=== PATIENT | male | born 1975 | race Caucasian/White ===

== ENCOUNTER 2017-05-05 10:24 | Emergency (ER) | payer SELFPAY ==
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
[2017-05-05 11:13] LABS: ALT (SGPT) 39 U/L (8-55); AST (SGOT) 45 U/L (5-34); Albumin 4.2 g/dL (3.5-5.0); Alkaline Phosphatase 86 U/L (40-150); Anion Gap 19 mmol/L (10-20); BUN (Urea Nitrogen) 9 mg/dL (8.9-20.6); Bilirubin, Total 1.5 mg/dL (0.2-1.2); Calc. Creatinine Clearance 0 mL/min (70-130); Calcium 9.7 mg/dL (7.8-10.44); Carbon Dioxide 25 mmol/L (22-29); Chloride 102 mmol/L (98-107); Estimated GFR-MDRD Greater than 90; Globulin 2.5 g/dL (2.4-3.5); Glucose 119 mg/dL (70-105); Potassium 3.8 mmol/L (3.5-5.1); Protein, Total 6.7 g/dL (6.0-8.3); Sodium 142 mmol/L (136-145)
[2017-05-05 11:20] LABS: #Lymphocytes 0.8 thou/uL (1.20-3.40); #Monocytes 0.6 thou/uL (0.11-0.59); #Neutrophils 3.9 thou/uL (1.40-6.50); %Basophils 0.3 % (0.0-1.0); %Eosinophils 0.3 % (0.0-10.0); %Lymphocytes 14.8 % (21.0-51.0); %Monocytes 10.7 % (0.0-10.0); %Neutrophils 73.9 % (42.0-75.0); Hemoglobin 14.2 g/dL (14.0-18.0); Mean Corpuscular HGB CONC 33.7 g/dL (32.0-36.0); Mean Corpuscular Hemoglobin 40.6 pg (27.0-31.0); Mean Platelet Volume 7.5 fL (7.4-10.4); Platelet Count 282 thou/uL (130-400); RBC Distribution Width 14.4 % (11.5-14.5); Red Blood Cell (RBC) Count 3.51 mill/uL (4.70-6.10); White Blood Cell (WBC) Count 5.2 thou/uL (4.8-10.8)
[2017-05-05 11:37] LABS: MDiff Complete? YES; Macrocytosis SLIGHT = 6-15 cells (100X) (0-5/hpf)
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
[2017-05-05] MEDS ORDERED: Ketorolac Tromethamine 30 MG/ML VIAL ONE (13:25)
== END 2017-05-05 13:35 | disposition home or self-care (01) ==
LOC: ERS 10:24
DX: S06.0X0A Concussion without loss of consciousness, initial encounter (principal); S16.1XXA Strain of muscle, fascia and tendon at neck level, initial encounter; E03.9 Hypothyroidism, unspecified; F41.9 Anxiety disorder, unspecified; Z79.899 Other long term (current) drug therapy; Z79.01 Long term (current) use of anticoagulants; V49.9XXA Car occupant (driver) (passenger) injured in unspecified traffic accident, initial encounter
CPT/HCPCS: 70450; 72125; 80053; 85025; 96374; J1885

== ENCOUNTER 2017-09-10 15:43 | Emergency (ER) | payer SELFPAY ==
[2017-09-10 16:28] LABS: #Eosinphils 0.1 thou/uL (0.0-0.7); #Lymphocytes 1.6 thou/uL (1.20-3.40); #Monocytes 0.5 thou/uL (0.11-0.59); #Neutrophils 3.6 thou/uL (1.40-6.50); %Basophils 0.8 % (0.0-1.0); %Eosinophils 1.5 % (0.0-10.0); %Monocytes 9.1 % (0.0-10.0); %Neutrophils 61.6 % (42.0-75.0); Hemoglobin 12.8 g/dL (14.0-18.0); Mean Corpuscular HGB CONC 33.5 g/dL (32.0-36.0); Mean Corpuscular Hemoglobin 39.6 pg (27.0-31.0); Mean Platelet Volume 7.3 fL (7.4-10.4); Platelet Count 194 thou/uL (130-400); RBC Distribution Width 14.7 % (11.5-14.5); Red Blood Cell (RBC) Count 3.22 mill/uL (4.70-6.10); White Blood Cell (WBC) Count 5.9 thou/uL (4.8-10.8)
[2017-09-10 16:32] LABS: INR-International Normal Ratio 1.3
[2017-09-10 16:33] LABS: PTT 32.4 SEC (22.9-36.1)
--- NOTE | 2017-09-10 16:43 | RAD ---
PORTABLE CHEST ONE VIEW: 09/10/17 at 3:51 p.m. HISTORY: Leg swelling. Mild left pain. DVT. FINDINGS: The heart size is borderline. The lungs are well expanded without focal areas of consolidation, pneum othorax, titus pulmonary edema or pleural effusions. IMPRESSION: No acute process. POS: YUDITHH
[2017-09-10 16:44] LABS: MDiff Complete? YES; Macrocytosis SLIGHT = 6-15 cells (100X) (0-5/hpf); PLT Morphology Comment Appears Adequate
[2017-09-10 16:50] LABS: ALT (SGPT) 58 U/L (8-55); AST (SGOT) 43 U/L (5-34); Albumin 3.4 g/dL (3.5-5.0); Alkaline Phosphatase 75 U/L (40-150); Anion Gap 14 mmol/L (10-20); BUN (Urea Nitrogen) 9 mg/dL (8.9-20.6); Bilirubin, Total 1.3 mg/dL (0.2-1.2); Calc. Creatinine Clearance 0 mL/min (70-130); Calcium 8.3 mg/dL (7.8-10.44); Carbon Dioxide 26 mmol/L (22-29); Chloride 108 mmol/L (98-107); Estimated GFR-MDRD Greater than 90; Globulin 2.3 g/dL (2.4-3.5); Glucose 102 mg/dL (70-105); Potassium 3.7 mmol/L (3.5-5.1); Protein, Total 5.7 g/dL (6.0-8.3); Sodium 144 mmol/L (136-145)
--- NOTE | 2017-09-10 17:45 | ULT ---
BILATERAL LOWER EXTREMITY VENOUS DUPLEX EXAM: 09/10/17 Deep veins of both lower extremities evaluated with color doppler and spectral analysis and compressi on. INDICATIONS: Bilateral leg edema and pain. FINDINGS: Right lower extremity shows nonocclusive DVT extending from the proximal femoral vein throughout the thigh and extending into the popliteal vein. There is no compression. There is some blood flow seen with doppler with echogenic thrombus present. Findings of the left lower extremity show normal compression and blood flow. IMPRESSION: Positive study for DVT in the right lower extremity. Dr. Dubois was notified at time of dictation. Code CR POS: YUDITH
[2017-09-10] MEDS ORDERED: Ketorolac Tromethamine 30 MG/ML VIAL ONE (17:46)
--- NOTE | 2017-09-10 17:54 | CT ---
CT ANGIO CHEST WITH CONTRAST: 09/10/17 Multiple axial tomograms obtained through the chest with pulmonary angio protocol. Multiplanar recons truction and 3D postprocessing performed. INDICATION: DVT, hypotension. FINDINGS: Pulmonary arteries show adequate opacification. No evidence of pulmonary embolus identified. The lung longoria show patchy infiltrate in the left lower lobe which could represent early pneumonia. There appears to be some associated atelectasis in the left lower lobe as well. There is a nodular opacity in the right middle lobe measuring 5 mm. There may be some surrounding inf iltrate at this site. Mediastinum unremarkable. Small sliding diaphragmatic hernia with postop changes involving the stomac h. IMPRESSION: 1. No evidence of pulmonary embolus. 2. Evidence of patchy left lower lobe infiltrate. Question right middle lobe infiltrate and righ t middle lobe nodule. Followup is recommended to confirm clearing and reassess the nodularity. Code LN POS: GENNY
[2017-09-10] MEDS ORDERED: ISOVUE-370 76%-LOCM 1 ML ONE (18:24)
== END 2017-09-10 18:53 | disposition home or self-care (01) ==
LOC: ERS 15:43
DX: I82.411 Acute embolism and thrombosis of right femoral vein (principal); E03.9 Hypothyroidism, unspecified; F41.9 Anxiety disorder, unspecified; Z79.899 Other long term (current) drug therapy
CPT/HCPCS: 71045; 71275; 80053; 83880; 85025; 85610; 85730; 93005; 93970; 96374; J1885

== ENCOUNTER 2017-09-13 20:42 | Emergency (ER) | payer SELFPAY | END 2017-09-13 21:40 | disposition left against medical advice (07) | LOC: ERS 20:42 | DX: Z53.21 Procedure and treatment not carried out due to patient leaving prior to being seen by health care provider (principal) ==

== ENCOUNTER 2018-01-19 07:00 | Emergency (ER) | payer SELFPAY ==
[2018-01-19] MEDS ORDERED: HYDROcodone/Acetaminophen 5/325 mg Tablet ONE (07:21)
[2018-01-19 08:01] LABS: ALT (SGPT) 16 U/L (8-55); AST (SGOT) 53 U/L (5-34); Albumin 3.6 g/dL (3.5-5.0); Alkaline Phosphatase 68 U/L (40-150); Anion Gap 17 mmol/L (10-20); BUN (Urea Nitrogen) 6 mg/dL (8.9-20.6); Bilirubin, Total 2.3 mg/dL (0.2-1.2); Calc. Creatinine Clearance 0 mL/min (70-130); Calcium 8.9 mg/dL (7.8-10.44); Carbon Dioxide 27 mmol/L (22-29); Chloride 99 mmol/L (98-107); Estimated GFR-MDRD Greater than 90; Globulin 2.3 g/dL (2.4-3.5); Glucose 125 mg/dL (70-105); Potassium 3.9 mmol/L (3.5-5.1); Protein, Total 5.9 g/dL (6.0-8.3); Sodium 139 mmol/L (136-145)
[2018-01-19 08:11] LABS: #Lymphocytes 0.6 thou/uL (1.20-3.40); #Monocytes 0.7 thou/uL (0.11-0.59); #Neutrophils 4.2 thou/uL (1.40-6.50); %Basophils 0.1 % (0.0-1.0); %Lymphocytes 11.5 % (21.0-51.0); %Neutrophils 76.3 % (42.0-75.0); Hemoglobin 11.7 g/dL (14.0-18.0); MDiff Complete? YES; Macrocytosis MODERATE=16-30 cells (100X) (0-5/hpf); Mean Corpuscular HGB CONC 32.2 g/dL (32.0-36.0); Mean Corpuscular Hemoglobin 35.4 pg (27.0-31.0); Mean Platelet Volume 7.4 fL (7.4-10.4); Platelet Count 192 thou/uL (130-400); RBC Distribution Width 14.7 % (11.5-14.5); Red Blood Cell (RBC) Count 3.32 mill/uL (4.70-6.10); White Blood Cell (WBC) Count 5.5 thou/uL (4.8-10.8)
[2018-01-19] MEDS ORDERED: Amoxicillin/Potassium Clav 875 MG TAB ONE (08:46)
[2018-01-19 09:24] LABS: Bilirubin Small (Negative); Blood, Urine Negative (Negative); Clarity CLEAR (Clear); Glucose, Urine (Dipstick) Negative (Negative); Leukocyte Small (Negative); Nitrite Negative (Negative); Protein, Urine (Dipstick) Trace mg/dL (Neg-Trace); Specific Gravity, Urine 1.017 (1.002-1.036)
[2018-01-19 09:26] LABS: Bacteria/HPF None Seen HPF (None Seen); Hyaline Casts/LPF 0-3 HYALINE CAST LPF (0-3 Hyaline); Pathc Cast-AUWi Flag 0.29 (0-2.49); RBC/HPF 0-3 HPF (0-3); Squamous Epithelial 0-3 HPF (0-3); WBC/HPF 0-3 HPF (0-3)
--- NOTE | 2018-01-19 09:40 | ULT ---
SCROTAL ULTRASOUND WITH VASCULAR DUPELX INCLUDING COLOR AND SPECTRAL DOPPLER IMAGING: HISTORY: A 42-year-old male with a history of pain and mass. COMPARISON: 08/19/2015. FINDINGS: Right testes measures 4 x 2.6 x 3.0 cm. The left testes measures 3.7 x 2.5 x 2.3 cm. Right epididym is appears within normal limits. Left epididymis is minimally enlarged. There is a complex, solid, and minimal fluid mass in the right scrotum measuring approximately 8.1 x 4.6 x 4.1 cm which is somew hat lateral and inferior to the right testes. This is certainly suspicious for a large area of phleg mon/infection, there is some associated scattered fluid, but there appears to be more soft tissue in this mass rather than significant drainable fluid. There is some abnormal increased blood flow in th is region, evidence for infection. There is arterial inflow and venous outflow to both testes. No evidence for testicular torsion. No significant free hydroceles fluid. Very severe diffuse scrotal wall thickening. The patient did hav e a large more drainable-appearing abscess seen on the prior 08/19/2015 study and had marked scrotal wa ll thickening at that time as well. IMPRESSION: Large abnormal complex collection/mass, probably a large inflammatory mass or phlegmon in the right s crotum without a significant amount of drainable fluid. Marked diffuse scrotal wall thickening. No evidence for intratesticular mass or testicular torsion. POS: GENNY
== END 2018-01-19 08:58 | disposition home or self-care (01) ==
LOC: ERS 07:00
DX: N49.2 Inflammatory disorders of scrotum (principal); E03.9 Hypothyroidism, unspecified; Z86.718 Personal history of other venous thrombosis and embolism; F41.9 Anxiety disorder, unspecified; Z79.899 Other long term (current) drug therapy
CPT/HCPCS: 76870; 80053; 81003; 81015; 85025; 93976

== ENCOUNTER 2018-01-20 10:04 | Inpatient (IN) | payer SELFPAY ==
[2018-01-20 11:07] LABS: #Lymphocytes 0.5 thou/uL (1.20-3.40); #Monocytes 0.8 thou/uL (0.11-0.59); #Neutrophils 4.8 thou/uL (1.40-6.50); %Basophils 0.1 % (0.0-1.0); %Eosinophils 0.1 % (0.0-10.0); %Lymphocytes 7.4 % (21.0-51.0); %Monocytes 13.2 % (0.0-10.0); %Neutrophils 79.1 % (42.0-75.0); Mean Corpuscular HGB CONC 33.2 g/dL (32.0-36.0); Mean Corpuscular Hemoglobin 36.9 pg (27.0-31.0); Mean Platelet Volume 7.2 fL (7.4-10.4); Platelet Count 235 thou/uL (130-400); RBC Distribution Width 14.8 % (11.5-14.5); Red Blood Cell (RBC) Count 3.26 mill/uL (4.70-6.10); White Blood Cell (WBC) Count 6.1 thou/uL (4.8-10.8)
[2018-01-20 12:48] LABS: PTT 34.9 SEC (22.9-36.1)
[2018-01-20 12:58] LABS: ALT (SGPT) 15 U/L (8-55); AST (SGOT) 46 U/L (5-34); Albumin 3.8 g/dL (3.5-5.0); Alkaline Phosphatase 75 U/L (40-150); Anion Gap 15 mmol/L (10-20); BUN (Urea Nitrogen) 6 mg/dL (8.9-20.6); Calc. Creatinine Clearance 0 mL/min (70-130); Calcium 9.5 mg/dL (7.8-10.44); Carbon Dioxide 25 mmol/L (22-29); Chloride 101 mmol/L (98-107); Estimated GFR-MDRD Greater than 90; Globulin 2.7 g/dL (2.4-3.5); Glucose 135 mg/dL (70-105); Protein, Total 6.5 g/dL (6.0-8.3); Sodium 137 mmol/L (136-145)
[2018-01-20 13:22] LABS: INR-International Normal Ratio 1.1; Prothrombin Time 14.3 SEC (12.0-14.7)
[2018-01-20] MEDS ORDERED: Ondansetron HCl/PF 4 MG/2 ML Vial ONE (13:27)
[2018-01-20 14:35] LABS: Bilirubin Moderate (Negative); Blood, Urine Negative (Negative); Clarity CLEAR (Clear); Glucose, Urine (Dipstick) Negative (Negative); Leukocyte Small (Negative); Nitrite Positive (Negative); Protein, Urine (Dipstick) 30 mg/dL (Neg-Trace); Specific Gravity, Urine 1.025 (1.002-1.036); pH, Urine 7.5 (5.0-9.0)
[2018-01-20] MEDS ORDERED: Vancomycin HCl 1.5 GM in Sodium Chloride 0.9% 250 ML 300 ML IVPB SCH (14:45)
[2018-01-20 14:51] LABS: Bacteria/HPF None Seen HPF (None Seen); Pathc Cast-AUWi Flag 1.59 (0-2.49); RBC/HPF 0-3 HPF (0-3); Squamous Epithelial 0-3 HPF (0-3); WBC/HPF 0-3 HPF (0-3)
[2018-01-20 14:52] LABS: Hyaline Casts/LPF 0-3 HYALINE CAST LPF (0-3 Hyaline); Renal Epithelial None Seen HPF (0-3); Transitional Epithelial NONE SEEN HPF (0-3)
[2018-01-20] MEDS ORDERED: Lidocaine 1% w/Epinephrine 1:100K 20 ML VIAL ONE (14:59)
[2018-01-20] MEDS ORDERED: Piperacillin/Tazobactam 4.5 GM VIAL ONE (15:03)
[2018-01-20] MEDS ORDERED: Fentanyl 100 MCG/2 ML VIAL ONE ×2 (15:20→15:35)
[2018-01-20 16:35] LABS: Lactic Acid 1.8 mmol/L (0.5-2.2)
[2018-01-20] MEDS ORDERED: Ondansetron ODT 4 MG TAB PO PRN (16:56)
[2018-01-20] MEDS ORDERED: Acetaminophen 325 MG TAB PO PRN (16:56)
[2018-01-20] MEDS ORDERED: Acetaminophen 650 MG Suppository PR PRN (16:56)
[2018-01-20] MEDS ORDERED: Bisacodyl 5 MG TAB PO PRN (16:56)
--- NOTE | 2018-01-20 17:15 | HP ---
PRIMARY CARE PROVIDER: Merrill Null M.D. CHIEF COMPLAINT: Scrotal mass. HISTORY OF PRESENT ILLNESS: Mr. Reyna is a pleasant 42-year-old gentleman who was seen at [facility] on 01/20/2018. He reports that about 5-6 days ago he noticed a pimple-like structure over the right side of his scro tae. This has been gradually worsening. He denies any abdominal pain, but reports that his scrotum was extremely tender to touch, worse with movement. He describes the pain as sharp, 10/[address], nonradiating, worse with movement, improved with rest, not accompanied by chest pain or shortness of breath. He denies any fevers or chills. He was seen in the emergency room yesterday. Ultrasoun d did not show any abscess. He was prescribed Augmentin and discharged home. He came to the emergen cy room because of ongoing pain. REVIEW OF SYSTEMS: All other systems reviewed and found to be negative. PAST MEDICAL HISTORY: Hypothyroidism, multiple episodes of deep vein thrombosis. PAST SURGICAL HISTORY: Cholecystectomy, gastric sleeve surgery, bilateral knee surgery, hernia repai r and IVC filter. PSYCHIATRIC HISTORY: Anxiety. SOCIAL HISTORY: The patient denies tobacco use, alcohol use or recreational drug use. ALLERGIES: CORTICOSTEROIDS and NEURONTIN. CURRENT MEDICATIONS: Valium 10 mg as needed, multivitamins 1 tablet daily, warfarin 5 mg daily, Tyle nol #3 every 8 hours as needed, Celexa 10 mg at bedtime, and Augmentin 1 tablet 2 times a day which w as started yesterday in the emergency room. FAMILY HISTORY: He denies any family history of premature coronary artery disease. PHYSICAL EXAMINATION: GENERAL: Mr. Reyna is awake and alert, not in acute distress. VITAL SIGNS: Blood pressure is 90/60, pulse 85, respiratory rate 18, and oxygen saturation 96% on ro om air. He is afebrile. His maximal pulse in the emergency room was 121. EYES: No scleral icterus. No conjunctival pallor. ENT: Moist mucosal membranes. No oropharyngeal erythema or exudates. NECK: Supple, nontender. Trachea is midline. RESPIRATORY: Accessory muscles of breathing are not active. Chest wall movements are symmetric bila terally. LUNGS: Clear to auscultation without wheeze, rhonchi or crepitations. CARDIOVASCULAR: S1 and S2 are heard, regular. Peripheral pulses palpable. No carotid bruit, no per icardial rub. ABDOMEN: Soft, nontender, bowel sounds are heard, no hepatomegaly, no splenomegaly. GENITOURINARY: Swelling over the right side of the scrotum. SKIN: Indurated and erythematous with openings in the skin, draining bloody/purulent material. NEUROLOGIC: Cranial nerves II-XII intact. Deep tendon reflexes 2+. MUSCULOSKELETAL: Power is 5/5 in all 4 extremities. SKIN: Scrotal lesion as described above. LYMPHATIC: No inguinal lymphadenopathy. PSYCHIATRIC: Normal mood, normal affect, the patient is oriented to person, place, and time. DATABASE: Mr. Reyna is labs and investigations were reviewed. He has normal white count, macrocy tic anemia with hemoglobin 12, normal platelet count, INR 1.1, normal electrolytes, elevated lactic a morro level of 3.2, normal creatinine, elevated total bilirubin of 2.0, elevated AST of 46, normal ALT, normal alkaline phosphatase and urinalysis that is positive for nitrite and leukocyte esterase. ASSESSMENT AND PLAN: Mr. Reyna is a pleasant 42-year-old gentleman who was seen at [facility] on 01/20/2018. His problem list includes: 1. Scrotal abscess: Mr. Reyna is presenting with scrotal abscess. He had a scrotal ultrasound y esterday, which showed a large abnormal complex collection/mass, probably large inflammatory mass or phlegmon in the right scrotum. The radiologist at that time called that there was no significant mirela unt of drainable fluid. Mr. Reyna is being admitted to the hospital today for further management. His case has been discussed with the urologist by the emergency room physician. The emergency room physician has been advised to attempt to drain any fluid. Urology service will be consulted for hel p with further management. The patient has been started on antibiotics, which I will continue. 2. Lactic acidosis: Likely secondary to infection, although there is no clear evidence of sepsis at this time. 3. History of recurrent DVTs: The patient's INR is subtherapeutic. We will reassess him tomorrow a fter I&D today. If he is stable, we will start him on anticoagulation. Many thanks for allowing me to participate in your patient's care. Please feel free to contact me wi th any questions or concerns. LEVEL OF RISK: Moderate. LEVEL OF COMPLEXITY: Moderate.
[2018-01-20 17:38] VITALS: BMI 30.8
[2018-01-20] MEDS: Sodium Chloride 0.9% 1,000 ML IV SCH (18:09)
[2018-01-20] MEDS: Acetaminophen/Codeine 30-300mg Tablet PO PRN (18:12)
[2018-01-20] MEDS ORDERED: Mag-Al 1200 mg/1200 mg/30 ML UDCUP PO PRN (20:14)
[2018-01-20] MEDS: Piperacillin/Tazobactam 4.5 GM in Sodium Chloride 0.9% 100 ML IVPB SCH (21:23)
[2018-01-20] MEDS: Famotidine 20 MG TAB PO SCH (21:23)
--- NOTE | 2018-01-21 00:17 | CON ---
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 Patient reports that he actually has previously had a scrotal abscess on the right hemiscrotum almost exactly the same location with the same presentation about 2 years ago cared for at the [facility] by Dr. Jus Lynn. Mr. Reyna reports that he had a previous scrotal abscess which opened and ruptured and underwent a packing for a period of about 2 months. Eventually, his wound closed. 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 Mr. Reyna reports that he was involved in some roping earlier in the week and he felt like he might have gotten infected from that. He reports that a small pimple-like lesion arose in the area of the previous infection and eventually turned into a red, swollen right hemiscrotum. PAST MEDICAL HISTORY: Mr. Reyna's medical history is significant for obesity after his football years and he has undergone a gastric sleeve operation , has also had multiple knee operations. Other than this, he is doing reasonably well. ALLERGIES: The patient reports allergy to CORTICOSTEROIDS which results in swelling of his lower extremities. Also reports an allergy to GABAPENTIN. He does not report any antibiotic allergies. PAST MEDICAL HISTORY: 1. Scrotal abscess as described above. 2. Morbid obesity, now status post gastric sleeve procedure. 3. Hypothyroidism. 4. Recurrent deep vein thrombosis requiring anticoagulation. PAST SURGICAL HISTORY: 1. Cholecystectomy. 2. Gastric sleeve operation. 3. Bilateral knee surgeries. 4. Inguinal hernia repair. 5. IVC filter. CURRENT HOME MEDICATIONS: 1. Valium 10 mg as needed. 2. Daily multivitamin. 3. Warfarin 5 mg per day. 4. Tylenol #3 q.8 hours as needed. 5. Celexa 10 mg at bedtime. 6. Augmentin 1 tablet 2 times a day started in the emergency department on 01/2018. The patient was apparently seen in the emergency department day prior to this presentation. FAMILY MEDICAL HISTORY: No family history of coronary artery disease or scrotal abscesses. PHYSICAL EXAMINATION: VITAL SIGNS: Temperature currently 98.4, pulse 78, respirations 14, O2 saturation 98% on room air, blood pressure is 104/53. GENERAL: This is a pleasant, awake, alert, white male in no apparent distress. HEENT: Patient has bitemporal wasting consistent with significant weight loss including protein loss. Oropharynx is clear. NECK: Supple. LUNGS: Clear to auscultation bilaterally. CARDIAC: Regular rate and rhythm. ABDOMEN: Soft, obese, and nontender. The patient has undergone previous gastric sleeve operation. EXTREMITIES: Shows scars consistent with the patient's history of multiple previous knee surgeries bilaterally. BACK: No costovertebral angle tenderness. GENITOURINARY: Phallus is uncircumcised and is without lesion. Urethral meatus appears adequate. Scrotum examination, right hemiscrotum has multiple pore-like openings in it. There is no evidence of black skin at present. There is some induration above the openings. The patient did undergo I and D in the emergency department. There is no purulent drainage, just a little bit of blood present. There is some quarter-inch packing tape present in one of the openings. The swelling does not extend onto the patient's mons pubis at present. There is no actual perineal induration, so far confined to the scrotum and scroto-mons junction. Digital rectal examination was performed finds no perianal, anal or rectal canal swelling. The patient's prostate gland palpates to about 30 grams right side larger than the left, is nontender on examination. LABORATORY STUDIES: The patient's white count nonelevated at 6100. Neutrophil count is 79.1%. There is no elevation of the ANC which is currently at 4800. Hemoglobin is 12.0 with hematocrit of 36.3. Serum chemistry shows the patient' s blood urea nitrogen at 6, creatinine 0.69. Estimated GFR greater than 90%. Current glucose 135. Lactic acid is 3.2. Liver enzymes show elevation of AST at 46. MICROBIOLOGY EVALUATION: A gram stain was performed of fluid from the patient' s right hemiscrotum. This shows the presence of moderate amount of gram positive cocci in clusters. A few gram-negative rods also observed, many white cells and red cells present. No epithelial cells observed. Culture results from the [facility] are not yet available. IMAGING: Ultrasound evaluation, reviewed the patient's scrotal ultrasound study which was performed yesterday shows the patient's bilateral testes and epididymal structures appear to be completely normal. It does appear to be a scrotal wall abscess to my review of the ultrasound consistent with a scrotal wall abscess. The testes themselves appear to be benign. There is no evidence of torsion. There is good preserved flow. The epididymal structures appear benign as well. ASSESSMENT AND PLAN: This appears to be a chronic right hemiscrotal abscess process with an acute exacerbation presentation. The patient has been dealing with this process probably for 2 years or longer, does have an acute exacerbation of it. I discussed with the patient surgical excision of the affected skin would be the appropriate course of action. Patient did eat this evening and therefore is not an appropriate candidate for surgery is stable, does not have an elevated white count, elevated ANC and other than hypotension, does not appear to be overtly septic to my examination. He may be immunosuppressed and therefore SIRS is a consideration as is Rafael;s gangrene in evolution. Currently there is no evidence of dark skin, black skin or extension into the abdominal wall on this patient. Based on the findings, I think the patient should undergo excision of the chronically infected scrotal wall skin which could be performed tomorrow when he is NPO and has been medically stabilized. I think it should be performed on this hospitalization, this is otherwise going to be a recurrent process that continues to present to the emergency department an may progress. Based on evaluation of the patient, I think we will make him on a clear liquid, and NPO diet in the morning and we will work him into the operating room schedule tomorrow after medical stabilization and antibiotic therapy. TIME SPENT: Over 70 minutes of initial evaluation and assessment time was spent in the care of this patient, over of which was in face to face evaluation, or in coordination of care, or in communication with the patient's family regarding care, exclusive of any procedures performed, [id number]. ANALILIAD
[2018-01-21] MEDS: Acetaminophen/Codeine 30-300mg Tablet PO PRN (00:27)
[2018-01-21] MEDS ORDERED: Sodium Chloride 0.9% 1,000 ML IV SCH ×2 (03:45→13:00)
[2018-01-21] MEDS ORDERED: Morphine 4 MG/ML VIAL ONE (10:29)
[2018-01-21] MEDS ORDERED: Lidocaine 1% PF 5 ML VIAL ONE (11:38)
[2018-01-21] MEDS ORDERED: ePHEDrine/0.9% NaCl/PF SYRINGE 50 mg/10 ml ONE (11:38)
[2018-01-21] MEDS ORDERED: PHENYLEPHRINE-NS 100 MCG/ML 10 ML SYRINGE ONE (11:38)
[2018-01-21] MEDS ORDERED: Ondansetron HCl/PF 4 MG/2 ML Vial ONE (11:38)
[2018-01-21] MEDS ORDERED: PROPOFOL 200 MG/20 ML VIAL ONE (11:38)
[2018-01-21] MEDS: Piperacillin/Tazobactam 4.5 GM in Sodium Chloride 0.9% 100 ML IVPB SCH ×3 (11:55→21:34)
[2018-01-21] MEDS: Vancomycin HCl 1 GM in Premix Bag 1 BAG IVPB SCH ×2 (11:55→21:30)
[2018-01-21] MEDS: Sodium Chloride 0.9% 1,000 ML IV SCH ×2 (11:56→21:31)
[2018-01-21] MEDS: Famotidine 20 MG TAB PO SCH ×2 (11:56→21:31)
[2018-01-21 12:51] LABS: Anion Gap 11 mmol/L (10-20); BUN (Urea Nitrogen) 7 mg/dL (8.9-20.6); Calc. Creatinine Clearance 258 mL/min (70-130); Carbon Dioxide 24 mmol/L (22-29); Chloride 109 mmol/L (98-107); Estimated GFR-MDRD Greater than 90; Glucose 89 mg/dL (70-105); Potassium 4.3 mmol/L (3.5-5.1); Sodium 140 mmol/L (136-145)
[2018-01-21] MEDS ORDERED: Morphine 2 MG/ML SYRINGE SLOW IVP PRN (12:59)
--- NOTE | 2018-01-21 14:49 | PDOC.EVN ---
Event Note - Event Note Event Note: Plandree was down, wrote daily progress note on paper, pls check physical chart
[2018-01-21 17:43] LABS: Hemoglobin 9.5 g/dL (14.0-18.0); Red Blood Cell (RBC) Count 2.58 mill/uL (4.70-6.10); White Blood Cell (WBC) Count 3.4 thou/uL (4.8-10.8)
[2018-01-21 17:44] LABS: Band 2 % (5-11); Eosinophils 2 % (0-10); Lymphocytes 22 % (21-51); Macrocytosis MODERATE=16-30 cells (100X) (0-5/hpf); Mean Corpuscular HGB CONC 32.5 g/dL (32.0-36.0); Mean Corpuscular Hemoglobin 36.7 pg (27.0-31.0); Mean Platelet Volume 7.5 fL (7.4-10.4); Monocytes 21 % (0-10); Neutrophil 53 % (42-75); PLT Morphology Comment Appears Adequate; Platelet Count 195 thou/uL (130-400); RBC Distribution Width 14.9 % (11.5-14.5)
[2018-01-21 18:01] LABS: MDiff Complete? YES
[2018-01-21] MEDS ORDERED: Bacitracin Zinc Ointment 30 gm TUBE ONE (18:06)
[2018-01-21] MEDS ORDERED: Bupivacaine/Epinephrine 0.25% 30 ML VIAL ONE (18:06)
--- NOTE | 2018-01-21 18:10 | PDOC.PN ---
- Subjective Encounter Start Date: 01/21/18 Encounter Start Time: 11:00 Pt seen for followup re: scrotal abscess. Denies fevers. c/o scrotal pain. No nausea or vomiting. - Objective MAR Reviewed: Yes Vital Signs & Weight: Vital Signs (12 hours) Temp Pulse Resp BP Pulse Ox 01/21/18 16:00 98.3 F 74 15 106/64 98 01/21/18 12:00 98.3 F 71 12 95/57 L 99 01/21/18 08:00 98 Weight Admit Weight 260 lb Weight 260 lb Result Diagrams: 01/21/18 03:30 01/21/18 03:30 EKG Reviewed by me: Yes (Tele: NSR) Phys Exam - Physical Examination Obese HEENT: moist MMs, sclera anicteric, oral pharynx no lesions, 2+ tonsils Neck: no nodes, no JVD, supple, full ROM Respiratory: no wheezing, no rales, no rhonchi, clear to auscultation bilateral Cardiovascular: RRR, no rub S1, S2 Gastrointestinal: soft, non-tender, no distention, positive bowel sounds scrotal lesion (right side) Neurological: moves all 4 limbs Psychiatric: normal affect, A&O x 3 Dx/Plan (1) Scrotal abscess Code(s): N49.2 - INFLAMMATORY DISORDERS OF SCROTUM Status: Acute Comment: continue IV antibiotics as below (2) Scrotal pain Code(s): N50.82 - SCROTAL PAIN Status: Acute Comment: start PRN IV morphine (3) Lactic acidosis Code(s): E87.2 - ACIDOSIS Status: Resolved - Plan * . Review of Systems - Review of Systems Constitutional: negative: fever, chills, sweats, weakness, malaise Respiratory: negative: Cough, Shortness of Breath, SOB with Excertion, Pleuritic Pain, Wheezing Cardiovascular: negative: chest pain, palpitations, orthopnea, paroxysmal nocturnal dyspnea, edema, light headedness Gastrointestinal: negative: Nausea, Vomiting, Abdominal Pain, Diarrhea, Constipation, Melena, Hematochezia Genitourinary: Other (scrotal pain). negative: Dysuria, Frequency, Incontinence , Hematuria, Retention Skin: Lesions Neurological: negative: Weakness, Numbness, Incoordination, Change in Speech, Confusion, Seizures - Medications/Allergies Allergies/Adverse Reactions: Allergies Allergy/AdvReac Type Severity Reaction Status Date / Time Corticosteroids Allergy Verified 01/20/18 17:36 (Glucocorticoids) gabapentin [From Neurontin] Allergy Verified 01/20/18 17:36 steroid injection Allergy Uncoded 01/20/18 17:36 Medications: Current Medications Acetaminophen (Tylenol) 650 mg PO Q4H PRN PRN Reason: Headache/Fever/Mild Pain (1-3) Acetaminophen (Tylenol) 650 mg AR Q4H PRN PRN Reason: Headache/Fever/Mild Pain (1-3) Acetaminophen/Codeine Phosphate (Tylenol #3) 1 tab PO Q6H PRN PRN Reason: Moderate Pain (4-6) Last Admin: 01/21/18 00:27 Dose: 1 tab Al Hydroxide/Mg Hydroxide (Maalox) 30 ml PO Q6H PRN PRN Reason: Heartburn Last Admin: 01/20/18 21:23 Dose: 30 ml Bisacodyl (Dulcolax) 10 mg PO DAILYPRN PRN PRN Reason: Constipation Famotidine (Pepcid) 40 mg PO BID [facility] Last Admin: 01/21/18 11:56 Dose: Not Given Sodium Chloride (Normal Saline 0.9%) 1,000 mls @ 75 mls/hr IV .[id number] [facility] Last Admin: 01/21/18 11:56 Dose: Not Given Vancomycin HCl 1 gm/ Device 200 mls @ 200 mls/hr IVPB 0500,1700 [facility] Last Admin: 01/21/18 11:55 Dose: Not Given Piperacillin Sod/Tazobactam (Sod 4.5 gm/ Sodium Chloride) 100 mls @ 200 mls/hr IVPB Q8HR [facility] Last Admin: 01/21/18 15:19 Dose: 100 mls Morphine Sulfate (Morphine) 2 mg SLOW IVP Q4H PRN PRN Reason: Pain Last Admin: 01/21/18 16:08 Dose: 2 mg Ondansetron HCl (Zofran Odt) 4 mg PO Q6H PRN PRN Reason: Nausea/Vomiting Sodium Chloride (Flush - Normal Saline) 10 ml IVF Q12HR [facility] Sodium Chloride (Flush - Normal Saline) 10 ml IVF PRN PRN PRN Reason: Saline Flush
[2018-01-21] MEDS ORDERED: Bupivacaine 0.25% HCL 30 ML VIAL ONE (18:20)
[2018-01-21] MEDS ORDERED: Fentanyl 100 MCG/2 ML VIAL ONE ×3 (18:26→20:38)
[2018-01-21] MEDS ORDERED: Ondansetron HCl/PF 4 MG/2 ML Vial IVP PRN (20:16)
[2018-01-21] MEDS ORDERED: Promethazine HCl 25 MG/ML VIAL IM PRN (20:16)
[2018-01-21] MEDS ORDERED: Promethazine HCl 25 MG/ML VIAL SLOW IVP PRN (20:16)
[2018-01-21] MEDS ORDERED: HYDROcodone/Acetaminophen 5/325 mg Tablet PO PRN (21:00)
--- NOTE | 2018-01-21 22:55 | CON ---
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 Patient reported a history of a similar process about 2 years ago rather and was cared for at the [facility] by Dr. Jus Lynn. Patient had had packing through the multiple draining sites previously and has recurrence and almost exactly in the same location. He was treated with antibiotics overnight and is stable at this point for surgical intervention. Please see my complete consultation report from yesterday for additional details. LABORATORY DATA: Serum chemistry showed the patient's serum lactate is improved to normal at this point with a current lactate of 1.8 down from 3.2 yesterday. Microbiology results show no growth at the present time for urine and blood. A preliminary bacterial culture from 01/20/2018 was performed as a Gram stain and may have possible growth in nutrient broth at this point. There were gram positive cocci in clusters on that evaluation. There were a few gram negative rods seen as well. PHYSICAL EXAMINATION: VITAL SIGNS: Temperature 98.3, pulse 74, respirations 15, blood pressure is now up to 106/64. He previously was hypotensive and had an elevated lactate. HEAD, EYES, EARS, NOSE, AND THROAT: Extraocular movements are intact. Sclerae are anicteric. There is bitemporal wasting consistent with muscular weight loss by this patient. The patient's sclerae are anicteric. Oropharynx is clear. NECK: Supple. LUNGS: Clear to auscultation bilaterally. CARDIAC: Regular rate and rhythm. ABDOMEN: Soft, obese, and nontender. EXTREMITIES: Appear within normal limits. NEUROLOGIC: Patient is able to move all extremities against gravity. GENITOURINARY: Phallus is without lesion. Scrotal examination finds a right hemiscrotum little on the fluctuant side today possibly darkened at mons- scrotal junction. There were multiple openings apparently draining abscess cavity in the right hemiscrotum inferior to the mons. Left hemiscrotum appears relatively benign. RECTAL: Digital rectal examination was not repeated today as it was performed yesterday. ASSESSMENT AND PLAN: Right hemiscrotal recurrent abscess involving infected probably granulated tissue. Plan will be for excision of the infected involved skin on the right hemiscrotum and then setting up proper dressings and treatment for this patient over the long haul. This patient has a recurrent right hemiscrotal abscess. Over 35 minutes of subsequent evaluation and assessment time was spent in the care of this patient, over of which was in face to face evaluation, or in coordination of care, or in communication with the patient's family regarding care, exclusive of any procedures performed, [id number]. [facility]
--- NOTE | 2018-01-22 00:32 | OP ---
DATE OF HOSPITAL ADMISSION: 01/20/2018 DATE OF PROCEDURE: 01/21/2018 PREOPERATIVE DIAGNOSES: 1. 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 2. Chronic scrotal wall abscess. Overall, lesion size 10 x 7 x 3 cm. PROBLEM LIST Abscess of skin, L02.91 Rafael gangrene, N49.3 SIRS (systemic inflammatory response syndrome) (HCC), R65.10 POSTOPERATIVE DIAGNOSIS: Rafael's debridement, Genital skin, RIGHT perineum/ scrotum excisional to fascia, 10 cm x 7 cm x 3 cm. [id number] SURGEON: Merrill Jefferson M.D. HEALTH INFORMATION CODER SURGEON: None. BRIEF HISTORY AND INDICATION FOR PROCEDURE: Mr. Alphonse Reyna is a pleasant 42-year-old white male who has a history of a chronic RIGHT hemiscrotal wall abscess which has been present for about 2 years, it intermittently drains. The patient presented to the emergency department with finding suggesting of progression of his wound, it did open and drain. The patient was brought into the hospital due to concern about his status from a sepsis standpoint, so resuscitated using IV fluid and appropriate antibiotics. The patient was kept on telemetry monitoring during this time. After adequate resuscitation, the patient was brought to the operating room today for excision of the chronically infected RIGHT hemiscrotal wall abscess and the superior aspect of the tissue RIGHT side which appear to be involved with early Rafael's gangrene. TECHNICAL PROCEDURE: The patient was appropriately identified in the preoperative holding area, informed written consent was obtained. The patient was transported to the operative suite, placed in the supine position on the operative table, general anesthesia was established. The patient was prepped and draped in usual sterile fashion. We examined the patient's RIGHT hemiscrotal abscess wound which measured 10 cm x 7 cm x 3 cm and appeared to have induced swelling in the adjacent hemiscrotal wall on the left. The RIGHT hemiscrotal wall was fluctuant and through portions in the upper aspect appeared necrotic. We made a football type incision after marking the area extending from nearly the root of the penis to the most inferior aspect of the patient's right hemiscrotal wall which was about 10 cm in length. There was an approximately 7 cm width to the area, we extended this incision down to the tunica vaginalis scrotal wall. The tissue was excised and sent for permanent section. We performed electrocautery as necessary to close small blood vessels. A small rent was made in the patient's tunica vaginalis verifying the fascial debridement was carried to an appropriate level. We closed the small rent using 4-0 Vicryl suture in a running fashion. We then copiously irrigated the wound. There was no remaining necrotic tissue. We placed a Aidan drain in the depths of the football incision and then placed two #1 nylon sutures in the mid portion of the wound. We applied packing to the wound superior to the Aidan drain. The patient then received a wet to dry type dressing with a burn fluffs. We applied an athletic supporter to hold the burn fluffs in place. The patient was awakened and his LMA airway removed at the close of the procedure. He tolerated the procedure well with no evident complications. ESTIMATED BLOOD LOSS: Less than 50 mL. SPECIMENS REMOVED: RIGHT hemiscrotal wall to the level of the tunica vaginalis. The patient's condition good, no difficulties and the patient was transported to the postoperative recovery area, breathing on his own. RANJAN
[2018-01-22] MEDS: Vancomycin HCl 1 GM in Premix Bag 1 BAG IVPB SCH (04:17)
[2018-01-22 05:29] LABS: Anion Gap 11 mmol/L (10-20); BUN (Urea Nitrogen) 5 mg/dL (8.9-20.6); Calc. Creatinine Clearance 262 mL/min (70-130); Calcium 8.2 mg/dL (7.8-10.44); Carbon Dioxide 24 mmol/L (22-29); Chloride 109 mmol/L (98-107); Estimated GFR-MDRD Greater than 90; Glucose 96 mg/dL (70-105); Potassium 3.9 mmol/L (3.5-5.1); Sodium 140 mmol/L (136-145)
[2018-01-22] MEDS: Piperacillin/Tazobactam 4.5 GM in Sodium Chloride 0.9% 100 ML IVPB SCH (06:25)
[2018-01-22 06:50] LABS: Hemoglobin 9.2 g/dL (14.0-18.0); Mean Corpuscular HGB CONC 33.1 g/dL (32.0-36.0); Mean Corpuscular Hemoglobin 37.2 pg (27.0-31.0); Mean Platelet Volume 6.9 fL (7.4-10.4); Platelet Count 243 thou/uL (130-400); RBC Distribution Width 14.8 % (11.5-14.5); Red Blood Cell (RBC) Count 2.48 mill/uL (4.70-6.10); White Blood Cell (WBC) Count 3.3 thou/uL (4.8-10.8)
[2018-01-22 06:51] LABS: Band 8 % (5-11); Eosinophils 5 % (0-10); Lymphocytes 26 % (21-51); MDiff Complete? YES; Macrocytosis SLIGHT = 6-15 cells (100X) (0-5/hpf); Monocytes 18 % (0-10); Neutrophil 43 % (42-75)
[2018-01-22] MEDS: Famotidine 20 MG TAB PO SCH (08:11)
[2018-01-22] MEDS: Sodium Chloride 0.9% 1,000 ML IV SCH (08:13)
[2018-01-22] MEDS ORDERED: traMADol HCl 50 MG TAB PO PRN ×2 (12:06)
[2018-01-22] MEDS ORDERED: Acetaminophen/Codeine 30-300mg Tablet PO PRN (12:17)
[2018-01-22 12:27] VITALS: BP 99/66; TEMP 98.7
[2018-01-22] MEDS ORDERED: Sulfameth/Trimethoprim DS 800-160mg TAB PO SCH (12:30)
--- NOTE | 2018-01-22 13:01 | PRG ---
DATE OF SERVICE: 01/22/2018 DATE OF INITIAL CONSULTATION: 01/20/2018 REASON FOR INITIAL CONSULTATION: Right hemiscrotal abscess, sepsis-type symptoms and possible Rafael's gangrene. PROBLEM LIST Abscess of skin, L02.91 Rafael gangrene, N49.3 SIRS (systemic inflammatory response syndrome) ([facility]), R65.10 BRIEF HISTORY: Mr. Alphonse Reyna is a pleasant 42-year-old white male with a history of previous scrotal abscess about 2 years ago, taken care of by Dr. Jus Lynn of the [facility]. The patient does not report a formal debridement, a simple packing was performed at that point. He has had a recurrence of the right hemiscrotal abscess, which was evaluated in the emergency department on 01/19/2018, and subsequently, the patient returned to the emergency department on 01/20/2018 with rupture of the abscess. He underwent initial packing and stabilization from concern for sepsis. He was taken to the operating room on the evening of 01/21/2018 for formal debridement. An excision to the fascia was performed. PHYSICAL EXAMINATION: VITAL SIGNS: Patient is afebrile with current temperature of 98.7, pulse 76, respirations 18, O2 saturation on room air is 95%. Current blood pressure is 99 /66. HEAD, EYES, EARS, NOSE, AND THROAT: Extraocular movements are intact. Sclerae are anicteric. Patient has bitemporal wasting. LUNGS: Clear. Breathing is unlabored. CARDIAC: Regular rate and rhythm. ABDOMEN: Soft, obese, and nontender. The patient is status post a gastric sleeve operation. GENITOURINARY: Phallus is without lesion. Right hemiscrotum has multiple nylon sutures present with some openings. There is a drain, which has been secured with nylon suture and there is wound packing in place. The patient was instructed on wound packing today. CULTURES: Microbiology evaluation is in progress. There are no positive cultures at this point. There is no growth of urine culture at 48 hours. Blood cultures are also negative. A wound culture was obtained on 01/20/2018 and a preliminary result of a Gram stain showed the presence of gram-positive cocci in clusters and a few gram-negative rods present. LABORATORY STUDIES: Show the patient's white count down to 3.3 with a hemoglobin of 9.2 and hematocrit of 27.9. There is a relative monocytosis. Manual neutrophil count is down to 43 at this point. There are 8% bands, which is in the normal range. Serum chemistries, patient's blood urea nitrogen is 5 and creatinine is 0.60, which is relatively low for a patient of this size. ASSESSMENT AND PLAN: 1. Rafael's gangrene and scrotal abscess. The patient will continue with wound packing at home. I have discussed this process will probably take about 6 weeks. We will have him return to my office in about 2 weeks for removal of the [place] drain. 2. Metabolic syndrome. The patient probably should undergo testosterone and thyroid testing in the office. 3. Anticoagulation therapy for history of deep vein thrombosis. We have discussed the risks and options with the patient's hospitalist and in general agreement that anticoagulation therapy should not be restarted, so the patient is followed up at the 2-week time point. He is only on the Coumadin for prophylaxis of deep vein thromboses at this point. The patient should be fully ambulatory despite his surgical incision. LENNOX schwarz would be recommended as a general rule for a patient of this category. 4. Microbiology and ID concerns. The patient will be appropriate to be covered on Bactrim-DS 1 p.o. b.i.d. Culture results should be followed in clinic as well. 5. Pain control. The patient would be appropriate to go home on Tylenol #3 for use prior to wound packing. Over 35 minutes of subsequent evaluation and assessment time was spent in the care of this patient, over of which was in face to face evaluation, or in coordination of care, or in communication with the patient's family regarding care, exclusive of any procedures performed, [id number]. [facility]
--- NOTE | 2018-01-22 13:42 | DIS ---
DATE OF ADMISSION: 01/20/2018 DATE OF DISCHARGE: 01/22/2018 PRIMARY CARE PROVIDER: Merrill Null M.D. DISCHARGE DIAGNOSES: 1. Rafael's gangrene. 2. Chronic scrotal wall abscess. CONDITION OF PATIENT ON THE DAY OF DISCHARGE: Stable. I assessed Mr. Reyna on the day of dischar ge. He denies any chest pain or shortness of breath. Scrotal pain is better. Vital signs are stabl e. S1 and S2 are heard, regular. Lungs are clear to auscultation bilaterally. DISCHARGE MEDICATIONS: Citalopram 20 mg at bedtime; Valium 10 mg 4 times a day as needed; multivitam ins 1 capsule daily; Tylenol #3 one to two tablets every 6 hours as needed, prescription for 20 table ts; Colace 100 mg 2 times a day while he is on pain medications; and Bactrim-DS 1 tablet 2 times a da y for 2 weeks. He has been advised to stop warfarin. He will be seen by Urology service in 2 weeks' time, and at that time, decision will be made regarding resuming warfarin. He has to follow up with warfarin clinic after that. CONSULTATIONS DURING THIS HOSPITALIZATION: Urology, Dr. Jefferson. HOSPITAL COURSE: Mr. Reyna is a pleasant 42-year-old gentleman, who was admitted to [facility] on 01/20/2018 for Rafael's gangrene and chronic scrotal wall abscess. Please refer to my history and physical note dated 01/20/2018 for further details. He was started on broad- spectrum intravenous antibiotics. He was seen by Urology service. On 01/21/2018, he underwent Fourn ier's debridement, excisional to fascia. He has been cleared for discharge home on Bactrim-DS for 2 weeks, Urology service will follow up with him after that. At the time of this dictation, blood cultures and scrotal cultures are preliminary and negative. He is advised to follow up with his primary care provider for final result. On the day of discharge, he has white count of 3300, hemoglobin 9.2, platelet count 243,000. Sodium 140, potassium 3.9, and creatinine 0.60. DISCHARGE DESTINATION: Home. TOTAL AMOUNT OF TIME SPENT COORDINATING THIS DISCHARGE: 33 minutes. Many thanks for allowing me to participate in your patient's care. Please feel free to contact me wi th any questions or concerns.
[2018-01-22] MEDS ORDERED: Docusate 100 MG CAP PO SCH (21:00)
== END 2018-01-22 14:11 | disposition home or self-care (01) | DRG 728 ==
LOC: ERS 10:04 → 2NO 10:04 → T4-B 01-21 23:22
PROVIDERS: ADMIT Internal Medicine; ATTEND Internal Medicine
PROC: 0VB5XZZ Excision of Scrotum, External Approach (ICD-10-PCS; principal; 2018-01-21)
DX: N49.3 Fournier gangrene (principal); E87.2 Acidosis; N49.2 Inflammatory disorders of scrotum; E03.9 Hypothyroidism, unspecified; E88.81 Metabolic syndrome and other insulin resistance; F41.9 Anxiety disorder, unspecified; Z86.718 Personal history of other venous thrombosis and embolism; Z98.84 Bariatric surgery status; E66.9 Obesity, unspecified; Z88.8 Allergy status to other drugs, medicaments and biological substances; Z95.828 Presence of other vascular implants and grafts; Z68.30 Body mass index [BMI] 30.0-30.9, adult
CPT/HCPCS: 36415; 80048; 80053; 81003; 81015; 83605; 85025; 85730; 87040; 87070; 87076; 87086; 87205; 88304; J2001; J2270; J2405; J2543; J2704; J3010; J3370; J7050; S0020

== ENCOUNTER 2018-02-04 12:36 | Emergency (ER) | payer SELFPAY ==
[~2018-02-04 12:36] MED LIST: ISOVUE-370 76%-LOCM 1 ML ONE
[2018-02-04 14:23] LABS: #Lymphocytes 0.9 thou/uL (1.20-3.40); #Monocytes 0.5 thou/uL (0.11-0.59); #Neutrophils 3.6 thou/uL (1.40-6.50); %Basophils 0.5 % (0.0-1.0); %Eosinophils 0.6 % (0.0-10.0); %Lymphocytes 16.8 % (21.0-51.0); %Monocytes 10.6 % (0.0-10.0); %Neutrophils 71.5 % (42.0-75.0); Hemoglobin 13.9 g/dL (14.0-18.0); Mean Corpuscular HGB CONC 31.8 g/dL (32.0-36.0); Mean Corpuscular Hemoglobin 35.8 pg (27.0-31.0); Mean Platelet Volume 7.5 fL (7.4-10.4); Platelet Count 278 thou/uL (130-400); RBC Distribution Width 14.9 % (11.5-14.5); Red Blood Cell (RBC) Count 3.88 mill/uL (4.70-6.10)
[2018-02-04 14:48] LABS: ALT (SGPT) 24 U/L (8-55); AST (SGOT) 64 U/L (5-34); Albumin 3.6 g/dL (3.5-5.0); Alkaline Phosphatase 79 U/L (40-150); Anion Gap 17 mmol/L (10-20); BUN (Urea Nitrogen) 7 mg/dL (8.9-20.6); Bilirubin, Total 1.6 mg/dL (0.2-1.2); Calc. Creatinine Clearance 0 mL/min (70-130); Calcium 9.1 mg/dL (7.8-10.44); Carbon Dioxide 27 mmol/L (22-29); Chloride 101 mmol/L (98-107); Estimated GFR-MDRD Greater than 90; Globulin 2.7 g/dL (2.4-3.5); Glucose 114 mg/dL (70-105); Potassium 4.3 mmol/L (3.5-5.1); Protein, Total 6.3 g/dL (6.0-8.3); Sodium 141 mmol/L (136-145)
[2018-02-04] MEDS ORDERED: Morphine 4 MG/ML VIAL ONE (15:56)
--- NOTE | 2018-02-04 16:20 | CT ---
ABDOMEN AND PELVIC CT SCAN WITH IV CONTRAST: History: 42-year-old male with history of infection. Prior surgery to scrotum 10 days ago. FINDINGS: There are some small bilateral pleural effusions and minimal pleural based parenchymal changes. Fatty changes in the liver. Status post gastric bariatric surgery with a small hiatal hernia. The gallblad caden has been removed. IVC filter in place. The pancreas and spleen and adrenal glands are unremarkabl e. No renal calculi or acute obstruction. Normal appearing appendix. There is some colonic diverti culosis with some focal wall thickening but without significant pericolonic abnormal fat stranding th at would suggest acute diverticulitis. There may well be residual from the old diverticulitis. There is no abscess or abnormal fluid collection within the pelvis. This exam does include the upper thighs . The inner aspect of the upper thighs demonstrates some minimal focal subcutaneous fat stranding, no nspecific. This certainly could be secondary to some focal erythema or focal subcutaneous cellulitis. There appears to be evidence for somewhat deformed scrotum consistent with history of prior surgery with several small foci of air densities within the scrotum, slightly more to the left of midline, th e etiology of this is uncertain, but given the history of recent surgery this certainly could be post -surgical. No evidence for identifiable drainable access in the parascrotal region or in the inguinal region. IMPRESSION: Some bilateral pleural effusion or pleural thickening changes. Colonic diverticulosis with some focal colonic wall thickening in the sigmoid colon without evidence for other signs of acute diverticuliti s. Somewhat deformed appearing scrotum, given history of recent prior surgery, this may well account for this as well as several punctate foci of air within the scrotum. Minimal subdermal subcutaneous t hickening of the inner upper thighs, nonspecific. Small bilateral pleural effusions and pleural based parenchymal changes. POS: [facility]
--- NOTE | 2018-02-04 16:22 | ULT ---
TESTICULAR ULTRASOUND: History: Evaluate for abscess and post-operative complications. Patient had surgery to the scrotal ar ea 10 days ago with worsening redness. Technique: Multiplanar grayscale and color doppler images were obtained in bilateral testicular/scrot al ultrasound. Spectral analysis of the doppler waveforms were performed. FINDINGS: There is thickening of the wall of the scrotum. No significant shadowing was seen to suggest air with in the thickened soft tissues. No focal fluid collections are seen. Both testicles are normal in echogenicity and demonstrate normal internal flow. There is a benign guicho earing calcification in the right testicle. The epididymis could not be visualized. The right epididymis is normal in appearance and demonstrates normal internal flow. IMPRESSION: Scrotal wall thickening without evidence of air or abscess. POS: [facility]
[2018-02-04] MEDS ORDERED: Piperacillin/Tazobactam 3.375 GM VIAL ONE (16:23)
[2018-02-04 18:16] LABS: Lactic Acid 1.8 mmol/L (0.5-2.2)
[2018-02-04 19:05] LABS: Bilirubin Negative (Negative); Blood, Urine Negative (Negative); Clarity CLEAR (Clear); Glucose, Urine (Dipstick) Negative (Negative); Leukocyte Negative (Negative); Nitrite Negative (Negative); Protein, Urine (Dipstick) Trace mg/dL (Neg-Trace); pH, Urine 8.5 (5.0-9.0)
[2018-02-04 19:16] LABS: Specific Gravity, Urine 1.041 (1.002-1.036)
== END 2018-02-04 20:14 | disposition home or self-care (01) ==
LOC: ERS 12:36
DX: N49.2 Inflammatory disorders of scrotum (principal); B37.2 Candidiasis of skin and nail; E03.9 Hypothyroidism, unspecified; F41.9 Anxiety disorder, unspecified; Z86.718 Personal history of other venous thrombosis and embolism; Z79.891 Long term (current) use of opiate analgesic; Z79.899 Other long term (current) drug therapy; Z79.01 Long term (current) use of anticoagulants
CPT/HCPCS: 36415; 74177; 76870; 80053; 81003; 83605; 85025; 86850; 86900; 86901; 87040; 87070; 87205; 93976; 96365; 96367; 96375; J2270; J2543; J3370

== ENCOUNTER 2018-04-11 02:43 | Emergency (ER) | payer SELFPAY ==
[2018-04-11 03:36] LABS: #Lymphocytes 0.9 thou/uL (1.20-3.40); #Monocytes 0.4 thou/uL (0.11-0.59); #Neutrophils 2.6 thou/uL (1.40-6.50); %Basophils 1.1 % (0.0-1.0); %Eosinophils 1.1 % (0.0-10.0); %Lymphocytes 23.3 % (21.0-51.0); %Neutrophils 64.5 % (42.0-75.0); Mean Corpuscular HGB CONC 34.8 g/dL (32.0-36.0); Mean Corpuscular Hemoglobin 38.3 pg (27.0-31.0); Mean Platelet Volume 6.7 fL (7.4-10.4); Platelet Count 175 thou/uL (130-400); RBC Distribution Width 17.8 % (11.5-14.5); Red Blood Cell (RBC) Count 2.88 mill/uL (4.70-6.10)
[2018-04-11 03:40] LABS: INR-International Normal Ratio 1.3; PTT 31.1 SEC (22.9-36.1); Prothrombin Time 16.6 SEC (12.0-14.7)
[2018-04-11 03:55] LABS: ALT (SGPT) 33 U/L (8-55); AST (SGOT) 111 U/L (5-34); Albumin 3.3 g/dL (3.5-5.0); Alkaline Phosphatase 100 U/L (40-150); Anion Gap 20 mmol/L (10-20); BUN (Urea Nitrogen) 8 mg/dL (8.9-20.6); Bilirubin, Total 3.2 mg/dL (0.2-1.2); Calc. Creatinine Clearance 0 mL/min (70-130); Carbon Dioxide 26 mmol/L (22-29); Chloride 100 mmol/L (98-107); Estimated GFR-MDRD Greater than 90; Globulin 2.5 g/dL (2.4-3.5); Glucose 112 mg/dL (70-105); Potassium 3.8 mmol/L (3.5-5.1); Protein, Total 5.8 g/dL (6.0-8.3); Sodium 142 mmol/L (136-145)
[2018-04-11] MEDS ORDERED: Morphine 4 MG/ML VIAL ONE ×2 (05:22)
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
--- NOTE | 2018-04-11 09:41 | ULT ---
PRELIMINARY REPORT/[facility]/EMERGENTY AFTER-HOURS PROCEDURE US Right Duplex Lower Extremity Veins, Limited EXAM DATE/TIME: 04/11/2018 4:42 AM CLINICAL HISTORY: 42 years old, male; Pain; Other: Tender RT leg, bruising to the calf and pop area TECHNIQUE: Real-time Duplex ultrasound of the Right Lower Extremity with 2-D zamora scale, color Doppler flow and spectral waveform analysis. Limited exam was focused on the right lower extremity veins. COMPARISON: No relevant prior studies available. FINDINGS: Right deep veins: Nonocclusive thrombus along the wall of normal caliber proximal femoral vein to dis jose posterior tibial vein. Right superficial veins: Saphenofemoral junction is patent. Soft tissues: Unremarkable. IMPRESSION: Findings most suspicious for chronic nonocclusive DVT of the right lower extremity as described above . Thank you for allowing us to participate in the care of your patient. Dictated and Authenticated by: Glory Curtis MD 04/11/2018 5:36 AM Central Time ([place] & [place]) FINAL REPORT RIGHT LOWER EXTREMITY VENOUS ULTRASOUND WITH DOPPLER: HISTORY: Right leg tenderness and bruising. PMHx of DVT COMPARISON: None. FINDINGS: This report is in agreement with the preliminary report by [facility]. There appears to be a chronic nonocc lusive deep vein thrombus. There is no evidence of occlusive thrombus in the right lower extremity d eep venous system. The patient does have a previously identified right lower extremity deep vein thr ombus. POS: [facility]
== END 2018-04-11 09:57 | disposition home or self-care (01) ==
LOC: ERS 02:43
DX: S70.11XA Contusion of right thigh, initial encounter (principal); S80.01XA Contusion of right knee, initial encounter; E03.9 Hypothyroidism, unspecified; F41.9 Anxiety disorder, unspecified; Z86.718 Personal history of other venous thrombosis and embolism; Z79.01 Long term (current) use of anticoagulants; Z79.899 Other long term (current) drug therapy; X58.XXXA Exposure to other specified factors, initial encounter
CPT/HCPCS: 36415; 71275; 80053; 82550; 84484; 85025; 85379; 85610; 85730; 93005; 94760; 96361; 96374; J2270

== ENCOUNTER 2018-07-12 05:52 | Inpatient (IN) | payer SELFPAY ==
[2018-07-12] MEDS ORDERED: Adacel (T-DAP) 0.5 ML SYRINGE ONE (06:02)
[2018-07-12] MEDS ORDERED: cefTRIAXone\\ROCEPHIN 1 GM VIAL ONE (06:02)
[2018-07-12 06:13] LABS: #Basophils 0.1 thou/uL (0.0-0.2); #Lymphocytes 1.6 thou/uL (1.20-3.40); #Monocytes 0.6 thou/uL (0.11-0.59); #Neutrophils 7.9 thou/uL (1.40-6.50); %Basophils 0.5 % (0.0-1.0); %Eosinophils 0.5 % (0.0-10.0); %Lymphocytes 15.8 % (21.0-51.0); %Monocytes 6.2 % (0.0-10.0); Hemoglobin 11.4 g/dL (14.0-18.0); Mean Corpuscular Hemoglobin 34.4 pg (27.0-31.0); Mean Platelet Volume 7.6 fL (7.4-10.4); Platelet Count 310 thou/uL (130-400); RBC Distribution Width 18.3 % (11.5-14.5); Red Blood Cell (RBC) Count 3.31 mill/uL (4.70-6.10); White Blood Cell (WBC) Count 10.2 thou/uL (4.8-10.8)
[2018-07-12] MEDS ORDERED: Tranexamic Acid 1,000 MG in Sodium Chloride 0.9% 100 ML IVP SCH (06:15)
[2018-07-12 06:16] LABS: INR-International Normal Ratio 1.9; Prothrombin Time 21.6 SEC (12.0-14.7)
[2018-07-12] MEDS ORDERED: Tranexamic Acid 1,000 MG/10 ML VIAL ONE (06:21)
[2018-07-12 06:28] LABS: ALT (SGPT) 26 U/L (8-55); AST (SGOT) 54 U/L (5-34); Albumin 3.3 g/dL (3.5-5.0); Alkaline Phosphatase 76 U/L (40-150); Anion Gap 28 mmol/L (10-20); BUN (Urea Nitrogen) 5 mg/dL (8.9-20.6); Bilirubin, Total 0.9 mg/dL (0.2-1.2); Calc. Creatinine Clearance 0 mL/min (70-130); Calcium 8.2 mg/dL (7.8-10.44); Carbon Dioxide 13 mmol/L (22-29); Chloride 103 mmol/L (98-107); Estimated GFR-MDRD Greater than 90; Globulin 2.3 g/dL (2.4-3.5); Glucose 181 mg/dL (70-105); Protein, Total 5.6 g/dL (6.0-8.3); Sodium 141 mmol/L (136-145)
[2018-07-12 06:30] LABS: Potassium 2.8 mmol/L (3.5-5.1)
[2018-07-12 06:31] LABS: Magnesium 1.7 mg/dL (1.6-2.6)
[2018-07-12] MEDS ORDERED: Fentanyl 100 MCG/2 ML VIAL ONE ×4 (06:37→13:27)
[2018-07-12] MEDS ORDERED: Ketorolac Tromethamine 30 MG/ML VIAL ONE (06:37)
[2018-07-12 06:39] LABS: Acetaminophen Less than 6.0 mcg/mL (10.0-30.0); Alcohol 150 mg/dL (Less than 10); Salicylate Less than 8.0 mg/dL (15.0-30.0)
[2018-07-12] MEDS ORDERED: Phytonadione 10 MG in Sodium Chloride 0.9% 50 ML IVPB SCH (06:45)
--- NOTE | 2018-07-12 07:40 | RAD ---
F2 views right ankle HISTORY: pain. AP and oblique view right ankle obtained. Extensive subcutaneous soft tissue gas is seen along the medial aspect of the distal right lower extr emity. No evidence of acute fractures or bony lesions seen. IMPRESSION: Soft tissue gas with no evidence of acute abnormalities in the limited right ankle radiog raph without benefit of the lateral view.
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
--- NOTE | 2018-07-12 07:45 | RAD ---
FAP view pelvis HISTORY: Pelvic pain. AP view pelvis is obtained. Bilateral hip arthritic changes seen. No evidence of acute fractures, subluxations or bony lesion seen. IMPRESSION: Bilateral hip arthritic changes.
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
[2018-07-12] MEDS ORDERED: Dextrose 50% Abboject 50 ML SYRINGE SLOW IVP PRN (07:51)
[2018-07-12] MEDS ORDERED: Dextrose 5% in Water 1,000 ML IV PRN (07:51)
[2018-07-12] MEDS ORDERED: Promethazine HCl 25 MG/ML VIAL IM PRN ×2 (07:51→12:12)
[2018-07-12] MEDS ORDERED: Ondansetron PF 4 MG/2 ML Vial IVP PRN (07:51)
[2018-07-12] MEDS ORDERED: traMADol HCl 50 MG TAB PO PRN (07:53)
[2018-07-12 08:00] LABS: Bilirubin Negative (Negative); Blood, Urine Small (Negative); Clarity CLEAR (Clear); Glucose, Urine (Dipstick) Negative (Negative); Leukocyte Moderate (Negative); Nitrite Negative (Negative); Protein, Urine (Dipstick) Trace mg/dL (Neg-Trace); Specific Gravity, Urine 1.026 (1.002-1.036); Urobilinogen 0.2 mg/dL (0.2-1.0)
[2018-07-12] MEDS ORDERED: Acetaminophen 1,000 MG in Premix Bag 1 BAG IVPB SCH (08:00)
[2018-07-12] MEDS ORDERED: Potassium Chloride 30 MEQ in Premix Bag 1 BAG IVPB SCH (08:00)
[2018-07-12 08:02] LABS: Bacteria/HPF Rare-Few HPF (None Seen); Hyaline Casts/LPF 7-10 HYALINE CAST LPF (0-3 Hyaline); Pathc Cast-AUWi Flag 0.27 (0-2.49); RBC/HPF 0-3 HPF (0-3); Squamous Epithelial None Seen HPF (0-3)
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
[2018-07-12 08:11] LABS: Medtox Reader # READER 1
[2018-07-12 08:12] LABS: Amphetamine Not Detected (NotDetected); Barbiturates Screen Not Detected (NotDetected); Benzodiazepine Screen Detected (NotDetected); Cocaine Metabolite Screen Not Detected (NotDetected); Medtox Control Line Valid? VALID (VALID); Methadone Not Detected (NotDetected); Methamphetamine Not Detected (NotDetected); Opiate Screen Not Detected (NotDetected); Oxycodone Screen Not Detected (NotDetected); Phencyclidine (PCP) Not Detected (NotDetected); THC/Cannabinoid Screen Not Detected (NotDetected); Tricyclic Screen Not Detected (NotDetected)
--- NOTE | 2018-07-12 08:23 | RAD ---
SINGLE VIEW OF THE CHEST: Comparison: 09-10-17 History: Chest pain. FINDINGS: Single view of the chest shows a normal sized cardiomediastinal silhouette. There is no evidence of c onsolidation, mass, or pleural effusion. Degenerative changes are seen in the spine. IMPRESSION: No evidence of acute cardiopulmonary disease. POS: [facility]
[2018-07-12] MEDS ORDERED: Potassium Chloride 30 MEQ in Sodium Chloride 0.9% 250 ML 250 ML IV SCH (08:45)
[2018-07-12] MEDS ORDERED: ISOVUE-370 76%-LOCM 1 ML ONE (09:20)
[2018-07-12] MEDS ORDERED: Promethazine HCl 25 MG/ML VIAL SLOW IVP PRN (12:12)
[2018-07-12] MEDS ORDERED: Ondansetron HCl/PF 4 MG/2 ML Vial IVP PRN (12:12)
[2018-07-12] MEDS ORDERED: HYDROmorphone 2 MG/ML VIAL SLOW IVP PRN (12:12)
[2018-07-12] MEDS ORDERED: Rocuronium Bromide 10 MG/ML (10ML VIAL) ONE (13:17)
[2018-07-12] MEDS ORDERED: PHENYLEPHRINE-NS 100 MCG/ML 10 ML SYRINGE ONE (13:17)
[2018-07-12] MEDS ORDERED: Glycopyrrolate 0.2 MG/ML 5 ML SYRINGE ONE (13:17)
[2018-07-12] MEDS ORDERED: Dexamethasone 20 MG/5 ML VIAL ONE (13:17)
[2018-07-12] MEDS ORDERED: Ondansetron PF 4 MG/2 ML Vial ONE (13:17)
[2018-07-12] MEDS ORDERED: PROPOFOL 200 MG/20 ML VIAL ONE (13:17)
[2018-07-12] MEDS ORDERED: Lidocaine 1% PF 5 ML VIAL ONE (13:17)
[2018-07-12] MEDS ORDERED: Succinylcholine Chloride 20 MG/ML 10 ml SYRINGE FS ONE (13:17)
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
[2018-07-12 15:41] VITALS: BMI 31.5
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
[2018-07-12] MEDS: Sodium Chloride 0.9% 1,000 ML IV SCH ×3 (16:34→16:54)
[2018-07-12] MEDS: Morphine 4 MG/ML VIAL SLOW IVP PRN ×4 (16:41→23:29)
[2018-07-12] MEDS: Ibuprofen 800 MG TAB PO SCH ×2 (16:41→16:53)
[2018-07-12] MEDS: Acetaminophen 500 MG TAB PO SCH ×2 (16:50→21:26)
[2018-07-12] MEDS: Famotidine 20 MG TAB PO SCH ×2 (16:54→21:26)
[2018-07-12] MEDS: Polyethylene Glycol 3350 17 GM Packet PO SCH (16:54)
[2018-07-12] MEDS: Senokot S 8.6-50 MG TAB PO SCH ×2 (16:55→21:26)
[2018-07-12] MEDS ORDERED: Diazepam 5 MG TAB PO PRN (17:00)
[2018-07-13] MEDS: Sodium Chloride 0.9% 1,000 ML IV SCH (00:47)
[2018-07-13] MEDS: Ibuprofen 800 MG TAB PO SCH ×3 (00:47→16:16)
[2018-07-13] MEDS: Acetaminophen 500 MG TAB PO SCH ×4 (01:52→20:30)
[2018-07-13] MEDS: Morphine 4 MG/ML VIAL SLOW IVP PRN ×11 (01:53→22:40)
[2018-07-13 07:50] LABS: #Lymphocytes 0.5 thou/uL (1.20-3.40); #Monocytes 0.6 thou/uL (0.11-0.59); #Neutrophils 4.8 thou/uL (1.40-6.50); %Basophils 0.1 % (0.0-1.0); %Eosinophils 0.2 % (0.0-10.0); %Lymphocytes 8.5 % (21.0-51.0); %Monocytes 10.5 % (0.0-10.0); %Neutrophils 80.7 % (42.0-75.0); Hemoglobin 8.6 g/dL (14.0-18.0); Mean Corpuscular HGB CONC 33.1 g/dL (32.0-36.0); Mean Corpuscular Hemoglobin 33.6 pg (27.0-31.0); Platelet Count 142 thou/uL (130-400); RBC Distribution Width 18.6 % (11.5-14.5); Red Blood Cell (RBC) Count 2.55 mill/uL (4.70-6.10)
[2018-07-13 08:02] LABS: Lactic Acid 2.3 mmol/L (0.5-2.2)
[2018-07-13 08:06] LABS: Anion Gap 9 mmol/L (10-20); BUN (Urea Nitrogen) 7 mg/dL (8.9-20.6); Calc. Creatinine Clearance 298 mL/min (70-130); Calcium 7.6 mg/dL (7.8-10.44); Carbon Dioxide 28 mmol/L (22-29); Chloride 108 mmol/L (98-107); Estimated GFR-MDRD Greater than 90; Glucose 132 mg/dL (70-105); Magnesium 1.3 mg/dL (1.6-2.6); Phosphorus 2.5 mg/dL (2.3-4.7); Potassium 4.2 mmol/L (3.5-5.1); Sodium 141 mmol/L (136-145)
[2018-07-13 08:07] LABS: INR-International Normal Ratio 1.2; Prothrombin Time 15.6 SEC (12.0-14.7)
[2018-07-13] MEDS: Polyethylene Glycol 3350 17 GM Packet PO SCH (08:21)
[2018-07-13] MEDS: Multivit, Therapeutic 1 TAB PO SCH (08:21)
[2018-07-13] MEDS: Famotidine 20 MG TAB PO SCH ×2 (08:21→20:30)
[2018-07-13] MEDS: Senokot S 8.6-50 MG TAB PO SCH ×2 (08:21→20:30)
[2018-07-13 08:24] LABS: MDiff Complete? YES; Macrocytosis SLIGHT = 6-15 cells (100X) (0-5/hpf); Ovalocytes SLIGHT = 2-5 cells (100X) (0-1/hpf); Platelet Morphology Comment Appears Adequate; Polychromasia SLIGHT = 2-3 cells (100X) (0-2/hpf)
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
[2018-07-13] MEDS ORDERED: PHOS-NAK 1 PKT PACK PO SCH (11:15)
[2018-07-13] MEDS ORDERED: Magnesium 2 GM/50 ML 4 GM in Premix Bag 1 BAG IVPB SCH (11:15)
[2018-07-13] MEDS ORDERED: Magnesium Sulfate 4 GM in Sodium Chloride 0.9% 250 ML 250 ML IVPB SCH (11:30)
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
[2018-07-14] MEDS: Ibuprofen 800 MG TAB PO SCH ×3 (00:40→15:09)
[2018-07-14] MEDS: Acetaminophen 500 MG TAB PO SCH ×2 (01:32→08:24)
[2018-07-14] MEDS: Morphine 4 MG/ML VIAL SLOW IVP PRN ×2 (01:33→08:20)
[2018-07-14 06:51] LABS: Eosinophils 2 % (0-10); Hemoglobin 8.4 g/dL (14.0-18.0); Lymphocytes 36 % (21-51); MDiff Complete? YES; Mean Corpuscular HGB CONC 32.7 g/dL (32.0-36.0); Mean Corpuscular Hemoglobin 34.5 pg (27.0-31.0); Monocytes 17 % (0-10); Neutrophil 45 % (42-75); Platelet Count 126 thou/uL (130-400); RBC Distribution Width 18.9 % (11.5-14.5); Red Blood Cell (RBC) Count 2.43 mill/uL (4.70-6.10); White Blood Cell (WBC) Count 4.1 thou/uL (4.8-10.8)
[2018-07-14 07:05] LABS: Anion Gap 9 mmol/L (10-20); BUN (Urea Nitrogen) 7 mg/dL (8.9-20.6); Calc. Creatinine Clearance 342 mL/min (70-130); Calcium 7.9 mg/dL (7.8-10.44); Carbon Dioxide 28 mmol/L (22-29); Chloride 110 mmol/L (98-107); Estimated GFR-MDRD Greater than 90; Glucose 100 mg/dL (70-105); Phosphorus 3.1 mg/dL (2.3-4.7); Potassium 4.5 mmol/L (3.5-5.1); Sodium 142 mmol/L (136-145)
[2018-07-14] MEDS ORDERED: PHOS-NAK 1 PKT PACK PO SCH (08:00)
[2018-07-14] MEDS: Multivit, Therapeutic 1 TAB PO SCH (08:24)
[2018-07-14] MEDS: Senokot S 8.6-50 MG TAB PO SCH ×2 (08:24→21:28)
[2018-07-14] MEDS: Famotidine 20 MG TAB PO SCH (08:24)
[2018-07-14] MEDS: Polyethylene Glycol 3350 17 GM Packet PO SCH (08:24)
[2018-07-14] MEDS ORDERED: Acetaminophen/Codeine 30-300mg Tablet PO PRN (10:38)
[2018-07-14 11:03] LABS: INR-International Normal Ratio 1.2; Prothrombin Time 15.2 SEC (12.0-14.7)
[2018-07-14] MEDS: traMADol HCl 50 MG TAB PO PRN ×2 (12:24→18:28)
[2018-07-14] MEDS: Acetaminophen/Codeine 30-300mg Tablet PO PRN ×2 (15:09→21:29)
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
[2018-07-14] MEDS ORDERED: Acetaminophen/Codeine 30-300mg Tablet PO SCH (16:30)
[2018-07-14] MEDS: Acetaminophen 325 MG TAB PO SCH (17:48)
[2018-07-14] MEDS: Enoxaparin Sodium 30 MG/0.3 ML SYRINGE SC SCH (21:25)
[2018-07-14] MEDS: Warfarin Sodium 5 MG TAB PO SCH (22:33)
[2018-07-15] MEDS: Ibuprofen 800 MG TAB PO SCH ×2 (00:15→10:14)
[2018-07-15] MEDS: Acetaminophen 325 MG TAB PO SCH ×3 (00:15→14:39)
[2018-07-15] MEDS: traMADol HCl 50 MG TAB PO PRN (00:42)
[2018-07-15 06:47] LABS: INR-International Normal Ratio 1.1; Prothrombin Time 14.6 SEC (12.0-14.7)
[2018-07-15 06:54] LABS: Eosinophils 2 % (0-10); Hemoglobin 8.2 g/dL (14.0-18.0); Lymphocytes 38 % (21-51); MDiff Complete? YES; Mean Corpuscular HGB CONC 33.5 g/dL (32.0-36.0); Mean Corpuscular Hemoglobin 34.7 pg (27.0-31.0); Mean Platelet Volume 7.8 fL (7.4-10.4); Monocytes 7 % (0-10); Neutrophil 53 % (42-75); Platelet Count 155 thou/uL (130-400); Platelet Morphology Comment Appears Adequate; RBC Distribution Width 18.8 % (11.5-14.5); Red Blood Cell (RBC) Count 2.37 mill/uL (4.70-6.10); White Blood Cell (WBC) Count 3.5 thou/uL (4.8-10.8)
[2018-07-15 07:07] LABS: Anion Gap 9 mmol/L (10-20); BUN (Urea Nitrogen) 8 mg/dL (8.9-20.6); Calc. Creatinine Clearance 300 mL/min (70-130); Calcium 8.3 mg/dL (7.8-10.44); Carbon Dioxide 29 mmol/L (22-29); Chloride 108 mmol/L (98-107); Estimated GFR-MDRD Greater than 90; Glucose 98 mg/dL (70-105); Magnesium 1.7 mg/dL (1.6-2.6); Phosphorus 4.1 mg/dL (2.3-4.7); Potassium 4.8 mmol/L (3.5-5.1); Sodium 141 mmol/L (136-145)
[2018-07-15] MEDS: Enoxaparin Sodium 30 MG/0.3 ML SYRINGE SC SCH (09:03)
[2018-07-15] MEDS: Multivit, Therapeutic 1 TAB PO SCH (09:03)
[2018-07-15] MEDS: Warfarin Sodium 5 MG TAB PO SCH (09:04)
[2018-07-15] MEDS: Acetaminophen/Codeine 30-300mg Tablet PO PRN (09:05)
[2018-07-15] MEDS: Polyethylene Glycol 3350 17 GM Packet PO SCH (09:05)
[2018-07-15] MEDS: Senokot S 8.6-50 MG TAB PO SCH (09:05)
[2018-07-15 11:42] VITALS: BP 104/67; TEMP 98.1
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
--- NOTE | 2018-07-18 10:26 | PQF ---
Francisco Javier Reyna GERARDO TORRES [id number] CLINICAL DOCUMENTATION CLARIFICATION FORM: POST DISCHARGE Addendum to original discharge summary date: ____ Late entry note date: __ DATE: 07/18/18 ATTN:Reginaldo, Please exercise your independent, professional judgment in responding to the clarification form. Clinical indicators are provided on the bottom of this form for your review Please check appropriate box(s): [ x ] Excisional Debridement: [ ] Excised [ ] Cut away [ ] Other: Depth / layer: (deepest layer of debridement): [ ] Skin [ x] SubQ Tissue [ ] Fascia [ ] Muscle [ ] Tendon [ ] Bone Appearance of wound: (e.g., down to fresh bleeding tissue, etc.)___ Margins: (please specify): / x x Instruments used: [ x ] Scissors [ ] Scalpel [ ] Curette [ ] Soft tissue clipper [ ] Other: [ x ] Non-excisional Debridement: (Removal by flushing, brushing, chemical, or washing) Depth / layer: (deepest layer of debridement): [ ] Skin [ x ] Subcutaneous [ ] Fascia [ ] Muscle [ ] Tendon [ ] Bone [ ] Other procedure diagnosis [ ] Unable to determine For continuity of documentation, please document condition throughout progress notes and discharge summary. Thank You. CLINICAL INDICATORS - SIGNS / SYMPTOMS / LABS Debridement and irrigationof [id number] cm complex right leg laceration--07/12 OP note Nonviable tissues were sharply debrided using pulse lavage, metzenbaum scissors and suction--4/2 OP note RISK FACTORS Complex right leg laceration--4/2 OP note TREATMENTS: Debridement--4/2 OP note Suture of complex laceration--4/2 OP note 2 Aidan drains and Sterile dressings applied--4/2 OP note Thank you, Lesley Sánchez, [facility] 10:24AM (This form is maintained as a part of the permanent medical record) 2015 [employer], [email or web address]. All Rights Reserved Lesley [email or web address] [phone] MTDD
== END 2018-07-15 15:21 | disposition home health service (06) | DRG 571 ==
LOC: MERGE 05:52 → EEVIPCON 05:52 → ERS 05:52 → ERHOLD 07:51 → SURG A 11:01 → T4-A 14:40
PROVIDERS: ADMIT Surgery; ATTEND Surgery
PROC: 0JBN0ZZ Excision of Right Lower Leg Subcutaneous Tissue and Fascia, Open Approach (ICD-10-PCS; principal; 2018-07-12)
PROC: 0JDN0ZZ Extraction of Right Lower Leg Subcutaneous Tissue and Fascia, Open Approach (ICD-10-PCS; 2018-07-12)
PROC: 0JQN0ZZ Repair Right Lower Leg Subcutaneous Tissue and Fascia, Open Approach (ICD-10-PCS; 2018-07-12)
PROC: 0J9N00Z Drainage of Right Lower Leg Subcutaneous Tissue and Fascia with Drainage Device, Open Approach (ICD-10-PCS; 2018-07-12)
PROC: 30233K1 Transfusion of Nonautologous Frozen Plasma into Peripheral Vein, Percutaneous Approach (ICD-10-PCS; 2018-07-12)
PROC: 30233N1 Transfusion of Nonautologous Red Blood Cells into Peripheral Vein, Percutaneous Approach (ICD-10-PCS; 2018-07-12)
DX: S81.811A Laceration without foreign body, right lower leg, initial encounter (principal); D62 Acute posthemorrhagic anemia; D68.32 Hemorrhagic disorder due to extrinsic circulating anticoagulants; S82.451A Displaced comminuted fracture of shaft of right fibula, initial encounter for closed fracture; E87.6 Hypokalemia; V03.09XA Pedestrian with other conveyance injured in collision with car, pick-up truck or van in nontraffic accident, initial encounter; S80.212A Abrasion, left knee, initial encounter; Z23 Encounter for immunization; E66.01 Morbid (severe) obesity due to excess calories; Z68.31 Body mass index [BMI] 31.0-31.9, adult; T45.515A Adverse effect of anticoagulants, initial encounter; F41.9 Anxiety disorder, unspecified; Z79.01 Long term (current) use of anticoagulants; E83.42 Hypomagnesemia; I95.9 Hypotension, unspecified; Z88.6 Allergy status to analgesic agent; E83.39 Other disorders of phosphorus metabolism; Z86.718 Personal history of other venous thrombosis and embolism; Z98.84 Bariatric surgery status
CPT/HCPCS: 36415; 36430; 71045; 72170; 75635; 80048; 80053; 80306; 80307; 81003; 81015; 82550; 83605; 83735; 84100; 85025; 85610; 85730; 86850; 86900; 86901; 90471; 90715; 96365; 96366; 96367; 96375; J0131; J0696; J1100; J1650; J1885; J2001; J2270; J2405; J2704; J3010; J3370; J3430; J3475; J3490; J7050; P9016; P9059; Q9966

== ENCOUNTER 2018-07-18 05:22 | Inpatient (IN) | payer SELFPAY ==
[2018-07-18 08:30] LABS: #Lymphocytes 0.7 thou/uL (1.20-3.40); #Monocytes 0.8 thou/uL (0.11-0.59); #Neutrophils 3.9 thou/uL (1.40-6.50); %Basophils 0.3 % (0.0-1.0); %Eosinophils 0.9 % (0.0-10.0); %Lymphocytes 12.4 % (21.0-51.0); %Monocytes 14.9 % (0.0-10.0); %Neutrophils 71.5 % (42.0-75.0); Hemoglobin 9.5 g/dL (14.0-18.0); Mean Corpuscular HGB CONC 31.4 g/dL (32.0-36.0); Mean Platelet Volume 6.9 fL (7.4-10.4); Platelet Count 309 thou/uL (130-400); RBC Distribution Width 19.7 % (11.5-14.5); Red Blood Cell (RBC) Count 2.87 mill/uL (4.70-6.10); White Blood Cell (WBC) Count 5.5 thou/uL (4.8-10.8)
[2018-07-18 08:34] LABS: ALT (SGPT) 20 U/L (8-55); AST (SGOT) 48 U/L (5-34); Albumin 3.1 g/dL (3.5-5.0); Alkaline Phosphatase 84 U/L (40-150); Anion Gap 15 mmol/L (10-20); BUN (Urea Nitrogen) Less than 4 mg/dL (8.9-20.6); Bilirubin, Total 0.9 mg/dL (0.2-1.2); Calc. Creatinine Clearance 0 mL/min (70-130); Calcium 8.8 mg/dL (7.8-10.44); Carbon Dioxide 26 mmol/L (22-29); Chloride 106 mmol/L (98-107); Estimated GFR-MDRD Greater than 90; Globulin 2.5 g/dL (2.4-3.5); Glucose 104 mg/dL (70-105); Potassium 3.9 mmol/L (3.5-5.1); Protein, Total 5.6 g/dL (6.0-8.3); Sodium 143 mmol/L (136-145)
[2018-07-18] MEDS ORDERED: Clindamycin/D5W 900 mg/50 ml Premix Bag ONE (08:41)
[2018-07-18] MEDS ORDERED: Piperacillin/Tazobactam 4.5 GM VIAL ONE (08:41)
[2018-07-18 08:54] LABS: MDiff Complete? YES; Macrocytosis SLIGHT = 6-15 cells (100X) (0-5/hpf); Platelet Morphology Comment Appears Adequate; Polychromasia MODERATE = 3-4 cells (100X) (0-2/hpf)
[2018-07-18 09:00] LABS: INR-International Normal Ratio 1.2; Prothrombin Time 14.8 SEC (12.0-14.7)
[2018-07-18 09:06] LABS: PTT 33.6 SEC (22.9-36.1)
--- NOTE | 2018-07-18 09:44 | ULT ---
FUS Venous Doppler Bilat History: [Postop swelling and pain. Known DVT.] Comparison: Lower extremity ultrasound 2018 Findings: Real-time grayscale, color, and spectral analysis of the bilateral lower extremity venous s ystem was performed. There is partial compression of the right femoral vein which is nonocclusive. Mi ld adjacent soft tissue edema. Left lower extremity is without thrombosis. Impression: Nonocclusive thrombus right femoral vein. This is improved from the comparison examinatio n. Code CR: Dr. calvillo
[2018-07-18] MEDS ORDERED: Morphine 4 MG/ML VIAL ONE (10:10)
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
[2018-07-18] MEDS ORDERED: Vancomycin HCl 1.75 GM in Sodium Chloride 0.9% 500 ML IVPB SCH (11:45)
[2018-07-18] MEDS ORDERED: Ondansetron ODT 4 MG TAB SL PRN (12:23)
[2018-07-18] MEDS ORDERED: Ondansetron PF 4 MG/2 ML Vial IVP PRN (12:23)
[2018-07-18] MEDS ORDERED: Acetaminophen 325 MG TAB PO PRN (12:23)
[2018-07-18] MEDS ORDERED: Sodium Chloride 0.9% 1,000 ML IV SCH (12:23)
[2018-07-18 12:36] LABS: Lactic Acid 1.9 mmol/L (0.5-2.2)
[2018-07-18] MEDS ORDERED: ISOVUE-370 76%-LOCM 1 ML ONE (14:44)
[2018-07-18] MEDS ORDERED: Clindamycin/D5W 900 MG in Premix Bag 1 BAG IVPB SCH (15:00)
[2018-07-18] MEDS ORDERED: Acetaminophen 1,000 MG in Premix Bag 1 BAG IVPB SCH (15:18)
[2018-07-18] MEDS ORDERED: Dextrose 50% Abboject 50 ML SYRINGE SLOW IVP PRN (15:18)
[2018-07-18] MEDS ORDERED: hydrALAZINE 20 MG/ML VIAL SLOW IVP PRN (15:18)
[2018-07-18] MEDS ORDERED: Dextrose 5% in Water 1,000 ML IV PRN (15:18)
[2018-07-18] MEDS: Sodium Chloride 0.9% 1,000 ML IV SCH ×2 (16:20→23:50)
[2018-07-18] MEDS: Cyclobenzaprine 10 MG TAB PO PRN (16:22)
[2018-07-18] MEDS: Piperacillin/Tazobactam 4.5 GM in Sodium Chloride 0.9% 100 ML IVPB SCH ×2 (16:43→21:48)
[2018-07-18 16:46] VITALS: BMI 32.5
[2018-07-18] MEDS: traMADol HCl 50 MG TAB PO SCH ×2 (17:15→23:46)
[2018-07-18] MEDS: Heparin 10,000 UNITS/ 10 ML VIAL SLOW IVP SCH (17:23)
[2018-07-18] MEDS: Heparin 25,000 units/D5W 500 ML IV SCH (17:28)
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
[2018-07-18] MEDS: Famotidine 20 MG TAB PO SCH (21:48)
[2018-07-18] MEDS: Ibuprofen 800 MG TAB PO SCH (21:55)
[2018-07-18] MEDS: Diazepam 5 MG TAB PO PRN (21:55)
[2018-07-18] MEDS: Acetaminophen 500 MG TAB PO SCH (23:46)
[2018-07-19] MEDS: Sodium Chloride 0.9% 1,000 ML IV SCH ×2 (02:51→14:22)
[2018-07-19] MEDS: Heparin 25,000 units/D5W 500 ML IV SCH (04:29)
[2018-07-19 04:47] LABS: INR-International Normal Ratio 1.2; Prothrombin Time 15.2 SEC (12.0-14.7)
[2018-07-19 04:51] LABS: Phosphorus 4.4 mg/dL (2.3-4.7)
[2018-07-19 04:53] LABS: Anion Gap 10 mmol/L (10-20); BUN (Urea Nitrogen) 6 mg/dL (8.9-20.6); Calc. Creatinine Clearance 279 mL/min (70-130); Calcium 7.7 mg/dL (7.8-10.44); Carbon Dioxide 30 mmol/L (22-29); Chloride 106 mmol/L (98-107); Estimated GFR-MDRD Greater than 90; Glucose 109 mg/dL (70-105); Magnesium 1.4 mg/dL (1.6-2.6); Potassium 3.5 mmol/L (3.5-5.1); Sodium 142 mmol/L (136-145)
[2018-07-19 05:07] LABS: Eosinophils 2 % (0-10); Hemoglobin 7.5 g/dL (14.0-18.0); Lymphocytes 32 % (21-51); MDiff Complete? YES; Mean Corpuscular HGB CONC 31.3 g/dL (32.0-36.0); Mean Corpuscular Hemoglobin 33.4 pg (27.0-31.0); Mean Platelet Volume 6.5 fL (7.4-10.4); Monocytes 11 % (0-10); Neutrophil 55 % (42-75); Platelet Count 195 thou/uL (130-400); RBC Distribution Width 19.4 % (11.5-14.5); Red Blood Cell (RBC) Count 2.25 mill/uL (4.70-6.10); White Blood Cell (WBC) Count 3.8 thou/uL (4.8-10.8)
[2018-07-19 05:40] LABS: PTT Greater than 250.0 SEC (22.9-36.1)
[2018-07-19] MEDS: Acetaminophen 500 MG TAB PO SCH ×2 (06:05→11:34)
[2018-07-19] MEDS: traMADol HCl 50 MG TAB PO SCH ×2 (06:06→11:34)
[2018-07-19] MEDS: Ibuprofen 800 MG TAB PO SCH ×3 (06:06→20:45)
[2018-07-19 08:12] LABS: Unfractionated Heparin 0.65 IU/mL
[2018-07-19] MEDS: Famotidine 20 MG TAB PO SCH ×2 (08:22→20:45)
--- NOTE | 2018-07-19 11:09 | RAD ---
3 views of the right foot INDICATION: Right foot pain FINDINGS: No acute fracture or subluxation is evident. There is diffuse osteopenia. A single surgical drain within the soft tissues of the lateral distal right foreleg. There is extensive soft tissue sw elling of the right foot and distal right foreleg. IMPRESSION: No acute osseous abnormality. Prominent soft tissue swelling of the right lower extremity .
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
[2018-07-19] MEDS: Acetaminophen/Codeine 30-300mg Tablet PO PRN (16:50)
[2018-07-19] MEDS ORDERED: Warfarin Sodium 5 MG TAB PO SCH (17:00)
[2018-07-19 17:16] LABS: PTT 130.9 SEC (22.9-36.1)
[2018-07-19] MEDS: Cyclobenzaprine 10 MG TAB PO PRN (20:45)
[2018-07-19] MEDS: Heparin 10,000 UNITS/ 10 ML VIAL SLOW IVP SCH (20:55)
[2018-07-20] MEDS: Heparin 25,000 units/D5W 500 ML IV SCH ×2 (00:55→18:50)
[2018-07-20] MEDS: Sodium Chloride 0.9% 1,000 ML IV SCH (02:13)
[2018-07-20 03:26] LABS: INR-International Normal Ratio 1.2; Prothrombin Time 15.1 SEC (12.0-14.7)
[2018-07-20 03:36] LABS: PTT 226.9 SEC (22.9-36.1)
[2018-07-20] MEDS: Ibuprofen 800 MG TAB PO SCH ×3 (05:11→21:05)
[2018-07-20] MEDS ORDERED: Lactated Ringer's 1,000 ML IV SCH (08:30)
[2018-07-20] MEDS ORDERED: Ascorbic Acid 500 mg Chewable Tablet PO SCH (09:00)
[2018-07-20] MEDS: Famotidine 20 MG TAB PO SCH ×2 (09:15→21:05)
[2018-07-20 09:49] LABS: #Eosinphils 0.1 thou/uL (0.0-0.7); #Lymphocytes 0.7 thou/uL (1.20-3.40); #Monocytes 0.5 thou/uL (0.11-0.59); %Basophils 0.7 % (0.0-1.0); %Eosinophils 2.3 % (0.0-10.0); %Lymphocytes 15.7 % (21.0-51.0); %Monocytes 11.2 % (0.0-10.0); %Neutrophils 69.9 % (42.0-75.0); Hemoglobin 8.5 g/dL (14.0-18.0); Mean Corpuscular HGB CONC 32.6 g/dL (32.0-36.0); Mean Corpuscular Hemoglobin 34.6 pg (27.0-31.0); Mean Platelet Volume 7.5 fL (7.4-10.4); Platelet Count 206 thou/uL (130-400); RBC Distribution Width 18.8 % (11.5-14.5); Red Blood Cell (RBC) Count 2.46 mill/uL (4.70-6.10); White Blood Cell (WBC) Count 4.3 thou/uL (4.8-10.8)
[2018-07-20] MEDS: Acetaminophen/Codeine 30-300mg Tablet PO PRN ×3 (10:28→23:13)
[2018-07-20] MEDS: Lactated Ringer's 1,000 ML IV SCH ×3 (10:29→21:06)
[2018-07-20] MEDS: Iron Polysaccharides Complex 150 MG CAP PO SCH (10:33)
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
[2018-07-20] MEDS: Cyclobenzaprine 10 MG TAB PO PRN ×2 (13:14→23:13)
[2018-07-20] MEDS: Diazepam 5 MG TAB PO PRN ×2 (13:14→21:05)
[2018-07-20] MEDS ORDERED: Warfarin Sodium 7.5 MG TAB PO SCH (17:00)
[2018-07-20] MEDS ORDERED: Hydrocortisone Sod Succ/PF 100 mg/2 ml Vial IVP SCH (21:30)
[2018-07-21 05:09] LABS: INR-International Normal Ratio 1.2; Prothrombin Time 15.5 SEC (12.0-14.7)
[2018-07-21 05:19] LABS: PTT 162.8 SEC (22.9-36.1)
[2018-07-21] MEDS: Lactated Ringer's 1,000 ML IV SCH (05:19)
[2018-07-21] MEDS: Ibuprofen 800 MG TAB PO SCH ×4 (05:19→21:26)
[2018-07-21] MEDS: Hydrocortisone Sod Succ/PF 100 mg/2 ml Vial IVP SCH ×3 (05:20→21:27)
[2018-07-21 08:43] LABS: #Lymphocytes 0.3 thou/uL (1.20-3.40); #Monocytes 0.2 thou/uL (0.11-0.59); #Neutrophils 2.9 thou/uL (1.40-6.50); %Eosinophils 0.3 % (0.0-10.0); %Lymphocytes 8.1 % (21.0-51.0); %Monocytes 4.5 % (0.0-10.0); %Neutrophils 87.1 % (42.0-75.0); Hemoglobin 8.4 g/dL (14.0-18.0); Mean Corpuscular HGB CONC 32.1 g/dL (32.0-36.0); Mean Corpuscular Hemoglobin 33.7 pg (27.0-31.0); Mean Platelet Volume 7.6 fL (7.4-10.4); Platelet Count 212 thou/uL (130-400); RBC Distribution Width 18.8 % (11.5-14.5); Red Blood Cell (RBC) Count 2.48 mill/uL (4.70-6.10); White Blood Cell (WBC) Count 3.3 thou/uL (4.8-10.8)
[2018-07-21] MEDS: Iron Polysaccharides Complex 150 MG CAP PO SCH (08:57)
[2018-07-21] MEDS: Famotidine 20 MG TAB PO SCH ×2 (08:57→21:26)
[2018-07-21] MEDS ORDERED: Warfarin Sodium 5 MG TAB PO SCH (09:00)
[2018-07-21 09:05] LABS: Anion Gap 9 mmol/L (10-20); BUN (Urea Nitrogen) 6 mg/dL (8.9-20.6); Calc. Creatinine Clearance 299 mL/min (70-130); Calcium 8.7 mg/dL (7.8-10.44); Carbon Dioxide 25 mmol/L (22-29); Chloride 109 mmol/L (98-107); Estimated GFR-MDRD Greater than 90; Glucose 140 mg/dL (70-105); Magnesium 1.9 mg/dL (1.6-2.6); Phosphorus 2.7 mg/dL (2.3-4.7); Potassium 4.3 mmol/L (3.5-5.1); Sodium 139 mmol/L (136-145)
[2018-07-21] MEDS: Diazepam 5 MG TAB PO PRN ×3 (09:19→22:23)
[2018-07-21] MEDS: Acetaminophen/Codeine 30-300mg Tablet PO PRN ×3 (09:19→22:22)
[2018-07-21] MEDS: Acetaminophen 500 MG TAB PO SCH ×4 (09:21→21:26)
[2018-07-21] MEDS ORDERED: Enoxaparin Sodium 120 MG/0.8 ML SYRINGE SC SCH (11:00)
[2018-07-21] MEDS: Cyclobenzaprine 10 MG TAB PO PRN ×2 (11:20→21:26)
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
[2018-07-21] MEDS: Warfarin Sodium 10 MG TAB PO SCH (16:11)
[2018-07-21] MEDS: Enoxaparin Sodium 120 MG/0.8 ML SYRINGE SC SCH (21:27)
[2018-07-22 05:15] LABS: INR-International Normal Ratio 1.4; Prothrombin Time 17.3 SEC (12.0-14.7)
[2018-07-22] MEDS: Hydrocortisone Sod Succ/PF 100 mg/2 ml Vial IVP SCH (05:37)
[2018-07-22] MEDS: Ibuprofen 800 MG TAB PO SCH ×3 (05:37→23:56)
[2018-07-22] MEDS: Acetaminophen/Codeine 30-300mg Tablet PO PRN ×4 (05:43→23:56)
[2018-07-22] MEDS: Diazepam 5 MG TAB PO PRN ×4 (05:43→23:56)
[2018-07-22 05:47] LABS: Anion Gap 8 mmol/L (10-20); BUN (Urea Nitrogen) 9 mg/dL (8.9-20.6); Calc. Creatinine Clearance 289 mL/min (70-130); Calcium 8.6 mg/dL (7.8-10.44); Carbon Dioxide 28 mmol/L (22-29); Chloride 111 mmol/L (98-107); Estimated GFR-MDRD Greater than 90; Glucose 143 mg/dL (70-105); Magnesium 1.6 mg/dL (1.6-2.6); Phosphorus 3.3 mg/dL (2.3-4.7); Potassium 3.9 mmol/L (3.5-5.1); Sodium 143 mmol/L (136-145)
[2018-07-22 05:49] LABS: #Lymphocytes 0.4 thou/uL (1.20-3.40); #Monocytes 0.2 thou/uL (0.11-0.59); #Neutrophils 3.5 thou/uL (1.40-6.50); %Eosinophils 0.5 % (0.0-10.0); %Lymphocytes 8.8 % (21.0-51.0); %Monocytes 5.7 % (0.0-10.0); Anisocytosis MODERATE=16-30 cells (100X) (0-5/hpf); Hemoglobin 7.4 g/dL (14.0-18.0); MDiff Complete? YES; Mean Corpuscular HGB CONC 31.5 g/dL (32.0-36.0); Mean Corpuscular Hemoglobin 33.7 pg (27.0-31.0); Mean Platelet Volume 7.5 fL (7.4-10.4); Platelet Count 220 thou/uL (130-400); RBC Distribution Width 18.5 % (11.5-14.5); White Blood Cell (WBC) Count 4.1 thou/uL (4.8-10.8)
[2018-07-22] MEDS ORDERED: Magnesium 2 GM/50 ML 2 GM in Premix Bag 1 BAG IVPB SCH (08:00)
[2018-07-22] MEDS: Cyclobenzaprine 10 MG TAB PO PRN ×2 (09:07→17:07)
[2018-07-22] MEDS: Acetaminophen 500 MG TAB PO SCH ×4 (09:08→21:02)
[2018-07-22] MEDS: Famotidine 20 MG TAB PO SCH ×2 (09:08→21:00)
[2018-07-22] MEDS: Ascorbic Acid 500 mg Chewable Tablet PO SCH (09:08)
[2018-07-22] MEDS ORDERED: Morphine 2 MG/ML SYRINGE SLOW IVP SCH (10:30)
[2018-07-22] MEDS: Enoxaparin Sodium 120 MG/0.8 ML SYRINGE SC SCH ×2 (11:06→21:00)
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
[2018-07-22] MEDS: Warfarin Sodium 10 MG TAB PO SCH (17:07)
[2018-07-23 05:25] LABS: #Lymphocytes 1.1 thou/uL (1.20-3.40); #Monocytes 0.3 thou/uL (0.11-0.59); #Neutrophils 2.1 thou/uL (1.40-6.50); %Eosinophils 0.5 % (0.0-10.0); %Lymphocytes 31.6 % (21.0-51.0); %Monocytes 7.4 % (0.0-10.0); %Neutrophils 59.5 % (42.0-75.0); Hemoglobin 7.6 g/dL (14.0-18.0); Mean Corpuscular Hemoglobin 33.3 pg (27.0-31.0); Mean Platelet Volume 7.4 fL (7.4-10.4); Platelet Count 245 thou/uL (130-400); RBC Distribution Width 18.2 % (11.5-14.5); Red Blood Cell (RBC) Count 2.28 mill/uL (4.70-6.10); White Blood Cell (WBC) Count 3.6 thou/uL (4.8-10.8)
[2018-07-23 05:28] LABS: INR-International Normal Ratio 1.8; Prothrombin Time 20.7 SEC (12.0-14.7)
[2018-07-23] MEDS: Diazepam 5 MG TAB PO PRN ×3 (06:07→18:55)
[2018-07-23] MEDS: Cyclobenzaprine 10 MG TAB PO PRN ×3 (06:07→22:45)
[2018-07-23] MEDS: Acetaminophen/Codeine 30-300mg Tablet PO PRN ×3 (06:08→18:56)
[2018-07-23 06:11] LABS: Anion Gap 9 mmol/L (10-20); BUN (Urea Nitrogen) 11 mg/dL (8.9-20.6); Calc. Creatinine Clearance 274 mL/min (70-130); Calcium 8.4 mg/dL (7.8-10.44); Carbon Dioxide 28 mmol/L (22-29); Chloride 111 mmol/L (98-107); Estimated GFR-MDRD Greater than 90; Glucose 90 mg/dL (70-105); Magnesium 1.8 mg/dL (1.6-2.6); Potassium 3.5 mmol/L (3.5-5.1); Sodium 144 mmol/L (136-145)
[2018-07-23] MEDS ORDERED: Magnesium 2 GM/50 ML 2 GM in Premix Bag 1 BAG IVPB SCH (08:30)
[2018-07-23] MEDS: Enoxaparin Sodium 120 MG/0.8 ML SYRINGE SC SCH ×2 (09:20→22:46)
[2018-07-23] MEDS: Iron Polysaccharides Complex 150 MG CAP PO SCH ×2 (09:21→09:46)
[2018-07-23] MEDS ORDERED: Morphine 2 MG/ML SYRINGE SLOW IVP PRN (09:21)
[2018-07-23] MEDS: Ascorbic Acid 500 mg Chewable Tablet PO SCH (09:23)
[2018-07-23] MEDS: Ibuprofen 800 MG TAB PO SCH ×3 (09:30→22:45)
[2018-07-23] MEDS: Famotidine 20 MG TAB PO SCH ×2 (09:30→22:47)
[2018-07-23] MEDS: Acetaminophen 500 MG TAB PO SCH ×4 (09:32→22:46)
[2018-07-23] MEDS ORDERED: Morphine 4 MG/ML VIAL ONE (09:37)
[2018-07-23] MEDS ORDERED: Furosemide 20 MG TAB PO SCH (11:30)
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
[2018-07-23] MEDS: Warfarin Sodium 10 MG TAB PO SCH (18:25)
[2018-07-23] MEDS: Warfarin Sodium 2.5 MG TAB PO SCH (18:57)
[2018-07-24] MEDS: Diazepam 5 MG TAB PO PRN ×4 (00:40→21:34)
[2018-07-24] MEDS: Acetaminophen/Codeine 30-300mg Tablet PO PRN ×4 (00:41→18:38)
[2018-07-24] MEDS: Cyclobenzaprine 10 MG TAB PO PRN ×2 (06:44→15:12)
[2018-07-24] MEDS: Ibuprofen 800 MG TAB PO SCH ×3 (06:44→21:34)
[2018-07-24 07:04] LABS: #Eosinphils 0.1 thou/uL (0.0-0.7); #Lymphocytes 1.1 thou/uL (1.20-3.40); #Monocytes 0.5 thou/uL (0.11-0.59); #Neutrophils 4.8 thou/uL (1.40-6.50); %Basophils 0.2 % (0.0-1.0); %Eosinophils 1.3 % (0.0-10.0); %Lymphocytes 16.4 % (21.0-51.0); %Monocytes 7.3 % (0.0-10.0); %Neutrophils 74.9 % (42.0-75.0); Mean Corpuscular HGB CONC 32.4 g/dL (32.0-36.0); Mean Corpuscular Hemoglobin 33.4 pg (27.0-31.0); Mean Platelet Volume 7.5 fL (7.4-10.4); Platelet Count 252 thou/uL (130-400); RBC Distribution Width 17.7 % (11.5-14.5); Red Blood Cell (RBC) Count 2.39 mill/uL (4.70-6.10); White Blood Cell (WBC) Count 6.4 thou/uL (4.8-10.8)
[2018-07-24 07:06] LABS: INR-International Normal Ratio 2.1; Prothrombin Time 23.7 SEC (12.0-14.7)
[2018-07-24 07:19] LABS: Anion Gap 9 mmol/L (10-20); BUN (Urea Nitrogen) 10 mg/dL (8.9-20.6); Calc. Creatinine Clearance 284 mL/min (70-130); Calcium 8.2 mg/dL (7.8-10.44); Carbon Dioxide 28 mmol/L (22-29); Chloride 108 mmol/L (98-107); Estimated GFR-MDRD Greater than 90; Glucose 90 mg/dL (70-105); Magnesium 1.8 mg/dL (1.6-2.6); Phosphorus 4.3 mg/dL (2.3-4.7); Sodium 141 mmol/L (136-145)
[2018-07-24] MEDS: Enoxaparin Sodium 120 MG/0.8 ML SYRINGE SC SCH ×2 (08:15→21:34)
[2018-07-24] MEDS: Acetaminophen 500 MG TAB PO SCH ×2 (08:15→08:19)
[2018-07-24] MEDS: Famotidine 20 MG TAB PO SCH ×2 (08:15→21:34)
[2018-07-24] MEDS: Ascorbic Acid 500 mg Chewable Tablet PO SCH (08:15)
[2018-07-24] MEDS ORDERED: Morphine 2 MG/ML SYRINGE SLOW IVP PRN (09:41)
[2018-07-24] MEDS ORDERED: Ketorolac Tromethamine 30 MG/ML VIAL IVP SCH (09:45)
[2018-07-24] MEDS ORDERED: Ondansetron PF 4 MG/2 ML Vial IVP SCH (11:00)
[2018-07-24] MEDS ORDERED: Ondansetron PF 4 MG/2 ML Vial IVP PRN (11:10)
[2018-07-24] MEDS ORDERED: Ondansetron ORAL SOLN. 4 MG/5 ML UDCUP PO PRN (11:10)
[2018-07-24] MEDS ORDERED: Furosemide 20 MG TAB PO SCH (12:30)
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
[2018-07-24] MEDS: Warfarin Sodium 2.5 MG TAB PO SCH (16:52)
[2018-07-24] MEDS: Warfarin Sodium 10 MG TAB PO SCH (16:52)
[2018-07-24] MEDS ORDERED: Albumin 25% 25 GM/100 ML BOT IVPB SCH (23:45)
[2018-07-25] MEDS: Sodium Chloride 0.9% 1,000 ML IV SCH ×2 (00:03→13:40)
[2018-07-25 05:29] LABS: #Lymphocytes 0.6 thou/uL (1.20-3.40); #Monocytes 0.7 thou/uL (0.11-0.59); #Neutrophils 7.3 thou/uL (1.40-6.50); %Basophils 0.1 % (0.0-1.0); %Eosinophils 0.5 % (0.0-10.0); %Lymphocytes 6.5 % (21.0-51.0); %Monocytes 7.9 % (0.0-10.0); %Neutrophils 84.9 % (42.0-75.0); Mean Corpuscular HGB CONC 31.9 g/dL (32.0-36.0); Mean Corpuscular Hemoglobin 33.6 pg (27.0-31.0); Mean Platelet Volume 7.6 fL (7.4-10.4); Platelet Count 221 thou/uL (130-400); RBC Distribution Width 17.6 % (11.5-14.5); Red Blood Cell (RBC) Count 2.38 mill/uL (4.70-6.10); White Blood Cell (WBC) Count 8.6 thou/uL (4.8-10.8)
[2018-07-25 05:30] LABS: INR-International Normal Ratio 2.8; Prothrombin Time 29.2 SEC (12.0-14.7)
[2018-07-25 05:35] LABS: Anion Gap 8 mmol/L (10-20); BUN (Urea Nitrogen) 11 mg/dL (8.9-20.6); Calc. Creatinine Clearance 265 mL/min (70-130); Calcium 8.2 mg/dL (7.8-10.44); Carbon Dioxide 30 mmol/L (22-29); Chloride 106 mmol/L (98-107); Estimated GFR-MDRD Greater than 90; Glucose 117 mg/dL (70-105); Magnesium 1.7 mg/dL (1.6-2.6); Potassium 4.3 mmol/L (3.5-5.1); Sodium 140 mmol/L (136-145)
[2018-07-25] MEDS: Ibuprofen 800 MG TAB PO SCH ×3 (06:07→20:41)
[2018-07-25] MEDS ORDERED: Albumin 25% 25 GM/100 ML BOT IVPB SCH (06:44)
[2018-07-25] MEDS: Famotidine 20 MG TAB PO SCH ×2 (08:02→20:40)
[2018-07-25] MEDS: Ascorbic Acid 500 mg Chewable Tablet PO SCH (08:02)
[2018-07-25] MEDS: Iron Polysaccharides Complex 150 MG CAP PO SCH (08:02)
[2018-07-25] MEDS: Acetaminophen/Codeine 30-300mg Tablet PO PRN ×2 (08:04→20:40)
--- NOTE | 2018-07-25 10:44 | PRG ---
DATE OF SERVICE: 07/25/2018 Alphonse Reyna's right leg has areas of eschar undermining, tracking, and is in need of debridement. I have discussed with Wound Care, with the patient, and the patient's mother (mother is visiting from [place]). Today, we will plan debridement of his eschar of right leg, application of the wound VAC and make arrangement for outpatient wound VAC care at home. Hopefully, he can be discharged home the next day or 2 once the outpatient wound VAC is approved. The patient has transportation to go to outpatient Wound Care twice a week. He understands the risks and benefits, and consents. Job ID: [id number]
[2018-07-25] MEDS ORDERED: PHENYLEPHRINE-NS 100 MCG/ML 10 ML SYRINGE ONE (12:07)
[2018-07-25] MEDS ORDERED: PROPOFOL 200 MG/20 ML VIAL ONE (12:07)
[2018-07-25] MEDS ORDERED: ePHEDrine 50 MG/ML VIAL ONE (12:07)
[2018-07-25] MEDS ORDERED: Ketorolac Tromethamine 30 MG/ML VIAL ONE (12:07)
[2018-07-25] MEDS ORDERED: Succinylcholine Chloride 20 MG/ML 10 ml SYRINGE FS ONE (12:07)
[2018-07-25] MEDS ORDERED: Lidocaine 1% PF 5 ML VIAL ONE (12:07)
[2018-07-25] MEDS ORDERED: Midazolam HCl 2 mg/2 ml Vial ONE ×2 (12:50→15:38)
[2018-07-25] MEDS ORDERED: Fentanyl 100 MCG/2 ML VIAL ONE ×4 (12:50→18:08)
[2018-07-25] MEDS ORDERED: Piperacillin/Tazobactam 3.375 GM VIAL ONE (13:21)
[2018-07-25] MEDS ORDERED: Sodium Chloride 0.9% 100 ML ONE (13:21)
[2018-07-25] MEDS ORDERED: Famotidine/PF 20 mg/2ml Vial ONE (15:38)
[2018-07-25] MEDS ORDERED: Promethazine HCl 25 MG/ML VIAL IM PRN (16:39)
[2018-07-25] MEDS ORDERED: Meperidine HCl/PF 25 MG/ML VIAL SLOW IVP PRN (16:39)
[2018-07-25] MEDS ORDERED: Promethazine HCl 25 MG/ML VIAL SLOW IVP PRN (16:39)
[2018-07-25] MEDS ORDERED: Ondansetron HCl/PF 4 MG/2 ML Vial IVP PRN (16:39)
[2018-07-25] MEDS ORDERED: Warfarin Sodium 10 MG TAB PO SCH ×2 (17:00)
[2018-07-25] MEDS ORDERED: Warfarin Sodium 5 MG TAB PO SCH (17:00)
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
[2018-07-25] MEDS: Cyclobenzaprine 10 MG TAB PO PRN (20:41)
[2018-07-26] MEDS: Sodium Chloride 0.9% 1,000 ML IV SCH ×2 (04:40→05:45)
[2018-07-26] MEDS: Ibuprofen 800 MG TAB PO SCH ×3 (05:45→21:00)
[2018-07-26] MEDS: Acetaminophen/Codeine 30-300mg Tablet PO PRN ×3 (05:49→19:16)
[2018-07-26 06:54] LABS: Hemoglobin 8.2 g/dL (14.0-18.0); Mean Corpuscular HGB CONC 31.6 g/dL (32.0-36.0); Mean Platelet Volume 7.9 fL (7.4-10.4); Platelet Count 238 thou/uL (130-400); RBC Distribution Width 18.1 % (11.5-14.5); Red Blood Cell (RBC) Count 2.56 mill/uL (4.70-6.10); White Blood Cell (WBC) Count 4.6 thou/uL (4.8-10.8)
[2018-07-26 07:55] LABS: Band 6 % (5-11); Hypochromia SLIGHT = 6-15 cells (100X) (0-5/hpf); Lymphocytes 9 % (21-51); MDiff Complete? YES; Macrocytosis SLIGHT = 6-15 cells (100X) (0-5/hpf); Monocytes 17 % (0-10); Neutrophil 66 % (42-75); Platelet Morphology Comment Appears Adequate; Polychromasia SLIGHT = 2-3 cells (100X) (0-2/hpf); Promyelocytes 1 % (0-0); Reactive Lymphocytes 1 % (0-10)
[2018-07-26 07:57] LABS: INR-International Normal Ratio 2.9; Prothrombin Time 30.6 SEC (12.0-14.7)
[2018-07-26] MEDS: Ascorbic Acid 500 mg Chewable Tablet PO SCH (08:01)
[2018-07-26] MEDS: Diazepam 5 MG TAB PO PRN ×3 (08:01→20:19)
[2018-07-26] MEDS: Cyclobenzaprine 10 MG TAB PO PRN ×2 (08:01→16:28)
[2018-07-26] MEDS: Iron Polysaccharides Complex 150 MG CAP PO SCH (08:01)
[2018-07-26] MEDS: Famotidine 20 MG TAB PO SCH ×2 (08:01→20:19)
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
[2018-07-27] MEDS ORDERED: Albumin 25% 25 GM/100 ML BOT IVPB SCH (01:15)
[2018-07-27] MEDS: Acetaminophen/Codeine 30-300mg Tablet PO PRN (01:31)
[2018-07-27] MEDS: Ibuprofen 800 MG TAB PO SCH (05:16)
[2018-07-27] MEDS: Diazepam 5 MG TAB PO PRN (05:33)
[2018-07-27 05:39] LABS: INR-International Normal Ratio 2.5; Prothrombin Time 26.9 SEC (12.0-14.7)
[2018-07-27] MEDS: Iron Polysaccharides Complex 150 MG CAP PO SCH (08:16)
[2018-07-27] MEDS: Ascorbic Acid 500 mg Chewable Tablet PO SCH (08:16)
[2018-07-27] MEDS: Famotidine 20 MG TAB PO SCH (08:16)
[2018-07-27] MEDS: Cyclobenzaprine 10 MG TAB PO PRN (08:16)
[2018-07-27] MEDS ORDERED: Warfarin Sodium 10 MG TAB PO SCH (17:00)
[2018-07-27 17:59] VITALS: BP 87/60; TEMP 98.2
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
== END 2018-07-27 12:40 | disposition home or self-care (01) | DRG 857 ==
LOC: ERS 05:22 → SJJU 10:00
PROVIDERS: ADMIT Surgery; ATTEND Surgery
PROC: 0JDN0ZZ Extraction of Right Lower Leg Subcutaneous Tissue and Fascia, Open Approach (ICD-10-PCS; principal; 2018-07-25)
DX: T81.41XA Infection following a procedure, superficial incisional surgical site, initial encounter (principal); I82.511 Chronic embolism and thrombosis of right femoral vein; Y83.8 Other surgical procedures as the cause of abnormal reaction of the patient, or of later complication, without mention of misadventure at the time of the procedure; Z86.711 Personal history of pulmonary embolism; F41.9 Anxiety disorder, unspecified; E83.42 Hypomagnesemia; S82.401D Unspecified fracture of shaft of right fibula, subsequent encounter for closed fracture with routine healing; V03.99XD Pedestrian with other conveyance injured in collision with car, pick-up truck or van, unspecified whether traffic or nontraffic accident, subsequent encounter; Z98.84 Bariatric surgery status; Z98.890 Other specified postprocedural states; Z88.8 Allergy status to other drugs, medicaments and biological substances
CPT/HCPCS: 36415; 36430; 80048; 80053; 82040; 82533; 83605; 83735; 83880; 84100; 85025; 85520; 85610; 85730; 86850; 86900; 86901; 87040; 93306; 93970; 96365; 96367; 96375; J0131; J1644; J1650; J1720; J1885; J2001; J2250; J2270; J2405; J2543; J2704; J3010; J3370; J3475; J3490; J7050; P9016; P9047; Q9966; S0028

== ENCOUNTER 2018-08-01 09:42 | Outpatient (CLI) | payer SELFPAY ==
[2018-08-01] MEDS ORDERED: Sodium Chloride 0.9% 15 ML NEB ONE (14:54)
[2018-08-01] MEDS ORDERED: Lidocaine 2% Jelly 5 ML TUBE ONE (14:54)
== END 2018-08-01 09:43 | disposition home or self-care (01) ==
LOC: WCC 09:42
PROVIDERS: ATTEND Family Medicine
DX: T81.89XD Other complications of procedures, not elsewhere classified, subsequent encounter (principal)
CPT/HCPCS: 97606; A4218

== ENCOUNTER 2018-08-02 10:09 | Inpatient (IN) | payer SELFPAY ==
[2018-08-02 10:45] LABS: #Monocytes 0.4 thou/uL (0.11-0.59); #Neutrophils 3.5 thou/uL (1.40-6.50); %Basophils 0.3 % (0.0-1.0); %Eosinophils 0.5 % (0.0-10.0); %Lymphocytes 20.2 % (21.0-51.0); %Monocytes 8.9 % (0.0-10.0); Hemoglobin 10.3 g/dL (14.0-18.0); Mean Corpuscular HGB CONC 31.1 g/dL (32.0-36.0); Mean Corpuscular Hemoglobin 30.3 pg (27.0-31.0); Mean Corpuscular Volume 97.6 fL (78.0-98.0); Mean Platelet Volume 7.3 fL (7.4-10.4); Platelet Count 450 thou/uL (130-400); RBC Distribution Width 17.1 % (11.5-14.5); Red Blood Cell (RBC) Count 3.41 mill/uL (4.70-6.10); White Blood Cell (WBC) Count 4.9 thou/uL (4.8-10.8)
[2018-08-02 10:59] LABS: INR-International Normal Ratio 3.8; PTT 66.9 SEC (22.9-36.1); Prothrombin Time 37.2 SEC (12.0-14.7)
[2018-08-02 11:11] LABS: ALT (SGPT) 10 U/L (8-55); AST (SGOT) 31 U/L (5-34); Albumin 2.9 g/dL (3.5-5.0); Alkaline Phosphatase 95 U/L (40-150); Anion Gap 15 mmol/L (10-20); BUN (Urea Nitrogen) 5 mg/dL (8.9-20.6); Bilirubin, Total 0.8 mg/dL (0.2-1.2); Calc. Creatinine Clearance 0 mL/min (70-130); Calcium 8.7 mg/dL (7.8-10.44); Carbon Dioxide 25 mmol/L (22-29); Chloride 105 mmol/L (98-107); Estimated GFR-MDRD Greater than 90; Globulin 2.7 g/dL (2.4-3.5); Glucose 96 mg/dL (70-105); Protein, Total 5.6 g/dL (6.0-8.3); Sodium 141 mmol/L (136-145)
[2018-08-02] MEDS ORDERED: Piperacillin/Tazobactam 3.375 GM VIAL ONE (11:46)
[2018-08-02] MEDS ORDERED: Piperacillin/Tazobactam 4.5 GM VIAL ONE (11:47)
[2018-08-02 14:04] LABS: Acetaminophen Less than 6.0 mcg/mL (10.0-30.0); Alcohol Less than 10 mg/dL (Less than 10); Salicylate Less than 8.0 mg/dL (15.0-30.0)
[2018-08-02] MEDS ORDERED: Fentanyl 100 MCG/2 ML VIAL ONE (14:22)
[2018-08-02 14:37] LABS: Bilirubin Small (Negative); Blood, Urine Negative (Negative); Clarity CLOUDY (Clear); Glucose, Urine (Dipstick) Negative (Negative); Leukocyte Small (Negative); Nitrite Positive (Negative); Protein, Urine (Dipstick) 30 mg/dL (Neg-Trace); Specific Gravity, Urine 1.023 (1.002-1.036); pH, Urine 7.5 (5.0-9.0)
[2018-08-02 14:41] LABS: Bacteria/HPF Rare-Few HPF (None Seen); Pathc Cast-AUWi Flag 0.13 (0-2.49)
[2018-08-02 14:46] LABS: Amphetamine Not Detected (NotDetected); Barbiturates Screen Not Detected (NotDetected); Benzodiazepine Screen Detected (NotDetected); Cocaine Metabolite Screen Not Detected (NotDetected); Medtox Control Line Valid? VALID (VALID); Medtox Reader # READER 1; Methadone Not Detected (NotDetected); Methamphetamine Not Detected (NotDetected); Opiate Screen Detected (NotDetected); Oxycodone Screen Not Detected (NotDetected); Phencyclidine (PCP) Not Detected (NotDetected); THC/Cannabinoid Screen Not Detected (NotDetected); Tricyclic Screen Not Detected (NotDetected)
[2018-08-02 14:51] LABS: Hyaline Casts/LPF 0-3 HYALINE CAST LPF (0-3 Hyaline)
[2018-08-02 14:52] LABS: Yeast-All Forms None Seen HPF (None Seen)
[2018-08-02 14:58] LABS: Lactic Acid 1.6 mmol/L (0.5-2.2)
[2018-08-02] MEDS ORDERED: Dextrose 50% Abboject 50 ML SYRINGE SLOW IVP PRN (15:43)
[2018-08-02] MEDS ORDERED: Acetaminophen/Codeine 30-300mg Tablet PO PRN (15:43)
[2018-08-02] MEDS ORDERED: Dextrose 5% in Water 1,000 ML IV PRN (15:43)
[2018-08-02] MEDS ORDERED: Promethazine HCl 25 MG/ML VIAL IM PRN (15:43)
[2018-08-02] MEDS ORDERED: Ondansetron PF 4 MG/2 ML Vial IVP PRN (15:43)
[2018-08-02 15:52] VITALS: BMI 30.8
[2018-08-02] MEDS ORDERED: Piperacillin/Tazobactam 3.375 GM in Sodium Chloride 0.9% 100 ML IVPB SCH ×2 (16:00→19:00)
[2018-08-02] MEDS: Morphine 4 MG/ML VIAL SLOW IVP PRN ×2 (16:47→22:29)
[2018-08-02] MEDS ORDERED: Vancomycin HCl 1.75 GM in Sodium Chloride 0.9% 500 ML IVPB SCH (17:00)
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
[2018-08-02] MEDS: Ibuprofen 800 MG TAB PO SCH (17:39)
[2018-08-02] MEDS: Acetaminophen/Codeine 30-300mg Tablet PO PRN (19:40)
[2018-08-02] MEDS: Vancomycin HCl 1.75 GM in Sodium Chloride 0.9% 500 ML IVPB SCH (21:45)
[2018-08-02] MEDS: Famotidine/PF 20 mg/2ml Vial SLOW IVP SCH (21:45)
[2018-08-02] MEDS: Senokot S 8.6-50 MG TAB PO SCH (22:13)
[2018-08-03] MEDS: Piperacillin/Tazobactam 3.375 GM in Sodium Chloride 0.9% 100 ML IVPB SCH ×5 (01:10→23:22)
[2018-08-03] MEDS: Ibuprofen 800 MG TAB PO SCH ×4 (01:12→23:24)
[2018-08-03] MEDS: Acetaminophen/Codeine 30-300mg Tablet PO PRN ×4 (01:19→22:31)
[2018-08-03] MEDS ORDERED: Furosemide 20 MG TAB PO SCH (02:45)
[2018-08-03] MEDS: Vancomycin HCl 1.75 GM in Sodium Chloride 0.9% 500 ML IVPB SCH ×3 (06:00→20:16)
[2018-08-03 06:23] LABS: INR-International Normal Ratio 3.4; Prothrombin Time 34.4 SEC (12.0-14.7)
[2018-08-03 07:59] LABS: #Eosinphils 0.1 thou/uL (0.0-0.7); #Monocytes 0.5 thou/uL (0.11-0.59); #Neutrophils 2.9 thou/uL (1.40-6.50); %Basophils 0.7 % (0.0-1.0); %Eosinophils 1.4 % (0.0-10.0); %Lymphocytes 22.8 % (21.0-51.0); %Monocytes 11.5 % (0.0-10.0); %Neutrophils 63.5 % (42.0-75.0); Mean Corpuscular HGB CONC 31.2 g/dL (32.0-36.0); Mean Corpuscular Hemoglobin 30.7 pg (27.0-31.0); Mean Corpuscular Volume 98.3 fL (78.0-98.0); Mean Platelet Volume 7.3 fL (7.4-10.4); Platelet Count 299 thou/uL (130-400); RBC Distribution Width 16.7 % (11.5-14.5); Red Blood Cell (RBC) Count 2.92 mill/uL (4.70-6.10); White Blood Cell (WBC) Count 4.5 thou/uL (4.8-10.8)
[2018-08-03 08:15] LABS: Anion Gap 11 mmol/L (10-20); BUN (Urea Nitrogen) 5 mg/dL (8.9-20.6); Calc. Creatinine Clearance 216 mL/min (70-130); Calcium 7.8 mg/dL (7.8-10.44); Carbon Dioxide 27 mmol/L (22-29); Chloride 108 mmol/L (98-107); Estimated GFR-MDRD Greater than 90; Glucose 107 mg/dL (70-105); Magnesium 1.4 mg/dL (1.6-2.6); Phosphorus 4.5 mg/dL (2.3-4.7); Potassium 3.9 mmol/L (3.5-5.1); Sodium 142 mmol/L (136-145)
[2018-08-03] MEDS: Ascorbic Acid 500 mg Chewable Tablet PO SCH (09:44)
[2018-08-03] MEDS: Famotidine/PF 20 mg/2ml Vial SLOW IVP SCH ×2 (09:45→20:16)
[2018-08-03] MEDS: Senokot S 8.6-50 MG TAB PO SCH ×2 (09:45→20:16)
[2018-08-03] MEDS: Polyethylene Glycol 3350 17 GM Packet PO SCH (09:45)
[2018-08-03] MEDS: Diazepam 5 MG TAB PO PRN ×3 (09:47→23:22)
--- NOTE | 2018-08-03 13:43 | PRG ---
DATE OF SERVICE: 08/03/2018 SUBJECTIVE: The patient is seen resting comfortably in bed. Reports pain well controlled, tolerating p.o. well, ambulating well. Denies fever, chills, chest pain, shortness of breath. Does report some pain with dressing changes. OBJECTIVE: VITAL SIGNS: Blood pressure 90/55, pulse 74, respirations 16, oxygen saturation 100% on room air. Afebrile. GENERAL: No acute distress. HEENT: Normocephalic and atraumatic. NEUROLOGIC: Cranial nerves grossly intact. CHEST: Flat, even inspiratory and expiratory effort. No bony deformity noted. ABDOMEN: Flat, nondistended. EXTREMITIES: Neurovascularly intact x4. Moves all four. SKIN: Right lower extremity wound examined and found to be free of purulent drainage and granulation tissue present. No erythema or edema concerning for infection. LABORATORY DATA: White blood cell count is 4.5, hemoglobin is 9, hematocrit 28.7. Coagulation; INR 3.4. Chemistry; chloride 108, creatinine 0.72. Lactic acid 1.6. No imaging for today. ASSESSMENT: Right lower extremity traumatic wound, history of poor wound care, status post debridement. PLAN: Continue dressing changes. Discontinue IV fluids. Encourage ambulation and p.o. intake. We will consult Dr. Marcos Steel, Plastic Surgery for evaluation of possible repair and skin graft. Continue to plan for discharge to alf facility. This patient was seen and evaluated today on rounds with Dr. Gee Hair. Job ID: [id number] [facility]
[2018-08-03] MEDS: Morphine 4 MG/ML VIAL SLOW IVP PRN (13:57)
[2018-08-03] MEDS: Sodium Hypochlorite 0.25% Solution 480 ML BOT TOP SCH (13:58)
[2018-08-03] MEDS ORDERED: Warfarin Sodium 5 MG TAB PO SCH ×2 (17:00)
[2018-08-03 20:36] LABS: Vancomycin, Trough 39.6 ug/mL
[2018-08-03] MEDS ORDERED: Vancomycin HCl 1.75 GM in Sodium Chloride 0.9% 500 ML IVPB SCH (20:45)
[2018-08-04 04:45] LABS: #Eosinphils 0.2 thou/uL (0.0-0.7); #Lymphocytes 0.9 thou/uL (1.20-3.40); #Monocytes 0.3 thou/uL (0.11-0.59); #Neutrophils 2.7 thou/uL (1.40-6.50); %Basophils 0.3 % (0.0-1.0); %Lymphocytes 20.9 % (21.0-51.0); %Monocytes 8.3 % (0.0-10.0); %Neutrophils 64.5 % (42.0-75.0); Hemoglobin 8.3 g/dL (14.0-18.0); Mean Corpuscular HGB CONC 31.3 g/dL (32.0-36.0); Mean Platelet Volume 7.1 fL (7.4-10.4); Platelet Count 259 thou/uL (130-400); RBC Distribution Width 16.9 % (11.5-14.5); Red Blood Cell (RBC) Count 2.69 mill/uL (4.70-6.10); White Blood Cell (WBC) Count 4.1 thou/uL (4.8-10.8)
[2018-08-04 05:03] LABS: Anion Gap 10 mmol/L (10-20); BUN (Urea Nitrogen) 6 mg/dL (8.9-20.6); Calc. Creatinine Clearance 132 mL/min (70-130); Calcium 7.9 mg/dL (7.8-10.44); Carbon Dioxide 29 mmol/L (22-29); Chloride 109 mmol/L (98-107); Estimated GFR-MDRD 67; Glucose 101 mg/dL (70-105); Magnesium 2.1 mg/dL (1.6-2.6); Phosphorus 5.3 mg/dL (2.3-4.7); Sodium 144 mmol/L (136-145)
[2018-08-04] MEDS: Piperacillin/Tazobactam 3.375 GM in Sodium Chloride 0.9% 100 ML IVPB SCH ×2 (06:05→11:49)
[2018-08-04] MEDS: Acetaminophen/Codeine 30-300mg Tablet PO PRN ×3 (06:13→19:13)
[2018-08-04] MEDS: Diazepam 5 MG TAB PO PRN (08:26)
[2018-08-04] MEDS: Ibuprofen 800 MG TAB PO SCH ×2 (08:27→16:46)
[2018-08-04] MEDS: Ascorbic Acid 500 mg Chewable Tablet PO SCH (08:27)
[2018-08-04] MEDS: Senokot S 8.6-50 MG TAB PO SCH ×2 (08:29→20:02)
[2018-08-04] MEDS: Famotidine/PF 20 mg/2ml Vial SLOW IVP SCH ×2 (08:29→20:01)
[2018-08-04] MEDS: Polyethylene Glycol 3350 17 GM Packet PO SCH (08:31)
[2018-08-04 08:38] LABS: INR-International Normal Ratio 3.2; Prothrombin Time 32.7 SEC (12.0-14.7)
[2018-08-04] MEDS: Morphine 4 MG/ML VIAL SLOW IVP PRN ×2 (09:51→16:45)
--- NOTE | 2018-08-04 13:51 | PRG ---
DATE OF SERVICE: 08/03/2018 SUBJECTIVE: The patient is seen resting comfortably in bed, undergoing dressing change at this time. Reports pain is well controlled. He is tolerating p.o. well, ambulating well. Denies fever or chills at this time. OBJECTIVE: VITAL SIGNS: Blood pressures continue to be low at baseline. The patient is afebrile, pulse 82, respirations 18, saturating well on room air. GENERAL: No acute distress. HEENT: Normocephalic and atraumatic. CHEST: Flat. Even inspiratory and expiratory effort. No bony deformity noted. ABDOMEN: Flat. Nondistended. EXTREMITIES: Neurovascularly intact x4. NEUROLOGIC: Cranial nerves grossly intact. SKIN: Right lower extremity wound undergoing dressing change at this time. Serosanguineous fluid noted on bandages. No purulence noted. Increasing erythema or edema. Appears noninfectious at this time. LABORATORY DATA: White blood cells 4.1, hemoglobin 8.3, hematocrit 26.6, platelets 259. Coags, INR 3.2. Chemistry; sodium 144, potassium 4, phosphorus 5.3. No imaging. ASSESSMENT: 1. Right lower extremity traumatic wound. 2. History of poor wound care. 3. Status post debridement. PLAN: Continue dressing changes. Dr. Steel to evaluate today. Continue to encourage ambulation and p.o. intake. Due to the patient's poor nutritional status, we will be adding zinc for better wound healing. The patient is stable for discharge to intermediate facility when bed becomes available. The patient was seen and evaluated on morning rounds with Dr. Gee Hair. Job ID: [id number]
[2018-08-04 14:44] LABS: Vancomycin, Random 29.7 ug/mL (See Comment)
[2018-08-04] MEDS: Cipro 250 MG TAB PO SCH (20:01)
[2018-08-05] MEDS: Ibuprofen 800 MG TAB PO SCH ×2 (00:23→09:12)
[2018-08-05] MEDS: Acetaminophen/Codeine 30-300mg Tablet PO PRN ×4 (01:06→21:12)
[2018-08-05] MEDS: Diazepam 5 MG TAB PO PRN ×2 (01:14→09:09)
[2018-08-05] MEDS: Cipro 250 MG TAB PO SCH ×2 (05:38→21:13)
[2018-08-05 06:11] LABS: #Eosinphils 0.3 thou/uL (0.0-0.7); #Lymphocytes 0.9 thou/uL (1.20-3.40); #Monocytes 0.4 thou/uL (0.11-0.59); #Neutrophils 2.5 thou/uL (1.40-6.50); %Basophils 1.1 % (0.0-1.0); %Eosinophils 8.1 % (0.0-10.0); %Monocytes 9.8 % (0.0-10.0); Mean Corpuscular HGB CONC 30.1 g/dL (32.0-36.0); Mean Corpuscular Hemoglobin 30.3 pg (27.0-31.0); Mean Platelet Volume 7.5 fL (7.4-10.4); Platelet Count 278 thou/uL (130-400); RBC Distribution Width 16.9 % (11.5-14.5); Red Blood Cell (RBC) Count 2.96 mill/uL (4.70-6.10); White Blood Cell (WBC) Count 4.2 thou/uL (4.8-10.8)
[2018-08-05 06:18] LABS: INR-International Normal Ratio 3.1; Prothrombin Time 32.2 SEC (12.0-14.7)
[2018-08-05 07:15] LABS: Anion Gap 10 mmol/L (10-20); BUN (Urea Nitrogen) 12 mg/dL (8.9-20.6); Calc. Creatinine Clearance 87 mL/min (70-130); Calcium 8.2 mg/dL (7.8-10.44); Carbon Dioxide 29 mmol/L (22-29); Chloride 109 mmol/L (98-107); Estimated GFR-MDRD 42; Glucose 106 mg/dL (70-105); Magnesium 2.1 mg/dL (1.6-2.6); Phosphorus 5.3 mg/dL (2.3-4.7); Potassium 4.3 mmol/L (3.5-5.1); Sodium 144 mmol/L (136-145)
[2018-08-05] MEDS: Morphine 4 MG/ML VIAL SLOW IVP PRN (09:05)
[2018-08-05] MEDS: Ascorbic Acid 500 mg Chewable Tablet PO SCH (09:09)
[2018-08-05] MEDS: Multivitamin W/ Minerals 1 TAB PO SCH (09:12)
[2018-08-05] MEDS: Polyethylene Glycol 3350 17 GM Packet PO SCH (09:13)
[2018-08-05] MEDS: Zinc Sulfate 220 MG CAP PO SCH (09:13)
[2018-08-05] MEDS: Famotidine/PF 20 mg/2ml Vial SLOW IVP SCH ×2 (09:13→21:13)
[2018-08-05] MEDS: Senokot S 8.6-50 MG TAB PO SCH ×2 (09:13→21:13)
[2018-08-05] MEDS ORDERED: Morphine 2 MG/ML SYRINGE SLOW IVP SCH (10:30)
--- NOTE | 2018-08-05 12:55 | CON ---
DATE OF CONSULTATION: 08/05/2018 HISTORY OF PRESENT ILLNESS: Mr. Alphonse Reyna is a very pleasant 43-year-old gentleman, referred for evaluation for maggot debridement therapy. The patient has a large wound of the right lower leg subsequent to intraoperative debridement and irrigation of a 15 x 15 x 4 cm complex right leg laceration on 07/12/[address] Hair followed by intraoperative debridement of the wound on 07/25/[address] Santiago Burleson. At the time of the second intraoperative debridement, negative-pressure therapy was initiated. The patient was seen in consultation by Plastic Surgery and referred for evaluation for maggot debridement therapy. PAST MEDICAL HISTORY: 1. History of deep venous thrombosis. 2. Bilateral pulmonary embolism. 3. Arthritis. 4. Migraine headaches. 5. Javier's syndrome. 6. History of hypothyroidism. PAST SURGICAL HISTORY: 1. Knee surgery x6. 2. Surgery for gynecomastia. 3. Herniorrhaphy. 4. Sleeve gastrectomy. 5. Laparoscopic cholecystectomy. 6. IVC filter placement. 7. Surgery for Rafael's gangrene. 8. Intraoperative debridement x2 as per HPI. MEDICATIONS: On admission; 1. Warfarin. 2. Diazepam. 3. Advil. ALLERGIES: GABAPENTIN. SOCIAL HISTORY: Social history is negative for tobacco use. The patient admits to the occasional consumption of alcohol. FAMILY HISTORY: Family history is negative for diabetes mellitus or coronary artery disease. PHYSICAL EXAMINATION: VITAL SIGNS: Temperature 97.6, pulse 61, respirations 16, and blood pressure 89/59. GENERAL: A 43-year-old gentleman, lying on hospital bed, in no acute distress. HEENT: Normocephalic, atraumatic. NECK: No nuchal rigidity. CHEST: Clear to auscultation. CARDIOVASCULAR: Regular rate and rhythm. ABDOMEN: Soft. EXTREMITIES: A large wound of the right lower leg is present. Granulation tissue is present within the wound margins. Areas of necrotic tissue are also present within the wound margins. No purulent drainage is associated with the wound. No maceration of the skin of the periwound is noted. Edema of the right foot and lower leg is also present on exam today. ASSESSMENT AND PLAN: 1. Large wound of right lower leg as described above. After discussion with Dr. Blackmon of [facility] in [place], [place], maggot debridement therapy is not contraindicated in a patient on Coumadin. Arrangements will proceed for the initiation of larval therapy. The patient understands the treatment plan and wishes to proceed with biologic debridement. 2. History of deep venous thrombosis. 3. Bilateral pulmonary embolism. 4. Arthritis. 5. Migraine headaches. 6. Javier's syndrome. 7. History of hypothyroidism. Job ID: [id number]
--- NOTE | 2018-08-05 13:57 | PRG ---
DATE OF SERVICE: 08/05/2018 SUBJECTIVE: The patient remains on the surgical floor. He has had no issues overnight. He is tolerating a diet. His pain is controlled. The patient still has some issues with pain control during his back changes, but otherwise is doing well. The patient was also evaluated this morning by Dr. Paniagua for possible maggot/larval therapy for his wound. From her consultation note, he is a candidate for this and she will arrange this. This will keep the patient in the hospital for the next several days while this is being arranged and implemented. OBJECTIVE: VITAL SIGNS: Temperature is 97.6, heart rate 61, blood pressure 94/61, respirations 16, and oxygen saturation 100% on room air. GENERAL: The patient is resting comfortably in bed. He is awake, alert, and oriented x3. HEENT: Unremarkable. LUNGS: Clear to auscultation with good inspiratory and expiratory effort. HEART: Regular rate and rhythm. ABDOMEN: Soft, flat, and nontender with active bowel sounds. EXTREMITIES: Neurovascularly intact x4. Right lower extremity has a clean, dry, and intact dressing on it. LABORATORY FINDINGS: White blood cell count 4.2, hemoglobin 9.0, hematocrit 29.8, platelets 278. Sodium 144, potassium 4.3, chloride 109, CO2 of 29, BUN 12, creatinine 1.78, glucose 106, magnesium 2.1, phosphorus 5.3. INR 3.1. ASSESSMENT: 1. Status post right lower extremity traumatic wound, recurrent/slow healing. 2. Urinary tract infection with Citrobacter koseri being treated with Cipro, which is consistent with its sensitivities. 3. Acute kidney injury, discontinue NSAIDs and encourage fluid hydration. PLAN: Plan will be to continue wound care. We will await for the larval therapy to begin and discuss discharge planning at that time. We will also recheck the patient's INR tomorrow and hopefully be able to resume his warfarin therapy. The evaluation and examination were done with Dr. Hair this morning during rounds. Job ID: [id number]
[2018-08-05 14:20] LABS: Vancomycin, Trough 19.4 ug/mL
[2018-08-05] MEDS: Sodium Hypochlorite 0.25% Solution 480 ML BOT TOP SCH (18:49)
[2018-08-06] MEDS: Cipro 250 MG TAB PO SCH ×2 (05:05→21:34)
[2018-08-06] MEDS: Acetaminophen/Codeine 30-300mg Tablet PO PRN ×3 (05:05→15:34)
[2018-08-06 05:59] LABS: INR-International Normal Ratio 2.6; Prothrombin Time 27.9 SEC (12.0-14.7)
[2018-08-06 06:14] LABS: Anion Gap 9 mmol/L (10-20); BUN (Urea Nitrogen) 20 mg/dL (8.9-20.6); Calc. Creatinine Clearance 81 mL/min (70-130); Calcium 8.4 mg/dL (7.8-10.44); Carbon Dioxide 29 mmol/L (22-29); Chloride 110 mmol/L (98-107); Estimated GFR-MDRD 38; Glucose 97 mg/dL (70-105); Potassium 4.8 mmol/L (3.5-5.1); Sodium 143 mmol/L (136-145)
[2018-08-06] MEDS ORDERED: Morphine 2 MG/ML SYRINGE SLOW IVP SCH (07:15)
[2018-08-06] MEDS ORDERED: Acetaminophen/Codeine 30-300mg Tablet PO PRN (08:34)
[2018-08-06] MEDS ORDERED: Sodium Chloride 0.9% 500 ML IV SCH (08:45)
[2018-08-06] MEDS ORDERED: Sodium Chloride 0.9% 1,000 ML IV SCH (08:45)
[2018-08-06] MEDS: Zinc Sulfate 220 MG CAP PO SCH (08:46)
[2018-08-06] MEDS: Multivitamin W/ Minerals 1 TAB PO SCH (08:46)
[2018-08-06] MEDS: Ascorbic Acid 500 mg Chewable Tablet PO SCH (08:47)
[2018-08-06] MEDS: Famotidine/PF 20 mg/2ml Vial SLOW IVP SCH (08:47)
[2018-08-06] MEDS: Polyethylene Glycol 3350 17 GM Packet PO SCH (09:35)
[2018-08-06] MEDS: Senokot S 8.6-50 MG TAB PO SCH ×2 (09:35→21:35)
[2018-08-06] MEDS ORDERED: Sodium Bicarbonate 150 MEQ in Dextrose 5% in Water 1,000 ML IV SCH ×2 (10:30→18:00)
[2018-08-06] MEDS: Morphine 4 MG/ML VIAL SLOW IVP PRN (11:25)
[2018-08-06] MEDS: Sodium Hypochlorite 0.25% Solution 480 ML BOT TOP SCH (11:29)
[2018-08-06 15:55] LABS: Anion Gap 12 mmol/L (10-20); BUN (Urea Nitrogen) 20 mg/dL (8.9-20.6); Calc. Creatinine Clearance 69 mL/min (70-130); Calcium 8.3 mg/dL (7.8-10.44); Carbon Dioxide 26 mmol/L (22-29); Chloride 110 mmol/L (98-107); Estimated GFR-MDRD 32; Glucose 96 mg/dL (70-105); Potassium 4.7 mmol/L (3.5-5.1); Sodium 143 mmol/L (136-145)
[2018-08-06] MEDS ORDERED: Warfarin Sodium 5 MG TAB PO SCH (18:15)
[2018-08-06] MEDS: Diazepam 5 MG TAB PO PRN (18:19)
[2018-08-06] MEDS ORDERED: Furosemide 20 MG TAB PO SCH (19:15)
--- NOTE | 2018-08-06 19:16 | PRG ---
DATE OF SERVICE: 08/06/2018 SUBJECTIVE: The patient remains on the surgical floor. He has had no issues overnight. He is doing well, tolerated a diet. His pain is controlled. He has been working with therapy. He has become more ambulatory on his own. He is tolerating his wound dressing changes, though it has been noted that his creatinine has been slowly climbing over the past few days. His medications were reviewed and yesterday his NSAIDs were discontinued. Today, we will discontinue his acetaminophen and Pepcid. The patient also be started on a bicarb drip and we will recheck his labs in the morning. Otherwise, he has continued to progress forward. OBJECTIVE: VITAL SIGNS: Temperature is 97.6, heart rate 78, blood pressure 93/ 62, respirations 16, and oxygen saturation 100% on room air. GENERAL: The patient is resting comfortably in bed. He is awake and alert, tolerating his wound dressing change. HEENT: Unremarkable. RESPIRATIONS: Nonlabored and effortless. ABDOMEN: Soft and nondistended. EXTREMITIES: Neurovascularly intact x4. Right lower extremity wound is showing improvement. LABORATORY FINDINGS: Sodium 143, potassium 4.7, chloride 110, CO2 of 26, BUN 20 , creatinine 2.24. BNP 215. ASSESSMENT: 1. Status post right lower extremity traumatic wound, slow healing. 2. Urinary tract infection with Citrobacter koseri, being treated with Cipro. 3. Acute kidney injury. PLAN: Plan will be to discontinue any nephrotoxic medications. Again, his medications will be reviewed. Bicarb drip. We will resume his warfarin therapy today. The patient will have internal jugular vein catheter placed for access and blood draws and for his bicarb drip. We will continue to monitor the patient and continue supportive care. We will send a new UA and bladder scan to patient to [facility] for retention. Job ID: [id number] [facility]
[2018-08-06] MEDS: oxyCODONE 5 MG TAB PO PRN ×2 (19:31→23:36)
[2018-08-06 21:31] LABS: Bilirubin Negative (Negative); Blood, Urine Negative (Negative); Clarity CLEAR (Clear); Glucose, Urine (Dipstick) Negative (Negative); Leukocyte Negative (Negative); Nitrite Negative (Negative); Protein, Urine (Dipstick) Negative (Neg-Trace); Specific Gravity, Urine 1.006 (1.002-1.036); Urobilinogen 0.2 mg/dL (0.2-1.0)
[2018-08-06 21:33] LABS: Bacteria/HPF None Seen HPF (None Seen); Hyaline Casts/LPF 0-3 HYALINE CAST LPF (0-3 Hyaline); RBC/HPF 0-3 HPF (0-3); Squamous Epithelial 0-3 HPF (0-3); WBC/HPF None Seen HPF (0-3)
[2018-08-06] MEDS: Tamsulosin HCl 0.4 MG CAP PO SCH (21:34)
[2018-08-06 21:35] LABS: Urine Culture Reflex No No
[2018-08-06] MEDS: Sodium Bicarbonate 150 MEQ in Dextrose 5% in Water 1,000 ML IV SCH (22:39)
[2018-08-07] MEDS: Diazepam 5 MG TAB PO PRN ×3 (01:03→16:52)
[2018-08-07] MEDS: oxyCODONE 5 MG TAB PO PRN ×5 (04:47→20:59)
[2018-08-07] MEDS: Cipro 250 MG TAB PO SCH ×2 (05:03→20:59)
[2018-08-07 05:11] LABS: #Basophils 0.1 thou/uL (0.0-0.2); #Eosinphils 0.2 thou/uL (0.0-0.7); #Lymphocytes 0.9 thou/uL (1.20-3.40); #Monocytes 0.6 thou/uL (0.11-0.59); %Basophils 1.1 % (0.0-1.0); %Eosinophils 4.7 % (0.0-10.0); %Lymphocytes 18.8 % (21.0-51.0); %Monocytes 13.2 % (0.0-10.0); %Neutrophils 62.1 % (42.0-75.0); Hemoglobin 8.5 g/dL (14.0-18.0); Mean Corpuscular HGB CONC 30.6 g/dL (32.0-36.0); Mean Corpuscular Hemoglobin 30.3 pg (27.0-31.0); Mean Corpuscular Volume 99.2 fL (78.0-98.0); Mean Platelet Volume 7.3 fL (7.4-10.4); Platelet Count 249 thou/uL (130-400); RBC Distribution Width 16.9 % (11.5-14.5); Red Blood Cell (RBC) Count 2.79 mill/uL (4.70-6.10); White Blood Cell (WBC) Count 4.8 thou/uL (4.8-10.8)
[2018-08-07 05:15] LABS: Prothrombin Time 22.8 SEC (12.0-14.7)
[2018-08-07 05:43] LABS: Anion Gap 9 mmol/L (10-20); BUN (Urea Nitrogen) 20 mg/dL (8.9-20.6); Calc. Creatinine Clearance 76 mL/min (70-130); Calcium 8.3 mg/dL (7.8-10.44); Carbon Dioxide 30 mmol/L (22-29); Chloride 105 mmol/L (98-107); Estimated GFR-MDRD 35; Glucose 135 mg/dL (70-105); Magnesium 1.7 mg/dL (1.6-2.6); Phosphorus 4.5 mg/dL (2.3-4.7); Potassium 4.1 mmol/L (3.5-5.1); Sodium 140 mmol/L (136-145)
[2018-08-07] MEDS ORDERED: Warfarin Sodium 5 MG TAB PO SCH ×2 (08:15→17:00)
[2018-08-07] MEDS ORDERED: Magnesium Sulfate 3 GM in Sodium Chloride 0.9% 250 ML 250 ML IVPB SCH (08:15)
[2018-08-07] MEDS: Sodium Bicarbonate 150 MEQ in Dextrose 5% in Water 1,000 ML IV SCH ×2 (08:22→21:04)
[2018-08-07] MEDS: Senokot S 8.6-50 MG TAB PO SCH ×2 (08:25→21:00)
[2018-08-07] MEDS: Polyethylene Glycol 3350 17 GM Packet PO SCH (08:25)
[2018-08-07] MEDS ORDERED: Furosemide 20 MG TAB PO SCH (08:30)
[2018-08-07] MEDS: Ascorbic Acid 500 mg Chewable Tablet PO SCH (09:04)
[2018-08-07] MEDS: Zinc Sulfate 220 MG CAP PO SCH (09:04)
[2018-08-07] MEDS: Multivitamin W/ Minerals 1 TAB PO SCH (09:04)
[2018-08-07] MEDS: Morphine 4 MG/ML VIAL SLOW IVP PRN ×2 (11:57→17:36)
[2018-08-07] MEDS: Sodium Hypochlorite 0.25% Solution 480 ML BOT TOP SCH (11:58)
[2018-08-07] MEDS: Cyclobenzaprine 10 MG TAB PO PRN ×2 (12:29→20:59)
--- NOTE | 2018-08-07 14:55 | PRG ---
DATE OF SERVICE: 08/07/2018 SUBJECTIVE: The patient remains on the surgical floor. He had no issues overnight. His pain is controlled. He is tolerating a diet. Adjustments were made to his medication yesterday to remove Tylenol as a possibility of causing his increase in creatinine. He has also been on a sodium bicarbonate drip and he seemed to have had some affect, his creatinine is slightly lower today at 2.06 down from 2.24. The patient also had a repeat urinalysis yesterday that shows resolution of his urinary tract infection. OBJECTIVE: VITAL SIGNS: Temperature is 98.1, heart rate 75, blood pressure 99/64, respirations 14, and oxygen saturation 100% on room air. GENERAL: The patient is resting comfortably in bed. He is awake, alert, and oriented x3. HEENT: Unremarkable. Respirations are unchanged. Nonlabored and effortless. ABDOMEN: Soft and nondistended. EXTREMITIES: Neurovascularly intact x4. Right lower extremity shows some serosanguineous seepage through it and this is essentially the same as it was yesterday. The surrounding light erythema is also unchanged. The patient is due to have his Dakin solution dressing change today. LABORATORY FINDINGS: White blood cell count 4.8, hemoglobin 8.5, hematocrit 27.6, and platelets 249. Sodium 140, potassium 4.1, chloride 105, CO2 of 30, BUN 20, creatinine 2.06, glucose 135, magnesium 1.7, and phosphorus 4.5. There are no radiographs reviewed this morning. INR 2.0. ASSESSMENT AND PLAN: 1. Status post right lower extremity traumatic wound, slow healing. 2. Urinary tract infection, resolved. 3. Acute kidney injury, improved. PLAN: Plan will be to discontinue his Cipro. Continue his bicarb drip. We will dose his warfarin this morning and again this afternoon and recheck his INR tomorrow along with his kidney function. We will await wound care specifically, his larval therapy when it will begin. Job ID: [id number]
[2018-08-07] MEDS: Warfarin Sodium 7.5 MG TAB PO SCH (16:53)
[2018-08-07] MEDS: Tamsulosin HCl 0.4 MG CAP PO SCH (21:00)
[2018-08-08] MEDS: oxyCODONE 5 MG TAB PO PRN ×5 (03:35→20:43)
[2018-08-08] MEDS: Diazepam 5 MG TAB PO PRN ×4 (03:36→22:58)
[2018-08-08] MEDS: Cyclobenzaprine 10 MG TAB PO PRN ×3 (06:06→22:58)
[2018-08-08 07:04] LABS: #Eosinphils 0.3 thou/uL (0.0-0.7); #Lymphocytes 0.8 thou/uL (1.20-3.40); #Monocytes 0.8 thou/uL (0.11-0.59); #Neutrophils 3.5 thou/uL (1.40-6.50); %Basophils 0.5 % (0.0-1.0); %Eosinophils 4.9 % (0.0-10.0); %Lymphocytes 15.6 % (21.0-51.0); %Monocytes 14.5 % (0.0-10.0); %Neutrophils 64.6 % (42.0-75.0); Hemoglobin 8.1 g/dL (14.0-18.0); Mean Corpuscular HGB CONC 30.8 g/dL (32.0-36.0); Mean Corpuscular Hemoglobin 30.2 pg (27.0-31.0); Mean Corpuscular Volume 98.3 fL (78.0-98.0); Mean Platelet Volume 7.5 fL (7.4-10.4); Platelet Count 253 thou/uL (130-400); RBC Distribution Width 16.8 % (11.5-14.5); Red Blood Cell (RBC) Count 2.69 mill/uL (4.70-6.10); White Blood Cell (WBC) Count 5.3 thou/uL (4.8-10.8)
[2018-08-08 07:06] LABS: INR-International Normal Ratio 2.3; Prothrombin Time 25.5 SEC (12.0-14.7)
[2018-08-08 07:27] LABS: Anion Gap 8 mmol/L (10-20); BUN (Urea Nitrogen) 19 mg/dL (8.9-20.6); Calc. Creatinine Clearance 79 mL/min (70-130); Calcium 8.2 mg/dL (7.8-10.44); Carbon Dioxide 34 mmol/L (22-29); Chloride 101 mmol/L (98-107); Estimated GFR-MDRD 37; Glucose 111 mg/dL (70-105); Magnesium 1.9 mg/dL (1.6-2.6); Phosphorus 4.2 mg/dL (2.3-4.7); Potassium 4.1 mmol/L (3.5-5.1); Sodium 139 mmol/L (136-145)
[2018-08-08] MEDS ORDERED: Furosemide 20 MG TAB PO SCH (08:00)
[2018-08-08] MEDS: Ascorbic Acid 500 mg Chewable Tablet PO SCH (08:42)
[2018-08-08] MEDS: Multivitamin W/ Minerals 1 TAB PO SCH (08:42)
[2018-08-08] MEDS: Zinc Sulfate 220 MG CAP PO SCH (08:42)
[2018-08-08] MEDS: Senokot S 8.6-50 MG TAB PO SCH ×2 (08:47→22:02)
[2018-08-08] MEDS: Polyethylene Glycol 3350 17 GM Packet PO SCH (08:47)
--- NOTE | 2018-08-08 09:06 | PRG ---
DATE OF SERVICE: 08/05/2018 SUBJECTIVE: The patient is without complaint. Vital sings are stable. The patient's wounds are cleaned and dressed appropriately. There is some necrotic tissue. DISCUSSION: I had a long conversation with the patient over the phone yesterday and repeated today regarding pros and cons as well as advantages and disadvantages of larval therapy and produced my recommendations for it. He is visiting with Dr. Paniagua and will get that process underway as soon as possible. skin grafting for reconstruction will be in the future Job ID: [id number] [facility]
[2018-08-08] MEDS: Morphine 4 MG/ML VIAL SLOW IVP PRN ×2 (10:10→12:32)
[2018-08-08] MEDS: Sodium Hypochlorite 0.25% Solution 480 ML BOT TOP SCH (10:11)
--- NOTE | 2018-08-08 11:57 | OP ---
DATE OF PROCEDURE: 08/06/2018 PREOPERATIVE DIAGNOSIS: Poor IV access, acute kidney injury, BUN 20, creatinine 2.24, in need of IV access. POSTOPERATIVE DIAGNOSES: Poor IV access, acute kidney injury, BUN 20, creatinine 2.24, in need of IV access. PROCEDURE PERFORMED: Left IJ central line, ultrasound used. ANESTHESIA: 1% Xylocaine. DESCRIPTION OF PROCEDURE: With the patient at bedside in the emergency room, the left side of his neck and chest prepared with ChloraPrep and draped in routine fashion. Local anesthetic was infiltrated into the skin and subcutaneous tissue. 1% Xylocaine used. Using ultrasound guidance, the left internal jugular vein was cannulated with trocar catheter. J-wire threaded, trocar catheter removed and Seldinger technique was used to place a triple-lumen catheter. Catheter was secured with 2 sutures of 3-0 nylon. Sterile dressing applied. Each port aspirated for blood, flushed with saline solution. The patient tolerated the procedure well. Job ID: [id number]
--- NOTE | 2018-08-08 14:04 | PRG ---
DATE OF SERVICE: 08/07/2018 SUBJECTIVE: The patient remains on surgical floor. No acute events are reported overnight. Pain well controlled. Tolerating diet. The patient to undergo therapy. OBJECTIVE: VITAL SIGNS: Blood pressure remains at baseline low at 92/59, pulse 80, respirations 20, saturating well on room air, and afebrile. GENERAL: The patient in no acute distress. CHEST: Flat, even inspiratory and expiratory effort. No respiratory distress. ABDOMEN: Nondistended. EXTREMITIES: Neurovascularly intact x4. Moves all 4. Dressing clean, dry, and intact. LABORATORY FINDINGS: White blood cell count 5.3, hemoglobin 8.1, hematocrit 26.4. INR 2.3. Chemistry; BUN 19, creatinine 1.98. ASSESSMENT: 1. Status post right lower extremity injury, traumatic, slow wound healing. 2. Urinary tract infection, resolved. 3. Acute kidney injury, improved. PLAN: We will continue bicarb drip. Continue to monitor his kidney function, believed to be secondary to vancomycin and Zosyn combination and warfarin in therapeutic range. Continue to monitor wound therapy to follow larval therapy to begin when available. This patient was seen and evaluated by Dr. Santiago Burleson on morning rounds. Job ID: [id number]
--- NOTE | 2018-08-08 14:47 | RAD ---
XR Chest 1 View Portable History: [Central line placement] Comparison: Chest radiograph June 11, 2018 Findings: Satisfactory position of left internal jugular central venous catheter with tip at the cavo atrial junction. Impression: Uncomplicated placement of the central line.
[2018-08-08] MEDS: Warfarin Sodium 7.5 MG TAB PO SCH (16:41)
[2018-08-08] MEDS: Sodium Bicarbonate 150 MEQ in Dextrose 5% in Water 1,000 ML IV SCH (18:17)
[2018-08-08] MEDS: Tamsulosin HCl 0.4 MG CAP PO SCH (20:43)
[2018-08-09] MEDS: oxyCODONE 5 MG TAB PO PRN ×6 (00:43→21:31)
[2018-08-09] MEDS: Sodium Bicarbonate 150 MEQ in Dextrose 5% in Water 1,000 ML IV SCH (04:34)
[2018-08-09] MEDS: Diazepam 5 MG TAB PO PRN ×4 (04:54→23:29)
[2018-08-09 05:47] LABS: INR-International Normal Ratio 2.5; Prothrombin Time 26.7 SEC (12.0-14.7)
[2018-08-09 05:56] LABS: Magnesium 1.8 mg/dL (1.6-2.6); Phosphorus 4.3 mg/dL (2.3-4.7)
[2018-08-09 06:24] LABS: Band 1 % (5-11); Eosinophils 3 % (0-10); Hemoglobin 8.1 g/dL (14.0-18.0); Hypochromia SLIGHT = 6-15 cells (100X) (0-5/hpf); Lymphocytes 31 % (21-51); MDiff Complete? YES; Mean Corpuscular HGB CONC 30.7 g/dL (32.0-36.0); Mean Corpuscular Hemoglobin 29.7 pg (27.0-31.0); Mean Corpuscular Volume 96.7 fL (78.0-98.0); Mean Platelet Volume 7.9 fL (7.4-10.4); Monocytes 6 % (0-10); Neutrophil 59 % (42-75); Platelet Count 238 thou/uL (130-400); RBC Distribution Width 16.4 % (11.5-14.5); Red Blood Cell (RBC) Count 2.73 mill/uL (4.70-6.10); White Blood Cell (WBC) Count 4.5 thou/uL (4.8-10.8)
[2018-08-09] MEDS: Ascorbic Acid 500 mg Chewable Tablet PO SCH (08:39)
[2018-08-09] MEDS: Multivitamin W/ Minerals 1 TAB PO SCH (08:39)
[2018-08-09] MEDS: Zinc Sulfate 220 MG CAP PO SCH (08:39)
[2018-08-09] MEDS: Cyclobenzaprine 10 MG TAB PO PRN ×2 (08:43→21:30)
[2018-08-09] MEDS: Polyethylene Glycol 3350 17 GM Packet PO SCH (08:44)
[2018-08-09] MEDS: Senokot S 8.6-50 MG TAB PO SCH ×2 (08:44→21:45)
[2018-08-09] MEDS ORDERED: oxyCODONE 5 MG TAB PO PRN (08:54)
[2018-08-09] MEDS: Acetaminophen 500 MG TAB PO SCH ×3 (11:09→23:29)
[2018-08-09] MEDS: Morphine 4 MG/ML VIAL SLOW IVP PRN ×2 (11:35→14:41)
[2018-08-09] MEDS: Sodium Hypochlorite 0.25% Solution 480 ML BOT TOP SCH (12:29)
--- NOTE | 2018-08-09 13:19 | PRG ---
DATE OF SERVICE: 08/02/2018 HISTORY: Mr. Alphonse Reyna is a very pleasant 43-year-old gentleman referred for evaluation for Maggot debridement therapy. The patient has multiple wounds of the right lower leg subsequent to intraoperative debridement and irrigation of a 15 x 15 x 4 cm complex right leg laceration on 07/12/[address] Hair followed by intraoperative debridement of the wound on 07/25/[address] Santiago Burleson. These wounds encompass an area of approximately 20 x 25 cm. The patient was referred by Dr. Steel of Plastic Surgery for biological debridement. PHYSICAL EXAMINATION: VITAL SIGNS: Temperature 98.3, pulse 93, respirations 16, blood pressure 95/61. EXTREMITIES: Multiple wounds of the right lower leg are present encompassing an area of approximately 20 x 25 cm. After irrigation of the wounds with normal saline, the periwound of each individual wound was protected with hydrocolloid. Hydrocolloid was then used to enclose an area of the right lower leg encompassing all the smaller wounds. Glue was then applied over the hydrocolloid in closing an area of approximately 20 x 25 cm, approximately 350 larvae Phaenicia sericata were applied over the areas of the wounds with the most necrotic tissue. The netting was then applied over the right lower extremity and more glue applied over the hydrocolloid encompassing the multiple wounds. The VAC drape was used to passionate barrier between the netting and the patient's skin over the right thigh. The wounds were then dressed with ABDs, followed by Kerlix. ASSESSMENT AND PLAN: 1. Multiple wounds of right lower leg as described above. Larvae Phaenicia sericata approximately 350 were applied to the wounds today. Dressing changes of ABDs followed by Kerlix loosely applied to the wounds will be performed every 6 to 8 hours as needed for the next 48 hours. The patient and nursing staff have been instructed in regard to the timing of the dressing changes. 2. History of deep venous thrombosis. 3. Bilateral pulmonary embolism. 4. Arthritis. 5. Migraine headaches. 6. Javier's syndrome. 7. History of hypothyroidism. Job ID: [id number]
[2018-08-09] MEDS: Warfarin Sodium 7.5 MG TAB PO SCH (17:24)
[2018-08-09] MEDS: Tamsulosin HCl 0.4 MG CAP PO SCH (21:30)
[2018-08-10] MEDS: oxyCODONE 5 MG TAB PO PRN ×6 (01:24→22:47)
[2018-08-10] MEDS: Acetaminophen 500 MG TAB PO SCH ×3 (05:29→17:31)
[2018-08-10] MEDS: Diazepam 5 MG TAB PO PRN ×3 (05:30→21:43)
[2018-08-10 06:16] LABS: Anion Gap 10 mmol/L (10-20); BUN (Urea Nitrogen) 17 mg/dL (8.9-20.6); Calc. Creatinine Clearance 76 mL/min (70-130); Calcium 8.8 mg/dL (7.8-10.44); Carbon Dioxide 34 mmol/L (22-29); Chloride 101 mmol/L (98-107); Estimated GFR-MDRD 35; Glucose 105 mg/dL (70-105); Phosphorus 4.7 mg/dL (2.3-4.7); Potassium 4.5 mmol/L (3.5-5.1); Sodium 140 mmol/L (136-145)
[2018-08-10 06:31] LABS: Hemoglobin 8.5 g/dL (14.0-18.0); Mean Corpuscular HGB CONC 31.5 g/dL (32.0-36.0); Mean Corpuscular Hemoglobin 30.9 pg (27.0-31.0); Mean Corpuscular Volume 97.9 fL (78.0-98.0); Mean Platelet Volume 7.9 fL (7.4-10.4); Platelet Count 263 thou/uL (130-400); RBC Distribution Width 16.6 % (11.5-14.5); Red Blood Cell (RBC) Count 2.75 mill/uL (4.70-6.10); White Blood Cell (WBC) Count 6.2 thou/uL (4.8-10.8)
[2018-08-10 06:37] LABS: Band 9 % (5-11); Eosinophils 5 % (0-10); Lymphocytes 21 % (21-51); MDiff Complete? YES; Monocytes 13 % (0-10); Neutrophil 52 % (42-75)
--- NOTE | 2018-08-10 07:43 | PRG ---
DATE OF SERVICE: 08/09/2018 SUBJECTIVE: No acute events reported overnight. The patient reports pain is well controlled. He is ambulating and tolerating p.o. regular diet. OBJECTIVE: VITAL SIGNS: Blood pressure 95/61, pulse 93, respirations 16, oxygen saturation 95% on room air. Temperature 98.3. GENERAL: No acute distress. HEENT: Normocephalic, atraumatic. CHEST: Flat. No bony abnormality noted and even inspiratory and expiratory effort. No respiratory distress. ABDOMEN: Flat, nondistended. EXTREMITIES: Neurovascularly intact x4. NEUROLOGIC: Cranial nerves 2 through 12 grossly intact. No focal deficit. SKIN: Lower extremity wound dressing clean, dry, and intact. LABORATORY DATA: White blood cell count 4.5, hemoglobin 8.1, hematocrit 26.4, INR 2.5. Creatinine 1.98, BUN 19, bicarb 34. No imaging to be reviewed today. ASSESSMENT: 1. Status post right lower extremity injury, traumatic, slow wound healing. 2. Urinary tract infection, resolved. 3. Acute kidney injury, improved. PLAN: Discontinue bicarb drip. Continue to monitor daily kidney function. Warfarin continues to be in therapeutic range. Await larval therapy. DISCHARGE PLANNING: Continue supportive care and physical and occupational therapy. This patient was seen, evaluated by Dr. Gee Hair on morning rounds. Job ID: [id number]
[2018-08-10] MEDS: Multivitamin W/ Minerals 1 TAB PO SCH (08:32)
[2018-08-10] MEDS: Ascorbic Acid 500 mg Chewable Tablet PO SCH (08:32)
[2018-08-10] MEDS: Cyclobenzaprine 10 MG TAB PO PRN ×2 (08:33→20:26)
[2018-08-10] MEDS: Polyethylene Glycol 3350 17 GM Packet PO SCH (08:33)
[2018-08-10] MEDS: Zinc Sulfate 220 MG CAP PO SCH (08:33)
[2018-08-10] MEDS: Senokot S 8.6-50 MG TAB PO SCH ×2 (08:33→20:32)
[2018-08-10] MEDS: Sodium Hypochlorite 0.25% Solution 480 ML BOT TOP SCH (10:18)
--- NOTE | 2018-08-10 10:41 | PRG ---
DATE OF SERVICE: 08/10/2018 SUBJECTIVE: No acute events overnight. The patient reports pain is well controlled. He is ambulating, urinating, and having bowel movement successfully. He is tolerating p.o. He reports that the larval therapy began later yesterday, and his dressings have been regularly changed. OBJECTIVE: VITAL SIGNS: Blood pressure 97/62, pulse 83, respirations 16, saturating 97% on room air. The patient is afebrile. GENERAL: No acute distress. HEENT: Normocephalic, atraumatic. CHEST: Flat, even inspiratory and expiratory effort. No respiratory distress. ABDOMEN: Flat, nondistended. EXTREMITIES: Neurovascularly intact x4. NEUROLOGIC: Cranial nerves 2 through 12 grossly intact. No focal deficit noted. SKIN: Lower extremity wound dressing clean, dry, and intact. IMAGING STUDIES: No imaging to be reviewed today. LABORATORY DATA: Reveals a hemoglobin of 8.5, hematocrit 27. INR 2.5 and a creatinine at 2.06. ASSESSMENT: 1. Status post right lower extremity injury, traumatic, slow wound healing. 2. Urinary tract infection, resolved. 3. Acute kidney injury. PLAN: The patient to continue with larval therapy. Wound Care to monitor and change dressings as needed. Kidney function seems to be not improving. At this point, we will hold all nephrotoxic meds and continue to monitor daily CMP. This patient was seen and evaluated on morning rounds by Dr. Gee Hair. Job ID: [id number]
[2018-08-10] MEDS: Warfarin Sodium 7.5 MG TAB PO SCH (17:31)
[2018-08-10] MEDS ORDERED: Calcium Carbonate 500 MG ChewTAB PO PRN (18:53)
[2018-08-10] MEDS: Tamsulosin HCl 0.4 MG CAP PO SCH (20:26)
[2018-08-11] MEDS: Acetaminophen 500 MG TAB PO SCH ×4 (00:06→17:45)
[2018-08-11] MEDS: oxyCODONE 5 MG TAB PO PRN ×5 (02:44→22:03)
[2018-08-11] MEDS: Diazepam 5 MG TAB PO PRN ×2 (03:31→18:18)
[2018-08-11] MEDS: Cyclobenzaprine 10 MG TAB PO PRN ×2 (05:04→17:46)
[2018-08-11 05:38] LABS: Anion Gap 10 mmol/L (10-20); BUN (Urea Nitrogen) 19 mg/dL (8.9-20.6); Calc. Creatinine Clearance 74 mL/min (70-130); Calcium 8.5 mg/dL (7.8-10.44); Carbon Dioxide 33 mmol/L (22-29); Chloride 101 mmol/L (98-107); Estimated GFR-MDRD 34; Glucose 102 mg/dL (70-105); Potassium 4.6 mmol/L (3.5-5.1); Sodium 139 mmol/L (136-145)
[2018-08-11 08:45] LABS: Hemoglobin 8.4 g/dL (14.0-18.0); Mean Corpuscular HGB CONC 30.9 g/dL (32.0-36.0); Mean Corpuscular Hemoglobin 29.6 pg (27.0-31.0); Mean Corpuscular Volume 95.8 fL (78.0-98.0); Mean Platelet Volume 8.2 fL (7.4-10.4); Platelet Count 239 thou/uL (130-400); RBC Distribution Width 16.5 % (11.5-14.5); Red Blood Cell (RBC) Count 2.82 mill/uL (4.70-6.10); White Blood Cell (WBC) Count 4.2 thou/uL (4.8-10.8)
[2018-08-11 09:26] LABS: Anisocytosis SLIGHT = 6-15 cells (100X) (0-5/hpf); Band 10 % (5-11); Eosinophils 1 % (0-10); Hypochromia SLIGHT = 6-15 cells (100X) (0-5/hpf); Lymphocytes 19 % (21-51); MDiff Complete? YES; Monocytes 5 % (0-10); Neutrophil 65 % (42-75); Platelet Morphology Comment Appears Adequate
[2018-08-11] MEDS: Ascorbic Acid 500 mg Chewable Tablet PO SCH (10:12)
[2018-08-11] MEDS: Zinc Sulfate 220 MG CAP PO SCH (10:13)
[2018-08-11] MEDS: Multivitamin W/ Minerals 1 TAB PO SCH (10:14)
[2018-08-11] MEDS: Polyethylene Glycol 3350 17 GM Packet PO SCH (10:15)
[2018-08-11] MEDS: Senokot S 8.6-50 MG TAB PO SCH ×2 (10:15→21:52)
[2018-08-11] MEDS: Sodium Hypochlorite 0.25% Solution 480 ML BOT TOP SCH (10:33)
[2018-08-11] MEDS: Morphine 4 MG/ML VIAL SLOW IVP PRN ×2 (11:33→20:35)
--- NOTE | 2018-08-11 14:04 | PRG ---
DATE OF SERVICE: 08/11/2018 SUBJECTIVE: No acute events overnight. The patient reports pain is well controlled. He is ambulating, urinating, and having bowel movements. Tolerating p.o. well. Larval therapy continues today. Wound Care reported they would be by later in the day. OBJECTIVE: VITAL SIGNS: Blood pressure 93/58, pulse 81, respirations 14, oxygen saturation 99% on room air, temperature 98.1. GENERAL: The patient resting comfortably in bed, in no acute distress. HEENT: Normocephalic, atraumatic. CHEST: Even inspiratory and expiratory effort. No respiratory distress. ABDOMEN: Flat, nondistended. EXTREMITIES: Neurovascularly intact x4. NEUROLOGIC: Cranial nerves 2 through 12 grossly intact. No focal deficit noted. SKIN: Lower extremity wound dressing clean, dry, and intact. LABORATORY DATA: White blood cell count 4.2, hemoglobin stable at 8.4, hematocrit 27.0. Creatinine 2.11, BUN 19, carbon dioxide 33. Creatine kinase is 10. No imaging to review for today. ASSESSMENT: 1. Status post right lower extremity injury, traumatic, slow wound healing. 2. Urinary tract infection, resolved. 3. Acute kidney injury. PLAN: Continue with larval therapy. Wound Care to change dressings. Kidney function seems to be stable at this point. Avoid nephrotoxic medications. Monitor daily CMP. Job ID: [id number]
[2018-08-11] MEDS: Warfarin Sodium 7.5 MG TAB PO SCH (17:45)
[2018-08-11] MEDS: Tamsulosin HCl 0.4 MG CAP PO SCH (20:38)
[2018-08-12] MEDS: Acetaminophen 500 MG TAB PO SCH ×4 (00:31→17:00)
[2018-08-12] MEDS: Diazepam 5 MG TAB PO PRN ×2 (00:32→07:20)
[2018-08-12] MEDS: oxyCODONE 5 MG TAB PO PRN ×5 (02:11→20:02)
[2018-08-12 06:42] LABS: Eosinophils 5 % (0-10); Hemoglobin 8.1 g/dL (14.0-18.0); Lymphocytes 24 % (21-51); MDiff Complete? YES; Mean Corpuscular Hemoglobin 30.5 pg (27.0-31.0); Mean Corpuscular Volume 95.4 fL (78.0-98.0); Mean Platelet Volume 8.1 fL (7.4-10.4); Monocytes 18 % (0-10); Neutrophil 52 % (42-75); Platelet Count 227 thou/uL (130-400); Platelet Morphology Comment Appears Adequate; RBC Distribution Width 15.9 % (11.5-14.5); Reactive Lymphocytes 1 % (0-10); Red Blood Cell (RBC) Count 2.64 mill/uL (4.70-6.10); White Blood Cell (WBC) Count 3.3 thou/uL (4.8-10.8)
[2018-08-12 06:52] LABS: Anion Gap 8 mmol/L (10-20); BUN (Urea Nitrogen) 24 mg/dL (8.9-20.6); Calc. Creatinine Clearance 77 mL/min (70-130); Calcium 8.7 mg/dL (7.8-10.44); Carbon Dioxide 34 mmol/L (22-29); Chloride 103 mmol/L (98-107); Estimated GFR-MDRD 36; Glucose 106 mg/dL (70-105); Magnesium 1.8 mg/dL (1.6-2.6); Phosphorus 5.1 mg/dL (2.3-4.7); Potassium 4.5 mmol/L (3.5-5.1); Sodium 140 mmol/L (136-145)
[2018-08-12 08:38] LABS: INR-International Normal Ratio 2.8; Prothrombin Time 29.2 SEC (12.0-14.7)
[2018-08-12] MEDS: Zinc Sulfate 220 MG CAP PO SCH (09:23)
[2018-08-12] MEDS: Ascorbic Acid 500 mg Chewable Tablet PO SCH (09:23)
[2018-08-12] MEDS: Cyclobenzaprine 10 MG TAB PO PRN ×2 (09:24→22:33)
[2018-08-12] MEDS: Multivitamin W/ Minerals 1 TAB PO SCH (09:24)
[2018-08-12] MEDS: Senokot S 8.6-50 MG TAB PO SCH ×2 (09:25→20:04)
[2018-08-12] MEDS: Polyethylene Glycol 3350 17 GM Packet PO SCH (09:25)
[2018-08-12] MEDS: Morphine 4 MG/ML VIAL SLOW IVP PRN ×2 (11:18→20:52)
[2018-08-12] MEDS: Sodium Hypochlorite 0.25% Solution 480 ML BOT TOP SCH (11:19)
--- NOTE | 2018-08-12 16:11 | PRG ---
DATE OF SERVICE: 08/12/2018 SUBJECTIVE: The patient was seen this morning, lying in bed, reported no significant pain at the time of my evaluation. Wound Care had not seen the patient yet. Reported no acute events overnight. Tolerating a regular diet, ambulating without assistance in his room. He denied nausea, vomiting, or diarrhea at this time. OBJECTIVE FINDINGS: VITAL SIGNS: Temperature 97.7, heart rate 87, respirations 20, oxygen saturation 96% on room air, and blood pressure 97/46. GENERAL: Obese, middle-aged male, lying in bed with lower extremity swelling. No signs of acute distress. GI: Abdomen is soft, nontender, and nondistended. CARDIAC: Regular rate and rhythm. No murmurs, gallops, or rubs. PULMONARY: Equal chest rise and fall. Clear breath sounds bilaterally. EXTREMITIES: Bilateral lower extremity with significant swelling noted. Dressing to right lower extremity is clean, dry, and intact with no oozing, no malodorous smells. Wound care to take down dressing and further evaluate. NEUROLOGIC: GCS is 15. LABORATORY DATA: White count 3.3, hemoglobin 8.1, hematocrit 25.2, platelets 227. INR 2.8. Sodium 140, potassium 4.5, chloride 103, carbon dioxide 23, BUN 24, creatinine 2.01, glucose 106, phosphorus 5.1, magnesium 1.8. CK 10. DIAGNOSTIC FINDINGS: There are no new diagnostic findings to report. ASSESSMENT: 1. Status post right lower extremity traumatic injury, difficult wound healing. 2. Urinary tract infection, resolved. 3. Acute kidney injury, stable. 4. History of bilateral lower extremity deep vein thromboses. PLAN: Larval therapy was completed yesterday. Did reach out to Dr. Steel to evaluate the wound today in preparation for possible skin grafting. Dr. Steel said he would see the patient today and update the Trauma Team. We will continue Coumadin at 7.5 mg daily as INR is 2.8 and appropriate. We will continue current pain regimen and diet. The patient was seen and examined with Dr. Hair, this morning during rounds. Job ID: [id number]
[2018-08-12] MEDS: Warfarin Sodium 7.5 MG TAB PO SCH (17:00)
[2018-08-12] MEDS: Tamsulosin HCl 0.4 MG CAP PO SCH (20:02)
[2018-08-13] MEDS: Acetaminophen 500 MG TAB PO SCH ×5 (00:07→23:28)
[2018-08-13] MEDS: oxyCODONE 5 MG TAB PO PRN ×6 (00:07→22:36)
[2018-08-13] MEDS ORDERED: oxyCODONE 5 MG TAB PO SCH (00:30)
[2018-08-13] MEDS: Diazepam 5 MG TAB PO PRN ×2 (00:34→08:24)
[2018-08-13 05:07] LABS: Prothrombin Time 31.4 SEC (12.0-14.7)
[2018-08-13 05:23] LABS: Anion Gap 12 mmol/L (10-20); BUN (Urea Nitrogen) 24 mg/dL (8.9-20.6); Calc. Creatinine Clearance 77 mL/min (70-130); Calcium 8.6 mg/dL (7.8-10.44); Carbon Dioxide 29 mmol/L (22-29); Chloride 102 mmol/L (98-107); Estimated GFR-MDRD 36; Glucose 115 mg/dL (70-105); Magnesium 1.6 mg/dL (1.6-2.6); Phosphorus 4.7 mg/dL (2.3-4.7); Potassium 4.3 mmol/L (3.5-5.1); Sodium 139 mmol/L (136-145)
[2018-08-13 05:34] LABS: Elliptocytes SLIGHT = 2-5 cells (100X) (0-1/hpf); Eosinophils 2 % (0-10); Hemoglobin 8.8 g/dL (14.0-18.0); Hypochromia SLIGHT = 6-15 cells (100X) (0-5/hpf); Lymphocytes 29 % (21-51); MDiff Complete? YES; Mean Corpuscular HGB CONC 31.3 g/dL (32.0-36.0); Mean Corpuscular Hemoglobin 30.2 pg (27.0-31.0); Mean Corpuscular Volume 96.3 fL (78.0-98.0); Mean Platelet Volume 7.9 fL (7.4-10.4); Monocytes 15 % (0-10); Neutrophil 53 % (42-75); Platelet Count 254 thou/uL (130-400); Platelet Morphology Comment Appears Adequate; RBC Distribution Width 16.2 % (11.5-14.5); Red Blood Cell (RBC) Count 2.91 mill/uL (4.70-6.10); White Blood Cell (WBC) Count 3.8 thou/uL (4.8-10.8)
[2018-08-13] MEDS: Cyclobenzaprine 10 MG TAB PO PRN ×2 (06:02→13:38)
[2018-08-13] MEDS ORDERED: Magnesium 2 GM/50 ML 4 GM in Premix Bag 1 BAG IVPB SCH (07:45)
[2018-08-13] MEDS: Zinc Sulfate 220 MG CAP PO SCH (08:20)
[2018-08-13] MEDS: Multivitamin W/ Minerals 1 TAB PO SCH (08:20)
[2018-08-13] MEDS: Ascorbic Acid 500 mg Chewable Tablet PO SCH (08:20)
[2018-08-13] MEDS: Senokot S 8.6-50 MG TAB PO SCH ×2 (08:34→20:39)
[2018-08-13] MEDS: Polyethylene Glycol 3350 17 GM Packet PO SCH (08:34)
[2018-08-13] MEDS: Morphine 4 MG/ML VIAL SLOW IVP PRN (09:56)
[2018-08-13] MEDS: Sodium Hypochlorite 0.25% Solution 480 ML BOT TOP SCH (10:01)
--- NOTE | 2018-08-13 12:48 | PRG ---
DATE OF SERVICE: 08/13/2018 SUBJECTIVE: The patient was seen this morning sitting in bed taking a nap, was easily arousable. Reported pain was well controlled. Was ambulating yesterday and reported some increased drainage at that time. Reports tolerating a regular diet and no acute events overnight. Denies nausea, vomiting, and diarrhea. OBJECTIVE: VITAL SIGNS: Temperature 98, pulse 75, respirations 18, oxygen saturation 98% on room air, blood pressure 97/64. GENERAL: Obese, middle-aged male, lying in bed with lower extremity swelling. No signs of acute distress. PULMONARY: Equal chest rise and fall. Clear breath sounds bilaterally. No pulmonary distress. CARDIAC: Regular rate and rhythm. No murmurs, gallops, or rubs. GI: Abdomen is soft, nontender, nondistended. EXTREMITIES: Bilateral lower extremity with significant swelling noted. Dressing to right lower extremity is clean, dry, and intact with no oozing, no malodorous smell. Wound Care to take down dressing and apply VAC today. NEURO: GCS is 15. Pupils equal, round, reactive bilaterally. LABORATORY FINDINGS: White count 3.8, hemoglobin 8.8, hematocrit 28.0, platelets 254. Sodium 139, potassium 4.3, chloride 102, carbon dioxide 29, BUN 24, creatinine 2.03, glucose 115, phosphorus 4.7, magnesium 1.6. DIAGNOSTIC FINDINGS: There are no new diagnostic findings to report. ASSESSMENT: 1. Status post right lower extremity traumatic wound, difficult healing. 2. Urinary tract infection, resolved. 3. Acute kidney injury, stable. 4. Hypomagnesemia. 5. History of bilateral lower extremity deep vein thromboses. PLAN: Larval therapy was completed two days ago and Dr. Steel was asked to see the patient yesterday for re-evaluation of possible skin grafting. Dr. Steel reported that the wound did look much better this week. He recommended placing a VAC for 2 to 3 weeks and having the patient follow up in clinic for further evaluation of skin grafting at that time. Nursing was asked to contact Wound Care for wound VAC placement. We will continue Coumadin at current 7.5 mg daily and will recheck INR level on Wednesday. Continue current pain regimen and diet at this time. The patient was discussed with Dr. Hair this morning after rounds. Job ID: [id number]
[2018-08-13] MEDS: Warfarin Sodium 7.5 MG TAB PO SCH (17:58)
[2018-08-13] MEDS: Tamsulosin HCl 0.4 MG CAP PO SCH (20:39)
[2018-08-14] MEDS: oxyCODONE 5 MG TAB PO PRN ×5 (05:48→22:57)
[2018-08-14] MEDS: Acetaminophen 500 MG TAB PO SCH ×4 (05:48→22:59)
[2018-08-14 05:58] LABS: INR-International Normal Ratio 3.6; Prothrombin Time 35.7 SEC (12.0-14.7)
[2018-08-14 06:08] LABS: Band 1 % (5-11); Elliptocytes SLIGHT = 2-5 cells (100X) (0-1/hpf); Eosinophils 4 % (0-10); Hemoglobin 7.9 g/dL (14.0-18.0); Lymphocytes 20 % (21-51); MDiff Complete? YES; Mean Corpuscular HGB CONC 31.7 g/dL (32.0-36.0); Mean Corpuscular Hemoglobin 30.4 pg (27.0-31.0); Mean Corpuscular Volume 95.9 fL (78.0-98.0); Mean Platelet Volume 7.7 fL (7.4-10.4); Monocytes 13 % (0-10); Neutrophil 61 % (42-75); Platelet Count 239 thou/uL (130-400); Platelet Morphology Comment Appears Adequate; RBC Distribution Width 16.3 % (11.5-14.5); White Blood Cell (WBC) Count 3.5 thou/uL (4.8-10.8)
[2018-08-14 06:12] LABS: Anion Gap 8 mmol/L (10-20); BUN (Urea Nitrogen) 23 mg/dL (8.9-20.6); Calc. Creatinine Clearance 88 mL/min (70-130); Calcium 8.7 mg/dL (7.8-10.44); Carbon Dioxide 33 mmol/L (22-29); Chloride 104 mmol/L (98-107); Estimated GFR-MDRD 42; Glucose 96 mg/dL (70-105); Potassium 4.5 mmol/L (3.5-5.1); Sodium 140 mmol/L (136-145)
[2018-08-14] MEDS ORDERED: Warfarin Sodium 7.5 MG TAB PO SCH (07:33)
[2018-08-14] MEDS: Ascorbic Acid 500 mg Chewable Tablet PO SCH (09:52)
[2018-08-14] MEDS: Zinc Sulfate 220 MG CAP PO SCH (09:52)
[2018-08-14] MEDS: Multivitamin W/ Minerals 1 TAB PO SCH (09:52)
[2018-08-14] MEDS: Diazepam 5 MG TAB PO PRN ×2 (09:52→18:46)
[2018-08-14] MEDS: Polyethylene Glycol 3350 17 GM Packet PO SCH (09:56)
[2018-08-14] MEDS: Senokot S 8.6-50 MG TAB PO SCH ×2 (09:56→20:42)
[2018-08-14] MEDS: Sodium Hypochlorite 0.25% Solution 480 ML BOT TOP SCH (09:56)
[2018-08-14] MEDS: Cyclobenzaprine 10 MG TAB PO PRN ×2 (12:40→20:42)
--- NOTE | 2018-08-14 13:39 | PRG ---
DATE OF SERVICE: 08/14/2018 SUBJECTIVE: The patient was seen this morning, lying in bed with no signs of acute distress. Reported pain is well controlled and slept well overnight. Tolerated breakfast. Wound VAC placed to right lower extremity yesterday. OBJECTIVE: VITAL SIGNS: Temperature 98 degrees, pulse 77, respirations 16, oxygen saturation 98% on room air, blood pressure 105/65. GENERAL: Obese, middle-aged male, lying in bed with bilateral lower extremity swelling. No signs of acute respiratory distress. PULMONARY: Equal chest rise and fall. Clear breath sounds bilaterally. No signs of acute pulmonary distress. CARDIAC: Regular rate and rhythm. No murmurs, gallops, or rubs. GI: Abdomen is soft, nontender, and nondistended. EXTREMITIES: Bilateral lower extremities with significant swelling noted. Wound VAC to right lower extremity is in place and working appropriately with dark serosanguineous output in canister. NEURO: GCS is 15. Pupils are equal, round, and reactive to light bilaterally. LABORATORY FINDINGS: White count 3.5, hemoglobin 7.8, hematocrit 28.9, platelets 239. INR 3.6. Sodium 140, potassium 4.5, chloride 104, carbon dioxide 33, BUN 23, creatinine 1.76, phos 5.0, magnesium 2.0. DIAGNOSTIC FINDINGS: There are no new diagnostic findings to report. ASSESSMENT: 1. Status post right lower extremity traumatic wound, difficult healing. 2. Urinary tract infection, resolved. 3. Acute kidney injury, improving. 4. History of bilateral lower extremity deep vein thromboses. PLAN: Today's INR was 3.6. We will decrease Coumadin from 7.5 to 5 mg at night. 5 mg was the patient's original home dose. We will continue to have the patient ambulate. We will take down the wound VAC some times this week for Dr. Hair to assess the patient. school social worker working to set up placement for the patient at a correction facility to help with wound and care. He has been discharged home in previous times and returned to the hospital due to difficulty managing his wound. He will be set up for outpatient wound care by Dr. Steel, who will eventually be able to skin graft the patient. He is stable and ready for discharge at this time. The patient was discussed with Dr. Hair this morning after rounds. Job ID: [id number]
[2018-08-14] MEDS: Warfarin Sodium 5 MG TAB PO SCH (17:16)
[2018-08-14] MEDS: Tamsulosin HCl 0.4 MG CAP PO SCH (20:42)
[2018-08-15] MEDS: oxyCODONE 5 MG TAB PO PRN ×5 (03:55→21:31)
[2018-08-15 04:17] LABS: INR-International Normal Ratio 3.3; Prothrombin Time 33.9 SEC (12.0-14.7)
[2018-08-15 04:31] LABS: Anion Gap 9 mmol/L (10-20); BUN (Urea Nitrogen) 21 mg/dL (8.9-20.6); Calc. Creatinine Clearance 97 mL/min (70-130); Calcium 8.4 mg/dL (7.8-10.44); Carbon Dioxide 31 mmol/L (22-29); Chloride 104 mmol/L (98-107); Estimated GFR-MDRD 47; Glucose 118 mg/dL (70-105); Magnesium 1.8 mg/dL (1.6-2.6); Phosphorus 4.8 mg/dL (2.3-4.7); Potassium 4.1 mmol/L (3.5-5.1); Sodium 140 mmol/L (136-145)
[2018-08-15 04:42] LABS: Band 5 % (5-11); Hemoglobin 7.6 g/dL (14.0-18.0); Hypochromia SLIGHT = 6-15 cells (100X) (0-5/hpf); Lymphocytes 24 % (21-51); MDiff Complete? YES; Mean Corpuscular HGB CONC 31.8 g/dL (32.0-36.0); Mean Corpuscular Hemoglobin 30.4 pg (27.0-31.0); Mean Corpuscular Volume 95.6 fL (78.0-98.0); Mean Platelet Volume 7.8 fL (7.4-10.4); Monocytes 10 % (0-10); Neutrophil 61 % (42-75); Platelet Count 229 thou/uL (130-400); Platelet Morphology Comment Appears Adequate; Red Blood Cell (RBC) Count 2.51 mill/uL (4.70-6.10); White Blood Cell (WBC) Count 3.5 thou/uL (4.8-10.8)
[2018-08-15] MEDS: Acetaminophen 500 MG TAB PO SCH ×4 (05:24→23:43)
[2018-08-15] MEDS: Cyclobenzaprine 10 MG TAB PO PRN ×2 (06:31→15:06)
[2018-08-15] MEDS ORDERED: Magnesium 2 GM/50 ML 2 GM in Premix Bag 1 BAG IVPB SCH (08:00)
[2018-08-15] MEDS: Ascorbic Acid 500 mg Chewable Tablet PO SCH (08:21)
[2018-08-15] MEDS: Zinc Sulfate 220 MG CAP PO SCH (08:21)
[2018-08-15] MEDS: Senokot S 8.6-50 MG TAB PO SCH ×2 (08:22→21:31)
[2018-08-15] MEDS: Multivitamin W/ Minerals 1 TAB PO SCH (08:22)
[2018-08-15] MEDS: Polyethylene Glycol 3350 17 GM Packet PO SCH (08:22)
[2018-08-15] MEDS: Diazepam 5 MG TAB PO PRN ×2 (08:25→15:06)
[2018-08-15] MEDS: Sodium Hypochlorite 0.25% Solution 480 ML BOT TOP SCH (08:32)
--- NOTE | 2018-08-15 15:51 | PRG ---
DATE OF SERVICE: 08/15/2018 SUBJECTIVE: The patient was seen this morning lying in bed with no signs of acute distress. Pain is well controlled and he slept well overnight. He has no other complaints and he has been tolerating his diet. Wound VAC was placed the day before yesterday to his right lower extremity. OBJECTIVE: VITAL SIGNS: Temperature 98.0, pulse 73, respirations 18, oxygen saturation 99% on room air, and blood pressure 99/67. GENERAL: Obese middle-aged male, lying in bed with bilateral lower extremity swelling. No signs of acute respiratory distress. PULMONARY: Equal chest rise and fall. Clear breath sounds bilaterally. No signs of acute respiratory distress. CARDIAC: Regular rate and rhythm. No murmurs, gallops or rubs. GI: Abdomen is soft, nontender, and nondistended. EXTREMITIES: Bilateral lower extremity with significant swelling noted. Wound VAC to right lower extremity is in place and working appropriately with dark serosanguineous output in canister. NEUROLOGIC: GCS is 15. Pupils equal, round, and reactive to light bilaterally. LABORATORY FINDINGS: White count 3.5, hemoglobin 7.6, hematocrit 24.0, and platelets 229. Sodium 140, potassium 4.1, chloride 104, carbon dioxide 31, BUN 21, creatinine 1.61, glucose 118, phosphorus 4.8, and magnesium 1.8. DIAGNOSTIC FINDINGS: There are no new diagnostic findings to report. ASSESSMENT: 1. Status post right lower extremity traumatic wound, difficult healing. 2. Urinary tract infection, resolved. 3. Acute kidney injury, improved. 4. History of bilateral lower extremity deep vein thromboses. PLAN: The patient is ready for discharge at this time. We are pending a renaldo bed and a VAC for the patient. INR this morning was 3.3. His Coumadin was decreased yesterday to 5 mg from 7.5. He will continue at 5 mg for now and re-evaluate the INR tomorrow. He will continue to work with Wound Care and Physical Therapy to ambulate. Dr. Steel recommended followup in 2 to 3 weeks for possible skin grafting. We will replace magnesium today. The patient was seen and examined by Dr. Hair and myself this morning during rounds. Job ID: [id number]
[2018-08-15] MEDS: Warfarin Sodium 5 MG TAB PO SCH (16:58)
[2018-08-15] MEDS: Tamsulosin HCl 0.4 MG CAP PO SCH (21:31)
[2018-08-16] MEDS: oxyCODONE 5 MG TAB PO PRN ×3 (01:55→11:04)
[2018-08-16] MEDS: Acetaminophen 500 MG TAB PO SCH ×2 (05:35→11:07)
[2018-08-16] MEDS: Ascorbic Acid 500 mg Chewable Tablet PO SCH (08:46)
[2018-08-16] MEDS: Zinc Sulfate 220 MG CAP PO SCH (08:46)
[2018-08-16] MEDS: Multivitamin W/ Minerals 1 TAB PO SCH (08:46)
[2018-08-16] MEDS: Diazepam 5 MG TAB PO PRN (08:46)
[2018-08-16] MEDS: Cyclobenzaprine 10 MG TAB PO PRN (08:46)
[2018-08-16] MEDS: Sodium Hypochlorite 0.25% Solution 480 ML BOT TOP SCH (08:47)
[2018-08-16] MEDS: Senokot S 8.6-50 MG TAB PO SCH (08:47)
[2018-08-16] MEDS: Polyethylene Glycol 3350 17 GM Packet PO SCH (08:47)
[2018-08-16 08:56] LABS: Anion Gap 11 mmol/L (10-20); BUN (Urea Nitrogen) 18 mg/dL (8.9-20.6); Calc. Creatinine Clearance 108 mL/min (70-130); Calcium 8.8 mg/dL (7.8-10.44); Carbon Dioxide 27 mmol/L (22-29); Chloride 104 mmol/L (98-107); Estimated GFR-MDRD 53; Glucose 97 mg/dL (70-105); Magnesium 1.6 mg/dL (1.6-2.6); Phosphorus 4.7 mg/dL (2.3-4.7); Potassium 4.2 mmol/L (3.5-5.1); Sodium 138 mmol/L (136-145)
[2018-08-16 09:01] LABS: INR-International Normal Ratio 3.1; Prothrombin Time 31.6 SEC (12.0-14.7)
[2018-08-16 09:04] LABS: Hemoglobin 8.3 g/dL (14.0-18.0); Mean Corpuscular HGB CONC 30.5 g/dL (32.0-36.0); Mean Corpuscular Hemoglobin 29.3 pg (27.0-31.0); Mean Corpuscular Volume 95.9 fL (78.0-98.0); Mean Platelet Volume 7.9 fL (7.4-10.4); Platelet Count 246 thou/uL (130-400); RBC Distribution Width 16.1 % (11.5-14.5); Red Blood Cell (RBC) Count 2.83 mill/uL (4.70-6.10); White Blood Cell (WBC) Count 3.6 thou/uL (4.8-10.8)
[2018-08-16] MEDS: Morphine 4 MG/ML VIAL SLOW IVP PRN (10:20)
[2018-08-16 10:21] LABS: Band 2 % (5-11); Eosinophils 3 % (0-10); Hypochromia SLIGHT = 6-15 cells (100X) (0-5/hpf); Lymphocytes 25 % (21-51); MDiff Complete? YES; Monocytes 9 % (0-10); Neutrophil 59 % (42-75); Platelet Morphology Comment Appears Adequate; Polychromasia SLIGHT = 2-3 cells (100X) (0-2/hpf)
[2018-08-16 11:49] VITALS: BP 94/60; TEMP 98
[2018-08-16] MEDS ORDERED: Acetaminophen/Codeine 30-300mg Tablet PO SCH (14:00)
[2018-08-16] MEDS ORDERED: Acetaminophen 500 MG TAB PO SCH (23:59)
--- NOTE | 2018-08-18 08:45 | PQF ---
[employer] Intern Crystal Reports [employer] CALEB Duron GERARDO TORRES U [id number] CLINICAL DOCUMENTATION CLARIFICATION FORM: POST DISCHARGE Addendum to original discharge summary date: ____ Late entry note date: __ DATE: 08/18/2018 ATTN: GERARDO TORRES Please exercise your independent, professional judgment in responding to the clarification form. Clinical indicators are provided on the bottom of this form for your review Please check appropriate box(s) to clarify if the following diagnosis has been ruled in or ruled out: (CDI/Coding list diagnosis here) [ ] Ruled in diagnosis [ ] Continue to treat [ x ] Resolved [ ] Ruled out diagnosis [ ] Cannot rule out diagnosis [ ] Other diagnosis [ ] Unable to determine In addition, please specify: Present on Admission (POA): [ x] Yes [ ] No [ ] Unable to determine For continuity of documentation, please document condition throughout progress notes and discharge summary. Thank You. CLINICAL INDICATORS - SIGNS / SYMPTOMS / LABS BLOOD CULTURE: CITROBACTER KOSERI, GRAM NEGATIVE PN, 08/05/2018 RISK FACTORS SEPSIS ED, 08/02/2018 POST OPERATIVE WOUND INFECTION ED, 08/02/2018 UTI, PN, 08/05/2018 TREATMENTS CIPRO PN, 08/05/2018 MTDD
--- NOTE | 2018-08-20 18:36 | EKG ---
Test Reason : Blood Pressure : / mmHG Vent. Rate : 084 BPM Atrial Rate : 084 BPM P-R Int : 152 ms QRS Dur : 086 ms QT Int : 406 ms P-R-T Axes : 042 -20 007 degrees QTc Int : 479 ms Normal sinus rhythm Normal ECG Confirmed by BELIA VALLE DO ([id number]), avid editor ROBER GODFREY ([id number]) on 08/20/2018 6:36:35 PM Referred By: Confirmed By:BELIA VALLE DO
== END 2018-08-16 15:00 | DRG 862 ==
LOC: ERS 10:09 → SURG B 15:37
PROVIDERS: ADMIT Surgery; ATTEND Surgery
PROC: 02HV33Z Insertion of Infusion Device into Superior Vena Cava, Percutaneous Approach (ICD-10-PCS; principal; 2018-08-06)
DX: T81.44XA Sepsis following a procedure, initial encounter (principal); A41.89 Other specified sepsis; I26.99 Other pulmonary embolism without acute cor pulmonale; N17.9 Acute kidney failure, unspecified; Z86.718 Personal history of other venous thrombosis and embolism; E03.9 Hypothyroidism, unspecified; G43.909 Migraine, unspecified, not intractable, without status migrainosus; E83.42 Hypomagnesemia
CPT/HCPCS: 36415; 36430; 71045; 80048; 80053; 80202; 80306; 80307; 81001; 81003; 81015; 82550; 83605; 83735; 83880; 84100; 85007; 85025; 85027; 85610; 85730; 86850; 86900; 86901; 87040; 87077; 87086; 87186; 93005; 94640; 96365; 96367; 96375; J2270; J2405; J2543; J3010; J3370; J3475; J3490; J7050; J7070; J7620; P9016; S0028

== ENCOUNTER 2018-09-12 05:50 | Day surgery (SDC) | payer SELFPAY ==
[2018-09-09 14:01] VITALS: BMI 30.8
[2018-09-12] MEDS ORDERED: Fentanyl 100 MCG/2 ML VIAL ONE ×3 (06:35→09:33)
[2018-09-12] MEDS ORDERED: Famotidine/PF 20 mg/2ml Vial ONE (06:35)
[2018-09-12] MEDS ORDERED: Bacitracin Zinc Ointment 30 gm TUBE ONE (06:49)
[2018-09-12] MEDS ORDERED: Ophthalmic Irrigation Solution 0 ML ONE (06:49)
[2018-09-12] MEDS ORDERED: Lidocaine 1% (PF) 30 ML VIAL ONE (06:49)
[2018-09-12] MEDS ORDERED: Bupivacaine/Epinephrine 0.25% 30 ML VIAL ONE ×2 (06:49→07:38)
[2018-09-12] MEDS ORDERED: Midazolam HCl 2 mg/2 ml Vial ONE (06:58)
[2018-09-12] MEDS ORDERED: Heparin 5,000 UNITS/ML VIAL ONE (07:13)
[2018-09-12] MEDS ORDERED: EPINEPHrine 1 MG/ML AMP ONE (07:47)
[2018-09-12] MEDS ORDERED: Meperidine HCl/PF 25 MG/ML VIAL ONE (09:10)
[2018-09-12] MEDS ORDERED: HYDROcodone/Acetaminophen 5/325 mg Tablet ONE (10:23)
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
[2018-09-12] MEDS ORDERED: Metoclopramide HCl 10 MG/2 ML VIAL ONE (15:36)
[2018-09-12] MEDS ORDERED: Ondansetron PF 4 MG/2 ML Vial ONE (15:36)
[2018-09-12] MEDS ORDERED: Lidocaine 1% PF 5 ML VIAL ONE (15:36)
[2018-09-12] MEDS ORDERED: Ketorolac Tromethamine 30 MG/ML VIAL ONE (15:36)
[2018-09-12] MEDS ORDERED: PROPOFOL 200 MG/20 ML VIAL ONE (15:36)
[2018-09-12] MEDS ORDERED: ePHEDrine 50 MG/ML VIAL ONE (15:36)
== END 2018-09-12 11:12 | disposition home or self-care (01) ==
LOC: SDC 05:50
PROVIDERS: ATTEND Plastic Surgery
PROC: 0HRKX74 Replacement of Right Lower Leg Skin with Autologous Tissue Substitute, Partial Thickness, External Approach (ICD-10-PCS; principal; 2018-09-12)
DX: S81.801D Unspecified open wound, right lower leg, subsequent encounter (principal); I96 Gangrene, not elsewhere classified; Z79.01 Long term (current) use of anticoagulants; Z79.899 Other long term (current) drug therapy; Z88.8 Allergy status to other drugs, medicaments and biological substances; V98.8XXD Other specified transport accidents, subsequent encounter
CPT/HCPCS: J0131; J0171; J0690; J1644; J1885; J2001; J2175; J2250; J2405; J2704; J2765; J3010; J3490; S0028

== ENCOUNTER 2018-09-15 13:03 | Outpatient (CLI) | payer SELFPAY ==
[2018-09-15] MEDS ORDERED: Sodium Chloride 0.9% 15 ML NEB ONE (15:00)
--- NOTE | 2018-09-15 16:35 | PRG ---
DATE OF SERVICE: 09/15/2018 HISTORY: Mr. Alphonse Reyna is a very pleasant 43-year-old gentleman, who presents to the Wound Center for evaluation of a wound of the right lower leg. The patient has undergone split-thickness skin graft placement by Dr. Steel for the right lower leg wound. The patient underwent previously intraoperative debridement and irrigation of a 15 x 15 x 4 cm complex right leg laceration on 07/12/[address] Hair, followed by intraoperative debridement of the wound on 07/25/[address] Santiago Burleson. After undergoing biological debridement, followed by negative pressure therapy, the patient underwent split-thickness skin graft placement by Dr. Steel. Negative pressure therapy was initiated at the time of surgery for split-thickness skin graft placement. PHYSICAL EXAMINATION: VITAL SIGNS: Temperature 99.0, pulse 107, respirations 18, blood pressure 101/60. EXTREMITIES: A wound of the right lower leg is present subsequent to split-thickness skin graft placement. The dimensions of the wound are approximately 21 x 22 cm. [place] are still intact. No purulent drainage is associated with the wound. No cellulitis of the right lower leg is appreciated. No maceration of the skin of the periwound is noted. ASSESSMENT AND PLAN: 1. Wound of right lower leg subsequent to split-thickness skin graft placement. As per Dr. Steel, negative pressure therapy will be discontinued today. Dressing changes as per Dr. Steel will be continued. I will see Mr. Reyna again as needed after evaluation by Plastic Surgery. The patient understands and is in agreement with the preceding treatment plan. 2. History of deep venous thrombosis. 3. Bilateral pulmonary embolism. 4. Arthritis. 5. Migraine headaches. 6. Javier syndrome. 7. History of hypothyroidism. Job ID: [id number]
== END 2018-09-15 13:04 | disposition home or self-care (01) ==
LOC: WCC 13:03
PROVIDERS: ATTEND Family Medicine
DX: T81.89XD Other complications of procedures, not elsewhere classified, subsequent encounter (principal); I26.99 Other pulmonary embolism without acute cor pulmonale; G43.909 Migraine, unspecified, not intractable, without status migrainosus; G44.099 Other trigeminal autonomic cephalgias (TAC), not intractable; M19.90 Unspecified osteoarthritis, unspecified site; Z86.73 Personal history of transient ischemic attack (TIA), and cerebral infarction without residual deficits; E03.9 Hypothyroidism, unspecified
CPT/HCPCS: 97606; 99203; A4218; G0463

== ENCOUNTER 2018-09-22 10:57 | Outpatient (CLI) | payer SELFPAY ==
[2018-09-22] MEDS ORDERED: Sodium Chloride 0.9% 15 ML NEB ONE (11:11)
== END 2018-09-22 10:58 | disposition home or self-care (01) ==
LOC: WCC 10:57
PROVIDERS: ATTEND Family Medicine
DX: T81.89XD Other complications of procedures, not elsewhere classified, subsequent encounter (principal)
CPT/HCPCS: 97602; A4218

== ENCOUNTER 2018-09-28 10:36 | Outpatient (CLI) | payer SELFPAY ==
--- NOTE | 2018-09-28 11:52 | PRG ---
DATE OF SERVICE: 09/28/2018 HISTORY: Mr. Alphonse Reyna is a very pleasant 43-year-old gentleman, who presents to the Wound Center for evaluation of a wound of the right lower leg subsequent to split-thickness skin graft placement by Dr. Steel. The patient previously underwent intraoperative debridement and irrigation of a 15 x 15 x 4 cm complex right leg laceration on 07/12/[address] Hair followed by intraoperative debridement of the wound on 07/25/[address] Santiago Burleson. After undergoing biological debridement followed by negative pressure therapy, the patient underwent split-thickness skin graft placement by Dr. Steel. The patient completed a course of negative pressure therapy as per Plastic Surgery. PHYSICAL EXAMINATION: VITAL SIGNS: Temperature 97.6, pulse 97, respirations 18, and blood pressure 111/69. EXTREMITIES: A wound of the right lower leg is present subsequent to split-thickness skin graft placement. The dimensions of the wound are approximately 19 x 19 cm. [place] are still intact at the periphery of the wound. No purulent drainage is associated with the wound. No cellulitis of the right lower leg is appreciated. No maceration of the skin of the periwound is noted. ASSESSMENT AND PLAN: 1. Wound of right lower leg subsequent to split-thickness skin graft placement. Dressing changes as per Dr. Steel will be continued. I will see Mr. Reyna again in 3 weeks if his wound is still present at this time. 2. History of deep venous thrombosis. 3. Bilateral pulmonary embolism. 4. Arthritis. 5. Migraine headaches. 6. Javier syndrome. 7. History of hypothyroidism. Job ID: [id number]
[2018-09-28] MEDS ORDERED: Sodium Chloride 0.9% 15 ML NEB ONE (15:00)
== END 2018-09-28 10:37 | disposition home or self-care (01) ==
LOC: WCC 10:36
PROVIDERS: ATTEND Family Medicine
DX: S81.801D Unspecified open wound, right lower leg, subsequent encounter (principal); I26.99 Other pulmonary embolism without acute cor pulmonale; G43.909 Migraine, unspecified, not intractable, without status migrainosus; G44.099 Other trigeminal autonomic cephalgias (TAC), not intractable; Z86.39 Personal history of other endocrine, nutritional and metabolic disease; Z86.718 Personal history of other venous thrombosis and embolism
CPT/HCPCS: 97602; A4218

== ENCOUNTER 2018-11-08 05:20 | Emergency (ER) | payer SELFPAY ==
[2018-11-08 05:53] LABS: #Lymphocytes 1.3 thou/uL (1.20-3.40); #Monocytes 0.6 thou/uL (0.11-0.59); #Neutrophils 3.5 thou/uL (1.40-6.50); %Basophils 0.5 % (0.0-1.0); %Eosinophils 0.6 % (0.0-10.0); %Monocytes 11.5 % (0.0-10.0); %Neutrophils 63.4 % (42.0-75.0); Hemoglobin 13.3 g/dL (14.0-18.0); Mean Corpuscular HGB CONC 31.7 g/dL (32.0-36.0); Mean Corpuscular Hemoglobin 28.3 pg (27.0-31.0); Mean Corpuscular Volume 89.3 fL (78.0-98.0); Mean Platelet Volume 9.8 fL (7.4-10.4); Platelet Count 159 thou/uL (130-400); RBC Distribution Width 19.8 % (11.5-14.5); Red Blood Cell (RBC) Count 4.69 mill/uL (4.70-6.10); White Blood Cell (WBC) Count 5.5 thou/uL (4.8-10.8)
[2018-11-08 06:10] LABS: INR-International Normal Ratio 1.9; PTT 39.9 SEC (22.9-36.1); Prothrombin Time 21.9 SEC (12.0-14.7)
[2018-11-08 06:18] LABS: ALT (SGPT) 146 U/L (8-55); AST (SGOT) 261 U/L (5-34); Albumin 3.8 g/dL (3.5-5.0); Alkaline Phosphatase 96 U/L (40-150); Anion Gap 15 mmol/L (10-20); BUN (Urea Nitrogen) 10 mg/dL (8.9-20.6); Bilirubin, Total 0.8 mg/dL (0.2-1.2); CK (CPK) 12 U/L (30-200); Calc. Creatinine Clearance 0 mL/min (70-130); Carbon Dioxide 22 mmol/L (22-29); Chloride 107 mmol/L (98-107); Estimated GFR-MDRD Greater than 90; Globulin 3.5 g/dL (2.4-3.5); Glucose 113 mg/dL (70-105); Lipase 59 U/L (8-78); Protein, Total 7.3 g/dL (6.0-8.3); Sodium 140 mmol/L (136-145)
--- NOTE | 2018-11-08 08:13 | RAD ---
PORTABLE CHEST ONE VIEW: 11/08/2018 5:22 a.m. HISTORY: Dyspnea. Tachycardia. COMPARISON: 08/06/2018 FINDINGS: The heart size is normal. The aorta is tortuous. The lungs are well expanded without focal areas of consolidation, pneumothoraces, or pleural effusions. IMPRESSION: No radiographic evidence of acute cardiopulmonary process. POS: OFF
== END 2018-11-08 06:57 | disposition home or self-care (01) ==
LOC: ERS 05:20
DX: R55 Syncope and collapse (principal); F41.9 Anxiety disorder, unspecified; Z79.01 Long term (current) use of anticoagulants; Z86.718 Personal history of other venous thrombosis and embolism; Z79.891 Long term (current) use of opiate analgesic
CPT/HCPCS: 71045; 80053; 82550; 83690; 83880; 84484; 85025; 85379; 85610; 85730; 93005

== ENCOUNTER 2019-01-10 03:07 | Inpatient (IN) | payer SELFPAY ==
[2019-01-10 03:36] LABS: #Basophils 0.1 thou/uL (0.0-0.2); #Eosinphils 0.1 thou/uL (0.0-0.7); #Lymphocytes 1.9 thou/uL (1.20-3.40); #Monocytes 0.6 thou/uL (0.11-0.59); #Neutrophils 2.9 thou/uL (1.40-6.50); %Eosinophils 1.5 % (0.0-10.0); %Monocytes 11.6 % (0.0-10.0); Hemoglobin 13.2 g/dL (14.0-18.0); Mean Corpuscular HGB CONC 32.6 g/dL (32.0-36.0); Mean Corpuscular Hemoglobin 29.3 pg (27.0-31.0); Mean Corpuscular Volume 89.7 fL (78.0-98.0); Mean Platelet Volume 8.6 fL (7.4-10.4); Platelet Count 230 thou/uL (130-400); RBC Distribution Width 15.6 % (11.5-14.5); Red Blood Cell (RBC) Count 4.52 mill/uL (4.70-6.10); White Blood Cell (WBC) Count 5.5 thou/uL (4.8-10.8)
[2019-01-10] MEDS ORDERED: Ondansetron PF 4 MG/2 ML Vial ONE (03:43)
[2019-01-10 03:44] LABS: INR-International Normal Ratio 1.4; PTT 34.3 SEC (22.9-36.1); Prothrombin Time 16.7 SEC (12.0-14.7)
[2019-01-10] MEDS ORDERED: Acetaminophen 500 MG TAB ONE (03:51)
[2019-01-10 03:56] LABS: ALT (SGPT) 33 U/L (8-55); AST (SGOT) 31 U/L (5-34); Albumin 3.8 g/dL (3.5-5.0); Alkaline Phosphatase 60 U/L (40-110); Anion Gap 13 mmol/L (10-20); BUN (Urea Nitrogen) 15 mg/dL (8.9-20.6); Bilirubin, Total 0.6 mg/dL (0.2-1.2); Calc. Creatinine Clearance 0 mL/min (70-130); Calcium 9.5 mg/dL (7.8-10.44); Carbon Dioxide 25 mmol/L (22-29); Chloride 108 mmol/L (98-107); Estimated GFR-MDRD Greater than 90; Globulin 3.2 g/dL (2.4-3.5); Glucose 103 mg/dL (70-105); Magnesium 1.9 mg/dL (1.6-2.6); Potassium 3.8 mmol/L (3.5-5.1); Sodium 143 mmol/L (136-145)
[2019-01-10 04:07] LABS: Thyroid Stimulating Hormone 4.4961 uIU/mL (0.35-4.94)
[2019-01-10] MEDS ORDERED: Enoxaparin Sodium 100 MG/ML SYRINGE ONE (05:02)
[2019-01-10] MEDS ORDERED: Morphine 4 MG/ML VIAL ONE ×4 (05:02→11:44)
[2019-01-10] MEDS ORDERED: Enoxaparin Sodium 30 MG/0.3 ML SYRINGE ONE (05:15)
[2019-01-10] MEDS ORDERED: Enoxaparin Sodium 40 MG/0.4 ML SYRINGE ONE (05:20)
[2019-01-10] MEDS ORDERED: Enoxaparin Sodium 60 MG/0.6 ML SYRINGE ONE (05:22)
[2019-01-10 05:44] LABS: Free T4 (Free Thyroxine) 0.83 ng/dL (0.70-1.48)
[2019-01-10 07:03] LABS: Troponin I 0.026 ng/mL (< 0.028)
--- NOTE | 2019-01-10 08:06 | ULT ---
PRELIMINARY REPORT/[facility]/EMERGENCY AFTER HOURS PROCEDURE: PROCEDURE INFORMATION: Exam: US Duplex Lower Extremity Veins Exam date and time: 01/10/2019 4:10 AM Clinical history: 43 years old, male; Pain; Leg, lower; Bilateral; Patient HX: M43 presents to ED wit h C/O pounding heart and intermittent racing heart, onset 2-3 days ago. During this time patient also reports tingling to hands and feet, SOB, nausea, sweating and vomiting. Patient reports that he has noticed increased hair loss recently and patient has lost 15 lbs in the last month. Patient has a HX of hyperthyroidism which has not needed to be medicated recently. Pmhx of dvts for which he takes cou madin. Last coumadin level check was normal 2 weeks ago. TECHNIQUE: Imaging protocol: Real-time duplex ultrasound of the Lower Extremities with 2-D zamora scale, color Dop pler flow and spectral waveform analysis with image documentation. Complete exam focused on the bilat eral lower extremity veins. COMPARISON: No relevant prior studies available. FINDINGS: Right deep veins: Thrombus in the mid and distal femoral vein. Remaining deep veins are patent. Right superficial veins: Saphenofemoral junction is patent without thrombus. Left deep veins: Unremarkable. The common femoral, femoral, proximal profunda femoral and popliteal v eins are patent without thrombus. Normal Doppler waveforms. Normal compressibility and/or augmentatio n response. Left superficial veins: Saphenofemoral junction is patent without thrombus. IMPRESSION: Positive for right femoral DVT. Thank you for allowing us to participate in the care of your patient. Dictated and Authenticated by: Arnulfo Weeks MD 01/10/2019 4:59 AM Central Time ([place] & [place]) FINAL REPORT EMERGENCY AFTER HOURS BILATERAL LOWER EXTREMITY VENOUS ULTRASOUND: Date: 01/10/19 FINDINGS/IMPRESSION: I agree with the findings and impression given in the preliminary report per [facility] physician. 1. There is a deep venous thrombosis seen in the right mid superficial femoral vein to the distal hodges perficial femoral vein. 2. No deep venous thrombosis is seen in the left leg. POS: CET
--- NOTE | 2019-01-10 08:10 | RAD ---
SINGLE VIEW OF THE CHEST: COMPARISON: 11/08/2018. HISTORY: Dyspnea with chest palpitations. FINDINGS: Single view of the chest shows a normal sized cardiomediastinal silhouette. There is no evidence of c onsolidation, mass, or pleural effusion. The bones are unremarkable. IMPRESSION: No evidence of acute cardiopulmonary disease. POS: CET
[2019-01-10] MEDS: Morphine 4 MG/ML VIAL SLOW IVP PRN ×5 (09:35→21:55)
[2019-01-10 10:06] LABS: Troponin I 0.012 ng/mL (< 0.028)
[2019-01-10] MEDS ORDERED: Ondansetron ODT 4 MG TAB PO PRN (11:38)
[2019-01-10] MEDS ORDERED: ISOVUE-370 76%-LOCM 1 ML ONE (12:47)
--- NOTE | 2019-01-10 13:35 | CT ---
CTA CHEST WITH CONTRAST: Date: 01/10/19 Axial tomograms obtained with multiplanar reconstruction and 3D postprocessing. INDICATION: Shortness of breath. Assess for pulmonary embolus. Tachycardia. FINDINGS: Pulmonary arteries show adequate opacification. No evidence of pulmonary embolus. Aorta is not opacif ied and cannot be assessed. The lungs appear well aerated. There is patchy atelectasis in the posterior left lung base. No eviden ce of infiltrate or effusion. Small sliding diaphragmatic hernia with postoperative changes at the EG junction and stomach. Mediastinum otherwise unremarkable. IMPRESSION: 1. No evidence of pulmonary embolus. 2. No acute lung process identified. POS: [facility]
--- NOTE | 2019-01-10 17:18 | HP ---
PRIMARY CARE PHYSICIAN: Merrill Null MD CHIEF COMPLAINT: Palpitations and shortness of breath. HISTORY OF PRESENT ILLNESS: Mr. Reyna is a 43-year-old man with a past medical history of DVT and hyperthyroidism, who had presented to [facility] late last night after he has been experiencing palpitations and overall not feeling well over the last week, he states that he had slowly began coughing over the last few days and had also felt somewhat short of breath. He states that he has been on warfarin for several years for multiple DVTs in the past and he states that he had seen his PCP for a check roughly a week ago as well, and he states his INR was 2.8 at that time and he had stated that he was using this daily and no changes since. Upon arriving to the ED, his labs indicated an INR of 1.4. Therefore, he was treated with Lovenox. His serial troponins were found to be negative. TSH and T4 were both within normal limits. A portable chest x-ray was found to be unremarkable. However, a lower extremity Doppler showed an acute DVT in his right lower leg. He had denied any fever, chills, any headache, blurred vision, dizziness, any chest pain, abdominal pain, nausea, or vomiting. He states that he has had chronic problems with his legs, which he underwent a pretty extensive wound care and skin grafts from a lower extremity injury back in September. REVIEW OF SYSTEMS: All other systems are reviewed and found to be negative unless mentioned in the HPI. PAST MEDICAL HISTORY: DVT and hyperthyroidism. PAST SURGICAL HISTORY: Cholecystectomy, gastric sleeve surgery, bilateral knee surgery, hernia repair, and IVC filter. PSYCHIATRIC HISTORY: Anxiety. SOCIAL HISTORY: Denies alcohol, tobacco, or illicit drug use. KNOWN ALLERGIES: Gabapentin. CURRENT HOME MEDICATIONS: 1. Warfarin 5 mg oral daily. 2. Tamsulosin 0.4 mg oral at bedtime. 3. Hydrocodone/acetaminophen 10 mg/325 q.12 hours as needed for pain. PHYSICAL EXAMINATION: VITAL SIGNS: BP 107/61, pulse 56, respiration 18, temp 98.2, O2 saturation 100% on room air. GENERAL: The patient is awake, alert, and oriented x3. He is currently lying comfortably in bed and in no acute distress. HEENT: Atraumatic, normocephalic. Pupils are round and reactive to light. Extraocular muscles intact. Moist mucous membranes noted. CARDIOVASCULAR: Positive S1 and S2. Regular rate and rhythm. No murmur auscultated. RESPIRATORY: Clear to auscultation bilaterally. No wheezes, rales, or rhonchi. ABDOMEN: Soft, nontender. Bowel sounds present. EXTREMITIES: Moves all extremities equally. Pedal and radial pulses 2+ bilaterally. Positive Homans sign on the right. NEUROLOGIC: Cranial nerves 2 through 12 grossly intact. No focal deficits noted. Speech, intact and normal. Gait, not assessed. SKIN: Warm, dry, and intact. The patient does have scarring from a previous skin graft on his right lower extremity, which is nontender and no warmth noted. PSYCHIATRIC: Good mood and affect. LABORATORY DATA: WBC 5.5, RBC 4.52, hemoglobin 13.2, hematocrit 40.5, platelet 230. PT 16.7, INR 1.4, PTT 34.3. Sodium 143, potassium 3.8, anion gap 13, BUN 15, creatinine 0.74, estimated GFR greater than 90 glucose 103. Troponin negative x3. T4 is 0.83. TSH 4.4961. DIAGNOSTIC IMAGING: Portable chest x-ray showed no evidence of acute cardiopulmonary disease. Ultrasound venous Doppler of bilateral lower extremities showed an acute DVT in right mid superficial femoral vein to the distal superficial femoral vein, however, no DVT noted in left leg. ASSESSMENT AND PLAN: 1. Acute deep venous thrombosis. The patient to be restarted on warfarin, his normal home dose is 5 mg daily. This will be up to 7.5 mg today and his INR will be closely monitored, and the goal is an INR between 2 and 3. 2. Shortness of breath and palpitations. We will check a CTA of his chest to rule out PE at this time. 3. History of hyperthyroidism. However, his TSH and T4 are normal. 4. Deep venous thrombosis and gastrointestinal prophylaxis. CODE STATUS: Full code. DISPOSITION: Pending further workup and clinical findings. Job ID: [id number]
[2019-01-10] MEDS: Calcium Carbonate 500 MG ChewTAB PO PRN ×2 (17:52→21:57)
[2019-01-10] MEDS: Warfarin Sodium 7.5 MG TAB PO SCH (17:52)
[2019-01-10] MEDS: Famotidine 20 MG TAB PO SCH (21:57)
[2019-01-11] MEDS: Morphine 4 MG/ML VIAL SLOW IVP PRN ×5 (02:21→23:24)
[2019-01-11 05:03] LABS: #Eosinphils 0.1 thou/uL (0.0-0.7); #Lymphocytes 1.3 thou/uL (1.20-3.40); #Monocytes 0.5 thou/uL (0.11-0.59); #Neutrophils 1.5 thou/uL (1.40-6.50); %Basophils 0.8 % (0.0-1.0); %Eosinophils 3.7 % (0.0-10.0); %Lymphocytes 37.6 % (21.0-51.0); %Monocytes 13.3 % (0.0-10.0); %Neutrophils 44.6 % (42.0-75.0); Hemoglobin 12.5 g/dL (14.0-18.0); Mean Corpuscular Hemoglobin 29.5 pg (27.0-31.0); Mean Corpuscular Volume 92.2 fL (78.0-98.0); Mean Platelet Volume 9.1 fL (7.4-10.4); Platelet Count 166 thou/uL (130-400); RBC Distribution Width 15.6 % (11.5-14.5); Red Blood Cell (RBC) Count 4.22 mill/uL (4.70-6.10); White Blood Cell (WBC) Count 3.4 thou/uL (4.8-10.8)
[2019-01-11 05:10] LABS: INR-International Normal Ratio 1.3; PTT 35.5 SEC (22.9-36.1); Prothrombin Time 15.8 SEC (12.0-14.7)
[2019-01-11 05:22] LABS: Anion Gap 12 mmol/L (10-20); BUN (Urea Nitrogen) 9 mg/dL (8.9-20.6); Calc. Creatinine Clearance 213 mL/min (70-130); Calcium 9.1 mg/dL (7.8-10.44); Carbon Dioxide 23 mmol/L (22-29); Chloride 105 mmol/L (98-107); Estimated GFR-MDRD Greater than 90; Glucose 100 mg/dL (70-105); Potassium 4.3 mmol/L (3.5-5.1); Sodium 136 mmol/L (136-145)
[2019-01-11] MEDS: Famotidine 20 MG TAB PO SCH ×2 (07:58→20:25)
[2019-01-11 12:54] VITALS: BMI 30.3
[2019-01-11] MEDS: Diazepam 5 MG TAB PO PRN ×2 (12:55→20:25)
--- NOTE | 2019-01-11 14:04 | PDOC.HOSPP ---
- Subjective Encounter Date: 01/11/19 Encounter Time: 14:03 Subjective: No new complaints - Objective Vital Signs & Weight: Vital Signs (12 hours) Temp Pulse Resp BP Pulse Ox 01/11/19 11:58 98.0 F 60 16 98/58 L 98 01/11/19 08:00 60 16 97/54 L 100 01/11/19 02:40 97.9 F 67 54 H 102/71 99 Weight Admit Weight 259 lb 0.69 oz Weight 256 lb I&O: 01/10/19 01/11/19 01/12/19 06:59 06:59 06:59 Intake Total 480 Output Total 600 Balance -120 Result Diagrams: 01/11/19 04:37 01/11/19 04:37 Radiology Reviewed by me: Yes EKG Reviewed by me: Yes Hospitalist ROS - Medication Medications: Active Medications Generic Name Dose Route Start Last Admin Trade Name Freq PRN Reason Stop Dose Admin Calcium Carbonate 1,000 mg 01/10/19 16:30 01/10/19 21:57 Tums PO 1,000 mg Q4H PRN Administration Heartburn or Indigestion Diazepam 10 mg 01/11/19 12:41 01/11/19 12:55 Valium PO 10 mg TID PRN Administration Anxiety Famotidine 20 mg 01/10/19 21:00 01/11/19 07:58 Pepcid PO 20 mg BID HUAN Administration Morphine Sulfate 4 mg 01/10/19 09:34 01/11/19 12:13 Morphine SLOW IVP 4 mg Q4H PRN Administration Pain Warfarin Sodium 7.5 mg 01/10/19 17:00 01/10/19 17:52 Coumadin PO 7.5 mg 1700 HUAN Administration - Exam General Appearance: NAD, awake alert, ill appearing Eye: PERRL, anicteric sclera, scleral icterus ENT: normocephalic atraumatic, no oropharyngeal lesions, moist mucosa, dry oral mucosa Neck: supple, symmetric, no JVD, no thyromegaly, no lymphadenopathy, no carotid bruit, JVD Heart: RRR, no murmur, no gallops, no rubs, normal peripheral pulses, irregular , diminshed peripheral pulses, murmur present, II/IV, III/IV Respiratory: CTAB, no wheezes, no rales, no ronchi, normal chest expansion, no tachypnea, normal percussion, rales, rhonchi, tachypneic, wheezes Gastrointestinal: soft, non-tender, non-distended, normal bowel sounds, no palpable masses, no hepatomegaly, no splenomegaly, no bruit, no guarding, no rigidity, tender to palpation, distended, diminished bowl sounds, voluntary guarding Hosp A/P (1) Atrial fibrillation with rapid ventricular response Code(s): I48.91 - UNSPECIFIED ATRIAL FIBRILLATION Status: Acute (2) DVT (deep venous thrombosis) Status: Acute - Plan the INR is still subrheraputic, the goal of INR is 2.5. Continue coumadin and lovenox
[2019-01-11] MEDS ORDERED: Morphine 4 MG/ML VIAL SLOW IVP SCH (14:45)
[2019-01-11] MEDS: Ondansetron PF 4 MG/2 ML Vial IVP PRN (14:45)
[2019-01-11] MEDS: HYDROcodone/Acetaminophen 10/325 mg Tablet PO PRN (16:24)
[2019-01-11] MEDS: Warfarin Sodium 7.5 MG TAB PO SCH (16:24)
[2019-01-11] MEDS ORDERED: Acetaminophen/Codeine 30-300mg Tablet PO SCH (18:00)
[2019-01-11] MEDS: Calcium Carbonate 500 MG ChewTAB PO PRN (20:25)
[2019-01-11] MEDS: Enoxaparin Sodium 100 MG/ML SYRINGE SC SCH (20:25)
[2019-01-12] MEDS: Morphine 4 MG/ML VIAL SLOW IVP PRN ×5 (03:29→20:26)
[2019-01-12] MEDS: Acetaminophen 325 MG TAB PO PRN ×3 (03:35→20:25)
[2019-01-12 05:03] LABS: INR-International Normal Ratio 1.4; Prothrombin Time 17.3 SEC (12.0-14.7)
[2019-01-12] MEDS: Ascorbic Acid 500 mg Chewable Tablet PO SCH (08:50)
[2019-01-12] MEDS: Enoxaparin Sodium 100 MG/ML SYRINGE SC SCH ×2 (08:50→20:25)
[2019-01-12] MEDS: Famotidine 20 MG TAB PO SCH ×2 (08:50→20:26)
[2019-01-12] MEDS: Diazepam 5 MG TAB PO PRN ×3 (08:51→22:11)
[2019-01-12] MEDS: HYDROcodone/Acetaminophen 10/325 mg Tablet PO PRN (08:51)
[2019-01-12] MEDS: Ondansetron PF 4 MG/2 ML Vial IVP PRN (09:20)
--- NOTE | 2019-01-12 11:45 | PDOC.HOSPP ---
- Subjective Encounter Date: 01/12/19 Encounter Time: 11:44 Subjective: well - Objective Vital Signs & Weight: Vital Signs (12 hours) Temp Pulse Resp BP Pulse Ox 01/12/19 07:32 97.6 F 58 L 16 109/65 98 01/12/19 04:00 97.9 F 65 18 109/63 95 Weight Admit Weight 259 lb 0.69 oz Weight 256 lb I&O: 01/11/19 01/12/19 01/13/19 06:59 06:59 06:59 Intake Total 480 1440 Output Total 600 2075 Balance -120 -635 Result Diagrams: 01/11/19 04:37 01/11/19 04:37 Hospitalist ROS - Medication Medications: Active Medications Generic Name Dose Route Start Last Admin Trade Name Freq PRN Reason Stop Dose Admin Acetaminophen 650 mg 01/10/19 11:38 01/12/19 03:35 Tylenol PO 650 mg Q4H PRN Administration Headache/Fever/Mild Pain (1-3) Hydrocodone Bitart/Acetaminophen 1 tab 01/11/19 12:41 01/12/19 08:51 [place] 10/325 PO 1 tab Q12H PRN Administration Pain 4-6 Ascorbic Acid 1,000 mg 01/12/19 08:00 01/12/19 08:50 Vitamin C PO 1,000 mg QAM-WM HUAN Administration Calcium Carbonate 1,000 mg 01/10/19 16:30 01/11/19 20:25 Tums PO 1,000 mg Q4H PRN Administration Heartburn or Indigestion Diazepam 10 mg 01/11/19 12:41 01/12/19 08:51 Valium PO 10 mg TID PRN Administration Anxiety Enoxaparin Sodium 100 mg 01/11/19 21:00 01/12/19 08:50 Lovenox SC 100 mg 0900,2100 HUAN Administration Famotidine 20 mg 01/10/19 21:00 01/12/19 08:50 Pepcid PO 20 mg BID HUAN Administration Morphine Sulfate 4 mg 01/10/19 09:34 01/12/19 11:37 Morphine SLOW IVP 4 mg Q4H PRN Administration Pain Ondansetron HCl 4 mg 01/10/19 11:38 01/12/19 09:20 Zofran IVP 4 mg Q6H PRN Administration Nausea/Vomiting Warfarin Sodium 7.5 mg 01/10/19 17:00 01/11/19 16:24 Coumadin PO 7.5 mg 1700 HUAN Administration - Exam General Appearance: NAD, awake alert, ill appearing Eye: PERRL, anicteric sclera, scleral icterus ENT: normocephalic atraumatic, no oropharyngeal lesions, moist mucosa, dry oral mucosa Neck: supple, symmetric, no JVD, no thyromegaly, no lymphadenopathy, no carotid bruit, JVD Heart: RRR, no murmur, no gallops, no rubs, normal peripheral pulses, irregular , diminshed peripheral pulses, murmur present, II/IV, III/IV Gastrointestinal: soft, non-tender, non-distended, normal bowel sounds, no palpable masses, no hepatomegaly, no splenomegaly, no bruit, no guarding, no rigidity, tender to palpation, distended, diminished bowl sounds, voluntary guarding Extremities: no cyanosis, no clubbing, no edema, 1+ LE edema, 2+ LE edema, clubbing Hosp A/P (1) Atrial fibrillation with rapid ventricular response Code(s): I48.91 - UNSPECIFIED ATRIAL FIBRILLATION Status: Acute (2) DVT (deep venous thrombosis) Status: Acute - Plan the INR is still subrheraputic, the goal of INR is 2.5. Continue coumadin and lovenox
[2019-01-12] MEDS: Warfarin Sodium 7.5 MG TAB PO SCH (16:16)
[2019-01-12] MEDS: Calcium Carbonate 500 MG ChewTAB PO PRN (18:25)
[2019-01-13] MEDS: Morphine 4 MG/ML VIAL SLOW IVP PRN ×5 (04:00→23:00)
[2019-01-13] MEDS: Acetaminophen 325 MG TAB PO PRN (04:01)
[2019-01-13 04:26] LABS: INR-International Normal Ratio 1.7; Prothrombin Time 19.6 SEC (12.0-14.7)
[2019-01-13] MEDS: HYDROcodone/Acetaminophen 10/325 mg Tablet PO PRN ×2 (06:31→14:55)
[2019-01-13] MEDS: Ondansetron PF 4 MG/2 ML Vial IVP PRN (09:19)
[2019-01-13] MEDS: Ascorbic Acid 500 mg Chewable Tablet PO SCH (09:19)
[2019-01-13] MEDS: Famotidine 20 MG TAB PO SCH ×2 (09:19→21:13)
[2019-01-13] MEDS: Calcium Carbonate 500 MG ChewTAB PO PRN (09:19)
[2019-01-13] MEDS: Enoxaparin Sodium 100 MG/ML SYRINGE SC SCH ×2 (09:19→21:12)
[2019-01-13] MEDS: Acetaminophen/Codeine 30-300mg Tablet PO PRN ×2 (12:04→18:27)
[2019-01-13] MEDS: Diazepam 5 MG TAB PO PRN ×2 (12:09→21:12)
--- NOTE | 2019-01-13 14:07 | PRG ---
DATE OF SERVICE: 01/13/2019 SUBJECTIVE: The patient is seen and examined at bedside. He complains about pain in his right leg and he is asking for more morphine. OBJECTIVE: VITAL SIGNS: Blood pressure is 100/58, pulse is 72, temperature is 98.6, respirations 16, and O2 saturation is 96% on room air. HEENT: His head is atraumatic and normocephalic. Eyes are PERRLA. Sclerae are nonicteric. Oral mucosa is moist. NECK: Supple. LUNGS: Clear. HEART: S1 and S2 normal. No S3. No S4. No any murmur. ABDOMEN: Soft, nontender, and nondistended. EXTREMITIES: Right lower extremity chronic changes, status post skin grafting. There is peripheral edema approximately 1+, similar bilateral on both lower extremities. NEUROLOGIC: He does not have any motor deficits. He follows my commands. He moves his all extremities. LABORATORY DATA: INR is 1.7 and PT is 19.6. IMPRESSION: 1. Recurrent deep venous thrombosis with negative workup. INR is 1.7. We will continue his Coumadin 7.5 mg and Lovenox 1 mg/kg q.12 hours subcutaneously. 2. Atrial fibrillation with rapid ventricular response, currently in sinus rhythm. 3. Peripheral neuropathy, status post extensive workup with negative results. PLAN: Plan is to continue his Coumadin 7.5 mg once a day and continue Lovenox 1 mg/kg subcutaneous every 12 hours. I am going to give him more [place], which is one tablet every 8 hours instead of every 12 hours and continue morphine 4 mg every 4 hours IV push and he should be able to go home in the next couple of days, but personally I believe that he is looking for more opioids to be used. Job ID: [id number]
[2019-01-13] MEDS: Warfarin Sodium 7.5 MG TAB PO SCH (17:47)
[2019-01-14] MEDS: HYDROcodone/Acetaminophen 10/325 mg Tablet PO PRN ×3 (00:42→18:57)
[2019-01-14] MEDS: Morphine 4 MG/ML VIAL SLOW IVP PRN ×5 (03:57→21:54)
[2019-01-14 05:54] LABS: INR-International Normal Ratio 1.7; Prothrombin Time 20.1 SEC (12.0-14.7)
[2019-01-14] MEDS: Enoxaparin Sodium 100 MG/ML SYRINGE SC SCH ×2 (08:02→20:54)
[2019-01-14] MEDS: Famotidine 20 MG TAB PO SCH ×2 (08:02→20:54)
[2019-01-14] MEDS: Ascorbic Acid 500 mg Chewable Tablet PO SCH (08:02)
[2019-01-14] MEDS: Acetaminophen/Codeine 30-300mg Tablet PO PRN ×2 (08:05→20:54)
[2019-01-14] MEDS: Diazepam 5 MG TAB PO PRN ×2 (08:18→17:30)
--- NOTE | 2019-01-14 12:13 | PRG ---
DATE OF SERVICE: 01/14/2019 SUBJECTIVE: The patient is seen and examined at the bedside. He feels significantly better. The amount of pain he gets in his right leg is 3 or 4. He is able to tolerate food without any nausea or abdominal discomfort. OBJECTIVE: VITAL SIGNS: Blood pressure is 105/59, pulse is 70, temperature is 97.6, respiratory rate is 12, O2 saturation is 96% on room air. HEENT: His head is atraumatic and normocephalic. Eyes are PERRLA. Sclerae are nonicteric. Oral mucosa is moist. NECK: Supple. LUNGS: Clear. HEART: S1, S2. Irregularly irregular. No S3. No S4. ABDOMEN: Soft, nontender, nondistended. EXTREMITIES: 1+ peripheral edema. Right eyffy-bkt-mizy area is showing chronic changes, cristian area where the skin graft was placed to. NEUROLOGIC: He is alert and oriented x4. There is no any motor deficits. LABORATORY DATA: Showed INR is 1.7. IMPRESSION: 1. Recurrent deep venous thrombosis with negative workup. INR 1.7 today. We will go up on his Coumadin to 10 mg daily and continue Lovenox 1 mg/kg q.12 hours subcutaneously. 2. Atrial fibrillation with rapid ventricular response, currently in sinus rhythm. 3. Peripheral neuropathy, status post extensive workup with negative results. PLAN: As I mentioned above, we are going to go up on his Coumadin dose to 10 mg once a day and we will continue Lovenox full dose. Also, I am going to check his vitamin D level since chronically Coumadin users have increased risk of osteoporosis and I will recommend him to have a DEXA studies on outpatient basis after his discharge from the hospital. We will check his INR tomorrow and we will continue his morphine and [place] coverage for the pain. Job ID: [id number]
[2019-01-14] MEDS: Sodium Chloride 0.9% 10 ML ONE ×2 (12:17→17:29)
--- NOTE | 2019-01-14 14:22 | EKG ---
Test Reason : ER Blood Pressure : / mmHG Vent. Rate : 079 BPM Atrial Rate : 079 BPM P-R Int : 152 ms QRS Dur : 086 ms QT Int : 394 ms P-R-T Axes : 055 -30 018 degrees QTc Int : 451 ms Normal sinus rhythm Left axis deviation Cannot rule out Anterior infarct , age undetermined Abnormal ECG No changes from 08-NOV-2018 Confirmed by BELIA VALLE DO ([id number]), purchasing expeditor ROBER GODFREY ([id number] on 01/14/2019 2:22:23 PM Referred By: Confirmed By:BELIA VALLE DO
[2019-01-14] MEDS ORDERED: Warfarin Sodium 10 MG TAB PO SCH (17:00)
[2019-01-15] MEDS: Morphine 4 MG/ML VIAL SLOW IVP PRN ×2 (03:14→08:03)
[2019-01-15] MEDS: Diazepam 5 MG TAB PO PRN ×3 (03:15→20:32)
[2019-01-15] MEDS: HYDROcodone/Acetaminophen 10/325 mg Tablet PO PRN ×4 (05:06→21:30)
[2019-01-15 05:49] LABS: INR-International Normal Ratio 1.9; Prothrombin Time 21.2 SEC (12.0-14.7)
[2019-01-15] MEDS: Acetaminophen/Codeine 30-300mg Tablet PO PRN ×3 (06:20→20:32)
[2019-01-15] MEDS: Sodium Chloride 0.9% 10 ML ONE (08:05)
[2019-01-15] MEDS: Enoxaparin Sodium 100 MG/ML SYRINGE SC SCH ×2 (08:10→20:33)
[2019-01-15] MEDS: Ascorbic Acid 500 mg Chewable Tablet PO SCH (08:11)
[2019-01-15] MEDS: Famotidine 20 MG TAB PO SCH ×2 (08:11→20:32)
--- NOTE | 2019-01-15 11:43 | PRG ---
DATE OF SERVICE: 01/15/2019 SUBJECTIVE: The patient is seen and examined at bedside. He is feeling significantly better. His pain is under control at this point. The pain is located in the right mcacrty. OBJECTIVE: VITAL SIGNS: Blood pressure is 120/73, pulse is 70, respirations 16, O2 saturation 95% on room air, his temperature is 98.5. HEENT: His eyes are PERRLA. Sclerae are nonicteric. Oral mucosa is moist. NECK: Supple. LUNGS: Clear. HEART: S1, S2 normal. ABDOMEN: Soft, nontender. EXTREMITIES: Right lower extremity below the knee is chronically changed. That is the area where he had skin graft placed and it is a source of the pain chronically. NEUROLOGIC: He follows my commands. He moves his all 4 extremities. LABORATORY DATA: Labs showed INR of 1.9, PT of 21.2, vitamin D level was 8.9. IMPRESSION: 1. Recurrent deep venous thrombosis, INR 1.9, on Coumadin. The dose will be changed to 7.5 mg once a day and continue Lovenox 1 mg/kg subcutaneous every 24 hours. 2. Atrial fibrillation with rapid ventricular response, controlled, in sinus rhythm now. 3. Peripheral neuropathy, status post extensive workup with negative results. 4. Vitamin D deficiency. PLAN: I plan to start him on 10,000 units of vitamin D daily. I am going to cut back on his opioids, stop his morphine IV push, and just continue [place]. Also, I am going to change his Coumadin to 7.5 once a day. I believe his INR will be above 2 by tomorrow and he can go home. Job ID: [id number]
[2019-01-15] MEDS: Warfarin Sodium 7.5 MG TAB PO SCH (17:08)
[2019-01-16] MEDS: HYDROcodone/Acetaminophen 10/325 mg Tablet PO PRN ×5 (01:39→19:43)
[2019-01-16] MEDS: Acetaminophen/Codeine 30-300mg Tablet PO PRN ×4 (03:09→22:22)
[2019-01-16 04:52] LABS: INR-International Normal Ratio 2.2
[2019-01-16] MEDS: Diazepam 5 MG TAB PO PRN ×3 (05:44→22:22)
[2019-01-16] MEDS: Famotidine 20 MG TAB PO SCH ×2 (08:57→19:44)
[2019-01-16] MEDS: Ascorbic Acid 500 mg Chewable Tablet PO SCH (08:57)
[2019-01-16] MEDS: Enoxaparin Sodium 100 MG/ML SYRINGE SC SCH ×2 (08:57→19:44)
--- NOTE | 2019-01-16 13:11 | PRG ---
DATE OF SERVICE: 01/16/2019 SUBJECTIVE: The patient is seen and examined at the bedside. He feels nervous. He is concerned about an episode, which happened couple of days prior to this hospitalization. This was chest pain, which literally brought him to his niece and he is concerned that nobody really addressed this issue during this hospitalization. OBJECTIVE: VITAL SIGNS: Blood pressure is 105/65, pulse is 81, temperature is 98.2, respiratory rate is 16, O2 saturation 95% on room air. HEENT: His head is atraumatic and normocephalic. Eyes are PERRLA. Sclerae are nonicteric. Oral mucosa is moist. NECK: Supple. LUNGS: Clear. HEART: S1 and S2 normal. No S3. No S4. ABDOMEN: Soft, nontender, nondistended. EXTREMITIES: No clubbing or cyanosis. Right lower extremity below the knee shows chronic changes and status post grafting in the past. NEUROLOGIC: He is alert and oriented x4. There are no any motor deficits. He has numbness and tingling in his hands and feet related to his peripheral neuropathy. LABORATORY DATA: Showed INR of 2.2. Vitamin D level 8.9, vitamin B12 of 309. PT 24.0. IMPRESSION: 1. Right lower extremity deep venous thrombosis. The patient is up to 2.2 on his INR. We will try to overlap him with low molecular weight heparin for additional 24 hours. Also, I am planning to do some additional testing, so he is going to stay. 2. Peripheral neuropathy, status post extensive workup done in the past with negative results. 3. Chest pain, two days prior to this hospitalization, which was not addressed at this point yet according to him. We will obtain Cardiolite stress test, although he did not have any hypoxemia during this hospitalization. 4. Vitamin D deficiency. He was started on 10,000 units of vitamin D3. Also, I asked for several vitamin levels to be checked and vitamin B12 level came back at 309, which is still in the normal range, but it is not optimal. PLAN: Plan is to do a stress test today if it is possible; if it is not, tomorrow morning. Continue his 7.5 mg of Coumadin daily. Check his INR in the morning and he should be able to go home after all this testing is completed. Job ID: [id number]
[2019-01-16] MEDS: Warfarin Sodium 7.5 MG TAB PO SCH (16:17)
[2019-01-16 19:08] LABS: Medtox Reader # READER 4
[2019-01-16 19:09] LABS: Amphetamine Not Detected (NotDetected); Barbiturates Screen Not Detected (NotDetected); Benzodiazepine Screen Detected (NotDetected); Cocaine Metabolite Screen Not Detected (NotDetected); Medtox Control Line Valid? VALID (VALID); Methadone Not Detected (NotDetected); Methamphetamine Not Detected (NotDetected); Opiate Screen Detected (NotDetected); Oxycodone Screen Not Detected (NotDetected); Phencyclidine (PCP) Not Detected (NotDetected); THC/Cannabinoid Screen Not Detected (NotDetected); Tricyclic Screen Not Detected (NotDetected)
[2019-01-17] MEDS: HYDROcodone/Acetaminophen 10/325 mg Tablet PO PRN ×5 (00:05→17:02)
[2019-01-17 05:22] LABS: INR-International Normal Ratio 2.1; Prothrombin Time 23.8 SEC (12.0-14.7)
[2019-01-17] MEDS: Acetaminophen/Codeine 30-300mg Tablet PO PRN ×2 (06:09→12:11)
[2019-01-17] MEDS: Ascorbic Acid 500 mg Chewable Tablet PO SCH (09:58)
[2019-01-17] MEDS: Enoxaparin Sodium 100 MG/ML SYRINGE SC SCH (09:58)
[2019-01-17] MEDS: Diazepam 5 MG TAB PO PRN (09:59)
[2019-01-17] MEDS: Famotidine 20 MG TAB PO SCH (10:01)
--- NOTE | 2019-01-17 10:05 | NM ---
Radionucleotide stress and rest myocardial perfusion scan with CT attenuation correction and SPECT im aging Left ventricular wall motion evaluation and ejection fraction HISTORY: Chest pain. FINDINGS: Adenosine protocol. There is homogeneous uptake of radiotracer throughout the left ventricu lar myocardium. No focal perfusion defect or reversibility. QGS analysis of gated SPECT images shows no focal wall motion abnormalities. Left ventricular ejectio n fraction calculated at 56%. IMPRESSION: Normal myocardial perfusion scan. Normal LVEF.
[2019-01-17 11:46] VITALS: TEMP 98
[2019-01-17 15:48] VITALS: BP 113/70
[2019-01-17] MEDS: Warfarin Sodium 7.5 MG TAB PO SCH (17:03)
--- NOTE | 2019-01-17 22:10 | DIS ---
DATE OF ADMISSION: 01/10/2019 DATE OF DISCHARGE: 01/17/2019 DIAGNOSES AT THE TIME OF ADMISSION: 1. Acute deep venous thrombosis. 2. History of hyperthyroidism. FINAL DIAGNOSES: 1. Right lower extremity recurrent deep venous thrombosis. 2. Peripheral neuropathy status post extensive workup done in the past with negative results according to the patient. 3. Chest pain resolved status post cardiac stress test with radionuclide, which came back negative with normal LVEF. 4. Vitamin D deficiency. The patient is started on 10,000 units of vitamin D3 daily. 5. Drug-seeking behavior. 6. History of hyperthyroidism. HOSPITAL COURSE: The patient is a 43-year-old male, who was admitted to the hospital with complaints of palpitations and shortness of breath. He has a history of DVT and hyperthyroidism. He has been taking warfarin for several years for multiple DVTs in the past. Apparently, he saw his PCP, Dr. Null, in approximately 1 week prior to this hospitalization and his INR was 2.8. While he arrived to the ER, his INR was checked and it came back at 1.4. He was placed on Lovenox. His troponins were found to be negative. TSH and T4 were both within normal limits. Portable chest x-ray was found to be unremarkable. However, Doppler showed an acute DVT in the right lower leg. He denied any fever, chills, any headache, blurred vision, dizziness, chest pain, abdominal pain, nausea, or vomiting. He stated that he has chronic problems with his legs and he underwent a pretty extensive wound care and skin grafting from lower extremity injury back in September. At the time of emergency room evaluation, his white count was 5.5, hemoglobin 13.2, hematocrit 40.5, platelet count 230. His electrolytes were within normal limits. Normal kidney function. The patient was placed on 7.5 mg of Coumadin and Lovenox 1 mg/kg subcutaneously and also he was placed on morphine q.4 hours p.r.n. for the pain. His INR gradually went up to 2.1 and he was continued on Lovenox and overlapped with Lovenox for additional 48 hours. Also, he underwent stress test with radionuclide, which came back normal and there was no any ischemia. His LVEF was estimated at 56%. Also, he was found to be very low on vitamin D. The level came back at 8.9, and he was started on 10,000 units of vitamin D3 daily. Also, vitamin B12 came back on the lower side at around 300 and he is requested to start taking vitamin B complex daily. He is doing quite well during this hospitalization. He showed multiple times drug-seeking behavior. His IV morphine was stopped and he was kept on hydrocodone p.o. and Tylenol No.3 p.o., but he is very manipulative. He is asking me to postpone his discharge until tomorrow morning and this is most likely related to his drug-seeking behavior. He is doing everything to prolong this hospitalization to get more probably exposure to opioids. He is discharged home in good condition. His blood pressure is 112/75, temperature is 98, pulse is 74, respiratory rate is 16, O2 saturation is 94. He was examined before he was discharged. MEDICATIONS: At the time of discharge: 1. Warfarin 7.5 mg once a day. 2. Vitamin D3 of 10,000 units once a day. 3. Diazepam 10 mg 3 times a day p.r.n. 4. Vitamin C 1000 mg daily. 5. Hydrocodone 10/325 mg tablets one every 12 hours p.r.n. as needed. 6. Alternating with Tylenol No. 3 with codeine. FOLLOWUP: Follow up with Dr. Null early next week. Also, he has the forms and he is going to have his PT and INR checked on Wednesday, which is in the next three days. TIME SPENT: Time spent on this discharge is less than 30 minutes. Job ID: [id number]
== END 2019-01-17 17:52 | disposition home or self-care (01) | DRG 301 ==
LOC: EEVIPCON 03:07 → ERS 03:07 → ERHOLD 05:12 → 2NO 11:32
PROVIDERS: ADMIT Internal Medicine; ATTEND Internal Medicine
DX: I82.411 Acute embolism and thrombosis of right femoral vein (principal); E05.90 Thyrotoxicosis, unspecified without thyrotoxic crisis or storm; F41.9 Anxiety disorder, unspecified; I48.91 Unspecified atrial fibrillation; R79.1 Abnormal coagulation profile; G62.9 Polyneuropathy, unspecified; E55.9 Vitamin D deficiency, unspecified; R07.9 Chest pain, unspecified; Z86.718 Personal history of other venous thrombosis and embolism; Z79.899 Other long term (current) drug therapy; Z79.01 Long term (current) use of anticoagulants; Z90.49 Acquired absence of other specified parts of digestive tract; Z65.8 Other specified problems related to psychosocial circumstances; Z88.8 Allergy status to other drugs, medicaments and biological substances; Z76.5 Malingerer [conscious simulation]
CPT/HCPCS: 36415; 71045; 71275; 78452; 80048; 80053; 80306; 82180; 82306; 82607; 83735; 84207; 84425; 84439; 84443; 84446; 84484; 84590; 85025; 85610; 85730; 93005; 93017; 93970; 96361; 96372; 96374; 96375; A9500; J0153; J1650; J2270; J2405; Q9966

== ENCOUNTER 2019-02-23 22:05 | Inpatient (IN) | payer SELFPAY ==
[2019-02-23 23:30] LABS: #Lymphocytes 0.8 thou/uL (1.20-3.40); #Monocytes 0.8 thou/uL (0.11-0.59); #Neutrophils 5.7 thou/uL (1.40-6.50); %Basophils 0.6 % (0.0-1.0); %Eosinophils 0.3 % (0.0-10.0); %Lymphocytes 11.1 % (21.0-51.0); %Monocytes 10.4 % (0.0-10.0); %Neutrophils 77.5 % (42.0-75.0); Hemoglobin 13.4 g/dL (14.0-18.0); Mean Corpuscular HGB CONC 33.2 g/dL (32.0-36.0); Mean Corpuscular Hemoglobin 28.4 pg (27.0-31.0); Mean Corpuscular Volume 85.5 fL (78.0-98.0); Mean Platelet Volume 8.7 fL (7.4-10.4); Platelet Count 165 thou/uL (130-400); White Blood Cell (WBC) Count 7.4 thou/uL (4.8-10.8)
[2019-02-23 23:38] LABS: PTT 80.5 SEC (22.9-36.1)
[2019-02-23 23:51] LABS: Prothrombin Time Greater than 150.0 SEC (12.0-14.7)
[2019-02-23 23:53] LABS: ALT (SGPT) 39 U/L (8-55); AST (SGOT) 80 U/L (5-34); Albumin 4.2 g/dL (3.5-5.0); Alkaline Phosphatase 99 U/L (40-110); Anion Gap 19 mmol/L (10-20); BUN (Urea Nitrogen) 15 mg/dL (8.9-20.6); Bilirubin, Total 1.1 mg/dL (0.2-1.2); Calc. Creatinine Clearance 0 mL/min (70-130); Calcium 9.3 mg/dL (7.8-10.44); Carbon Dioxide 25 mmol/L (22-29); Chloride 98 mmol/L (98-107); Estimated GFR-MDRD Greater than 90; Globulin 2.9 g/dL (2.4-3.5); Glucose 140 mg/dL (70-105); Potassium 4.8 mmol/L (3.5-5.1); Protein, Total 7.1 g/dL (6.0-8.3); Sodium 137 mmol/L (136-145)
[2019-02-24] MEDS ORDERED: Ondansetron PF 4 MG/2 ML Vial ONE (00:38)
[2019-02-24] MEDS ORDERED: Morphine 4 MG/ML VIAL ONE ×2 (00:38→01:38)
[2019-02-24] MEDS ORDERED: Pantoprazole 40 MG VIAL ONE (00:53)
[2019-02-24] MEDS ORDERED: Phytonadione 10 MG/ML AMP PO SCH ×2 (01:00→12:00)
[2019-02-24] MEDS ORDERED: HYDROcodone/Acetaminophen 5/325 mg Tablet ONE (02:46)
[2019-02-24] MEDS ORDERED: Acetaminophen 325 MG TAB PO PRN (03:57)
[2019-02-24] MEDS ORDERED: Ondansetron PF 4 MG/2 ML Vial IVP PRN (03:57)
[2019-02-24] MEDS ORDERED: HYDROcodone/Acetaminophen 5/325 mg Tablet PO PRN ×3 (03:57)
[2019-02-24] MEDS ORDERED: Ondansetron ODT 4 MG TAB SL PRN (03:57)
[2019-02-24] MEDS ORDERED: hydrALAZINE 20 MG/ML VIAL SLOW IVP PRN (03:57)
[2019-02-24] MEDS ORDERED: Acetaminophen 500 MG TAB PO PRN (03:57)
[2019-02-24] MEDS ORDERED: Ondansetron ODT 4 MG TAB PO PRN (03:57)
[2019-02-24] MEDS ORDERED: Morphine 4 MG/ML VIAL SLOW IVP SCH ×2 (04:30→20:45)
[2019-02-24 06:54] VITALS: BMI 30.5
[2019-02-24 07:50] LABS: INR-International Normal Ratio 3.9; Prothrombin Time 37.9 SEC (12.0-14.7)
--- NOTE | 2019-02-24 08:00 | CT ---
PRELIMINARY REPORT/[facility]/EMERGENCY AFTER HOURS PROCEDURE: PROCEDURE INFORMATION: Exam: CT Abdomen And Pelvis With Contrast Exam date and time: 02/24/2019 1:11 AM Clinical history: 43 years old, male; Other: Blood in urine and stool; Patient HX: M45, patient with HX of dvt and coagulopathy presents for left leg pain, bloody stool and urine. Eval for bleeding in a bdomen. TECHNIQUE: Imaging protocol: Computed tomography of the abdomen and pelvis with intravenous contrast. COMPARISON: No relevant prior studies available. FINDINGS: Mediastinum: Fluid distention of the distal esophagus compatible with gastroesophageal reflux. Liver: Hepatic steatosis. Gallbladder and bile ducts: Prior cholecystectomy. Pancreas: Normal. No ductal dilation. Spleen: Normal. No splenomegaly. Adrenals: Normal. No mass. Kidneys and ureters: Normal. No hydronephrosis. Stomach and bowel: Colonic diverticulosis. No diverticulitis. Chronic postsurgical change of the stom ach. No bowel wall thickening or intestinal obstruction. Appendix: Normal appendix. Intraperitoneal space: Unremarkable. No free air. No significant fluid collection. Vasculature: IVC filter present, appears adequately positioned. Lymph nodes: Unremarkable. No enlarged lymph nodes. Bladder: Unremarkable as visualized. Reproductive: Unremarkable as visualized. Bones/joints: Unremarkable. No acute fracture. Soft tissues: Unremarkable. IMPRESSION: Fluid distention of the distal esophagus compatible with gastroesophageal reflux. Thank you for allowing us to participate in the care of your patient. Dictated and Authenticated by: Braydon Mai MD 02/24/2019 1:31 AM Central Time ([place] & [place]) FINAL REPORT EMERGENCY AFTER HOURS CT ABDOMEN AND PELVIS WITH CONTRAST: Date: 02/24/19 FINDINGS/IMPRESSION: I agree with the findings and impression given in the preliminary report per [facility] physician. 1. No evidence of acute intra-abdominal/pelvic abnormality. 2. Fluid is seen in the distal esophagus. POS: CET
[2019-02-24 08:03] LABS: PTT 51.2 SEC (22.9-36.1)
--- NOTE | 2019-02-24 08:10 | ULT ---
PRELIMINARY REPORT/[facility]/EMERGENCY AFTER HOURS PROCEDURE: Addendum created by Braydon Mai MD on 02/24/2019 12:53 AM Central Time ([place] & [place]) Findings dis cussed with ERLINDA VALENCIA MD at time of interpretation. Initial Report created on 02/24/2019 12:4 4 AM Central Time ([place] & [place]) PROCEDURE INFORMATION: Exam: US Duplex Left Lower Extremity Veins, Limited Exam date and time: 02/23/2019 11:55 PM Clinical history: 43 years old, male; Edema, localized; Lower extremity, left; Leg, upper; Prior surg german; Surgery date: 6+ months; Surgery type: Mcl/acl surgery yrs ago; Patient HX: Lle pain/edema; Ankush tional info: PT. On coumadin for rle dvt TECHNIQUE: Imaging protocol: Real-time Duplex ultrasound of the Left Lower Extremity with 2-D martines scale, color Doppler flow and spectral waveform analysis with image documentation. Limited exam focused on the lef t lower extremity veins. COMPARISON: US PV-Frnady 01/10/2019 4:10 AM FINDINGS: Left deep veins: Unremarkable. The common femoral, femoral, proximal profunda femoral and popliteal v eins are patent without thrombus. Normal Doppler waveforms. Normal compressibility and/or augmentatio n response. Left superficial veins: Unremarkable. Saphenofemoral junction is patent without thrombus. Soft tissues: 4.5 cm complex structure labeled "LT SUP TO KNEE AREA OF PAIN" is avascular and presuma juan j a hematoma. Abscess less likely but not excluded. Other findings: Partially occlusive popliteal vein thrombosis. IMPRESSION: 1. 4.5 cm complex structure labeled "LT SUP TO KNEE AREA OF PAIN" is avascular and presumably a hemat magdalena. Abscess less likely but not excluded. 2. Partially occlusive popliteal vein thrombosis. Thank you for allowing us to participate in the care of your patient. Dictated and Authenticated by: Braydon Mai MD 02/24/2019 12:44 AM Central Time ([place] & [place]) FINAL REPORT LEFT LOWER EXTREMITY VENOUS DOPPLER ULTRASOUND: Date: 02/23/19 COMPARISON: None. HISTORY: Edema, pain, assess for deep venous thrombosis. TECHNIQUE: Multiplanar Martines scale sonographic imaging of left lower extremity venous structures obtained with co farrah flow and spectral analysis. FINDINGS: Left common femoral vein, greater saphenous vein, profunda femoral vein, and femoral vein are patent. Left posterior tibial vein is patent. The left popliteal vein is only partially compressible and contains mildly echogenic material suggest ing nonocclusive deep venous thrombosis of the left popliteal vein. In the area of patient pain (superior to the left knee), there is a complex heterogeneously hypoecho ic lesion measuring 4.5 x 1.7 x 3.5 cm. This demonstrates no internal blood flow. It could represent hematoma or abscess. It could potentially be within the left knee joint. IMPRESSION: 1. Nonocclusive deep venous thrombosis of left popliteal vein. 2. Complex heterogeneously hypoechoic lesion in the area of pain superior to left knee. Exact loca tion is uncertain on this exam. Please see above discussion. Cross-sectional imaging may be beneficia l for further assessment. This report is in agreement with the preliminary report given by Sharmila. CODE T. POS: OFF
[2019-02-24] MEDS: Ondansetron PF 4 MG/2 ML Vial IVP PRN (08:17)
[2019-02-24] MEDS: Diazepam 5 MG TAB PO PRN ×2 (08:18→16:31)
[2019-02-24] MEDS: Ascorbic Acid 500 mg Chewable Tablet PO SCH (08:18)
[2019-02-24] MEDS: Famotidine 20 MG TAB PO SCH ×2 (08:18→21:04)
[2019-02-24] MEDS: Acetaminophen/Codeine 30-300mg Tablet PO PRN ×2 (08:19→16:26)
--- NOTE | 2019-02-24 10:21 | HP ---
PRIMARY CARE PROVIDER: Dr. Merrill Null. CHIEF COMPLAINT: Left leg pain and bleeding. HISTORY OF PRESENT ILLNESS: This is a 43-year-old male, who presented to [facility] Emergency Department complaining of less than 24-hour history of left leg swelling and pain with difficulty ambulating. The patient also complained of spontaneous bleeding from his nose as well as rectum without provocation. 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 The patient states that he has been compliant with his current Coumadin dosing of 7.5 mg daily, which was recently titrated to this level after discharge from [facility] on 01/17/2019 when the patient presented with right lower extremity DVT. The patient states that he checks his INR through his primary care provider's office and had it checked within the last 72 hours of this evaluation. The patient did not receive a specific call to adjust his dosage and has been taking 7.5 mg daily since his discharge from [facility] on 01/17/2019. The patient denied any dietary indiscretion, recent antibiotic exposure, or vitamin K supplementation. The patient does complain of left thigh and knee pain with difficulty standing. 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 In the emergency room, the patient underwent general evaluation including CT of the abdomen and pelvis. No acute process was identified. The patient also underwent ultrasound evaluation of the left lower extremity showing a 4.5 cm complex structure consistent with hematoma with partially occlusive popliteal vein thrombosis. The patient received [place], morphine sulfate, vitamin K, Protonix IV, and Zofran. The patient also received 1 unit of fresh frozen plasma in the emergency room. PAST MEDICAL HISTORY: 1. Coagulopathy with recurrent DVT, on chronic Coumadin therapy. 2. Hyperthyroidism. PAST SURGICAL HISTORY: 1. Status post cholecystectomy. 2. Status post gastric sleeve. 3. Status post bilateral knee surgery. 4. Status post hernia repair. 5. Status post IVC filter placement. CURRENT MEDICATIONS: 1. Diazepam 10 mg p.o. t.i.d. p.r.n. 2. Vitamin C 1000 mg p.o. daily. 3. Vitamin D3 of 10,000 units p.o. daily. 4. Coumadin 7.5 mg p.o. daily. ALLERGIES: GABAPENTIN. FAMILY HISTORY: No inheritable disease per patient's report. SOCIAL HISTORY: Resides in [place], [place]. No current alcohol, tobacco, or illicit drug use. Works for local [employer]. REVIEW OF SYSTEMS: CONSTITUTIONAL: Negative for weight loss or gain, ability to conduct usual activities. SKIN: Negative for rash, itching. EYES: Negative for double vision, pain. ENT/MOUTH: Negative for nose bleeding, neck stiffness, pain, tenderness. CARDIOVASCULAR: Negative for palpitations, dyspnea on exertion, orthopnea. RESPIRATORY: Negative for shortness of breath, wheezing, cough, hemoptysis, fever or night sweats. GASTROINTESTINAL: Negative for poor appetite, abdominal pain, heartburn, nausea, vomiting, constipation, or diarrhea. GENITOURINARY: Negative for urgency, frequency, dysuria, nocturia. MUSCULOSKELETAL: Negative for pain, swelling. NEUROLOGIC/PSYCHIATRIC: Negative for anxiety, depression. ALLERGY/IMMUNOLOGIC: Negative for skin rash, bleeding tendency. Otherwise negative except as stated per HPI. PHYSICAL EXAMINATION: VITAL SIGNS: On admission, blood pressure 131/82, pulse 120, respiratory rate 18, temperature 98.3 degrees Fahrenheit, and O2 saturation 97% on room air. GENERAL APPEARANCE: This is a 43-year-old male, alert and oriented x3, pleasant, conversant, in no acute distress. HEENT: Pupils are equal, round, reactive to light and accommodation. Extraocular muscles are intact. No scleral icterus. No conjunctival injection. Nares patent. Dried blood at the nares noted. No active bleed. OP is clear. Teeth in fair repair. NECK: Supple. No cervical adenopathy. No thyromegaly. No carotid bruits. No JVD appreciated. Cervical spine with full active and passive range of motion. No meningeal signs noted. CHEST: Lungs are clear to auscultation bilaterally. CARDIOVASCULAR: S1 and S2 without noted murmur, rub, or gallop. ABDOMEN: Obese, soft, nontender, and nondistended. Bowel sounds are positive in all 4 quadrants. There is no hepatosplenomegaly. No abdominal bruits. No rebound or guarding appreciated. EXTREMITIES: Left lower extremity with firmness of the distal thigh with tenderness to palpation in the medial thigh and peripatellar region. Pulses are palpable distally at the dorsalis pedis, posterior tibial, and popliteal arteries bilaterally. Bilateral lower extremity edema noted. Chronic venous stasis and scarring of the right lower extremity. NEUROLOGIC: Cranial nerves 2 through 12 are grossly intact. No focal or lateralizing signs appreciated. PERTINENT LABORATORY AND X-RAY FINDINGS: Basic metabolic profile within normal limits. AST 80, ALT of 39, alkaline phosphatase 99, albumin 4.2. CBC showed a white blood cell count of 7.4, hemoglobin 13.4, hematocrit 40, platelet count 165 with 78% neutrophils. PT greater than 150, INR unable to calculate, PTT at 80.5. CT of the abdomen and pelvis showed fluid distention of the distal esophagus consistent with gastroesophageal reflux. Bilateral lower extremity Doppler study dated 02/23/2019, showed 4.5 cm complex structure consistent with hematoma with partially occlusive popliteal vein thrombosis. ASSESSMENT AND PLAN: 1. Coagulopathy with supratherapeutic INR. The patient will be admitted to the telemetry unit. We will continue serial INR monitoring. Status post 2 units of fresh frozen plasma, vitamin K, and discontinue Coumadin. Continue to monitor for recurrence of spontaneous bleeding. 2. Left lower extremity hematoma. Suspect spontaneous hematoma given the patient's supratherapeutic INR. We will continue to monitor for compartment syndrome. See #1 above. 3. Left popliteal deep venous thrombosis. Suspect subacute thrombosis given the patient's history. Pain control as clinically indicated with morphine sulfate 4 mg IV q.4 hours p.r.n. 4. Chronic anticoagulation with Coumadin. See #1 above. Hold Coumadin as clinically indicated. 5. Spontaneous bleeding. Secondary to #1. See #1 above. Continue serial hemoglobin and hematocrit monitoring. No current active bleeding. 6. Prophylaxis. Hold SCDs due to left lower extremity hematoma. Pepcid 20 mg p.o. b.i.d. CODE STATUS: Full. Surrogate medical decision maker is the patient's mother. Job ID: [id number]
[2019-02-24] MEDS: Morphine 4 MG/ML VIAL SLOW IVP PRN ×3 (10:28→17:48)
[2019-02-24 11:37] LABS: #Lymphocytes 1.1 thou/uL (1.20-3.40); #Monocytes 0.6 thou/uL (0.11-0.59); #Neutrophils 3.1 thou/uL (1.40-6.50); %Basophils 0.6 % (0.0-1.0); %Eosinophils 0.4 % (0.0-10.0); %Lymphocytes 22.2 % (21.0-51.0); %Neutrophils 64.8 % (42.0-75.0); Band 9 % (5-11); Hemoglobin 10.1 g/dL (14.0-18.0); Hypochromia SLIGHT = 6-15 cells (100X) (0-5/hpf); Lymphocytes 18 % (21-51); MDiff Complete? YES; Mean Corpuscular HGB CONC 32.9 g/dL (32.0-36.0); Mean Corpuscular Hemoglobin 28.5 pg (27.0-31.0); Mean Corpuscular Volume 86.6 fL (78.0-98.0); Monocytes 8 % (0-10); Neutrophil 65 % (42-75); Ovalocytes SLIGHT = 2-5 cells (100X) (0-1/hpf); Platelet Count 106 thou/uL (130-400); Platelet Morphology Comment Appears Decreased; Polychromasia SLIGHT = 2-3 cells (100X) (0-2/hpf); RBC Distribution Width 16.9 % (11.5-14.5); Red Blood Cell (RBC) Count 3.55 mill/uL (4.70-6.10); Small Platelets SLIGHT; White Blood Cell (WBC) Count 4.8 thou/uL (4.8-10.8)
[2019-02-24] MEDS ORDERED: ADMIXTURE FEE IV SCH (12:15)
[2019-02-24] MEDS ORDERED: HUMAN PROTHROMBIN COMPLX IV SCH (12:15)
--- NOTE | 2019-02-24 12:27 | PDOC.EVN ---
Event Note - Event Note Event Note: Patient states he continues to have severe leg pain and is unable to move his leg at all due to pain. He has some tingling in his feet. He is unable to plantarflex his feet due to pain in his posterior calf. Patient states he was recently taking coumadin 7.5 mg after hospital discharge and his INR was checked and it was fine. Yesterday he had some epistaxis and bloody diarrhea. Today his epistaxis and bloody diarrhea have resolved. Patient reports he was not symptomatic from his LLE DVT and had no pain on walking until this hematoma happened. Was asking about drainage, explained that INR is still high therefore this needs to be corrected first. Patient has received 2 units of FFP in ER, 2 units of PRBC are currently standing. Patient reports having first DVT in 2011. Subsequently had PE after that and had IVC filter placed in abdomen. He has had no PEs since then. He continues to have recurrent DVTs, usually on the right leg. He has had about 5. He has always been on coumadin. At one point tried eliquis but was too expensive. He has not been tested for lupus. Denies family history of blood clots. Denies recent travel, long trips, recent surgeries or infections. On exam: Vitals stable Gen: alert, awake, oriented times three CVS: RRR, no murmurs, rubs, gallops Lungs: CTAB Abdomen: + BS, soft, nontender, nondistended Extremities: - patient with significant swelling in posterior calf + knee with tenderness to mild palpation of left hamstring/thigh and knee. Patient is having difficulty lifting up his left leg A/P: 43 year old male with recurrent DVT/PE s/p IVC filter presenting with 4.5 cm complex hematoma from supratherapeutic INR Coagulopathy INR 3.9, Will administer K-centra and repeat INR after 15 minutes. Additionally give another 5 mg po vitamin K Recurrent DVT/PE - will consult hematology. Consider outpatient genetic workup. Will send GENE antibodies Epistaxis/Bloody diarrhea - resolved. CT abdomen negative Thrombocytopenia - platelet count dropped to 106. Will continue to monitor. Hematology Mild transaminitis - AST 80, will repeat . Possibly from blood loss. No abdominal pain
[2019-02-24] MEDS: HYDROcodone/Acetaminophen 5/325 mg Tablet PO PRN (12:46)
[2019-02-24 14:38] LABS: INR-International Normal Ratio 1.9; Prothrombin Time 21.3 SEC (12.0-14.7)
[2019-02-24] MEDS ORDERED: Iopamidol-370 76% 500 ML 1 ML ONE (16:00)
--- NOTE | 2019-02-24 20:22 | CON ---
DATE OF CONSULTATION: 02/24/2019 REQUESTING PHYSICIAN: Dr. Vita Ventura. CONSULTING PHYSICIAN: Dr. Pedro Roy. REASON FOR CONSULTATION: Left thigh hematoma secondary to coagulopathy and concern for compartment syndrome. BRIEF CLINICAL HISTORY: Alphonse is a 43-year-old male, who was admitted by the Hospitalist Service yesterday for left lower extremity discomfort and pain, which was subacute in onset, yet progressive in nature. He was seen in emergency room for swelling and pain in the left thigh and leg, and he was noted to have enlarged circumference and also popliteal deep vein thrombosis, which he has had a history of since 2011, I believe. He has been on Coumadin therapy, and apparently, he is supratherapeutic with a PTT of greater than 150 and an APTT of 80.5 recorded yesterday. He has been receiving vitamin K and blood products, and today, his PT is 37.9 with an INR of 3.9 and a PTT of 51.2. Our service was consulted for the suspected hematoma in the thigh and for concerns over compartment syndrome. Brief chart review demonstrates the patient has been here for similar episodes in the past, and also, direct questioning upon about his right leg, he reveals that he had a traumatic skin avulsion on his right lower leg just above the ankle with comminuted fracture of the fibula. This was treated by the General Surgery Service in the past. PHYSICAL EXAMINATION: VITAL SIGNS: Temperature is 98, pulse 87, respiratory rate 16, O2 saturation 96% on room air, blood pressure is 116/71 this morning. GENERAL: He is alert and oriented to person, place, time, and situation. Responsive and appropriate with examiner. He speaks in a calm voice. He is collected and cogent. He does not appear to be in great distress at this point, nor does he appear to be sedated from medications. EXTREMITIES: Visual inspection of the left lower extremity does reveal enlarged thigh, tender to the touch. His knee joint is difficult to examine because movement of the extremity is uncomfortable for the patient. There are no skin blisters. No breakthrough. No erythema. There is no tenseness to the quadriceps, inner thigh, or leg below the knee. Knee exam is benign, no effusion. He has good distal pulse, bounding and +2 at dorsalis pedis. He has good digital excursion. IMPRESSION: 1. Left lower extremity deep vein thrombosis. 2. I suspect left intramuscular hematoma in the anterior compartment with the quadriceps muscle, but at this point, no concerns for compartment syndrome of the thigh or leg. PLAN: 1. Defer to Medicine for continued efforts at normalizing coagulopathies. 2. No surgical recommendations at this point. Very low suspicion for compartment syndrome. Allow for the hematoma to resolve and treat DVT per Medicine protocol. We will recheck the patient in 24 to 48 hours to see how he is progressing. Job ID: [id number]
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
[2019-02-25] MEDS: Diazepam 5 MG TAB PO PRN ×3 (00:44→12:36)
[2019-02-25] MEDS: Morphine 4 MG/ML VIAL SLOW IVP PRN ×6 (01:16→22:21)
[2019-02-25] MEDS: HYDROcodone/Acetaminophen 5/325 mg Tablet PO PRN ×4 (03:07→21:01)
[2019-02-25 05:11] LABS: INR-International Normal Ratio 1.7; Prothrombin Time 19.9 SEC (12.0-14.7)
[2019-02-25 05:30] LABS: ALT (SGPT) 30 U/L (8-55); AST (SGOT) 62 U/L (5-34); Albumin 3.6 g/dL (3.5-5.0); Alkaline Phosphatase 83 U/L (40-110); Anion Gap 12 mmol/L (10-20); BUN (Urea Nitrogen) 10 mg/dL (8.9-20.6); Bilirubin, Total 2.1 mg/dL (0.2-1.2); Calc. Creatinine Clearance 214 mL/min (70-130); Calcium 8.6 mg/dL (7.8-10.44); Carbon Dioxide 30 mmol/L (22-29); Chloride 97 mmol/L (98-107); Estimated GFR-MDRD Greater than 90; Globulin 2.4 g/dL (2.4-3.5); Glucose 123 mg/dL (70-105); Potassium 3.7 mmol/L (3.5-5.1); Sodium 135 mmol/L (136-145)
[2019-02-25 05:33] LABS: Band 3 % (5-11); Elliptocytes SLIGHT = 2-5 cells (100X) (0-1/hpf); Hemoglobin 9.6 g/dL (14.0-18.0); Hypochromia MODERATE=16-30 cells (100X) (0-5/hpf); Lymphocytes 33 % (21-51); MDiff Complete? YES; Mean Corpuscular HGB CONC 33.1 g/dL (32.0-36.0); Mean Corpuscular Hemoglobin 28.7 pg (27.0-31.0); Mean Corpuscular Volume 86.7 fL (78.0-98.0); Mean Platelet Volume 8.7 fL (7.4-10.4); Monocytes 13 % (0-10); Neutrophil 51 % (42-75); Platelet Count 92 thou/uL (130-400); Platelet Morphology Comment Appears Decreased; Polychromasia SLIGHT = 2-3 cells (100X) (0-2/hpf); RBC Distribution Width 16.8 % (11.5-14.5); Red Blood Cell (RBC) Count 3.33 mill/uL (4.70-6.10); White Blood Cell (WBC) Count 3.9 thou/uL (4.8-10.8)
[2019-02-25] MEDS: Calcium Carbonate 500 MG ChewTAB PO PRN (08:43)
[2019-02-25] MEDS: Ondansetron PF 4 MG/2 ML Vial IVP PRN (08:43)
[2019-02-25] MEDS: Ascorbic Acid 500 mg Chewable Tablet PO SCH (08:44)
[2019-02-25] MEDS: Famotidine 20 MG TAB PO SCH ×2 (08:44→21:03)
--- NOTE | 2019-02-25 11:01 | PDOC.HOSPP ---
- Subjective Encounter Date: 02/25/19 Encounter Time: 10:00 Subjective: has not ambulated yet, says he has lot of pain in left knee is able to move it on bed no sob or chest pain - Objective Vital Signs & Weight: Vital Signs (12 hours) Temp Pulse Resp BP Pulse Ox 02/25/19 07:03 97.9 F 84 16 109/66 99 02/25/19 03:15 98.2 F 89 20 107/65 98 02/24/19 23:05 97.6 F 94 16 112/63 97 Weight Weight 257 lb 9.6 oz Most Recent Monitor Data Heart Rate from ECG 97 I&O: 02/24/19 02/25/19 02/26/19 06:59 06:59 06:59 Intake Total 240 2776 Output Total 1250 Balance 240 1526 Result Diagrams: 02/25/19 04:46 02/25/19 04:46 Hospitalist ROS - Medication Medications: Active Medications Generic Name Dose Route Start Last Admin Trade Name Freq PRN Reason Stop Dose Admin Acetaminophen/Codeine Phosphate 2 tab 02/24/19 03:57 02/24/19 16:26 Tylenol #3 PO 2 tab Q6H PRN Administration Moderate Pain (4-6) Hydrocodone Bitart/Acetaminophen 2 tab 02/24/19 03:57 02/25/19 08:45 [place] 5/325 PO 2 tab Q6H PRN Administration Severe Pain (7-10) Ascorbic Acid 1,000 mg 02/24/19 08:00 02/25/19 08:44 Vitamin C PO 1,000 mg QAM-WM HUAN Administration Calcium Carbonate 1,000 mg 02/24/19 03:57 02/25/19 08:43 Tums PO 1,000 mg Q4H PRN Administration Heartburn or Indigestion Cholecalciferol 10,000 units 02/24/19 09:00 02/25/19 08:44 Vitamin D3 PO 10,000 units DAILY HUAN Administration Diazepam 10 mg 02/24/19 03:57 02/25/19 08:44 Valium PO 10 mg TIDPRN PRN Administration Anxiety Famotidine 20 mg 02/24/19 09:00 02/25/19 08:44 Pepcid PO 20 mg BID HUAN Administration Miscellaneous Medication 1,500 55.22 mls @ 331.32 mls/hr 02/24/19 12:15 02/24 12:45 unit/ Miscellaneous IV 55.22 mls Medication INF HUAN Administration Protocol Morphine Sulfate 4 mg 02/24/19 04:17 02/25/19 09:47 Morphine SLOW IVP 4 mg Q4H PRN Administration Moderate to Severe Pain (6-10) Ondansetron HCl 4 mg 02/24/19 03:57 02/25/19 08:43 Zofran IVP 4 mg Q6H PRN Administration Nausea/Vomiting - Exam General Appearance: awake alert Eye: PERRL, anicteric sclera ENT: no oropharyngeal lesions, moist mucosa Neck: supple, no JVD Heart: RRR, no murmur Respiratory: no wheezes, no rales Gastrointestinal: soft, non-tender, non-distended, normal bowel sounds Extremities - other findings: left knee area tenderness and fullness Neurological: cranial nerve grossly intact, no focal deficits Psychiatric: A&O x 3 Hosp A/P (1) Hematoma of left thigh Code(s): S70.12XA - CONTUSION OF LEFT THIGH, INITIAL ENCOUNTER Status: Acute Qualifiers: Encounter type: subsequent encounter Qualified Code(s): S70.12XD - Contusion of left thigh, subsequent encounter (2) Anti-cardiolipin antibody positive Code(s): R76.8 - OTHER SPECIFIED ABNORMAL IMMUNOLOGICAL FINDINGS IN SERUM Status: Chronic (3) H/O gastric bypass Code(s): Z98.89 - OTHER SPECIFIED POSTPROCEDURAL STATES * DO NOT USE * Status : Chronic (4) Hypothyroidism Code(s): E03.9 - HYPOTHYROIDISM, UNSPECIFIED Status: Chronic (5) Macrocytic anemia Code(s): D53.9 - NUTRITIONAL ANEMIA, UNSPECIFIED Status: Chronic (6) Pulmonary embolism Code(s): I26.99 - OTHER PULMONARY EMBOLISM WITHOUT ACUTE COR PULMONALE Status : Chronic (7) Recurrent deep vein thrombosis (DVT) Code(s): I82.409 - ACUTE EMBOLISM AND THOMBOS UNSP DEEP VN UNSP LOWER EXTREMITY Status: Chronic - Plan to ambulate as tolerated oral iron and restart coumadin from this evening d/w if his h/h drops or the swelling and pain gets worse will stop coumadin and he will have intervention to evacuate hematoma likely he bled into his quadriceps muscle/tendon area, ?trauma epistaxis and rectal bleed has resolved had kcentra, vit K and 1 u ffp during this admission has h/o ivc filter and can hold coumadin if needed, currently still has partial dvt in his leg on valium tid, norco, morpine, watch for resp depression
[2019-02-25] MEDS: Acetaminophen/Codeine 30-300mg Tablet PO PRN ×2 (12:37→18:12)
[2019-02-25] MEDS: Warfarin Sodium 7.5 MG TAB PO SCH (17:30)
[2019-02-26] MEDS: Diazepam 5 MG TAB PO PRN ×3 (00:04→17:04)
[2019-02-26] MEDS: Acetaminophen/Codeine 30-300mg Tablet PO PRN ×2 (00:30→21:57)
[2019-02-26] MEDS: Morphine 4 MG/ML VIAL SLOW IVP PRN ×6 (03:01→23:51)
[2019-02-26] MEDS: HYDROcodone/Acetaminophen 5/325 mg Tablet PO PRN (04:46)
[2019-02-26 05:02] LABS: INR-International Normal Ratio 1.6; PTT 42.6 SEC (22.9-36.1); Prothrombin Time 18.7 SEC (12.0-14.7)
[2019-02-26 05:04] LABS: #Eosinphils 0.1 thou/uL (0.0-0.7); #Monocytes 0.4 thou/uL (0.11-0.59); #Neutrophils 1.8 thou/uL (1.40-6.50); %Basophils 0.6 % (0.0-1.0); %Eosinophils 1.8 % (0.0-10.0); %Lymphocytes 31.6 % (21.0-51.0); %Monocytes 12.2 % (0.0-10.0); %Neutrophils 53.8 % (42.0-75.0); Hemoglobin 8.9 g/dL (14.0-18.0); Mean Corpuscular HGB CONC 33.7 g/dL (32.0-36.0); Mean Corpuscular Hemoglobin 29.3 pg (27.0-31.0); Mean Corpuscular Volume 86.9 fL (78.0-98.0); Mean Platelet Volume 8.3 fL (7.4-10.4); Platelet Count 90 thou/uL (130-400); RBC Distribution Width 16.6 % (11.5-14.5); Red Blood Cell (RBC) Count 3.03 mill/uL (4.70-6.10); White Blood Cell (WBC) Count 3.3 thou/uL (4.8-10.8)
[2019-02-26 05:18] LABS: Anion Gap 11 mmol/L (10-20); BUN (Urea Nitrogen) 7 mg/dL (8.9-20.6); Calc. Creatinine Clearance 217 mL/min (70-130); Calcium 8.5 mg/dL (7.8-10.44); Carbon Dioxide 31 mmol/L (22-29); Chloride 101 mmol/L (98-107); Estimated GFR-MDRD Greater than 90; Glucose 120 mg/dL (70-105); Potassium 3.7 mmol/L (3.5-5.1); Sodium 139 mmol/L (136-145)
[2019-02-26] MEDS: Famotidine 20 MG TAB PO SCH ×2 (08:50→20:02)
[2019-02-26] MEDS ORDERED: Warfarin Sodium 7.5 MG TAB PO SCH (09:00)
[2019-02-26] MEDS: Ascorbic Acid 500 mg Chewable Tablet PO SCH (09:07)
--- NOTE | 2019-02-26 11:09 | PDOC.HOSPP ---
- Subjective Encounter Date: 02/26/19 Encounter Time: 11:05 Subjective: Patient seen and examined. No new complaints. No overnight events. still in lot of pain. No N/V. - Objective Vital Signs & Weight: Vital Signs (12 hours) Temp Pulse Resp BP Pulse Ox 02/26/19 07:46 98.3 F 87 16 104/65 95 02/26/19 03:08 98.2 F 93 20 108/69 96 02/25/19 23:07 98.9 F 92 16 109/67 93 L Weight Weight 257 lb 9.6 oz Most Recent Monitor Data Heart Rate from ECG 97 I&O: 02/25/19 02/26/19 02/27/19 06:59 06:59 06:59 Intake Total 2776 1921 Output Total 1250 200 Balance 1526 1721 Result Diagrams: 02/26/19 04:30 02/26/19 04:30 Hospitalist ROS - Medication Medications: Active Medications Generic Name Dose Route Start Last Admin Trade Name Freq PRN Reason Stop Dose Admin Acetaminophen/Codeine Phosphate 2 tab 02/24/19 03:57 02/26/19 00:30 Tylenol #3 PO 2 tab Q6H PRN Administration Moderate Pain (4-6) Ascorbic Acid 1,000 mg 02/24/19 08:00 02/26/19 09:07 Vitamin C PO 1,000 mg QAM-WM HUAN Administration Calcium Carbonate 1,000 mg 02/24/19 03:57 02/25/19 08:43 Tums PO 1,000 mg Q4H PRN Administration Heartburn or Indigestion Cholecalciferol 10,000 units 02/24/19 09:00 02/26/19 09:08 Vitamin D3 PO 10,000 units DAILY HUAN Administration Diazepam 10 mg 02/24/19 03:57 02/26/19 08:40 Valium PO 10 mg TIDPRN PRN Administration Anxiety Famotidine 20 mg 02/24/19 09:00 02/26/19 08:50 Pepcid PO Not Given BID HUAN Miscellaneous Medication 1,500 55.22 mls @ 331.32 mls/hr 02/24/19 12:15 02/24 12:45 unit/ Miscellaneous IV 55.22 mls Medication INF HUAN Administration Protocol Morphine Sulfate 4 mg 02/24/19 04:17 02/26/19 07:29 Morphine SLOW IVP 4 mg Q4H PRN Administration Moderate to Severe Pain (6-10) Ondansetron HCl 4 mg 02/24/19 03:57 02/25/19 21:08 Zofran Odt PO 4 mg Q6H PRN Administration Nausea/Vomiting Ondansetron HCl 4 mg 02/24/19 03:57 02/25/19 08:43 Zofran IVP 4 mg Q6H PRN Administration Nausea/Vomiting Warfarin Sodium 7.5 mg 02/25/19 17:00 02/25/19 17:30 Coumadin PO 7.5 mg 1700 HUAN Administration - Exam General Appearance: ill appearing General - other findings: c/o pain Eye: anicteric sclera ENT: normocephalic atraumatic Neck: supple Heart: RRR Respiratory: CTAB Gastrointestinal: soft Extremities: no edema Skin - other findings: chronic skin changes Psychiatric: normal affect Hosp A/P (1) Hematoma of left thigh Code(s): S70.12XA - CONTUSION OF LEFT THIGH, INITIAL ENCOUNTER Status: Acute Qualifiers: Encounter type: subsequent encounter Qualified Code(s): S70.12XD - Contusion of left thigh, subsequent encounter (2) DVT (deep venous thrombosis) Status: Acute (3) Elevated INR Code(s): R79.1 - ABNORMAL COAGULATION PROFILE Status: Acute (4) Recurrent deep vein thrombosis (DVT) Code(s): I82.409 - ACUTE EMBOLISM AND THOMBOS UNSP DEEP VN UNSP LOWER EXTREMITY Status: Chronic - Plan plan discussed w/ family restarted on coumadin Hb dropped but not significant, will watch. Monitor INR-1.6 today. No bleeding reported. still in pain - on [place] and morphine Advised nursing staff to monitor resp closely. continue ambulation as tolerated. Appreciate ortho and hem input. AM labs.
[2019-02-26] MEDS: HYDROcodone/Acetaminophen 10/325 mg Tablet PO PRN ×2 (12:31→20:06)
[2019-02-26] MEDS: Warfarin Sodium 7.5 MG TAB PO SCH (17:04)
[2019-02-27] MEDS: Morphine 4 MG/ML VIAL SLOW IVP PRN ×5 (04:10→20:21)
[2019-02-27] MEDS: Diazepam 5 MG TAB PO PRN ×4 (04:48→16:18)
[2019-02-27] MEDS: HYDROcodone/Acetaminophen 10/325 mg Tablet PO PRN ×2 (05:59→13:57)
[2019-02-27 06:02] LABS: INR-International Normal Ratio 1.5; PTT 39.4 SEC (22.9-36.1); Prothrombin Time 18.3 SEC (12.0-14.7)
[2019-02-27 06:16] LABS: Eosinophils 1 % (0-10); Hemoglobin 8.4 g/dL (14.0-18.0); Hypochromia SLIGHT = 6-15 cells (100X) (0-5/hpf); Lymphocytes 31 % (21-51); MDiff Complete? YES; Mean Corpuscular HGB CONC 33.4 g/dL (32.0-36.0); Mean Corpuscular Hemoglobin 29.2 pg (27.0-31.0); Mean Corpuscular Volume 87.4 fL (78.0-98.0); Mean Platelet Volume 8.4 fL (7.4-10.4); Monocytes 14 % (0-10); Neutrophil 54 % (42-75); Platelet Count 103 thou/uL (130-400); Platelet Morphology Comment Appears Decreased; RBC Distribution Width 17.2 % (11.5-14.5); Red Blood Cell (RBC) Count 2.89 mill/uL (4.70-6.10); White Blood Cell (WBC) Count 2.8 thou/uL (4.8-10.8)
[2019-02-27] MEDS: Famotidine 20 MG TAB PO SCH ×2 (08:36→20:21)
[2019-02-27] MEDS: Ascorbic Acid 500 mg Chewable Tablet PO SCH (08:37)
[2019-02-27] MEDS: Ondansetron PF 4 MG/2 ML Vial IVP PRN (10:08)
[2019-02-27] MEDS: Acetaminophen/Codeine 30-300mg Tablet PO PRN ×2 (10:22→19:42)
--- NOTE | 2019-02-27 12:06 | PDOC.HOSPP ---
- Subjective Encounter Date: 02/27/19 Encounter Time: 10:00 Subjective: left knee pain is better is ambulating in room per patient - Objective Vital Signs & Weight: Vital Signs (12 hours) Temp Pulse Resp BP Pulse Ox 02/27/19 11:51 98.2 F 74 13 107/67 100 02/27/19 07:36 98.6 F 81 16 110/66 100 02/27/19 04:00 98.3 F 84 16 109/63 98 Weight Weight 257 lb 9.6 oz Most Recent Monitor Data Heart Rate from ECG 97 I&O: 02/26/19 02/27/19 02/28/19 06:59 06:59 06:59 Intake Total 1921 240 Output Total 200 250 Balance 1721 -250 240 Result Diagrams: 02/27/19 04:05 02/26/19 04:30 Hospitalist ROS - Medication Medications: Active Medications Generic Name Dose Route Start Last Admin Trade Name Freq PRN Reason Stop Dose Admin Acetaminophen/Codeine Phosphate 2 tab 02/24/19 03:57 02/27/19 10:22 Tylenol #3 PO 2 tab Q6H PRN Administration Moderate Pain (4-6) Hydrocodone Bitart/Acetaminophen 1 tab 02/26/19 10:43 02/27/19 05:59 [place] 10/325 PO 1 tab Q6H PRN Administration Severe Pain (7-10) Ascorbic Acid 1,000 mg 02/24/19 08:00 02/27/19 08:37 Vitamin C PO 1,000 mg QAM-WM HUAN Administration Calcium Carbonate 1,000 mg 02/24/19 03:57 02/25/19 08:43 Tums PO 1,000 mg Q4H PRN Administration Heartburn or Indigestion Cholecalciferol 10,000 units 02/24/19 09:00 02/27/19 08:36 Vitamin D3 PO 10,000 units DAILY HUAN Administration Diazepam 10 mg 02/24/19 03:57 02/27/19 10:21 Valium PO 10 mg TIDPRN PRN Administration Anxiety Famotidine 20 mg 02/24/19 09:00 02/27/19 08:36 Pepcid PO 20 mg BID HUAN Administration Miscellaneous Medication 1,500 55.22 mls @ 331.32 mls/hr 02/24/19 12:15 02/24 12:45 unit/ Miscellaneous IV 55.22 mls Medication INF HUAN Administration Protocol Morphine Sulfate 4 mg 02/24/19 04:17 02/27/19 08:29 Morphine SLOW IVP 4 mg Q4H PRN Administration Moderate to Severe Pain (6-10) Ondansetron HCl 4 mg 02/24/19 03:57 02/25/19 21:08 Zofran Odt PO 4 mg Q6H PRN Administration Nausea/Vomiting Ondansetron HCl 4 mg 02/24/19 03:57 02/27/19 10:08 Zofran IVP 4 mg Q6H PRN Administration Nausea/Vomiting Warfarin Sodium 7.5 mg 02/25/19 17:00 02/26/19 17:04 Coumadin PO 7.5 mg 1700 HUAN Administration - Exam General Appearance: awake alert Eye: PERRL, anicteric sclera ENT: no oropharyngeal lesions, moist mucosa Neck: supple, no JVD Heart: RRR, no murmur Respiratory: no wheezes, no rales Gastrointestinal: soft, non-tender, non-distended, normal bowel sounds Extremities: no cyanosis, no edema Neurological: cranial nerve grossly intact, no focal deficits Psychiatric: normal affect, A&O x 3 Hosp A/P (1) Hematoma of left thigh Code(s): S70.12XA - CONTUSION OF LEFT THIGH, INITIAL ENCOUNTER Status: Acute Qualifiers: Encounter type: subsequent encounter Qualified Code(s): S70.12XD - Contusion of left thigh, subsequent encounter (2) Anti-cardiolipin antibody positive Code(s): R76.8 - OTHER SPECIFIED ABNORMAL IMMUNOLOGICAL FINDINGS IN SERUM Status: Chronic (3) H/O gastric bypass Code(s): Z98.89 - OTHER SPECIFIED POSTPROCEDURAL STATES * DO NOT USE * Status : Chronic (4) Hypothyroidism Code(s): E03.9 - HYPOTHYROIDISM, UNSPECIFIED Status: Chronic (5) Macrocytic anemia Code(s): D53.9 - NUTRITIONAL ANEMIA, UNSPECIFIED Status: Chronic (6) Pulmonary embolism Code(s): I26.99 - OTHER PULMONARY EMBOLISM WITHOUT ACUTE COR PULMONALE Status : Chronic (7) Recurrent deep vein thrombosis (DVT) Code(s): I82.409 - ACUTE EMBOLISM AND THOMBOS UNSP DEEP VN UNSP LOWER EXTREMITY Status: Chronic - Plan to ambulate as tolerated on coumadin from 02/25, h/h stable for now d/w regarding resuming coumadin if his h/h drops or the swelling and pain gets worse will stop coumadin and he will have intervention to evacuate hematoma likely he bled into his quadriceps muscle/tendon area, ?trauma epistaxis and rectal bleed has resolved had kcentra, vit K and 1 u ffp during this admission has h/o ivc filter and can hold coumadin if needed, currently still has partial dvt in his leg on valium tid, norco, morpine, watch for resp depression
[2019-02-27 12:39] LABS: ANA Symphony (Qualitative) Negative (Negative); ANA Symphony (Quantitative) 0.1 Ratio (< 0.7 Negative); dsDNA IgG Antibody 3.6 IU/mL (<10 Negative)
[2019-02-27] MEDS: Warfarin Sodium 7.5 MG TAB PO SCH (16:11)
[2019-02-28] MEDS: Morphine 4 MG/ML VIAL SLOW IVP PRN ×6 (00:13→21:26)
[2019-02-28] MEDS: HYDROcodone/Acetaminophen 10/325 mg Tablet PO PRN ×3 (01:48→19:00)
[2019-02-28] MEDS: Diazepam 5 MG TAB PO PRN ×3 (01:48→19:01)
[2019-02-28 05:19] LABS: INR-International Normal Ratio 1.3; Prothrombin Time 16.3 SEC (12.0-14.7)
[2019-02-28 07:08] LABS: Hemoglobin 8.7 g/dL (14.0-18.0); Mean Corpuscular HGB CONC 33.1 g/dL (32.0-36.0); Mean Corpuscular Hemoglobin 29.1 pg (27.0-31.0); Mean Corpuscular Volume 87.9 fL (78.0-98.0); Mean Platelet Volume 7.6 fL (7.4-10.4); Platelet Count 126 thou/uL (130-400); RBC Distribution Width 18.2 % (11.5-14.5); White Blood Cell (WBC) Count 3.9 thou/uL (4.8-10.8)
[2019-02-28 07:25] LABS: Anion Gap 9 mmol/L (10-20); BUN (Urea Nitrogen) 11 mg/dL (8.9-20.6); Calc. Creatinine Clearance 237 mL/min (70-130); Calcium 8.8 mg/dL (7.8-10.44); Carbon Dioxide 32 mmol/L (22-29); Chloride 101 mmol/L (98-107); Estimated GFR-MDRD Greater than 90; Glucose 112 mg/dL (70-105); Sodium 138 mmol/L (136-145)
[2019-02-28 07:35] LABS: Band 4 % (5-11); Eosinophils 2 % (0-10); Hypochromia SLIGHT = 6-15 cells (100X) (0-5/hpf); Lymphocytes 21 % (21-51); MDiff Complete? YES; Monocytes 15 % (0-10); Neutrophil 58 % (42-75); Platelet Morphology Comment Appears Decreased; Polychromasia SLIGHT = 2-3 cells (100X) (0-2/hpf); Small Platelets SLIGHT
[2019-02-28] MEDS: Famotidine 20 MG TAB PO SCH ×2 (09:10→20:05)
--- NOTE | 2019-02-28 11:34 | PDOC.HOSPP ---
- Subjective Encounter Date: 02/28/19 Encounter Time: 10:00 Subjective: feels better, no new complaints is amb to nursing station and back - Objective Vital Signs & Weight: Vital Signs (12 hours) Temp Pulse Resp BP Pulse Ox 02/28/19 11:26 98.3 F 85 15 109/62 100 02/28/19 09:02 98 02/28/19 07:51 98.0 F 81 15 112/63 98 02/28/19 04:59 98.7 F 88 16 109/59 L 96 02/28/19 00:00 98.8 F 86 16 102/57 L 95 Weight Weight 257 lb 9.6 oz Most Recent Monitor Data Heart Rate from ECG 97 I&O: 02/27/19 02/28/19 03/01/19 06:59 06:59 06:59 Intake Total 1552 Output Total 250 325 Balance -250 1227 Result Diagrams: 02/28/19 06:48 02/28/19 06:48 Hospitalist ROS - Medication Medications: Active Medications Generic Name Dose Route Start Last Admin Trade Name Freq PRN Reason Stop Dose Admin Acetaminophen/Codeine Phosphate 2 tab 02/24/19 03:57 02/27/19 19:42 Tylenol #3 PO 2 tab Q6H PRN Administration Moderate Pain (4-6) Hydrocodone Bitart/Acetaminophen 1 tab 02/26/19 10:43 02/28/19 11:00 [place] 10/325 PO 1 tab Q6H PRN Administration Severe Pain (7-10) Ascorbic Acid 1,000 mg 02/24/19 08:00 02/27/19 08:37 Vitamin C PO 1,000 mg QAM-WM HUAN Administration Calcium Carbonate 1,000 mg 02/24/19 03:57 02/25/19 08:43 Tums PO 1,000 mg Q4H PRN Administration Heartburn or Indigestion Cholecalciferol 10,000 units 02/24/19 09:00 02/28/19 09:09 Vitamin D3 PO 10,000 units DAILY HUAN Administration Diazepam 10 mg 02/24/19 03:57 02/28/19 11:00 Valium PO 10 mg TIDPRN PRN Administration Anxiety Famotidine 20 mg 02/24/19 09:00 02/28/19 09:10 Pepcid PO 20 mg BID HUAN Administration Miscellaneous Medication 1,500 55.22 mls @ 331.32 mls/hr 02/24/19 12:15 02/24 12:45 unit/ Miscellaneous IV 55.22 mls Medication INF HUAN Administration Protocol Morphine Sulfate 4 mg 02/24/19 04:17 02/28/19 09:01 Morphine SLOW IVP 4 mg Q4H PRN Administration Moderate to Severe Pain (6-10) Ondansetron HCl 4 mg 02/24/19 03:57 02/25/19 21:08 Zofran Odt PO 4 mg Q6H PRN Administration Nausea/Vomiting Ondansetron HCl 4 mg 02/24/19 03:57 02/27/19 10:08 Zofran IVP 4 mg Q6H PRN Administration Nausea/Vomiting Warfarin Sodium 7.5 mg 02/25/19 17:00 02/27/19 16:11 Coumadin PO 7.5 mg 1700 HUAN Administration - Exam General Appearance: NAD, awake alert Eye: PERRL, anicteric sclera ENT: no oropharyngeal lesions, moist mucosa Neck: supple, no JVD Heart: RRR, no murmur Respiratory: no wheezes, no rales Gastrointestinal: soft, non-tender, non-distended, normal bowel sounds Extremities: no cyanosis, no edema Extremities - other findings: left above knee tenderness Neurological: cranial nerve grossly intact, no focal deficits Psychiatric: normal affect, A&O x 3 Hosp A/P (1) Hematoma of left thigh Code(s): S70.12XA - CONTUSION OF LEFT THIGH, INITIAL ENCOUNTER Status: Acute Qualifiers: Encounter type: subsequent encounter Qualified Code(s): S70.12XD - Contusion of left thigh, subsequent encounter (2) Anti-cardiolipin antibody positive Code(s): R76.8 - OTHER SPECIFIED ABNORMAL IMMUNOLOGICAL FINDINGS IN SERUM Status: Chronic (3) H/O gastric bypass Code(s): Z98.89 - OTHER SPECIFIED POSTPROCEDURAL STATES * DO NOT USE * Status : Chronic (4) Hypothyroidism Code(s): E03.9 - HYPOTHYROIDISM, UNSPECIFIED Status: Chronic (5) Macrocytic anemia Code(s): D53.9 - NUTRITIONAL ANEMIA, UNSPECIFIED Status: Chronic (6) Pulmonary embolism Code(s): I26.99 - OTHER PULMONARY EMBOLISM WITHOUT ACUTE COR PULMONALE Status : Chronic (7) Recurrent deep vein thrombosis (DVT) Code(s): I82.409 - ACUTE EMBOLISM AND THOMBOS UNSP DEEP VN UNSP LOWER EXTREMITY Status: Chronic - Plan dc plan in am if Hemoglobin is holding up, inr is 1.5 to ambulate as tolerated on coumadin from 02/25, h/h stable d/w regarding resuming coumadin if his h/h drops or the swelling and pain gets worse will stop coumadin and he will have intervention to evacuate hematoma likely he bled into his quadriceps muscle/tendon area, ?trauma epistaxis and rectal bleed has resolved had kcentra, vit K and 1 u ffp during this admission has h/o ivc filter and can hold coumadin if needed, currently still has partial dvt in his leg on valium tid, norco, morpine, watch for resp depression May transfer to med floor
[2019-02-28] MEDS: Ascorbic Acid 500 mg Chewable Tablet PO SCH (15:04)
[2019-02-28] MEDS: Acetaminophen/Codeine 30-300mg Tablet PO PRN ×2 (15:33→21:33)
[2019-02-28] MEDS: Warfarin Sodium 7.5 MG TAB PO SCH (17:28)
[2019-02-28] MEDS: Calcium Carbonate 500 MG ChewTAB PO PRN (17:31)
[2019-03-01] MEDS: HYDROcodone/Acetaminophen 10/325 mg Tablet PO PRN ×5 (01:00→22:31)
[2019-03-01] MEDS: Morphine 4 MG/ML VIAL SLOW IVP PRN ×6 (02:04→21:30)
[2019-03-01] MEDS: Diazepam 5 MG TAB PO PRN ×3 (03:21→23:46)
[2019-03-01 06:06] LABS: INR-International Normal Ratio 1.2; Prothrombin Time 15.2 SEC (12.0-14.7)
[2019-03-01 06:29] LABS: Anion Gap 11 mmol/L (10-20); BUN (Urea Nitrogen) 11 mg/dL (8.9-20.6); Calc. Creatinine Clearance 237 mL/min (70-130); Calcium 8.6 mg/dL (7.8-10.44); Carbon Dioxide 26 mmol/L (22-29); Chloride 106 mmol/L (98-107); Estimated GFR-MDRD Greater than 90; Glucose 107 mg/dL (70-105); Potassium 3.9 mmol/L (3.5-5.1); Sodium 139 mmol/L (136-145)
[2019-03-01 07:03] LABS: Hemoglobin 8.4 g/dL (14.0-18.0); Mean Corpuscular HGB CONC 32.6 g/dL (32.0-36.0); Mean Corpuscular Hemoglobin 29.2 pg (27.0-31.0); Mean Corpuscular Volume 89.5 fL (78.0-98.0); Mean Platelet Volume 7.6 fL (7.4-10.4); Platelet Count 144 thou/uL (130-400); RBC Distribution Width 18.9 % (11.5-14.5); Red Blood Cell (RBC) Count 2.88 mill/uL (4.70-6.10); White Blood Cell (WBC) Count 3.6 thou/uL (4.8-10.8)
[2019-03-01] MEDS: Famotidine 20 MG TAB PO SCH ×2 (08:02→21:31)
[2019-03-01] MEDS: Ascorbic Acid 500 mg Chewable Tablet PO SCH (08:02)
[2019-03-01 08:39] LABS: Band 2 % (5-11); Eosinophils 4 % (0-10); Lymphocytes 32 % (21-51); MDiff Complete? YES; Monocytes 17 % (0-10); Neutrophil 44 % (42-75); RBC Morphology Normal
[2019-03-01] MEDS: Acetaminophen/Codeine 30-300mg Tablet PO PRN (11:16)
[2019-03-01] MEDS: Warfarin Sodium 7.5 MG TAB PO SCH (17:29)
--- NOTE | 2019-03-01 20:05 | PDOC.HOSPP ---
- Subjective Encounter Date: 03/01/19 Encounter Time: 11:02 Subjective: 43 y/o male with hypercoagulable state associated with recurrent VTE's on chronic anticoagulation admitted with worsening left leg pain as well as epistaxis and bloody stools. found to have supertherapeutic INR. US showed left thigh hematoma as well as popliteal DVT. Treated with FFP, Vit K and Kcentra. Still complaining of left leg pain but bleeding has resolbved. - Objective Vital Signs & Weight: Vital Signs (12 hours) Temp Pulse Resp BP BP Pulse Ox 03/01/19 19:50 99.1 F 93 20 110/70 100 03/01/19 16:01 99.4 F 90 16 106/70 99 03/01/19 12:00 99.7 F H 92 16 122/80 98 03/01/19 08:10 98 Weight Weight 257 lb 9.6 oz Most Recent Monitor Data Heart Rate from ECG 97 I&O: 02/28/19 03/01/19 03/02/19 06:59 06:59 06:59 Intake Total 1552 1680 1500 Output Total 325 Balance 1227 1680 1500 Result Diagrams: 03/01/19 05:39 03/01/19 05:39 Hospitalist ROS - Medication Medications: Active Medications Generic Name Dose Route Start Last Admin Trade Name Freq PRN Reason Stop Dose Admin Acetaminophen/Codeine Phosphate 2 tab 02/24/19 03:57 03/01/19 11:16 Tylenol #3 PO 2 tab Q6H PRN Administration Moderate Pain (4-6) Hydrocodone Bitart/Acetaminophen 1 tab 03/01/19 15:47 03/01/19 18:27 [place] 10/325 PO 1 tab Q4H PRN Administration Severe Pain (7-10) Ascorbic Acid 1,000 mg 02/24/19 08:00 03/01/19 08:02 Vitamin C PO 1,000 mg QAM-WM HUAN Administration Calcium Carbonate 1,000 mg 02/24/19 03:57 02/28/19 17:31 Tums PO 1,000 mg Q4H PRN Administration Heartburn or Indigestion Cholecalciferol 10,000 units 02/24/19 09:00 03/01/19 09:52 Vitamin D3 PO 10,000 units DAILY HUAN Administration Diazepam 10 mg 02/24/19 03:57 03/01/19 14:01 Valium PO 10 mg TIDPRN PRN Administration Anxiety Famotidine 20 mg 02/24/19 09:00 03/01/19 08:02 Pepcid PO 20 mg BID HUAN Administration Miscellaneous Medication 1,500 55.22 mls @ 331.32 mls/hr 02/24/19 12:15 02/24 12:45 unit/ Miscellaneous IV 55.22 mls Medication INF HUAN Administration Protocol Morphine Sulfate 4 mg 02/24/19 04:17 03/01/19 17:29 Morphine SLOW IVP 4 mg Q4H PRN Administration Moderate to Severe Pain (6-10) Ondansetron HCl 4 mg 02/24/19 03:57 02/25/19 21:08 Zofran Odt PO 4 mg Q6H PRN Administration Nausea/Vomiting Ondansetron HCl 4 mg 02/24/19 03:57 02/27/19 10:08 Zofran IVP 4 mg Q6H PRN Administration Nausea/Vomiting Sodium Chloride 10 ml 02/24/19 03:57 03/01/19 17:31 Flush - Normal Saline IVF 10 ml PRN PRN Administration Saline Flush Warfarin Sodium 7.5 mg 02/25/19 17:00 03/01/19 17:29 Coumadin PO 7.5 mg 1700 HUAN Administration - Exam General Appearance: awake alert General - other findings: obese Eye: anicteric sclera ENT: normocephalic atraumatic Neck: supple, symmetric Heart: RRR Respiratory: no ronchi, normal chest expansion Gastrointestinal: soft, non-tender, non-distended, normal bowel sounds Gastrointestinal - other findings: obese Extremities: no edema Extremities - other findings: Chronic right distal leg chronic venous stasis changes. Neurological: cranial nerve grossly intact, no focal deficits Psychiatric: A&O x 3 Hosp A/P (1) Hematoma of left thigh Code(s): S70.12XA - CONTUSION OF LEFT THIGH, INITIAL ENCOUNTER Status: Acute Qualifiers: Encounter type: subsequent encounter Qualified Code(s): S70.12XD - Contusion of left thigh, subsequent encounter (2) Cardiomegaly Code(s): I51.7 - CARDIOMEGALY Status: Acute (3) DVT (deep venous thrombosis) Status: Acute (4) Elevated INR Code(s): R79.1 - ABNORMAL COAGULATION PROFILE Status: Acute (5) Hypothyroidism Code(s): E03.9 - HYPOTHYROIDISM, UNSPECIFIED Status: Chronic - Plan Analgesic as needed. Continue coumadin and recheck INR in the morning. Discharge contemplated tomorrow monitor H/H
[2019-03-02] MEDS: Morphine 4 MG/ML VIAL SLOW IVP PRN ×6 (01:35→22:23)
[2019-03-02] MEDS: HYDROcodone/Acetaminophen 10/325 mg Tablet PO PRN ×5 (03:22→20:21)
[2019-03-02] MEDS: Acetaminophen/Codeine 30-300mg Tablet PO PRN (06:04)
[2019-03-02 06:27] LABS: Hemoglobin 8.5 g/dL (14.0-18.0); Mean Corpuscular HGB CONC 32.4 g/dL (32.0-36.0); Mean Corpuscular Hemoglobin 29.1 pg (27.0-31.0); Mean Corpuscular Volume 89.8 fL (78.0-98.0); Mean Platelet Volume 7.4 fL (7.4-10.4); Platelet Count 159 thou/uL (130-400); RBC Distribution Width 18.2 % (11.5-14.5); Red Blood Cell (RBC) Count 2.92 mill/uL (4.70-6.10); White Blood Cell (WBC) Count 3.7 thou/uL (4.8-10.8)
[2019-03-02 06:33] LABS: INR-International Normal Ratio 1.1; Prothrombin Time 14.2 SEC (12.0-14.7)
[2019-03-02] MEDS: Famotidine 20 MG TAB PO SCH ×2 (08:04→20:20)
[2019-03-02] MEDS: Ascorbic Acid 500 mg Chewable Tablet PO SCH (08:04)
[2019-03-02] MEDS ORDERED: Enoxaparin Sodium 120 MG/0.8 ML SYRINGE SC SCH (10:45)
[2019-03-02] MEDS: Diazepam 5 MG TAB PO PRN (10:57)
--- NOTE | 2019-03-02 13:03 | PDOC.HOSPP ---
- Subjective Encounter Date: 03/02/19 Encounter Time: 11:01 Subjective: 43 y/o male with hypercoagulable state associated with recurrent VTE's on chronic anticoagulation admitted with worsening left leg pain as well as epistaxis and bloody stools. found to have supertherapeutic INR. US showed left thigh hematoma as well as popliteal DVT. Treated with FFP, Vit K and Kcentra. Still complaining of left leg pain but no further bleeding is reported. - Objective Vital Signs & Weight: Vital Signs (12 hours) Temp Pulse Resp BP Pulse Ox 03/02/19 11:40 99.3 F 93 16 119/82 96 03/02/19 08:06 100 03/02/19 07:28 98.3 F 78 16 105/65 100 03/02/19 04:00 98.2 F 81 18 103/71 97 Weight Weight 257 lb 9.6 oz Most Recent Monitor Data Heart Rate from ECG 97 I&O: 03/01/19 03/02/19 03/03/19 06:59 06:59 06:59 Intake Total 1680 2600 Balance 1680 2600 Result Diagrams: 03/02/19 06:02 03/01/19 05:39 Hospitalist ROS - Medication Medications: Active Medications Generic Name Dose Route Start Last Admin Trade Name Freq PRN Reason Stop Dose Admin Acetaminophen 1,000 mg 02/24/19 03:57 03/02/19 00:12 Tylenol PO 1,000 mg Q6H PRN Administration Mild Pain (1-3) Acetaminophen/Codeine Phosphate 2 tab 02/24/19 03:57 03/02/19 06:04 Tylenol #3 PO 2 tab Q6H PRN Administration Moderate Pain (4-6) Hydrocodone Bitart/Acetaminophen 1 tab 03/01/19 15:47 03/02/19 12:26 [place] 10/325 PO 1 tab Q4H PRN Administration Severe Pain (7-10) Ascorbic Acid 1,000 mg 02/24/19 08:00 03/02/19 08:04 Vitamin C PO 1,000 mg QAM-WM HUAN Administration Calcium Carbonate 1,000 mg 02/24/19 03:57 02/28/19 17:31 Tums PO 1,000 mg Q4H PRN Administration Heartburn or Indigestion Cholecalciferol 10,000 units 02/24/19 09:00 03/02/19 09:49 Vitamin D3 PO 10,000 units DAILY HUAN Administration Diazepam 10 mg 02/24/19 03:57 03/02/19 10:57 Valium PO 10 mg TIDPRN PRN Administration Anxiety Famotidine 20 mg 02/24/19 09:00 03/02/19 08:04 Pepcid PO 20 mg BID HUAN Administration Morphine Sulfate 4 mg 02/24/19 04:17 03/02/19 09:49 Morphine SLOW IVP 4 mg Q4H PRN Administration Moderate to Severe Pain (6-10) Ondansetron HCl 4 mg 02/24/19 03:57 02/25/19 21:08 Zofran Odt PO 4 mg Q6H PRN Administration Nausea/Vomiting Ondansetron HCl 4 mg 02/24/19 03:57 02/27/19 10:08 Zofran IVP 4 mg Q6H PRN Administration Nausea/Vomiting Sodium Chloride 10 ml 02/24/19 03:57 03/02/19 05:48 Flush - Normal Saline IVF 10 ml PRN PRN Administration Saline Flush Warfarin Sodium 7.5 mg 02/25/19 17:00 03/01/19 17:29 Coumadin PO 7.5 mg 1700 HUAN Administration - Exam General Appearance: awake alert Eye: anicteric sclera ENT: normocephalic atraumatic Neck: supple, symmetric, no JVD Heart: RRR Respiratory: no wheezes, no rales, no ronchi, normal chest expansion Gastrointestinal: soft, non-tender, non-distended, normal bowel sounds Extremities: no cyanosis, no edema Extremities - other findings: left thigh fullness/swelling. Neurological: cranial nerve grossly intact, no focal deficits Psychiatric: A&O x 3 Hosp A/P (1) Hematoma of left thigh Code(s): S70.12XA - CONTUSION OF LEFT THIGH, INITIAL ENCOUNTER Status: Acute Qualifiers: Encounter type: subsequent encounter Qualified Code(s): S70.12XD - Contusion of left thigh, subsequent encounter (2) Cardiomegaly Code(s): I51.7 - CARDIOMEGALY Status: Acute (3) DVT (deep venous thrombosis) Status: Acute (4) Elevated INR Code(s): R79.1 - ABNORMAL COAGULATION PROFILE Status: Acute (5) Hypothyroidism Code(s): E03.9 - HYPOTHYROIDISM, UNSPECIFIED Status: Chronic (6) Obesity (BMI 30.0-34.9) Code(s): E66.9 - OBESITY, UNSPECIFIED Status: Acute - Plan Will start lovenox as INR is still subtherapeutic. Continue coumadin and recheck INR in the morning. monitor H/H and INR
[2019-03-02] MEDS: Warfarin Sodium 7.5 MG TAB PO SCH (17:03)
[2019-03-02] MEDS: Enoxaparin Sodium 120 MG/0.8 ML SYRINGE SC SCH (20:20)
[2019-03-03] MEDS: HYDROcodone/Acetaminophen 10/325 mg Tablet PO PRN ×4 (00:58→15:08)
[2019-03-03] MEDS: Morphine 4 MG/ML VIAL SLOW IVP PRN ×3 (03:11→12:39)
[2019-03-03 06:02] LABS: INR-International Normal Ratio 1.2; Prothrombin Time 14.7 SEC (12.0-14.7)
[2019-03-03] MEDS: Famotidine 20 MG TAB PO SCH (08:55)
[2019-03-03] MEDS: Ascorbic Acid 500 mg Chewable Tablet PO SCH (08:55)
[2019-03-03] MEDS: Enoxaparin Sodium 120 MG/0.8 ML SYRINGE SC SCH (10:56)
[2019-03-03 12:36] LABS: Hemoglobin 9.4 g/dL (14.0-18.0); Mean Corpuscular HGB CONC 31.5 g/dL (32.0-36.0); Mean Corpuscular Hemoglobin 28.5 pg (27.0-31.0); Mean Corpuscular Volume 90.4 fL (78.0-98.0); Mean Platelet Volume 7.5 fL (7.4-10.4); Platelet Count 189 thou/uL (130-400); RBC Distribution Width 18.6 % (11.5-14.5); White Blood Cell (WBC) Count 5.5 thou/uL (4.8-10.8)
[2019-03-03 15:11] VITALS: BP 108/78; TEMP 99
--- NOTE | 2019-03-06 15:34 | DIS ---
DATE OF ADMISSION: 02/24/2019 DATE OF DISCHARGE: 03/03/2019 PRIMARY CARE PHYSICIAN: Merrill Null MD. DISCHARGE DIAGNOSES: 1. Left eye hematoma. 2. Supratherapeutic INR with spontaneous bleeding. 3. Obesity. 4. Rectal bleeding. 5. Epistaxis. 6. Hypothyroidism. 7. Deep vein thrombosis. 8. Cardiomegaly. CONSULTS: 1. Hematology/Oncology. 2. Orthopedic Surgery. HOSPITAL COURSE: A 43-year-old male with known history of hypercoagulable state associated with recurrent VTE, is on chronic anticoagulation with Coumadin; admitted with worsening left leg pain as well as epistaxis and bloody stool. Further evaluation revealed supratherapeutic INR. Further evaluation with ultrasound showed left eye hematoma as well as left popliteal DVT. The patient was treated with FFP, vitamin K, and Kcentra with resolution of bleeding. He, however, continued to complain of left leg pain and difficulty ambulating which was treated with liberal narcotic analgesics with improvement. With resolution of bleeding, Coumadin was restarted but the INR was still subtherapeutic at around 1.1, hence the patient was started on Lovenox anticoagulation. Given the fact that the patient had an INR that could not be estimated with PT of more than 150 on presentation while on Coumadin 7.5, decision was made to discharge the patient on Coumadin 6.0, and to have him recheck INR on March 06, 2019, and follow up with PCP the next day, March 07 for Coumadin dose adjustment. The patient remained stable and was subsequently discharged home. PHYSICAL EXAMINATION: VITAL SIGNS: Temperature 99.0, pulse 100, respiratory rate 18, SpO2 of 100% on room air, blood pressure is 108/78. GENERAL: Obese male, in no distress. Afebrile, anicteric, acyanotic. HEENT: Normocephalic, atraumatic. Oral mucosa is moist. CARDIOVASCULAR: Regular rhythm and rate with normal heart sounds 1 and 2. RESPIRATORY: Good air entry bilaterally with no crackle or rhonchi or use of accessory muscles. GI: Obese, soft, nontender, nondistended with normal bowel sounds. EXTREMITIES: Left thigh swelling with some tenderness noted. Right distal leg venous stasis changes with erythrosis noted. No obvious edema was appreciated. MENTAL HEALTH PROFESSIONAL: Conscious and alert, oriented x3 with appropriate mental status. Cranial nerves 2 through 12 are grossly intact. The patient is oriented x3. The patient is ambulant. DISCHARGE CONDITION: Improved. DISCHARGE DISPOSITION: Home. FOLLOWUP: The patient is to follow up with PCP on March 07. He also is to have INR on March 06. DISCHARGE MEDICATIONS: 1. Hydrocodone/acetaminophen 1 tablet q.12 p.r.n. 2. Diazepam 10 mg p.o. t.i.d. p.r.n. 3. Acetaminophen with Codeine 300/30 mg 1 tablet q.6 p.r.n. 4. Ascorbic acid 1000 mg p.o. daily. 5. Cholecalciferol 35666 units weekly. 6. Lovenox 120 mg b.i.d. 7. Warfarin 6 mg p.o. daily. This discharge took more than 37 minutes. Job ID: [id number]
== END 2019-03-03 16:00 | disposition home or self-care (01) | DRG 813 ==
LOC: ERS 22:05 → 2SE 02-24 03:26 → EEVIPCON 02-24 03:26 → T4-A 02-28 22:22
PROVIDERS: ADMIT Family Medicine; ATTEND Family Medicine
PROC: 30233K1 Transfusion of Nonautologous Frozen Plasma into Peripheral Vein, Percutaneous Approach (ICD-10-PCS; principal; 2019-02-24)
PROC: 30233N1 Transfusion of Nonautologous Red Blood Cells into Peripheral Vein, Percutaneous Approach (ICD-10-PCS; 2019-02-24)
DX: D68.32 Hemorrhagic disorder due to extrinsic circulating anticoagulants (principal); I82.432 Acute embolism and thrombosis of left popliteal vein; I27.82 Chronic pulmonary embolism; D69.6 Thrombocytopenia, unspecified; R76.8 Other specified abnormal immunological findings in serum; E03.9 Hypothyroidism, unspecified; D53.9 Nutritional anemia, unspecified; I51.7 Cardiomegaly; M79.81 Nontraumatic hematoma of soft tissue; E66.9 Obesity, unspecified; Z68.30 Body mass index [BMI] 30.0-30.9, adult; E55.9 Vitamin D deficiency, unspecified; T45.515A Adverse effect of anticoagulants, initial encounter
CPT/HCPCS: 36415; 36430; 74177; 80048; 80053; 85007; 85025; 85027; 85610; 85730; 86038; 86225; 86850; 86900; 86901; 96374; 96375; 96376; C9113; C9132; J1650; J2270; J2405; J3430; P9059; Q0162; Q9967

== ENCOUNTER 2019-06-09 05:31 | Inpatient (IN) | payer SELFPAY ==
[2019-06-09] MEDS ORDERED: Ondansetron PF 4 MG/2 ML Vial ONE ×2 (05:45→08:10)
[2019-06-09 06:08] LABS: Mean Corpuscular HGB CONC 33.3 g/dL (32.0-36.0); Mean Corpuscular Hemoglobin 31.2 pg (27.0-31.0); Mean Corpuscular Volume 93.8 fL (78.0-98.0); Platelet Count 160 thou/uL (130-400); RBC Distribution Width 18.2 % (11.5-14.5); Red Blood Cell (RBC) Count 4.48 mill/uL (4.70-6.10); White Blood Cell (WBC) Count 15.6 thou/uL (4.8-10.8)
[2019-06-09 06:17] LABS: INR-International Normal Ratio 1.5; PTT 37.6 SEC (22.9-36.1); Prothrombin Time 17.6 SEC (12.0-14.7)
[2019-06-09] MEDS ORDERED: Acetaminophen 500 MG TAB ONE ×2 (06:27→08:10)
[2019-06-09 06:39] LABS: Band 28 % (5-11); Lymphocytes 3 % (21-51); MDiff Complete? YES; Metamyelocyte 1 % (0-0); Monocytes 7 % (0-10); Neutrophil 61 % (42-75)
[2019-06-09] MEDS ORDERED: Clindamycin/D5W 600 mg/50 ml Premix Bag ONE (06:57)
[2019-06-09 07:01] LABS: ALT (SGPT) 24 U/L (8-55); AST (SGOT) 41 U/L (5-34); Alkaline Phosphatase 72 U/L (40-110); Anion Gap 18 mmol/L (10-20); BUN (Urea Nitrogen) 10 mg/dL (8.9-20.6); Bilirubin, Total 1.3 mg/dL (0.2-1.2); Calc. Creatinine Clearance 0 mL/min (70-130); Calcium 9.5 mg/dL (7.8-10.44); Carbon Dioxide 23 mmol/L (22-29); Chloride 100 mmol/L (98-107); Estimated GFR-MDRD Greater than 90; Globulin 3.6 g/dL (2.4-3.5); Glucose 142 mg/dL (70-105); Potassium 4.2 mmol/L (3.5-5.1); Protein, Total 7.6 g/dL (6.0-8.3); Sodium 137 mmol/L (136-145)
[2019-06-09] MEDS ORDERED: Cefepime 2 GM VIAL ONE (07:46)
[2019-06-09] MEDS ORDERED: Fentanyl 100 MCG/2 ML VIAL ONE (08:11)
--- NOTE | 2019-06-09 08:29 | ULT ---
DOPPLER VENOUS ULTRASOUND OF THE RIGHT LOWER EXTREMITY: Date: 06/09/2019 INDICATION: Right lower extremity pain, edema, and erythema. TECHNIQUE: Martines scale, color Doppler, and vascular duplex with spectral analysis was performed of the deep venou s structures of the right lower extremity. The common femoral vein, superficial femoral vein, proxima l greater saphenous vein, proximal greater profunda vein, popliteal, and posterior tibial veins were assessed. COMPARISON: Bilateral Doppler venous ultrasound dated 07/18/2018. FINDINGS: There is eccentric nonocclusive thrombus within the mid right superficial femoral vein, some of which may reflect chronic deep venous thrombosis as seen on the comparison dated 07/18/2018. However, ther e is new partial occlusive thrombus within the distal right superficial femoral vein and right poplit eal vein. The remaining deep venous structures of the right lower extremity appear within normal limi ts. The mid posterior tibial vein was not well seen due to scarring. IMPRESSION: Partially occlusive deep venous thrombosis within the mid superficial femoral vein through the level of the right popliteal vein. A component of the thrombus within the mid superficial femoral vein is l ikely chronic. The partially occlusive thrombus within the distal superficial femoral vein and right popliteal vein is new from the comparison dated 07/28/2018. POS: BH
[2019-06-09] MEDS ORDERED: Senokot S 8.6-50 MG TAB PO PRN (08:47)
[2019-06-09] MEDS ORDERED: Ondansetron ODT 4 MG TAB PO PRN (08:47)
[2019-06-09] MEDS ORDERED: Iopamidol-370 76% 500 ML 1 ML ONE (10:03)
--- NOTE | 2019-06-09 10:10 | CT ---
CT OF RIGHT LOWER EXTREMITY PERFORMED WITH CONTRAST: Date: 06/09/2019 HISTORY: Swelling right lower extremity. Fever and chills. History of previous skin grafts. COMPARISON: 07/18/2018 study. FINDINGS: This examination was performed from just above the level of the knee to foot level. Healed proximal fibular shaft fracture is present. Postop changes of the knee related to an ACL repai r and arthritic changes of the knee are noted. No evidence of any significant joint effusion. Superficial varicosities are seen within the calf. There is some skin thickening along the medial nadja e of the distal calf region which could be related to scarring or skin grafts. There is also some ski n thickening along the more anterior and slightly more lateral side of the calf and ankle region. Aga in, this appears to be more chronic in nature. There is some fat stranding within the subcutaneous fa t, but is fairly minimal. There are no signs of any hematoma Muscle groups show no evidence of any as ymmetric atrophy or any evidence for a compartment syndrome. There is no air within the soft tissues. IMPRESSION: Chronic appearing skin changes. Some minimal interstitial change within the subcutaneous fat could in dicate some minimal cellulitis change, but I would tend to favor this as more chronic in nature in th is patient. No fluid collections, abscess, or air noted. POS: [facility]
[2019-06-09 12:15] LABS: Bacteria/HPF None Seen HPF (None Seen); Bilirubin Negative (Negative); Blood, Urine Negative (Negative); Clarity Clear (Clear); Glucose, Urine (Dipstick) Normal (Negative); Leukocyte Negative Leu/uL (Negative); Nitrite Negative (Negative); Protein, Urine (Dipstick) 30 mg/dL (Neg-Trace); RBC/HPF 0-3 HPF (0-3); Squamous Epithelial 0-3 HPF (0-3); Urobilinogen Normal mg/dL (Less than 2); WBC/HPF 0-3 HPF (0-3)
[2019-06-09] MEDS: Ondansetron PF 4 MG/2 ML Vial IVP PRN ×2 (13:30→22:59)
[2019-06-09] MEDS: Morphine 2 MG/ML SYRINGE SLOW IVP SCH ×2 (13:30→19:28)
[2019-06-09] MEDS: Acetaminophen 325 MG TAB PO PRN ×3 (13:30→23:12)
[2019-06-09 14:18] VITALS: BMI 34.8
[2019-06-09] MEDS ORDERED: Warfarin Sodium 5 MG TAB PO SCH (17:00)
[2019-06-09] MEDS: HYDROcodone/Acetaminophen 5/325 mg Tablet PO PRN ×2 (17:00→23:12)
[2019-06-09] MEDS ORDERED: Diazepam 5 MG TAB PO PRN (17:03)
[2019-06-09] MEDS: Cefepime 1 GM in Sodium Chloride 0.9% 100 ML IVPB SCH (19:29)
--- NOTE | 2019-06-09 19:37 | HP ---
CHIEF COMPLAINT: Leg swelling. HISTORY OF PRESENT ILLNESS: A 43-year-old male without history of diabetes mellitus or hypertension, had a skin graft for trauma to his right lower extremity, presented with significant cellulitis. The patient has a history of DVT in February 2019 , he was on Coumadin since then. His INR is quite labile with his Coumadin of 5 mg. Yesterday, he was doing well, however, noted some discomfort in his right lower extremity. Around 2:30 am, the erythema spread quite significantly and painful. He experienced some soreness yesterday. Did not have any fever. CT of the right lower extremity with contrast showed chronic appearing skin changes and minimal interstitial change within the subcutaneous fat. No fluid collection, abscess, or air noted per CT scan. Ultrasound showed partially occlusive DVT in the mid superficial femoral vein through the level of the right popliteal vein. He was brought in for further IV antibiotics for his cellulitis that is all the way from his right foot to the knee level. REVIEW OF SYSTEMS: 13-point review of systems reviewed with the patient and pertinent addressed in the history of present illness and the rest are negative including no fever, night sweats, chills, productive cough, chest pain or shortness of breath, dyspnea on exertion. No orthopnea or PND. No headache or blurriness. No polyuria. ALLERGIES: HE IS ALLERGIC TO GABAPENTIN. PAST MEDICAL HISTORY: 1. Obesity. 2. Hypothyroidism. 3. History of DVT. 4. Cardiomegaly. MEDICATIONS: 1. [place] 5/325. 2. Diazepam 10 mg as needed three times a day. 3. Warfarin 5 mg daily. SOCIAL HISTORY: The patient does not smoke. Drinks occasionally. FAMILY HISTORY: Significant for father had skin cancer. Mother was healthy. PHYSICAL EXAMINATION: VITAL SIGNS: Temperature 103.1, pulse 100, blood pressure 137/74. CARDIOVASCULAR: Regular. HEENT: Pupils equal, round, reactive to light. Anicteric. Mucous membranes moist. CARDIOVASCULAR: Regular rate and rhythm without murmurs, rubs, or gallops. LUNGS: Clear to auscultation bilaterally without wheezing, rales, or rhonchi. ABDOMEN: Soft, nontender, nondistended. Good bowel sounds. EXTREMITIES: Right lower extremity has skin graft changes just above the ankle on the anterior aspect of the tibia. There are no purulent discharges or flocculency. However, he has significant erythema and warmth to touch from the ankle to the knee throughout his leg. LABORATORY DATA: Significant for white count of 15.6 and platelet of 168. Chemistry is within normal range. His lactic acid 1.6. IMAGING STUDIES: CT of the leg and ultrasound as suggested above as given in the history of present illness. No abscess or air in the subcu tissues. IMPRESSION AND PLAN: This is a 43-year-old male with a history of deep vein thrombosis and remote history of skin graft for the trauma to his leg, presented with new diagnosis of right leg deep vein thrombosis as well as severe cellulitis. In the past, he had a left leg deep vein thrombosis. Sepsis secondary to cellulitis on his right lower extremity. CT ruled out any signs of necrotizing fasciitis. The patient will be admitted for IV antibiotics with vancomycin and cefepime. I have consulted, Dr. Rodrigues for further recommendations. We will follow the blood culture result. Prior history of deep vein thrombosis. The patient is on Coumadin, we will continue the Coumadin for now and daily INR. Rest of the management based on his clinical course. Job ID: [id number] [facility]
[2019-06-10] MEDS: Diazepam 5 MG TAB PO PRN ×3 (01:26→20:59)
[2019-06-10] MEDS: Morphine 2 MG/ML SYRINGE SLOW IVP SCH ×2 (01:26→08:04)
[2019-06-10] MEDS: HYDROcodone/Acetaminophen 5/325 mg Tablet PO PRN (04:41)
[2019-06-10] MEDS: Acetaminophen 325 MG TAB PO PRN ×3 (04:41→16:56)
[2019-06-10 04:53] LABS: INR-International Normal Ratio 1.2; Prothrombin Time 14.7 SEC (12.0-14.7)
[2019-06-10 04:54] LABS: Anion Gap 17 mmol/L (10-20); BUN (Urea Nitrogen) 11 mg/dL (8.9-20.6); Calc. Creatinine Clearance 206 mL/min (70-130); Carbon Dioxide 19 mmol/L (22-29); Chloride 102 mmol/L (98-107); Estimated GFR-MDRD Greater than 90; Glucose 104 mg/dL (70-105); Potassium 3.6 mmol/L (3.5-5.1); Sodium 134 mmol/L (136-145)
[2019-06-10 06:32] LABS: #Lymphocytes 0.6 thou/uL (1.20-3.40); #Monocytes 0.6 thou/uL (0.11-0.59); #Neutrophils 11.6 thou/uL (1.40-6.50); %Basophils 0.1 % (0.0-1.0); %Eosinophils 0.1 % (0.0-10.0); %Lymphocytes 4.6 % (21.0-51.0); %Monocytes 4.9 % (0.0-10.0); %Neutrophils 90.3 % (42.0-75.0); Band 16 % (5-11); Hemoglobin 14.2 g/dL (14.0-18.0); Lymphocytes 4 % (21-51); MDiff Complete? YES; Mean Corpuscular HGB CONC 32.4 g/dL (32.0-36.0); Mean Corpuscular Hemoglobin 30.9 pg (27.0-31.0); Mean Corpuscular Volume 95.5 fL (78.0-98.0); Mean Platelet Volume 9.6 fL (7.4-10.4); Monocytes 6 % (0-10); Neutrophil 74 % (42-75); Platelet Count 119 thou/uL (130-400); Platelet Morphology Comment Appears Decreased; RBC Distribution Width 17.9 % (11.5-14.5); RBC Morphology Normal; White Blood Cell (WBC) Count 12.8 thou/uL (4.8-10.8)
[2019-06-10] MEDS: Cefepime 1 GM in Sodium Chloride 0.9% 100 ML IVPB SCH (08:03)
[2019-06-10 08:05] LABS: Vancomycin, Trough 16.6 ug/mL
[2019-06-10] MEDS ORDERED: Non-Formulary Item 1 EACH (Omeprazole [Omeprazole] 20 MG) PO SCH (09:00)
[2019-06-10] MEDS: HYDROcodone/Acetaminophen 10/325 mg Tablet PO PRN ×2 (09:39→20:59)
[2019-06-10] MEDS ORDERED: Enoxaparin Sodium 120 MG/0.8 ML SYRINGE SC SCH (09:45)
--- NOTE | 2019-06-10 15:09 | PDOC.HOSPP ---
- Subjective Encounter Date: 06/10/19 Encounter Time: 15:00 Subjective: f/u for RLE cellulitis and acute/subacute DVT on Coumadin but sub-therapeutic INR. Receiving Vancomycin/Cefepime. - Objective Vital Signs & Weight: Vital Signs (12 hours) Temp Pulse Resp BP Pulse Ox 06/10/19 11:11 100 F H 88 16 101/55 L 95 06/10/19 08:02 101.3 F H 96 16 110/68 98 06/10/19 03:35 100.1 F H 91 20 105/68 98 Weight Weight 286 lb 4.8 oz I&O: 06/09/19 06/10/19 06/11/19 06:59 06:59 06:59 Intake Total 2100 Output Total 2350 Balance -250 Result Diagrams: 06/10/19 04:34 06/10/19 04:34 Additional Labs: Microbiology 06/09/19 05:44 Nasal swab Influenza Types A,B Direct EIA - Final 06/09/19 07:54 Venous blood - Right Hand Blood Culture - Preliminary Specimen has been received and culture in progress. No Growth to date. 06/09/19 07:44 Venous blood - Left Hand Blood Culture - Preliminary Specimen has been received and culture in progress. No Growth to date. Laboratory Tests 06/09/19 06/09/19 06/09/19 05:59 05:59 05:59 WBC 15.6 H Hgb 14.0 Neutrophils % (Manual) 61 Band Neuts % (Manual) 28 H INR 1.5 Sodium 137 Lactic Acid Total Bilirubin 1.3 H Vancomycin Trough 06/09/19 06/10/19 06/10/19 07:54 04:34 04:34 WBC Hgb Neutrophils % (Manual) 74 Band Neuts % (Manual) 16 H INR 1.2 Sodium Lactic Acid 1.6 Total Bilirubin Vancomycin Trough 06/10/19 07:39 WBC Hgb Neutrophils % (Manual) Band Neuts % (Manual) INR Sodium Lactic Acid Total Bilirubin Vancomycin Trough 16.6 Radiology Reviewed by me: Yes (CT RLE - no abscess or fluid collection) EKG Reviewed by me: Yes (Tele - SR) Hospitalist ROS - Medication Medications: Active Medications Generic Name Dose Route Start Last Admin Trade Name Freq PRN Reason Stop Dose Admin Acetaminophen 650 mg 06/09/19 08:47 02/29/20 08:21 Tylenol PO 650 mg Q4H PRN Administration Headache/Fever/Mild Pain (1-3) Hydrocodone Bitart/Acetaminophen 2 tab 06/10/19 09:10 06/10/19 09:39 [place] 10/325 PO 2 tab Q6H PRN Administration Moderate to Severe Pain (6-10) Diazepam 10 mg 06/09/19 20:04 06/10/19 11:21 Valium PO 10 mg TIDPRN PRN Administration Anxiety/Agitation Vancomycin HCl 2 gm/ Sodium 500 mls @ 250 mls/hr 06/10/19 11:00 06/10/19 11: 14 Chloride IVPB 500 mls Q8H HUAN Administration Ondansetron HCl 4 mg 06/09/19 08:47 06/09/19 22:59 Zofran IVP 4 mg Q6H PRN Administration Nausea/Vomiting Pantoprazole Sodium 40 mg 06/09/19 21:00 06/09/19 21:18 Protonix PO 40 mg 2100 HUAN Administration Sodium Chloride 10 ml 06/09/19 21:00 06/10/19 08:04 Flush - Normal Saline IVF 10 ml Q12HR HUAN Administration - Exam General Appearance: NAD, awake alert Eye: PERRL, anicteric sclera ENT: normocephalic atraumatic, no oropharyngeal lesions Neck: supple, symmetric, no JVD, no thyromegaly, no lymphadenopathy Heart: RRR, no murmur, no gallops, no rubs, normal peripheral pulses Respiratory: CTAB, no wheezes, no rales, no ronchi, normal chest expansion Gastrointestinal: soft, non-tender, non-distended, normal bowel sounds, no palpable masses Extremities - other findings: RLE with circumferential erythema from knee to ankle with edema Neurological: cranial nerve grossly intact, no new deficit Musculoskeletal: normal tone, normal strength, no muscle wasting Psychiatric: normal affect, A&O x 3 Hosp A/P (1) Cellulitis and abscess of right lower extremity Code(s): L03.115 - CELLULITIS OF RIGHT LOWER LIMB; L02.415 - CUTANEOUS ABSCESS OF RIGHT LOWER LIMB Status: Acute Plan: Continue Cefepime/Vancomycin, serial exams (2) Recurrent deep vein thrombosis (DVT) Code(s): I82.409 - ACUTE EMBOLISM AND THOMBOS UNSP DEEP VN UNSP LOWER EXTREMITY Status: Chronic Plan: Start Lovenox bridge as currently Coumadin sub-therapeutic (3) Sepsis Code(s): A41.9 - SEPSIS, UNSPECIFIED ORGANISM Status: Acute Plan: Secondary to #1, continue Cefepime/Vancomycin (4) Chronic anticoagulation Code(s): Z79.01 - FDC (CURRENT) USE OF ANTICOAGULANTS Status: Chronic Plan: Sub-therapeutic INR on Coumadin, start Lovenox bridge, serial INR - 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
[2019-06-10 15:20] LABS: Vancomycin, Trough 27.6 ug/mL
[2019-06-10] MEDS ORDERED: Morphine 4 MG/ML VIAL SLOW IVP SCH (15:45)
[2019-06-10] MEDS: Warfarin Sodium 5 MG TAB PO SCH (16:35)
[2019-06-10] MEDS: cefTRIAXone\\ROCEPHIN 1 GM in Sodium Chloride 0.9% 100 ML IVPB SCH (16:35)
[2019-06-10] MEDS: Morphine 4 MG/ML VIAL SLOW IVP SCH ×2 (18:27→22:42)
--- NOTE | 2019-06-10 19:07 | CON ---
DATE OF CONSULTATION: 06/10/2019 REASON FOR CONSULTATION: Cellulitis, right leg. HISTORY OF PRESENT ILLNESS: A 43-year-old patient who has a history of prior deep vein thrombosis without any obvious hypercoagulable syndrome, who had been on warfarin in the past, monitored by Dr. Null. He also sustained an injury while hunting and had a fracture of the right fibula and quite a bit of lacerations, which required an intervention. He had some wound healing problems, which required debridements and antimicrobial therapy. Those healed and he was in his usual state when he developed worsening swelling with erythema and tenderness of the right leg. His INR was 2.2 two or three days before admission. He did have some fever and chills and diarrhea, and his BP was 120/70, pulse at 122, temperature 98.6 and then it went up to 101.5. Findings included erythema in a very circumferential distribution, extending from the foot all the way to the knee, right side. A little bit of abrasion in the distal aspect. A few days before this development, he had sustained an abrasion while shopping at [employer]. No headaches. No visual symptoms, sore throat, odynophagia, or dysphagia. No dyspnea or chest pain. No abdominal pain or diarrhea. No genitourinary symptoms. No other joint symptoms. No neurological symptoms. PAST MEDICAL HISTORY: Hyperthyroidism, DVT since 2011, ACL repair, injury to the right leg while he was hunting with fractures and extensive surgical intervention, necrotizing fasciitis. ALLERGIES: GABAPENTIN. MEDICATIONS: He had been on warfarin, now he is on cefepime and vancomycin, and enoxaparin has been started. FAMILY HISTORY: Noncontributory. 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 Does not smoke and drinks occasionally. PHYSICAL EXAMINATION: VITAL SIGNS: T-max 102.7, now 100, blood pressure 101/55, pulse 88, respirations 16, and O2 saturation 95. SKIN: With evidence of lymphedema/venous stasis and erythema, extending from the foot all the way to the right knee in a circumferential distribution. No blistering. No areas of necrosis. Small shallow abrasion, right distal lateral ankle site. No lymphadenopathy. HEENT: Noncontributory. NECK: Supple. LUNGS: Symmetric. Clear breath sounds. HEART: S1 and S2. Regular rate. No S3 or S4. ABDOMEN: Soft. Not distended or tender. No ascites. No bladder distention. MUSCULOSKELETAL: No joint inflammatory activity noted. Pulses are 1+ in dorsalis pedis. Cap refill normal. Tender on palpation in the calf region, right side. NEUROLOGIC: Nonfocal. Cognitive function including. LABORATORY DATA: Sodium 137, creatinine 0.88, bilirubin 1.3, AST 41. White cell count 15.6 and 12.8, hemoglobin 14.2, platelets 119, and 90% neutrophils. Urinalysis was normal except for trace ketones. Microbiology with no growth in blood cultures thus far. Influenza test negative. Vascular ultrasound with a partially occlusive DVT, mid superficial femoral vein through the level of the right popliteal vein. This was new from the comparison dated 07/28/2018. A lower extremity CT with skin changes. Minimal interstitial changes. ASSESSMENT: Recurrent deep vein thromboses, unexplained until now. He also has had those injuries to the right leg, which have probably been associated with lymphatic drainage problems since he did have necrotizing fasciitis. He probably has an element of postphlebitic syndrome as well. He now has developed cellulitis in the right leg following an abrasion. DISCUSSION: The most cases of cellulitis without any other risk factors are due to beta-hemolytic streptococci. We will switch him to Rocephin. Discontinue the remainder of antimicrobials. Eventual transition to Keflex once there is clinical improvement. He would benefit from prophylactic Pen-Vee K 250 twice daily for a year, and compression stockings to be worn on a regular basis. Since he had a DVT even in the face of therapeutic warfarin, he may need to take different anticoagulant in the future or raise the INR higher than 2.2. Job ID: [id number]
[2019-06-10] MEDS ORDERED: Cefepime 2 GM in Sodium Chloride 0.9% 100 ML IVPB SCH (20:00)
[2019-06-10] MEDS: Enoxaparin Sodium 120 MG/0.8 ML SYRINGE SC SCH (20:59)
[2019-06-10] MEDS: Temazepam 15 MG CAP PO PRN (22:43)
[2019-06-11] MEDS: Morphine 4 MG/ML VIAL SLOW IVP SCH ×6 (02:11→21:55)
[2019-06-11 04:06] LABS: INR-International Normal Ratio 1.1; Prothrombin Time 14.3 SEC (12.0-14.7)
[2019-06-11 04:17] LABS: Band 12 % (5-11); Hemoglobin 12.4 g/dL (14.0-18.0); Hypochromia SLIGHT = 6-15 cells (100X) (0-5/hpf); Lymphocytes 8 % (21-51); MDiff Complete? YES; Mean Corpuscular HGB CONC 32.7 g/dL (32.0-36.0); Mean Corpuscular Hemoglobin 31.5 pg (27.0-31.0); Mean Corpuscular Volume 96.5 fL (78.0-98.0); Mean Platelet Volume 9.6 fL (7.4-10.4); Monocytes 6 % (0-10); Neutrophil 74 % (42-75); Platelet Count 125 thou/uL (130-400); Platelet Morphology Comment Appears Decreased; RBC Distribution Width 17.6 % (11.5-14.5); Red Blood Cell (RBC) Count 3.94 mill/uL (4.70-6.10); White Blood Cell (WBC) Count 9.4 thou/uL (4.8-10.8)
[2019-06-11 04:27] LABS: Anion Gap 14 mmol/L (10-20); BUN (Urea Nitrogen) 11 mg/dL (8.9-20.6); Calc. Creatinine Clearance 232 mL/min (70-130); Calcium 8.4 mg/dL (7.8-10.44); Carbon Dioxide 21 mmol/L (22-29); Chloride 102 mmol/L (98-107); Estimated GFR-MDRD Greater than 90; Glucose 105 mg/dL (70-105); Potassium 3.4 mmol/L (3.5-5.1); Sodium 134 mmol/L (136-145)
[2019-06-11] MEDS: Acetaminophen 325 MG TAB PO PRN (08:22)
[2019-06-11] MEDS: Diazepam 5 MG TAB PO PRN ×2 (08:22→18:24)
[2019-06-11] MEDS: Enoxaparin Sodium 120 MG/0.8 ML SYRINGE SC SCH ×2 (08:23→21:54)
[2019-06-11 10:25] LABS: Vancomycin, Trough 5.3 ug/mL
[2019-06-11] MEDS: HYDROcodone/Acetaminophen 10/325 mg Tablet PO PRN ×3 (11:05→22:57)
--- NOTE | 2019-06-11 15:31 | PRG ---
DATE OF SERVICE: 06/11/2019 SUBJECTIVE: He is still feeling hot intermittently. The legs, he feels about the same, but I feel as noted below, it has improved. No respiratory symptoms. No diarrhea. Voiding without difficulty. T-max is 99.6, so there is a trend of improvement there as well. Other vital signs are normal. The leg appears less intensely red compared with the last visit. The distribution is about the same. OBJECTIVE: Lungs: Clear. CARDIAC: S1 and S2, regular rate. ABDOMEN: Soft and not distended. LABORATORY DATA: White cell count is down to 9.4, which is a clear-cut improvement. The bands are down to 12%, which has improved as well. Microbiology, nothing positive at this moment. ASSESSMENT AND DISCUSSION: Recurrent deep venous thrombosis, unexplained etiology, injuries in the right leg with lymphedema following previous episode of necrotizing fasciitis. Element of postphlebitic syndrome and now cellulitis of the right leg. There is clear-cut improvement both clinical as well as laboratory. We will continue with Rocephin. Eventual transition to oral Keflex for discharge planning and then suppressive penicillin VK for long period of time and compression stockings. Job ID: [id number]
[2019-06-11] MEDS: Warfarin Sodium 5 MG TAB PO SCH (16:27)
[2019-06-11] MEDS: cefTRIAXone\\ROCEPHIN 1 GM in Sodium Chloride 0.9% 100 ML IVPB SCH (16:29)
--- NOTE | 2019-06-11 18:38 | PDOC.HOSPP ---
- Subjective Encounter Date: 06/11/19 Encounter Time: 18:35 Subjective: f/u for RLE cellulitis, thrombophlebitis and recurrent DVT on Coumadin and bridged with Lovenox. Feels better overall. - Objective Vital Signs & Weight: Vital Signs (12 hours) Temp Pulse Resp BP Pulse Ox 06/11/19 16:00 98.7 F 75 20 109/74 98 06/11/19 14:20 96 06/11/19 11:35 99.2 F 83 16 104/68 96 06/11/19 11:18 99.6 F 78 16 96/55 L 95 06/11/19 10:23 99.2 F 06/11/19 08:20 100.6 F H 85 16 115/66 97 Weight Weight 286 lb 4.8 oz I&O: 06/10/19 06/11/19 06/12/19 06:59 06:59 06:59 Intake Total 2100 1900 Output Total 2350 1700 Balance -250 200 Result Diagrams: 06/11/19 03:41 06/11/19 03:41 Additional Labs: Microbiology 06/09/19 05:44 Nasal swab Influenza Types A,B Direct EIA - Final 06/09/19 07:54 Venous blood - Right Hand Blood Culture - Preliminary Specimen has been received and culture in progress. No Growth to date. 06/09/19 07:54 Venous blood - Right Hand Blood Culture - Preliminary NO GROWTH AT 48 HOURS 06/09/19 07:44 Venous blood - Left Hand Blood Culture - Preliminary Specimen has been received and culture in progress. No Growth to date. 06/09/19 07:44 Venous blood - Left Hand Blood Culture - Preliminary NO GROWTH AT 48 HOURS Laboratory Tests 06/09/19 06/09/19 06/09/19 05:59 05:59 05:59 WBC 15.6 H Hgb 14.0 Neutrophils % (Manual) 61 Band Neuts % (Manual) 28 H INR 1.5 Sodium 137 Potassium Lactic Acid Total Bilirubin 1.3 H Vancomycin Trough 06/09/19 06/10/19 06/10/19 07:54 04:34 04:34 WBC Hgb Neutrophils % (Manual) 74 Band Neuts % (Manual) 16 H INR Sodium 134 L Potassium 3.6 Lactic Acid 1.6 Total Bilirubin Vancomycin Trough 06/10/19 06/10/19 06/10/19 04:34 07:39 14:48 WBC Hgb Neutrophils % (Manual) Band Neuts % (Manual) INR 1.2 Sodium Potassium Lactic Acid Total Bilirubin Vancomycin Trough 16.6 27.6 06/11/19 06/11/19 03:41 10:06 WBC Hgb Neutrophils % (Manual) Band Neuts % (Manual) INR 1.1 Sodium Potassium Lactic Acid Total Bilirubin Vancomycin Trough 5.3 Hospitalist ROS - Medication Medications: Active Medications Generic Name Dose Route Start Last Admin Trade Name Freq PRN Reason Stop Dose Admin Acetaminophen 650 mg 06/09/19 08:47 06/11/19 08:22 Tylenol PO 650 mg Q4H PRN Administration Headache/Fever/Mild Pain (1-3) Hydrocodone Bitart/Acetaminophen 2 tab 06/10/19 09:10 06/11/19 16:26 [place] 10/325 PO 2 tab Q6H PRN Administration Moderate to Severe Pain (6-10) Diazepam 10 mg 06/09/19 20:04 06/11/19 18:24 Valium PO 10 mg TIDPRN PRN Administration Anxiety/Agitation Enoxaparin Sodium 120 mg 06/10/19 21:00 06/11/19 08:23 Lovenox SC 120 mg 0900,2100 HUAN Administration Ceftriaxone Sodium 1 gm/ 100 mls @ 200 mls/hr 06/10/19 17:00 06/11/19 16:29 Sodium Chloride IVPB 100 mls Q24HR HUAN Administration Morphine Sulfate 4 mg 06/10/19 18:00 06/11/19 18:12 Morphine SLOW IVP 4 mg Q4H HUAN Administration Ondansetron HCl 4 mg 06/09/19 08:47 06/09/19 22:59 Zofran IVP 4 mg Q6H PRN Administration Nausea/Vomiting Pantoprazole Sodium 40 mg 06/09/19 21:00 06/10/19 20:58 Protonix PO 40 mg 2100 HUAN Administration Sodium Chloride 10 ml 06/09/19 21:00 06/11/19 08:24 Flush - Normal Saline IVF 10 ml Q12HR HUAN Administration Sodium Chloride 10 ml 06/09/19 09:02 06/11/19 18:18 Flush - Normal Saline IVF 10 ml PRN PRN Administration Saline Flush Temazepam 30 mg 06/10/19 16:37 06/10/19 22:43 Restoril PO 30 mg HSPRN PRN Administration Insomnia Warfarin Sodium 5 mg 06/10/19 17:00 06/11/19 16:27 Coumadin PO 5 mg 1700 HUAN Administration - Exam General Appearance: NAD, awake alert Eye: PERRL, anicteric sclera ENT: normocephalic atraumatic, no oropharyngeal lesions Neck: supple, symmetric, no JVD, no thyromegaly Heart: RRR, no murmur, no gallops, no rubs, normal peripheral pulses Respiratory: CTAB, no wheezes, no rales, no ronchi Gastrointestinal: soft, non-tender, non-distended, normal bowel sounds, no palpable masses Extremities - other findings: RLE with decreased erythema, edema and chronic changes noted Skin: normal turgor Neurological: cranial nerve grossly intact, no new deficit Musculoskeletal: normal tone, normal strength, no muscle wasting Psychiatric: normal affect, A&O x 3 Hosp A/P (1) Cellulitis and abscess of right lower extremity Code(s): L03.115 - CELLULITIS OF RIGHT LOWER LIMB; L02.415 - CUTANEOUS ABSCESS OF RIGHT LOWER LIMB Status: Acute Plan: Continue Rocephin 1gm IV daily (2) Recurrent deep vein thrombosis (DVT) Code(s): I82.409 - ACUTE EMBOLISM AND THOMBOS UNSP DEEP VN UNSP LOWER EXTREMITY Status: Chronic Plan: Continue Lovenox bridge, increase Coumadin 10mg po daily (3) Sepsis Code(s): A41.9 - SEPSIS, UNSPECIFIED ORGANISM Status: Acute Plan: Resolving (4) Chronic anticoagulation Code(s): Z79.01 - ALF (CURRENT) USE OF ANTICOAGULANTS Status: Chronic Plan: Sub-therapeutic INR, increase Coumadin 10mg daily, continue Lovenox bridge - 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
[2019-06-11] MEDS ORDERED: Warfarin Sodium 5 MG TAB PO SCH (19:00)
[2019-06-11] MEDS: Temazepam 15 MG CAP PO PRN (22:57)
[2019-06-12] MEDS: Morphine 4 MG/ML VIAL SLOW IVP SCH ×6 (03:00→21:41)
[2019-06-12] MEDS: Diazepam 5 MG TAB PO PRN ×3 (03:36→18:45)
[2019-06-12 05:11] LABS: INR-International Normal Ratio 1.1; Prothrombin Time 14.3 SEC (12.0-14.7)
[2019-06-12 05:29] LABS: Hemoglobin 11.6 g/dL (14.0-18.0); Platelet Count 103 thou/uL (130-400)
[2019-06-12] MEDS: Enoxaparin Sodium 120 MG/0.8 ML SYRINGE SC SCH ×2 (09:15→21:41)
[2019-06-12] MEDS: HYDROcodone/Acetaminophen 10/325 mg Tablet PO PRN ×3 (10:53→22:04)
[2019-06-12] MEDS: cefTRIAXone\\ROCEPHIN 1 GM in Sodium Chloride 0.9% 100 ML IVPB SCH (16:11)
[2019-06-12] MEDS: Warfarin Sodium 10 MG TAB PO SCH (16:18)
--- NOTE | 2019-06-12 16:34 | PRG ---
DATE OF SERVICE: 06/12/2019 SUBJECTIVE: He still has quite a bit of pain. He was able to walk around today though. No diarrhea. No respiratory symptoms. OBJECTIVE: VITAL SIGNS: He is afebrile. LUNGS: Clear. GENERAL: No distress. ABDOMEN: Soft. SKIN: Petechial rash looking more like erysipelas now than before. LABORATORY DATA: White cell count was not repeated today. It is quite tender the skin of the right leg. ASSESSMENT AND DISCUSSION: Recurrent deep venous thrombosis, unexplained etiology. Injuries of the right leg with lymphedema and now cellulitis. Continue Rocephin. Compressive dressing. Job ID: [id number]
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
[2019-06-12] MEDS: Temazepam 15 MG CAP PO PRN (22:04)
[2019-06-13] MEDS: Morphine 4 MG/ML VIAL SLOW IVP SCH ×6 (02:47→21:56)
[2019-06-13 05:29] LABS: INR-International Normal Ratio 1.3; Prothrombin Time 16.1 SEC (12.0-14.7)
[2019-06-13] MEDS: Enoxaparin Sodium 120 MG/0.8 ML SYRINGE SC SCH ×2 (08:25→21:56)
[2019-06-13] MEDS: HYDROcodone/Acetaminophen 10/325 mg Tablet PO PRN ×2 (08:25→23:37)
[2019-06-13] MEDS: Diazepam 5 MG TAB PO PRN (10:14)
--- NOTE | 2019-06-13 13:40 | PRG ---
DATE OF SERVICE: 06/13/2019 SUBJECTIVE: About the same as yesterday, still is able to walk, but the leg is still quite tender to palpation. No respiratory symptoms or abdominal pain. No diarrhea. Voiding without difficulty. OBJECTIVE: VITAL SIGNS: Normal. EXTREMITIES: The right leg has a bright red erysipelas-looking appearance, most likely due to small areas of hemorrhage in the dermis from damage to the small vessels in that layer of skin. The leg itself is not distended. It is quite supple and the tenderness is a bit improved compared with previous findings. LUNGS: Clear. HEART: S1 and S2. Regular rate. ABDOMEN: Soft, not distended or tender. LABORATORY DATA: White cell count was 9.4 on 06/10. ASSESSMENT AND DISCUSSION: Lymphedema following previous injury to right lower extremity with now cellulitis, likely due to beta-hemolytic strep with improvement, still quite a bit of tenderness. He does have a lot of dermal hemorrhage from the infection, but the actual erythema has improved. Continue Rocephin. Maybe in the next 24 to 48 hours, we will be able to switch him to oral Keflex for discharge planning, it may take longer though. Job ID: [id number]
--- NOTE | 2019-06-13 17:21 | PDOC.HOSPP ---
- Subjective Encounter Date: 06/13/19 Encounter Time: 17:10 Subjective: f/u for RLE cellulitis/lymphedema on current Rocephin with slow improvement. Still has tenderness on the leg but ambulated today. - Objective Vital Signs & Weight: Vital Signs (12 hours) Temp Pulse Resp BP Pulse Ox 06/13/19 15:11 97 F L 97 18 105/71 95 06/13/19 11:48 98.6 F 96 20 112/77 92 L 06/13/19 07:37 98.7 F 73 16 117/77 96 Weight Weight 286 lb 4.8 oz I&O: 06/12/19 06/13/19 06/14/19 06:59 06:59 06:59 Intake Total 1820 960 Output Total 900 1100 Balance 920 -140 Result Diagrams: 06/12/19 04:58 06/11/19 03:41 Additional Labs: Microbiology 06/09/19 05:44 Nasal swab Influenza Types A,B Direct EIA - Final 06/09/19 07:54 Venous blood - Right Hand Blood Culture - Preliminary Specimen has been received and culture in progress. No Growth to date. 06/09/19 07:54 Venous blood - Right Hand Blood Culture - Preliminary NO GROWTH AT 48 HOURS 06/09/19 07:44 Venous blood - Left Hand Blood Culture - Preliminary Specimen has been received and culture in progress. No Growth to date. 06/09/19 07:44 Venous blood - Left Hand Blood Culture - Preliminary NO GROWTH AT 48 HOURS Laboratory Tests 06/09/19 06/09/19 06/09/19 05:59 05:59 05:59 WBC 15.6 H Hgb 14.0 Neutrophils % (Manual) 61 Band Neuts % (Manual) 28 H INR 1.5 Sodium 137 Potassium Lactic Acid Total Bilirubin 1.3 H Vancomycin Trough 06/09/19 06/10/19 06/10/19 07:54 04:34 04:34 WBC Hgb Neutrophils % (Manual) 74 Band Neuts % (Manual) 16 H INR Sodium 134 L Potassium 3.6 Lactic Acid 1.6 Total Bilirubin Vancomycin Trough 06/10/19 06/10/19 06/10/19 04:34 07:39 14:48 WBC Hgb Neutrophils % (Manual) Band Neuts % (Manual) INR 1.2 Sodium Potassium Lactic Acid Total Bilirubin Vancomycin Trough 16.6 27.6 06/11/19 06/11/19 03:41 10:06 WBC Hgb Neutrophils % (Manual) Band Neuts % (Manual) INR 1.1 Sodium Potassium Lactic Acid Total Bilirubin Vancomycin Trough 5.3 Hospitalist ROS - Medication Medications: Active Medications Generic Name Dose Route Start Last Admin Trade Name Freq PRN Reason Stop Dose Admin Acetaminophen 650 mg 06/09/19 08:47 06/11/19 08:22 Tylenol PO 650 mg Q4H PRN Administration Headache/Fever/Mild Pain (1-3) Hydrocodone Bitart/Acetaminophen 2 tab 06/10/19 09:10 06/13/19 08:25 [place] 10/325 PO 2 tab Q6H PRN Administration Moderate to Severe Pain (6-10) Diazepam 10 mg 06/09/19 20:04 06/13/19 10:14 Valium PO 10 mg TIDPRN PRN Administration Anxiety/Agitation Enoxaparin Sodium 120 mg 06/10/19 21:00 06/13/19 08:25 Lovenox SC 120 mg 0900,2100 HUAN Administration Ceftriaxone Sodium 1 gm/ 100 mls @ 200 mls/hr 06/10/19 17:00 06/12/19 16:11 Sodium Chloride IVPB 100 mls Q24HR HUAN Administration Morphine Sulfate 4 mg 06/10/19 18:00 06/13/19 14:16 Morphine SLOW IVP 4 mg Q4H HUAN Administration Ondansetron HCl 4 mg 06/09/19 08:47 06/09/19 22:59 Zofran IVP 4 mg Q6H PRN Administration Nausea/Vomiting Pantoprazole Sodium 40 mg 06/09/19 21:00 06/12/19 21:40 Protonix PO 40 mg 2100 HUAN Administration Sodium Chloride 10 ml 06/09/19 21:00 06/13/19 14:17 Flush - Normal Saline IVF 10 ml Q12HR HUAN Administration Sodium Chloride 10 ml 06/09/19 09:02 06/13/19 06:54 Flush - Normal Saline IVF 10 ml PRN PRN Administration Saline Flush Temazepam 30 mg 06/10/19 16:37 06/12/19 22:04 Restoril PO 30 mg HSPRN PRN Administration Insomnia Warfarin Sodium 10 mg 06/12/19 17:00 06/12/19 16:18 Coumadin PO 10 mg 1700 HUAN Administration - Exam General Appearance: NAD, awake alert Eye: PERRL, anicteric sclera ENT: normocephalic atraumatic, no oropharyngeal lesions Neck: supple, symmetric, no JVD, no thyromegaly Heart: RRR, no murmur, no gallops, no rubs, normal peripheral pulses Respiratory: CTAB, no wheezes, no rales, no ronchi, normal chest expansion Gastrointestinal: soft, non-tender, non-distended, normal bowel sounds, no palpable masses, no hepatomegaly Skin - other findings: RLE with dense erythema with partial areas of improvement irregularly Neurological: cranial nerve grossly intact, no new deficit Musculoskeletal: normal tone, normal strength, no muscle wasting Psychiatric: normal affect, A&O x 3 Hosp A/P (1) Cellulitis and abscess of right lower extremity Code(s): L03.115 - CELLULITIS OF RIGHT LOWER LIMB; L02.415 - CUTANEOUS ABSCESS OF RIGHT LOWER LIMB Status: Acute Plan: Continue Rocephin and monitor for clinical improvement, Elevate RLE while in bed (2) Recurrent deep vein thrombosis (DVT) Code(s): I82.409 - ACUTE EMBOLISM AND THOMBOS UNSP DEEP VN UNSP LOWER EXTREMITY Status: Chronic Plan: Continue Lovenox bridge as INR subtherapeutic with Coumadin (3) Sepsis Code(s): A41.9 - SEPSIS, UNSPECIFIED ORGANISM Status: Acute (4) Chronic anticoagulation Code(s): Z79.01 - FPC (CURRENT) USE OF ANTICOAGULANTS Status: Chronic Plan: Continue Coumadin, Lovenox bridging - Plan continue antibiotics, out of bed/ambulate Stable currently Continue Rocephin IV, eventual transition to Keflex Lovenox 120mg SC BID bridging Continue Coumadin 10mg daily Morphine Sulfate 4mg IV q4h PRN AM lab: H/H, PT/INR
[2019-06-13] MEDS: cefTRIAXone\\ROCEPHIN 1 GM in Sodium Chloride 0.9% 100 ML IVPB SCH (17:35)
[2019-06-13] MEDS: Warfarin Sodium 10 MG TAB PO SCH (17:45)
[2019-06-14] MEDS: Morphine 4 MG/ML VIAL SLOW IVP SCH ×6 (02:17→21:31)
[2019-06-14] MEDS ORDERED: Melatonin 3 MG TAB PO SCH (03:30)
[2019-06-14] MEDS ORDERED: Ketorolac Tromethamine 30 MG/ML VIAL IVP SCH (03:30)
[2019-06-14 06:18] LABS: INR-International Normal Ratio 1.6; Prothrombin Time 18.7 SEC (12.0-14.7)
[2019-06-14] MEDS: HYDROcodone/Acetaminophen 10/325 mg Tablet PO PRN ×2 (08:42→15:32)
[2019-06-14] MEDS: Enoxaparin Sodium 120 MG/0.8 ML SYRINGE SC SCH ×2 (10:26→21:31)
[2019-06-14] MEDS: Diazepam 5 MG TAB PO PRN ×2 (10:36→18:22)
--- NOTE | 2019-06-14 15:16 | PDOC.HOSPP ---
- Subjective Encounter Date: 06/14/19 Encounter Time: 15:15 Subjective: f/u for RLE cellulitis on current Rocephin and slow clinical improvement. - Objective Vital Signs & Weight: Vital Signs (12 hours) Temp Pulse Resp BP Pulse Ox 06/14/19 15:13 98.4 F 84 19 103/67 97 06/14/19 11:28 98.4 F 87 19 101/65 94 L 06/14/19 08:36 94 L 06/14/19 07:32 99.0 F 97 16 102/68 94 L 06/14/19 04:00 99.0 F 97 18 100/61 94 L Weight Weight 286 lb 4.8 oz I&O: 06/13/19 06/14/19 06/15/19 06:59 06:59 06:59 Intake Total 1780 Output Total 2150 350 Balance -370 -350 Result Diagrams: 06/12/19 04:58 06/11/19 03:41 Additional Labs: Microbiology 06/09/19 05:44 Nasal swab Influenza Types A,B Direct EIA - Final 06/09/19 07:54 Venous blood - Right Hand Blood Culture - Preliminary Specimen has been received and culture in progress. No Growth to date. 06/09/19 07:54 Venous blood - Right Hand Blood Culture - Preliminary NO GROWTH AT 48 HOURS 06/09/19 07:44 Venous blood - Left Hand Blood Culture - Preliminary Specimen has been received and culture in progress. No Growth to date. 06/09/19 07:44 Venous blood - Left Hand Blood Culture - Preliminary NO GROWTH AT 48 HOURS Laboratory Tests 06/09/19 06/09/19 06/09/19 05:59 05:59 05:59 WBC 15.6 H Hgb 14.0 Neutrophils % (Manual) 61 Band Neuts % (Manual) 28 H PT INR 1.5 Sodium 137 Potassium Lactic Acid Total Bilirubin 1.3 H Vancomycin Trough 06/09/19 06/10/19 06/10/19 07:54 04:34 04:34 WBC Hgb Neutrophils % (Manual) 74 Band Neuts % (Manual) 16 H PT INR Sodium 134 L Potassium 3.6 Lactic Acid 1.6 Total Bilirubin Vancomycin Trough 06/10/19 06/10/19 06/10/19 04:34 07:39 14:48 WBC Hgb Neutrophils % (Manual) Band Neuts % (Manual) PT INR 1.2 Sodium Potassium Lactic Acid Total Bilirubin Vancomycin Trough 16.6 27.6 06/11/19 06/11/19 06/14/19 03:41 10:06 05:13 WBC Hgb Neutrophils % (Manual) Band Neuts % (Manual) PT 18.7 H INR 1.1 1.6 Sodium Potassium Lactic Acid Total Bilirubin Vancomycin Trough 5.3 Hospitalist ROS - Medication Medications: Active Medications Generic Name Dose Route Start Last Admin Trade Name Freq PRN Reason Stop Dose Admin Acetaminophen 650 mg 06/09/19 08:47 06/11/19 08:22 Tylenol PO 650 mg Q4H PRN Administration Headache/Fever/Mild Pain (1-3) Hydrocodone Bitart/Acetaminophen 2 tab 06/10/19 09:10 06/14/19 08:42 [place] 10/325 PO 2 tab Q6H PRN Administration Moderate to Severe Pain (6-10) Diazepam 10 mg 06/09/19 20:04 06/14/19 10:36 Valium PO 10 mg TIDPRN PRN Administration Anxiety/Agitation Enoxaparin Sodium 120 mg 06/10/19 21:00 06/14/19 10:26 Lovenox SC 120 mg 0900,2100 HUAN Administration Ceftriaxone Sodium 1 gm/ 100 mls @ 200 mls/hr 06/10/19 17:00 06/13/19 17:35 Sodium Chloride IVPB 100 mls Q24HR HUAN Administration Morphine Sulfate 4 mg 06/10/19 18:00 06/14/19 14:26 Morphine SLOW IVP 4 mg Q4H HUAN Administration Ondansetron HCl 4 mg 06/09/19 08:47 06/09/19 22:59 Zofran IVP 4 mg Q6H PRN Administration Nausea/Vomiting Pantoprazole Sodium 40 mg 06/09/19 21:00 06/13/19 21:56 Protonix PO 40 mg 2100 HUAN Administration Sodium Chloride 10 ml 06/09/19 21:00 06/14/19 09:00 Flush - Normal Saline IVF 10 ml Q12HR HUAN Administration Sodium Chloride 10 ml 06/09/19 09:02 06/13/19 06:54 Flush - Normal Saline IVF 10 ml PRN PRN Administration Saline Flush Temazepam 30 mg 06/10/19 16:37 06/12/19 22:04 Restoril PO 30 mg HSPRN PRN Administration Insomnia Warfarin Sodium 10 mg 06/12/19 17:00 06/13/19 17:45 Coumadin PO 10 mg 1700 HUAN Administration - Exam General Appearance: NAD, awake alert Eye: PERRL, anicteric sclera ENT: normocephalic atraumatic, no oropharyngeal lesions Neck: supple, symmetric, no JVD, no thyromegaly, no lymphadenopathy Heart: RRR, no murmur, no gallops, no rubs, normal peripheral pulses Respiratory: CTAB, no wheezes, no rales, no ronchi, normal chest expansion Gastrointestinal: soft, non-tender, non-distended, normal bowel sounds, no palpable masses Extremities: 2+ LE edema Extremities - other findings: RLE with diffuse erythema with areas of clearing Neurological: cranial nerve grossly intact, no new deficit Musculoskeletal: normal tone, normal strength, no muscle wasting Psychiatric: normal affect, A&O x 3 Hosp A/P (1) Cellulitis and abscess of right lower extremity Code(s): L03.115 - CELLULITIS OF RIGHT LOWER LIMB; L02.415 - CUTANEOUS ABSCESS OF RIGHT LOWER LIMB Status: Acute Plan: Continue Rocephin IV another 24h and monitor progress, eventual transition to Keflex (2) Recurrent deep vein thrombosis (DVT) Code(s): I82.409 - ACUTE EMBOLISM AND THOMBOS UNSP DEEP VN UNSP LOWER EXTREMITY Status: Chronic Plan: Continue Lovenox bridging as INR remains subtherapeutic, Coumadin 10mg daily (3) Sepsis Code(s): A41.9 - SEPSIS, UNSPECIFIED ORGANISM Status: Acute (4) Chronic anticoagulation Code(s): Z79.01 - USP (CURRENT) USE OF ANTICOAGULANTS Status: Chronic Plan: See above - Plan continue antibiotics, out of bed/ambulate Stable currently Continue Rocephin IV, eventual transition to Keflex Lovenox 120mg SC BID bridging Continue Coumadin 10mg daily Morphine Sulfate 4mg IV q4h PRN AM lab: H/H, PT/INR ? Home in 48h
--- NOTE | 2019-06-14 17:39 | PRG ---
DATE OF SERVICE: 06/14/2019 SUBJECTIVE: Improving, but still with pain when he walks. No diarrhea. No respiratory symptoms. OBJECTIVE: VITAL SIGNS: T max 99, and other vital signs are normal. ASSESSMENT AND DISCUSSION: The right leg with clear-cut improvement today compared with the prior days. Everything is getting better. The areas of dermal hemorrhage are consolidating and drying up. A lot of the areas are clearing up, it is just a matter of days, in one or two days before he can be discharged on oral Keflex. He certainly would be a candidate for penicillin VK prophylaxis 250 mg twice daily for protracted period of time. Job ID: [id number]
[2019-06-14] MEDS: cefTRIAXone\\ROCEPHIN 1 GM in Sodium Chloride 0.9% 100 ML IVPB SCH (18:11)
[2019-06-14] MEDS: Warfarin Sodium 10 MG TAB PO SCH (18:22)
[2019-06-14] MEDS: Temazepam 15 MG CAP PO PRN (23:29)
[2019-06-15] MEDS: Morphine 4 MG/ML VIAL SLOW IVP SCH ×6 (02:07→21:10)
[2019-06-15 05:28] LABS: Hemoglobin 9.8 g/dL (14.0-18.0); Platelet Count 239 thou/uL (130-400)
[2019-06-15 05:37] LABS: INR-International Normal Ratio 1.8; Prothrombin Time 20.9 SEC (12.0-14.7)
[2019-06-15] MEDS: Enoxaparin Sodium 120 MG/0.8 ML SYRINGE SC SCH ×2 (08:34→21:07)
[2019-06-15] MEDS: HYDROcodone/Acetaminophen 10/325 mg Tablet PO PRN ×3 (08:35→23:30)
[2019-06-15] MEDS: Diazepam 5 MG TAB PO PRN ×2 (08:38→18:37)
--- NOTE | 2019-06-15 16:25 | PDOC.HOSPP ---
- Subjective Encounter Date: 06/15/19 Encounter Time: 16:15 Subjective: f/u for RLE cellulitis on Rocephin IV hospital day #6. Still with pressure and redness in RLE but overall improved. - Objective Vital Signs & Weight: Vital Signs (12 hours) Temp Pulse Resp BP Pulse Ox 06/15/19 15:30 98.7 F 85 16 99/63 97 06/15/19 07:24 98.4 F 84 16 112/74 96 Weight Weight 286 lb 4.8 oz I&O: 06/14/19 06/15/19 06/16/19 06:59 06:59 06:59 Intake Total 1780 600 Output Total 2150 1200 Balance -370 -600 Result Diagrams: 06/15/19 05:12 06/11/19 03:41 Additional Labs: Microbiology 06/09/19 05:44 Nasal swab Influenza Types A,B Direct EIA - Final 06/09/19 07:54 Venous blood - Right Hand Blood Culture - Preliminary Specimen has been received and culture in progress. No Growth to date. 06/09/19 07:54 Venous blood - Right Hand Blood Culture - Preliminary NO GROWTH AT 48 HOURS 06/09/19 07:44 Venous blood - Left Hand Blood Culture - Preliminary Specimen has been received and culture in progress. No Growth to date. 06/09/19 07:44 Venous blood - Left Hand Blood Culture - Preliminary NO GROWTH AT 48 HOURS Laboratory Tests 06/09/19 06/09/19 06/09/19 05:59 05:59 05:59 WBC 15.6 H Hgb 14.0 Neutrophils % (Manual) 61 Band Neuts % (Manual) 28 H PT INR 1.5 Sodium 137 Potassium Lactic Acid Total Bilirubin 1.3 H Vancomycin Trough 06/09/19 06/10/19 06/10/19 07:54 04:34 04:34 WBC Hgb Neutrophils % (Manual) 74 Band Neuts % (Manual) 16 H PT INR Sodium 134 L Potassium 3.6 Lactic Acid 1.6 Total Bilirubin Vancomycin Trough 06/10/19 06/10/19 06/10/19 04:34 07:39 14:48 WBC Hgb Neutrophils % (Manual) Band Neuts % (Manual) PT INR 1.2 Sodium Potassium Lactic Acid Total Bilirubin Vancomycin Trough 16.6 27.6 06/11/19 06/11/19 06/14/19 03:41 10:06 05:13 WBC Hgb Neutrophils % (Manual) Band Neuts % (Manual) PT 18.7 H INR 1.1 1.6 Sodium Potassium Lactic Acid Total Bilirubin Vancomycin Trough 5.3 06/15/19 05:12 WBC Hgb Neutrophils % (Manual) Band Neuts % (Manual) PT INR 1.8 Sodium Potassium Lactic Acid Total Bilirubin Vancomycin Trough Hospitalist ROS - Medication Medications: Active Medications Generic Name Dose Route Start Last Admin Trade Name Freq PRN Reason Stop Dose Admin Acetaminophen 650 mg 06/09/19 08:47 06/11/19 08:22 Tylenol PO 650 mg Q4H PRN Administration Headache/Fever/Mild Pain (1-3) Hydrocodone Bitart/Acetaminophen 2 tab 06/10/19 09:10 06/15/19 12:32 [place] 10/325 PO 2 tab Q6H PRN Administration Moderate to Severe Pain (6-10) Diazepam 10 mg 06/09/19 20:04 06/15/19 08:38 Valium PO 10 mg TIDPRN PRN Administration Anxiety/Agitation Enoxaparin Sodium 120 mg 06/10/19 21:00 06/15/19 08:34 Lovenox SC 120 mg 0900,2100 HUAN Administration Ceftriaxone Sodium 1 gm/ 100 mls @ 200 mls/hr 06/10/19 17:00 06/14/19 18:11 Sodium Chloride IVPB 100 mls Q24HR HUAN Administration Morphine Sulfate 4 mg 06/10/19 18:00 06/15/19 14:16 Morphine SLOW IVP 4 mg Q4H HAUN Administration Ondansetron HCl 4 mg 06/09/19 08:47 06/09/19 22:59 Zofran IVP 4 mg Q6H PRN Administration Nausea/Vomiting Pantoprazole Sodium 40 mg 06/09/19 21:00 06/14/19 21:31 Protonix PO 40 mg 2100 HUAN Administration Sodium Chloride 10 ml 06/09/19 21:00 06/15/19 08:35 Flush - Normal Saline IVF 10 ml Q12HR HUAN Administration Sodium Chloride 10 ml 06/09/19 09:02 06/13/19 06:54 Flush - Normal Saline IVF 10 ml PRN PRN Administration Saline Flush Temazepam 30 mg 06/10/19 16:37 03/04/20 23:29 Restoril PO 30 mg HSPRN PRN Administration Insomnia Warfarin Sodium 10 mg 06/12/19 17:00 06/14/19 18:22 Coumadin PO 10 mg 1700 HUAN Administration - Exam General Appearance: NAD, awake alert Eye: PERRL, anicteric sclera ENT: normocephalic atraumatic, no oropharyngeal lesions Neck: supple, symmetric, no JVD, no thyromegaly, no lymphadenopathy Heart: RRR, no murmur, no gallops, no rubs, normal peripheral pulses Respiratory: CTAB, no wheezes, no rales, no ronchi, normal chest expansion, no tachypnea Gastrointestinal: soft, non-tender, non-distended, normal bowel sounds, no palpable masses Extremities - other findings: RLE with increased areas of clearing and decreased erythema Neurological: cranial nerve grossly intact, no new deficit Musculoskeletal: normal tone, normal strength, no muscle wasting Psychiatric: normal affect, A&O x 3 Hosp A/P (1) Cellulitis and abscess of right lower extremity Code(s): L03.115 - CELLULITIS OF RIGHT LOWER LIMB; L02.415 - CUTANEOUS ABSCESS OF RIGHT LOWER LIMB Status: Acute Plan: Slow clinical improvement, continue Rocephin IV, Elevated RLE (2) Recurrent deep vein thrombosis (DVT) Code(s): I82.409 - ACUTE EMBOLISM AND THOMBOS UNSP DEEP VN UNSP LOWER EXTREMITY Status: Chronic Plan: Continue Lovenox bridge and Coumadin (3) Sepsis Code(s): A41.9 - SEPSIS, UNSPECIFIED ORGANISM Status: Acute Plan: Secondary to RLE cellulitis (4) Chronic anticoagulation Code(s): Z79.01 - [employer] (CURRENT) USE OF ANTICOAGULANTS Status: Chronic Plan: Continue Lovenox bridge with Coumadin - Plan continue antibiotics, out of bed/ambulate Stable currently Continue Rocephin IV, eventual transition to Keflex Lovenox 120mg SC BID bridging Continue Coumadin 10mg daily Morphine Sulfate 4mg IV q4h PRN AM lab: H/H, PT/INR ? Home in 48h
[2019-06-15] MEDS: Warfarin Sodium 10 MG TAB PO SCH (17:08)
[2019-06-15] MEDS: cefTRIAXone\\ROCEPHIN 1 GM in Sodium Chloride 0.9% 100 ML IVPB SCH (17:08)
[2019-06-15] MEDS: Temazepam 15 MG CAP PO PRN (23:30)
[2019-06-16] MEDS: Morphine 4 MG/ML VIAL SLOW IVP SCH ×6 (02:05→21:10)
[2019-06-16 05:22] LABS: Hemoglobin 9.6 g/dL (14.0-18.0); Platelet Count 302 thou/uL (130-400)
[2019-06-16 05:33] LABS: INR-International Normal Ratio 2.1
[2019-06-16] MEDS: Enoxaparin Sodium 120 MG/0.8 ML SYRINGE SC SCH (08:30)
[2019-06-16] MEDS: HYDROcodone/Acetaminophen 10/325 mg Tablet PO PRN ×3 (08:30→21:21)
[2019-06-16] MEDS: Diazepam 5 MG TAB PO PRN ×2 (08:33→18:16)
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
--- NOTE | 2019-06-16 16:31 | PDOC.HOSPP ---
- Subjective Encounter Date: 06/16/19 Encounter Time: 16:30 Subjective: f/u for RLE cellulitis tx with Rocephin IV on day #7. Slowly improving but still swollen and painful when ambulating. - Objective Vital Signs & Weight: Vital Signs (12 hours) Temp Pulse Resp BP Pulse Ox 06/16/19 15:04 98.5 F 68 20 118/79 98 06/16/19 11:08 98.1 F 88 20 100/65 93 L 06/16/19 07:17 98.5 F 82 20 128/86 98 Weight Weight 286 lb 4.8 oz I&O: 06/15/19 06/16/19 06/17/19 06:59 06:59 06:59 Intake Total 600 2810 Output Total 1200 1425 Balance -600 1385 Result Diagrams: 06/16/19 05:04 06/11/19 03:41 Additional Labs: Microbiology 06/09/19 05:44 Nasal swab Influenza Types A,B Direct EIA - Final 06/09/19 07:54 Venous blood - Right Hand Blood Culture - Preliminary Specimen has been received and culture in progress. No Growth to date. 06/09/19 07:54 Venous blood - Right Hand Blood Culture - Preliminary NO GROWTH AT 48 HOURS 06/09/19 07:44 Venous blood - Left Hand Blood Culture - Preliminary Specimen has been received and culture in progress. No Growth to date. 06/09/19 07:44 Venous blood - Left Hand Blood Culture - Preliminary NO GROWTH AT 48 HOURS Laboratory Tests 06/09/19 06/09/19 06/09/19 05:59 05:59 05:59 WBC 15.6 H Hgb 14.0 Neutrophils % (Manual) 61 Band Neuts % (Manual) 28 H PT INR 1.5 Sodium 137 Potassium Lactic Acid Total Bilirubin 1.3 H Vancomycin Trough 06/09/19 06/10/19 06/10/19 07:54 04:34 04:34 WBC Hgb Neutrophils % (Manual) 74 Band Neuts % (Manual) 16 H PT INR Sodium 134 L Potassium 3.6 Lactic Acid 1.6 Total Bilirubin Vancomycin Trough 06/10/19 06/10/19 06/10/19 04:34 07:39 14:48 WBC Hgb Neutrophils % (Manual) Band Neuts % (Manual) PT INR 1.2 Sodium Potassium Lactic Acid Total Bilirubin Vancomycin Trough 16.6 27.6 06/11/19 06/11/19 06/14/19 03:41 10:06 05:13 WBC Hgb Neutrophils % (Manual) Band Neuts % (Manual) PT 18.7 H INR 1.1 1.6 Sodium Potassium Lactic Acid Total Bilirubin Vancomycin Trough 5.3 06/15/19 05:12 WBC Hgb Neutrophils % (Manual) Band Neuts % (Manual) PT INR 1.8 Sodium Potassium Lactic Acid Total Bilirubin Vancomycin Trough Hospitalist ROS - Medication Medications: Active Medications Generic Name Dose Route Start Last Admin Trade Name Freq PRN Reason Stop Dose Admin Acetaminophen 650 mg 06/09/19 08:47 06/11/19 08:22 Tylenol PO 650 mg Q4H PRN Administration Headache/Fever/Mild Pain (1-3) Hydrocodone Bitart/Acetaminophen 2 tab 06/10/19 09:10 06/16/19 15:39 [place] 10/325 PO 2 tab Q6H PRN Administration Moderate to Severe Pain (6-10) Diazepam 10 mg 06/09/19 20:04 06/16/19 08:33 Valium PO 10 mg TIDPRN PRN Administration Anxiety/Agitation Enoxaparin Sodium 120 mg 06/10/19 21:00 06/16/19 08:30 Lovenox SC 120 mg 0900,2100 HUAN Administration Ceftriaxone Sodium 1 gm/ 100 mls @ 200 mls/hr 06/10/19 17:00 06/15/19 17:08 Sodium Chloride IVPB 100 mls Q24HR HUAN Administration Morphine Sulfate 4 mg 06/10/19 18:00 06/16/19 14:02 Morphine SLOW IVP 4 mg Q4H HUAN Administration Ondansetron HCl 4 mg 06/09/19 08:47 06/09/19 22:59 Zofran IVP 4 mg Q6H PRN Administration Nausea/Vomiting Pantoprazole Sodium 40 mg 06/09/19 21:00 06/15/19 21:08 Protonix PO 40 mg 2100 HUAN Administration Sodium Chloride 10 ml 06/09/19 21:00 06/16/19 08:30 Flush - Normal Saline IVF 10 ml Q12HR HUAN Administration Sodium Chloride 10 ml 06/09/19 09:02 06/13/19 06:54 Flush - Normal Saline IVF 10 ml PRN PRN Administration Saline Flush Temazepam 30 mg 06/10/19 16:37 06/15/19 23:30 Restoril PO 30 mg HSPRN PRN Administration Insomnia Warfarin Sodium 10 mg 06/12/19 17:00 06/15/19 17:08 Coumadin PO 10 mg 1700 HUAN Administration - Exam General Appearance: NAD, awake alert Eye: PERRL, anicteric sclera ENT: normocephalic atraumatic, no oropharyngeal lesions Neck: supple, symmetric, no JVD, no thyromegaly Heart: RRR, no murmur, no gallops, no rubs, normal peripheral pulses Respiratory: CTAB, no wheezes, no rales, no ronchi, normal chest expansion, no tachypnea Gastrointestinal: soft, non-tender, non-distended, normal bowel sounds, no palpable masses Extremities - other findings: RLE with increased skin clearing and decreased erythema Neurological: cranial nerve grossly intact, no new deficit Musculoskeletal: normal tone, normal strength, no muscle wasting Psychiatric: normal affect, A&O x 3 Hosp A/P (1) Cellulitis and abscess of right lower extremity Code(s): L03.115 - CELLULITIS OF RIGHT LOWER LIMB; L02.415 - CUTANEOUS ABSCESS OF RIGHT LOWER LIMB Status: Acute Plan: Improving, continue Rocephin another 48h then plan to convert to Keflex (2) Recurrent deep vein thrombosis (DVT) Code(s): I82.409 - ACUTE EMBOLISM AND THOMBOS UNSP DEEP VN UNSP LOWER EXTREMITY Status: Chronic Plan: Coumadin therapeutic currently, d/c Lovenox (3) Sepsis Code(s): A41.9 - SEPSIS, UNSPECIFIED ORGANISM Status: Acute (4) Chronic anticoagulation Code(s): 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 Home in 48-72h
[2019-06-16] MEDS: cefTRIAXone\\ROCEPHIN 1 GM in Sodium Chloride 0.9% 100 ML IVPB SCH (17:10)
[2019-06-16] MEDS: Warfarin Sodium 10 MG TAB PO SCH (17:11)
[2019-06-16] MEDS: Temazepam 15 MG CAP PO PRN (21:21)
[2019-06-17] MEDS: Morphine 4 MG/ML VIAL SLOW IVP SCH ×6 (01:10→21:35)
[2019-06-17] MEDS: HYDROcodone/Acetaminophen 10/325 mg Tablet PO PRN ×4 (03:22→23:13)
[2019-06-17] MEDS: Diazepam 5 MG TAB PO PRN (11:43)
--- NOTE | 2019-06-17 13:39 | PDOC.HOSPP ---
- Subjective Encounter Date: 06/17/19 Encounter Time: 14:10 Subjective: Leg itching a bit, painful, but overall improving. No fever or systemic symptoms. - Objective Vital Signs & Weight: Vital Signs (12 hours) Temp Pulse Resp BP Pulse Ox 06/17/19 11:40 98.4 F 70 16 127/74 98 06/17/19 07:30 98.2 F 67 16 124/80 97 06/17/19 03:31 98.3 F 75 16 110/67 Weight Weight 286 lb 4.8 oz I&O: 06/16/19 06/17/19 06/18/19 06:59 06:59 07:59 Intake Total 2810 1940 Output Total 1425 1750 500 Balance 1385 190 -500 Result Diagrams: 06/16/19 05:04 06/11/19 03:41 Hospitalist ROS - Review of Systems Constitutional: denies: fever, chills Respiratory: denies: cough, dry, shortness of breath Cardiovascular: denies: chest pain, palpitations Gastrointestinal: denies: nausea, vomiting, abdominal pain Skin: reports: rash - Medication Medications: Active Medications Generic Name Dose Route Start Last Admin Trade Name Freq PRN Reason Stop Dose Admin Acetaminophen 650 mg 06/09/19 08:47 06/11/19 08:22 Tylenol PO 650 mg Q4H PRN Administration Headache/Fever/Mild Pain (1-3) Hydrocodone Bitart/Acetaminophen 2 tab 06/10/19 09:10 06/17/19 11:04 [place] 10/325 PO 2 tab Q6H PRN Administration Moderate to Severe Pain (6-10) Diazepam 10 mg 06/09/19 20:04 06/17/19 11:43 Valium PO 10 mg TIDPRN PRN Administration Anxiety/Agitation Ceftriaxone Sodium 1 gm/ 100 mls @ 200 mls/hr 06/10/19 17:00 06/16/19 17:10 Sodium Chloride IVPB 100 mls Q24HR HUAN Administration Morphine Sulfate 4 mg 06/10/19 18:00 06/17/19 09:45 Morphine SLOW IVP 4 mg Q4H HUAN Administration Ondansetron HCl 4 mg 06/09/19 08:47 06/09/19 22:59 Zofran IVP 4 mg Q6H PRN Administration Nausea/Vomiting Pantoprazole Sodium 40 mg 06/09/19 21:00 06/16/19 21:09 Protonix PO 40 mg 2100 HUAN Administration Sodium Chloride 10 ml 06/09/19 21:00 06/17/19 09:46 Flush - Normal Saline IVF 10 ml Q12HR HUAN Administration Sodium Chloride 10 ml 06/09/19 09:02 06/13/19 06:54 Flush - Normal Saline IVF 10 ml PRN PRN Administration Saline Flush Temazepam 30 mg 06/10/19 16:37 06/16/19 21:21 Restoril PO 30 mg HSPRN PRN Administration Insomnia Warfarin Sodium 10 mg 06/12/19 17:00 06/16/19 17:11 Coumadin PO 10 mg 1700 HUAN Administration - Exam General Appearance: NAD, awake alert ENT: moist mucosa Heart: RRR, no murmur, no gallops, no rubs Respiratory: CTAB, no wheezes, no rales, no ronchi Gastrointestinal: soft, non-tender, non-distended, normal bowel sounds Extremities - other findings: RLE with cellulitis, blood extravasation in tissues, improving Psychiatric: normal affect, normal behavior, A&O x 3 Hosp A/P (1) Cellulitis and abscess of right lower extremity Code(s): L03.115 - CELLULITIS OF RIGHT LOWER LIMB; L02.415 - CUTANEOUS ABSCESS OF RIGHT LOWER LIMB Status: Acute (2) Lymphedema of right lower extremity Code(s): I89.0 - LYMPHEDEMA, NOT ELSEWHERE CLASSIFIED Status: Chronic (3) Recurrent deep vein thrombosis (DVT) Code(s): I82.409 - ACUTE EMBOLISM AND THOMBOS UNSP DEEP VN UNSP LOWER EXTREMITY Status: Chronic (4) Chronic anticoagulation Code(s): 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
[2019-06-17] MEDS: Warfarin Sodium 10 MG TAB PO SCH (18:47)
[2019-06-17] MEDS: cefTRIAXone\\ROCEPHIN 1 GM in Sodium Chloride 0.9% 100 ML IVPB SCH (18:51)
[2019-06-17] MEDS: Temazepam 15 MG CAP PO PRN (23:13)
[2019-06-18] MEDS: Morphine 4 MG/ML VIAL SLOW IVP SCH ×3 (01:43→09:58)
[2019-06-18] MEDS: Diazepam 5 MG TAB PO PRN ×2 (03:01→20:59)
[2019-06-18 05:32] LABS: #Basophils 0.1 thou/uL (0.0-0.2); #Eosinphils 0.2 thou/uL (0.0-0.7); #Lymphocytes 1.1 thou/uL (1.20-3.40); #Monocytes 0.5 thou/uL (0.11-0.59); #Neutrophils 3.6 thou/uL (1.40-6.50); %Eosinophils 3.3 % (0.0-10.0); %Lymphocytes 20.7 % (21.0-51.0); %Monocytes 8.9 % (0.0-10.0); %Neutrophils 66.1 % (42.0-75.0); Hemoglobin 10.4 g/dL (14.0-18.0); Mean Corpuscular HGB CONC 31.6 g/dL (32.0-36.0); Mean Corpuscular Hemoglobin 30.6 pg (27.0-31.0); Mean Corpuscular Volume 96.8 fL (78.0-98.0); Mean Platelet Volume 7.8 fL (7.4-10.4); Platelet Count 418 thou/uL (130-400); RBC Distribution Width 16.8 % (11.5-14.5); Red Blood Cell (RBC) Count 3.41 mill/uL (4.70-6.10); White Blood Cell (WBC) Count 5.5 thou/uL (4.8-10.8)
[2019-06-18] MEDS: HYDROcodone/Acetaminophen 10/325 mg Tablet PO PRN ×3 (05:35→20:59)
[2019-06-18 05:38] LABS: INR-International Normal Ratio 2.4
[2019-06-18 05:51] LABS: Anion Gap 11 mmol/L (10-20); BUN (Urea Nitrogen) 6 mg/dL (8.9-20.6); Calc. Creatinine Clearance 256 mL/min (70-130); Carbon Dioxide 26 mmol/L (22-29); Chloride 105 mmol/L (98-107); Estimated GFR-MDRD Greater than 90; Glucose 100 mg/dL (70-105); Potassium 4.3 mmol/L (3.5-5.1); Sodium 138 mmol/L (136-145)
[2019-06-18] MEDS ORDERED: traMADol HCl 50 MG TAB PO PRN (10:49)
[2019-06-18] MEDS: Warfarin Sodium 10 MG TAB PO SCH (17:38)
[2019-06-18] MEDS: cefTRIAXone\\ROCEPHIN 1 GM in Sodium Chloride 0.9% 100 ML IVPB SCH (17:38)
[2019-06-18] MEDS: Temazepam 15 MG CAP PO PRN (20:59)
--- NOTE | 2019-06-18 21:46 | PDOC.HOSPP ---
- Subjective Encounter Date: 06/18/19 Encounter Time: 15:00 Subjective: pt up in bed, does not feel ready to go home. - Objective Vital Signs & Weight: Vital Signs (12 hours) Temp Pulse Resp BP Pulse Ox 06/18/19 20:40 98.5 F 68 18 109/71 98 06/18/19 15:10 99 F 76 16 139/87 93 L Weight Weight 286 lb 4.8 oz I&O: 06/17/19 06/18/19 06/19/19 05:59 06:59 06:59 Intake Total 998 Output Total 1225 Balance -227 Result Diagrams: 06/18/19 05:21 06/18/19 05:21 Hospitalist ROS - Review of Systems Cardiovascular: denies: chest pain, palpitations, orthopnea, paroxysmal noc. dyspnea, edema, light headedness, other Gastrointestinal: denies: nausea, vomiting, abdominal pain, diarrhea, constipation, melena, hematochezia, other Genitourinary: denies: dysuria, frequency, incontinence, hematuria, retention, other - Medication Medications: Active Medications Generic Name Dose Route Start Last Admin Trade Name Freq PRN Reason Stop Dose Admin Acetaminophen 650 mg 06/09/19 08:47 06/11/19 08:22 Tylenol PO 650 mg Q4H PRN Administration Headache/Fever/Mild Pain (1-3) Hydrocodone Bitart/Acetaminophen 1 tab 06/18/19 18:51 06/18/19 20:59 [place] 10/325 PO 1 tab Q6H PRN Administration Severe Pain (7-10) Diazepam 10 mg 06/09/19 20:04 06/18/19 20:59 Valium PO 10 mg TIDPRN PRN Administration Anxiety/Agitation Ceftriaxone Sodium 1 gm/ 100 mls @ 200 mls/hr 06/10/19 17:00 06/18/19 17:38 Sodium Chloride IVPB 100 mls Q24HR HUAN Administration Mineral Oil/White Petrolatum 0 gm 06/17/19 14:17 06/17/19 18:55 Aquaphor 99 Gm TOP 1 applic BIDPRN PRN Administration Itching Ondansetron HCl 4 mg 06/09/19 08:47 06/09/19 22:59 Zofran IVP 4 mg Q6H PRN Administration Nausea/Vomiting Pantoprazole Sodium 40 mg 06/09/19 21:00 06/18/19 20:43 Protonix PO 40 mg 2100 HUAN Administration Sodium Chloride 10 ml 06/09/19 21:00 06/18/19 20:44 Flush - Normal Saline IVF 10 ml Q12HR HUAN Administration Sodium Chloride 10 ml 06/09/19 09:02 06/17/19 18:51 Flush - Normal Saline IVF 10 ml PRN PRN Administration Saline Flush Temazepam 30 mg 06/10/19 16:37 06/18/19 20:59 Restoril PO 30 mg HSPRN PRN Administration Insomnia Warfarin Sodium 10 mg 06/12/19 17:00 06/18/19 17:38 Coumadin PO 10 mg 1700 HUAN Administration - Exam Neck: negative: supple, symmetric, no JVD, no thyromegaly, no lymphadenopathy, no carotid bruit, JVD Heart: negative: RRR, no murmur, no gallops, no rubs, normal peripheral pulses, irregular, diminshed peripheral pulses, murmur present, II/IV, III/IV Respiratory: negative: CTAB, no wheezes, no rales, no ronchi, normal chest expansion, no tachypnea, normal percussion, rales, rhonchi, tachypneic, wheezes Gastrointestinal: negative: soft, non-tender, non-distended, normal bowel sounds , no palpable masses, no hepatomegaly, no splenomegaly, no bruit, no guarding, no rigidity, tender to palpation, distended, diminished bowl sounds, voluntary guarding Extremities: 2+ LE edema Extremities - other findings: erythema noted to right lower ext Hosp A/P (1) Cellulitis and abscess of right lower extremity Code(s): L03.115 - CELLULITIS OF RIGHT LOWER LIMB; L02.415 - CUTANEOUS ABSCESS OF RIGHT LOWER LIMB Status: Acute (2) Lymphedema of right lower extremity Code(s): I89.0 - LYMPHEDEMA, NOT ELSEWHERE CLASSIFIED Status: Chronic (3) DVT (deep venous thrombosis) Status: Acute - Plan i will continue his iv abx, he will need a change to oral on dc. He still feels he is not ready and wants to stay in the hospital. His iv pain meds have been changed. He has been encouraged to ambulate. INR is therapeutic.
[2019-06-19] MEDS: HYDROcodone/Acetaminophen 10/325 mg Tablet PO PRN ×3 (03:49→18:52)
[2019-06-19 05:32] LABS: INR-International Normal Ratio 2.6; Prothrombin Time 27.9 SEC (12.0-14.7)
--- NOTE | 2019-06-19 09:42 | PDOC.HOSPP ---
- Subjective Encounter Date: 06/19/19 Encounter Time: 11:30 Subjective: Patient felt a little pop in left foot while ambulating hallways yesterday, a bit sore on top of foot today. Significant shooting pains in right leg. Better with ambulation this AM, did have some swelling from being on it for shower but that is better now. - Objective Vital Signs & Weight: Vital Signs (12 hours) Temp Pulse Resp BP Pulse Ox 06/19/19 07:35 98 F 69 16 111/72 94 L 06/19/19 03:45 98.6 F 66 18 123/70 95 06/18/19 23:40 98.4 F 77 16 102/67 97 Weight Weight 286 lb 4.8 oz I&O: 06/18/19 06/19/19 06/20/19 06:59 06:59 06:59 Intake Total 1598 Output Total 2525 Balance -927 Result Diagrams: 06/18/19 05:21 06/18/19 05:21 Hospitalist ROS - Review of Systems Constitutional: denies: fever, chills Respiratory: denies: cough, dry, shortness of breath Cardiovascular: denies: chest pain, palpitations Gastrointestinal: denies: nausea, vomiting, abdominal pain Musculoskeletal: reports: foot pain - Medication Medications: Active Medications Generic Name Dose Route Start Last Admin Trade Name Freq PRN Reason Stop Dose Admin Acetaminophen 650 mg 06/09/19 08:47 06/11/19 08:22 Tylenol PO 650 mg Q4H PRN Administration Headache/Fever/Mild Pain (1-3) Hydrocodone Bitart/Acetaminophen 1 tab 06/18/19 18:51 06/19/19 03:49 [place] 10/325 PO 1 tab Q6H PRN Administration Severe Pain (7-10) Diazepam 10 mg 06/09/19 20:04 06/18/19 20:59 Valium PO 10 mg TIDPRN PRN Administration Anxiety/Agitation Ceftriaxone Sodium 1 gm/ 100 mls @ 200 mls/hr 06/10/19 17:00 06/18/19 17:38 Sodium Chloride IVPB 100 mls Q24HR HUAN Administration Mineral Oil/White Petrolatum 0 gm 06/17/19 14:17 06/17/19 18:55 Aquaphor 99 Gm TOP 1 applic BIDPRN PRN Administration Itching Ondansetron HCl 4 mg 06/09/19 08:47 06/09/19 22:59 Zofran IVP 4 mg Q6H PRN Administration Nausea/Vomiting Pantoprazole Sodium 40 mg 06/09/19 21:00 06/18/19 20:43 Protonix PO 40 mg 2100 HUAN Administration Sodium Chloride 10 ml 06/09/19 21:00 06/18/19 20:44 Flush - Normal Saline IVF 10 ml Q12HR HUAN Administration Sodium Chloride 10 ml 06/09/19 09:02 06/17/19 18:51 Flush - Normal Saline IVF 10 ml PRN PRN Administration Saline Flush Temazepam 30 mg 06/10/19 16:37 06/18/19 20:59 Restoril PO 30 mg HSPRN PRN Administration Insomnia Warfarin Sodium 10 mg 06/12/19 17:00 06/18/19 17:38 Coumadin PO 10 mg 1700 HUAN Administration - Exam General Appearance: NAD, awake alert ENT: moist mucosa Heart: RRR, no murmur, no gallops, no rubs Respiratory: CTAB, no wheezes, no rales, no ronchi Gastrointestinal: soft, non-tender, non-distended, normal bowel sounds Extremities - other findings: TTP mid 3rd metatarsal left foot with minimal bruising on top of foot Skin - other findings: cellulitis resolved, extravasated blood in area of cellulitis RLE Psychiatric: normal affect, normal behavior, A&O x 3 Hosp A/P (1) Cellulitis and abscess of right lower extremity Code(s): L03.115 - CELLULITIS OF RIGHT LOWER LIMB; L02.415 - CUTANEOUS ABSCESS OF RIGHT LOWER LIMB Status: Acute (2) Lymphedema of right lower extremity Code(s): I89.0 - LYMPHEDEMA, NOT ELSEWHERE CLASSIFIED Status: Chronic (3) Recurrent deep vein thrombosis (DVT) Code(s): I82.409 - ACUTE EMBOLISM AND THOMBOS UNSP DEEP VN UNSP LOWER EXTREMITY Status: Chronic (4) Chronic anticoagulation Code(s): 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 Switch to oral antibiotics today. Patient has pain but has been ambulating in hallway. Has walker at home if he needs one. Spoke with Dr. Rodrigues and he recommended 10 days of Keflex followed by 6-12 months of PenVK 250 BID. Will d/ c home, f/u with Dr. Rodrigues in 1-2 weeks.
[2019-06-19] MEDS: Diazepam 5 MG TAB PO PRN ×2 (09:58→18:51)
[2019-06-19] MEDS: Cephalexin 250 MG CAP PO SCH ×2 (11:35→18:50)
[2019-06-19] MEDS ORDERED: Acetaminophen/Codeine 30-300mg Tablet PO PRN (12:04)
--- NOTE | 2019-06-19 14:56 | RAD ---
XR Foot Lt 3 View STANDARD HISTORY: Injury, left foot pain FINDINGS: No fracture or dislocation is identified. Degenerative changes are present, most prominent at the fir st MTP joint.
--- NOTE | 2019-06-19 15:18 | DIS ---
DATE OF ADMISSION: 06/09/2019 DATE OF DISCHARGE: 06/19/2019 PRIMARY CARE PHYSICIAN: Dr. Null. REASON FOR ADMISSION: Leg swelling and pain. DISCHARGE DIAGNOSES: 1. Cellulitis of the right lower extremity, improved. 2. Lymphedema in the right lower extremity. 3. Acute on chronic deep vein thrombosis with subtherapeutic Coumadin. 4. Chronic anticoagulation on Coumadin. 5. Sepsis, resolved. 6. Left-sided foot pain. PROCEDURES: 1. CT of the right lower extremity showing chronic appearing skin changes, some minimal interstitial change with subcutaneous fat and indicating some minimal cellulitic change. 2. Vascular ultrasound of the right lower extremity showing a partially occlusive DVT within the mid superficial femoral vein through the level of the right popliteal vein. Component of the thrombus within the mid superficial femoral vein is likely chronic, though there is a partially occlusive thrombus within the distal superficial femoral vein and right popliteal vein, it is new compared to July of 2018. CONSULTATIONS: Infectious Disease, Dr. Rodrigues. SUMMARY OF HOSPITAL COURSE: This is a 43-year-old male with a history of trauma of the right lower extremity a year ago with skin grafting. He had a history of a DVT as well in that leg and been on Coumadin since, but is quite labile. He came in with erythema and pain in the right lower extremity. He was found to have both cellulitis and acute on chronic DVT in that extremity. He was put on IV antibiotics. His Coumadin level was increased to 10 mg daily with his INR coming up from 1.3 to 2.6 at the time of discharge. Dr. Rodrigues was consulted for antibiotic recommendations. The patient's cellulitis slowly improved over the course of hospitalization. He did have some chronic pain in that leg from the DVT and the chronic lymphedema. However, he was able to start ambulating. He had no fevers. His white count was normal, and eventually he was transitioned over to oral antibiotics. Dr. Rodrigues has recommended 10 days of Keflex followed by 6 to 12 months of Pen-Vee K. The day before discharge, the patient was ambulating in the hallway and felt a pop in his left foot. He does have a little bit of tenderness and very mild bruising above the middle of the left metatarsal. X-rays are being done prior to discharge to see if he has a fracture that might need a surgical shoe. After that, he is planning on being discharged. DISCHARGE MANAGEMENT: Discharged home. ACTIVITY: As tolerated. DIET: Coumadin prudent diet. FOLLOWUP: Follow up with Dr. Rodrigues in 1 to [address] Null in the next week. We will need to have his INR rechecked. DISCHARGE MEDICATIONS: 1. Tylenol No. 3 two tablets every 4 hours as needed for pain, 40 tables dispensed. 2. Keflex 500 mg 4 times a day for 10 days, 40 capsules dispensed. 3. Penicillin VK 250 mg twice a day, to be started after finishing the Keflex, 60 tablets dispensed. Further refills to be obtained from Dr. Rodrigues or from his primary care physician. 4. Warfarin 10 mg daily, 30 tablets dispensed. 5. Diazepam 10 mg 3 times a day as needed for anxiety. 6. Omeprazole 20 mg twice a day. Job ID: [id number]
[2019-06-19] MEDS: Warfarin Sodium 10 MG TAB PO SCH (18:53)
[2019-06-19] MEDS: Temazepam 15 MG CAP PO PRN (20:54)
[2019-06-20] MEDS: Cephalexin 250 MG CAP PO SCH ×2 (00:54→06:26)
[2019-06-20] MEDS: HYDROcodone/Acetaminophen 10/325 mg Tablet PO PRN (00:55)
[2019-06-20] MEDS: Diazepam 5 MG TAB PO PRN (03:30)
[2019-06-20 05:06] LABS: INR-International Normal Ratio 2.9; Prothrombin Time 30.3 SEC (12.0-14.7)
[2019-06-20 07:57] VITALS: BP 111/75; TEMP 98.7
== END 2019-06-20 10:30 | disposition home or self-care (01) | DRG 299 ==
LOC: ERS 05:31 → 2NO 08:09 → SURG B 06-11 11:50
PROVIDERS: ADMIT Internal Medicine; ATTEND Family Medicine
DX: I82.411 Acute embolism and thrombosis of right femoral vein (principal); A41.9 Sepsis, unspecified organism; L03.115 Cellulitis of right lower limb; L02.415 Cutaneous abscess of right lower limb; I82.431 Acute embolism and thrombosis of right popliteal vein; I82.5Z1 Chronic embolism and thrombosis of unspecified deep veins of right distal lower extremity; I82.511 Chronic embolism and thrombosis of right femoral vein; E03.9 Hypothyroidism, unspecified; E66.9 Obesity, unspecified; Z88.8 Allergy status to other drugs, medicaments and biological substances; Z68.34 Body mass index [BMI] 34.0-34.9, adult; Z79.899 Other long term (current) drug therapy; Z79.01 Long term (current) use of anticoagulants
CPT/HCPCS: 36415; 80048; 80053; 80202; 81003; 81015; 83605; 85007; 85014; 85018; 85025; 85027; 85049; 85610; 85730; 87040; 87804; 96361; 96365; 96367; 96368; 96375; 96376; J0692; J0696; J1650; J1956; J2270; J2405; J3010; J3370; J3490; J7050; Q9967

== ENCOUNTER 2020-02-14 18:12 | Inpatient (IN) | payer OTHER ==
[~2020-02-14 18:12] MED LIST changes: -ISOVUE-370 76%-LOCM 1 ML ONE; +Iopamidol-370 76% 500 ML 1 ML ONE
[2020-02-14] MEDS ORDERED: EPINEPHrine 1 MG/10 ML Abboject SYRINGE ONE (18:39)
[2020-02-14] MEDS ORDERED: Norepinephrine 8 MG/0.9% NS 250 ML ONE ×2 (18:42→23:38)
[2020-02-14] MEDS ORDERED: Rocuronium Bromide 10 MG/ML (10ML VIAL) ONE ×2 (18:43→18:44)
[2020-02-14] MEDS ORDERED: Ketamine 50 MG/ML (10ML VIAL) ONE (18:43)
[2020-02-14] MEDS ORDERED: fentaNYL Citrate/PF 2,000 MCG in Sodium Chloride 0.9% 60 ML IV SCH (19:15)
--- NOTE | 2020-02-14 19:27 | RAD ---
EXAM: CHEST ONE VIEW HISTORY: Trauma. Drowsiness. COMPARISON: 12/04/2019 FINDINGS: Endotracheal tube is noted in place with the tip overlying the level of the T5 vertebral body and abo ve the level of the bob. The patient is rotated to the left which accentuates the cardiac silhouette and bronchovascular markings. There is suggestion of increased density at the left lung ba se, but there is suboptimal evaluation due to patient positioning. Pleural fluid, infiltrate, or atelectasis left lung base cannot be excluded. Minimal atelectasis is present at the right lung base. The osseous structures are intact. IMPRESSION: 1. Endotracheal tube noted in place which is above the level of the bob. 2. Suboptimal evaluation left lung base due to patient rotation and overlying cardiac silhouette. The re is question of increased density at the left lung base, but this could be related to patient rotation. However, pleural fluid, infiltrate, or atelectasis left lung base cannot be excluded based on this exam. Follow-up chest x-ray with better positioning with be helpful for further evaluation.
[2020-02-14 19:28] LABS: #Lymphocytes 0.4 thou/uL (1.20-3.40); #Neutrophils 1.7 thou/uL (1.40-6.50); %Basophils 0.2 % (0.0-1.0); %Eosinophils 0.2 % (0.0-10.0); %Lymphocytes 19.2 % (21.0-51.0); %Monocytes 1.7 % (0.0-10.0); %Neutrophils 78.6 % (42.0-75.0); Hemoglobin 13.2 g/dL (14.0-18.0); Mean Corpuscular HGB CONC 33.7 g/dL (32.0-36.0); Mean Corpuscular Hemoglobin 34.2 pg (27.0-31.0); Mean Platelet Volume 8.8 fL (7.4-10.4); Platelet Count 204 thou/uL (130-400); RBC Distribution Width 17.3 % (11.5-14.5); Red Blood Cell (RBC) Count 3.85 mill/uL (4.70-6.10); White Blood Cell (WBC) Count 2.2 thou/uL (4.8-10.8)
[2020-02-14 19:36] LABS: INR-International Normal Ratio 1.9
[2020-02-14 19:42] LABS: Acetaminophen Less than 6.0 mcg/mL (10.0-30.0); Alcohol Less than 10 mg/dL (Less than 10); CK (CPK) 14 U/L (30-200); Salicylate Less than 8.0 mg/dL (15.0-30.0)
[2020-02-14 19:44] LABS: ALT (SGPT) 42 U/L (8-55); AST (SGOT) 82 U/L (5-34); Albumin 2.9 g/dL (3.5-5.0); Alkaline Phosphatase 86 U/L (40-110); Anion Gap 18 mmol/L (10-20); BUN (Urea Nitrogen) 11 mg/dL (8.9-20.6); Bilirubin, Total 1.1 mg/dL (0.2-1.2); Calc. Creatinine Clearance 0 mL/min (70-130); Calcium 7.5 mg/dL (7.8-10.44); Carbon Dioxide 16 mmol/L (22-29); Chloride 112 mmol/L (98-107); Estimated GFR-MDRD Greater than 90; Globulin 2.2 g/dL (2.4-3.5); Glucose 98 mg/dL (70-105); Potassium 3.4 mmol/L (3.5-5.1); Protein, Total 5.1 g/dL (6.0-8.3); Sodium 143 mmol/L (136-145)
[2020-02-14 19:45] LABS: Actual Bicarbonate (HCO3a) 17.3 mEq/L (22-28); Analyzer IN Cardio ER; Base Excess (BEa) -9.8 mEq/L (-2.0 to +3.0); CO2 Tension 41.8 mmHg (35.0-45.0); Carboxyhemoglobin (COHb) 0.3 gm% (0.0-3.0); Hemoglobin (Hb) 14.8 g/dL (14.0-18.0); O2 Tension (PaO2), arterial 103.2 mmHg (80.0-100.0); Potassium - ABG Lab 3.62 mmol/L (3.70-5.30)
[2020-02-14 19:47] LABS: Puncture Site LR; pH, Arterial 7.23 (7.35-7.45)
[2020-02-14] MEDS ORDERED: Vancomycin 1 GM/200 ML BAG ONE (20:09)
[2020-02-14] MEDS ORDERED: Sodium Bicarb 50 MEQ/50 ML VIAL ONE (20:09)
[2020-02-14] MEDS ORDERED: Sodium Bicarb 50 MEQ/50 ML Abboject 8.4% SYRINGE ONE (20:11)
[2020-02-14] MEDS ORDERED: Cefepime 2 GM VIAL ONE (20:11)
--- NOTE | 2020-02-14 20:31 | RAD ---
FRONTAL RADIOGRAPH CHEST: 02/14/20 COMPARISON: 02/14/20 HISTORY: Evaluate chest following central line placement. FINDINGS: Stable endotracheal tube. The patient is slightly rotated to the left. A vascular catheter is seen on the right, distal tip overlying the expected location of the right atrium. Dense opacity is seen in the left lung base and possible left pleural effusion. IMPRESSION: Lines and tubes as detailed above. Rotation to the left limits detailed assessment of the cardiac isaías houette. Dense opacity in the left lung base suggests a nonspecific left basilar consolidation/collap se. Further assessment via CT is advised. POS: BILL
[2020-02-14] MEDS ORDERED: Acetaminophen 650 MG Suppository ONE (20:46)
--- NOTE | 2020-02-14 20:49 | CT ---
CT HEAD WITHOUT IV CONTRAST COMPARISON: 12/04/2019 HISTORY: Trauma. Drowsiness. TECHNIQUE: Axial CT imaging at 5 mm intervals from vertex through skull base without contrast FINDINGS: There is no evidence of an acute infarction, hemorrhage, mass effect, or midline shift. The ventricul ar system is normal in size, shape, and position. Skull base has a normal CT appearance. There is scattered mucosal thickening in the ethmoidal air cells bilaterally. Mastoid air cells are c lear. Osseous structures appear intact.There is been no significant interval change compared to prior study . IMPRESSION: 1. No acute intracranial abnormality demonstrated.
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
[2020-02-14 21:58] LABS: Bilirubin Negative (Negative); Blood, Urine Large (Negative); Glucose, Urine (Dipstick) Negative (Negative); Ketone, Urine Trace mg/dL (Negative); Leukocyte Negative (Negative); Nitrite Negative (Negative); Protein, Urine (Dipstick) 100 mg/dL (Neg-Trace); pH, Urine 6.5 (5.0-9.0)
[2020-02-14 22:06] LABS: Clarity Slightly Cloudy (Clear)
[2020-02-14 22:07] LABS: RBC/HPF Greater than 50 HPF (0-3)
[2020-02-14 22:08] LABS: Bacteria/HPF 3+ HPF (None Seen); Squamous Epithelial 0-3 HPF (0-3)
[2020-02-14 22:09] LABS: Amphetamine Not Detected (NotDetected); Barbiturates Screen Not Detected (NotDetected); Benzodiazepine Screen Not Detected (NotDetected); Cocaine Metabolite Screen Not Detected (NotDetected); Medtox Control Line Valid? VALID (VALID); Medtox Reader # READER 4; Methadone Not Detected (NotDetected); Methamphetamine Not Detected (NotDetected); Opiate Screen Not Detected (NotDetected); Oxycodone Screen Not Detected (NotDetected); Phencyclidine (PCP) Not Detected (NotDetected); THC/Cannabinoid Screen Detected (NotDetected); Tricyclic Screen Not Detected (NotDetected)
[2020-02-14] MEDS ORDERED: Dexamethasone 10 MG/ML VIAL ONE (23:03)
[2020-02-14] MEDS ORDERED: Propofol 1,000 MG/100 ML VIAL IV ONE (23:35)
[2020-02-15 00:36] LABS: SARS-CoV-2 NAA Rapid Test Not Detected (NotDetected)
[2020-02-15 01:49] LABS: Lactic Acid 6.8 mmol/L (0.5-2.2)
[2020-02-15] MEDS ORDERED: Ventilator Sedation Protocol 1 EACH FS ONE (02:57)
[2020-02-15] MEDS ORDERED: Propofol BOLUS 1,000 MG/100 ML VIAL IV PRN (03:15)
[2020-02-15] MEDS ORDERED: Fentanyl BOLUS 250 ML IVPB PRN (03:15)
[2020-02-15] MEDS ORDERED: DISCONTINUE PREVIOUS NARCOTIC PAIN MEDICATIONS AND BENZODIAZEPINES FS SCH (03:15)
[2020-02-15] MEDS ORDERED: Lorazepam 2 MG/ML VIAL SLOW IVP PRN (03:15)
[2020-02-15] MEDS ORDERED: Propofol 1,000 MG/100 ML VIAL IV PRN (03:15)
[2020-02-15] MEDS: Lactated Ringer's 1,000 ML IV SCH ×2 (03:35→05:39)
[2020-02-15 03:55] LABS: Anion Gap 17 mmol/L (10-20); BUN (Urea Nitrogen) 14 mg/dL (8.9-20.6); Calc. Creatinine Clearance 175 mL/min (70-130); Carbon Dioxide 19 mmol/L (22-29); Chloride 112 mmol/L (98-107); Estimated GFR-MDRD 83; Glucose 144 mg/dL (70-105); Potassium 3.6 mmol/L (3.5-5.1); Sodium 144 mmol/L (136-145)
[2020-02-15 03:57] LABS: Band 33 % (5-11); Hemoglobin 13.4 g/dL (14.0-18.0); Hypochromia SLIGHT = 6-15 cells (100X) (0-5/hpf); Lactic Acid 6.5 mmol/L (0.5-2.2); Lymphocytes 4 % (21-51); MDiff Complete? YES; Mean Corpuscular HGB CONC 33.4 g/dL (32.0-36.0); Mean Corpuscular Hemoglobin 33.8 pg (27.0-31.0); Mean Platelet Volume 9.2 fL (7.4-10.4); Monocytes 5 % (0-10); Neutrophil 58 % (42-75); Platelet Count 157 thou/uL (130-400); Platelet Morphology Comment Appears Decreased; RBC Distribution Width 17.6 % (11.5-14.5); Red Blood Cell (RBC) Count 3.98 mill/uL (4.70-6.10); White Blood Cell (WBC) Count 17.7 thou/uL (4.8-10.8)
[2020-02-15] MEDS ORDERED: Vancomycin 1 GM in Premix Bag 1 BAG IVPB SCH (04:00)
[2020-02-15 04:59] LABS: INR-International Normal Ratio 1.7; Prothrombin Time 20.6 sec (12.0-14.7)
[2020-02-15] MEDS: Norepinephrine 8 MG/0.9% NS 250 ML IVPB SCH ×2 (05:40→10:33)
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
[2020-02-15] MEDS ORDERED: Cefepime 2 GM in Sodium Chloride 0.9% 100 ML IVPB SCH (09:00)
[2020-02-15] MEDS ORDERED: Enoxaparin Sodium 120 MG/0.8 ML SYRINGE SC SCH (09:00)
[2020-02-15] MEDS ORDERED: FLU VACC QS2020-21(6MOS UP)/PF 60 MCG/0.5 ML SYRINGE IM ONE (09:00)
[2020-02-15] MEDS: Sodium Chloride 0.9% 1,000 ML IV SCH ×3 (10:14→22:21)
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
[2020-02-15] MEDS ORDERED: Magnesium Sulfate 4 GM in Sodium Chloride 0.9% 250 ML 250 ML IVPB SCH (14:00)
[2020-02-15] MEDS ORDERED: ALPRAZolam 1 MG TAB PO SCH (17:30)
[2020-02-15] MEDS: HYDROcodone/Acetaminophen 10/325 mg Tablet PO PRN (17:45)
[2020-02-15] MEDS: Warfarin Sodium 10 MG TAB PO SCH (18:30)
[2020-02-15] MEDS: Amoxicillin/Potassium Clav 875 MG TAB PO SCH (20:23)
[2020-02-16] MEDS: Ketorolac Tromethamine 10 MG TAB PO PRN ×2 (02:57→11:11)
[2020-02-16 04:30] LABS: Anion Gap 13 mmol/L (10-20); BUN (Urea Nitrogen) 17 mg/dL (8.9-20.6); Calc. Creatinine Clearance 243 mL/min (70-130); Calcium 7.7 mg/dL (7.8-10.44); Carbon Dioxide 20 mmol/L (22-29); Chloride 117 mmol/L (98-107); Estimated GFR-MDRD Greater than 90; Glucose 113 mg/dL (70-105); Potassium 4.2 mmol/L (3.5-5.1); Sodium 146 mmol/L (136-145)
[2020-02-16 05:18] LABS: Band 50 % (5-11); Hemoglobin 11.6 g/dL (14.0-18.0); Lymphocytes 2 % (21-51); MDiff Complete? YES; Macrocytosis SLIGHT = 6-15 cells (100X) (0-5/hpf); Mean Corpuscular HGB CONC 33.7 g/dL (32.0-36.0); Mean Corpuscular Hemoglobin 34.7 pg (27.0-31.0); Metamyelocyte 5 % (0-0); Monocytes 3 % (0-10); Neutrophil 40 % (42-75); Platelet Count 60 thou/uL (130-400); Platelet Morphology Comment Appears Decreased; RBC Distribution Width 17.5 % (11.5-14.5); Red Blood Cell (RBC) Count 3.33 mill/uL (4.70-6.10); White Blood Cell (WBC) Count 12.6 thou/uL (4.8-10.8)
[2020-02-16 05:37] LABS: INR-International Normal Ratio 1.9; Prothrombin Time 21.9 sec (12.0-14.7)
[2020-02-16] MEDS: Sodium Chloride 0.9% 1,000 ML IV SCH ×3 (05:46→17:59)
[2020-02-16] MEDS: Amoxicillin/Potassium Clav 875 MG TAB PO SCH (08:01)
[2020-02-16] MEDS: HYDROcodone/Acetaminophen 10/325 mg Tablet PO PRN ×3 (08:03→20:03)
[2020-02-16] MEDS: Meropenem 500 MG in Sodium Chloride 0.9% 100 ML IVPB SCH ×2 (09:30→20:05)
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
[2020-02-16] MEDS: Warfarin Sodium 10 MG TAB PO SCH (17:59)
[2020-02-16] MEDS: Morphine 2 MG/ML VIAL SLOW IVP PRN ×2 (18:19→21:43)
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
[2020-02-16] MEDS ORDERED: ALPRAZolam 0.5 MG TAB PO SCH (21:00)
[2020-02-17] MEDS: HYDROcodone/Acetaminophen 10/325 mg Tablet PO PRN ×4 (01:34→23:35)
[2020-02-17] MEDS: Meropenem 500 MG in Sodium Chloride 0.9% 100 ML IVPB SCH ×2 (01:35→09:11)
[2020-02-17] MEDS: Sodium Chloride 0.9% 1,000 ML IV SCH ×2 (01:36→08:06)
[2020-02-17] MEDS: Morphine 2 MG/ML VIAL SLOW IVP PRN ×7 (02:09→20:18)
[2020-02-17 05:57] LABS: Prothrombin Time 22.9 sec (12.0-14.7)
[2020-02-17 08:40] LABS: Hemoglobin 11.5 g/dL (14.0-18.0); Mean Corpuscular HGB CONC 31.9 g/dL (32.0-36.0); Mean Platelet Volume 10.2 fL (7.4-10.4); Platelet Count 62 thou/uL (130-400); RBC Distribution Width 17.6 % (11.5-14.5); Red Blood Cell (RBC) Count 3.49 mill/uL (4.70-6.10); White Blood Cell (WBC) Count 10.8 thou/uL (4.8-10.8)
[2020-02-17 08:55] LABS: Lactic Acid 1.2 mmol/L (0.5-2.2)
[2020-02-17 08:58] LABS: Anion Gap 10 mmol/L (10-20); BUN (Urea Nitrogen) 17 mg/dL (8.9-20.6); Calc. Creatinine Clearance 312 mL/min (70-130); Carbon Dioxide 22 mmol/L (22-29); Chloride 114 mmol/L (98-107); Estimated GFR-MDRD Greater than 90; Glucose 82 mg/dL (70-105); Potassium 4.1 mmol/L (3.5-5.1); Sodium 142 mmol/L (136-145)
--- NOTE | 2020-02-17 15:08 | EKG ---
Test Reason : Blood Pressure : / mmHG Vent. Rate : 171 BPM Atrial Rate : 171 BPM P-R Int : 104 ms QRS Dur : 076 ms QT Int : 290 ms P-R-T Axes : 080 215 079 degrees QTc Int : 489 ms Sinus tachycardia with short TN Right superior axis deviation Inferior infarct , age undetermined Anterior infarct , age undetermined Abnormal ECG Confirmed by ASHLEY PEÑA ([id number]), state editor ROBYN SOSA ([id number]) on 02/17/2020 3:08:13 PM Referred By: Confirmed By:ASHLEY PEÑA
--- NOTE | 2020-02-17 15:08 | EKG ---
Test Reason : ER Blood Pressure : / mmHG Vent. Rate : 166 BPM Atrial Rate : 166 BPM P-R Int : 114 ms QRS Dur : 070 ms QT Int : 306 ms P-R-T Axes : 025 -69 051 degrees QTc Int : 508 ms Sinus tachycardia Pulmonary disease pattern Left anterior fascicular block Abnormal ECG Confirmed by ASHLEY PEÑA ([id number]), greeting card editor ROBYN SOSA ([id number]) on 02/17/2020 3:08:07 PM Referred By: Confirmed By:ASHLEY PEÑA
[2020-02-17] MEDS: Warfarin Sodium 10 MG TAB PO SCH (16:04)
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
[2020-02-17] MEDS: Famotidine 20 MG TAB PO SCH (20:18)
[2020-02-18] MEDS: Morphine 2 MG/ML VIAL SLOW IVP PRN ×7 (02:39→22:02)
[2020-02-18] MEDS: HYDROcodone/Acetaminophen 10/325 mg Tablet PO PRN ×4 (05:53→20:06)
[2020-02-18 05:58] LABS: INR-International Normal Ratio 2.3
[2020-02-18] MEDS ORDERED: Furosemide 20 MG/2 ML VIAL SLOW IVP SCH (10:45)
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
[2020-02-18] MEDS: Famotidine 20 MG TAB PO SCH ×2 (10:51→20:06)
[2020-02-18] MEDS: Folic Acid 1 MG TAB PO SCH (10:51)
[2020-02-18] MEDS ORDERED: HYDROcodone/Acetaminophen 10/325 mg Tablet PO PRN (15:35)
[2020-02-18] MEDS: Furosemide 40 MG/4 ML VIAL SLOW IVP SCH (16:51)
[2020-02-18] MEDS: Warfarin Sodium 10 MG TAB PO SCH (16:51)
[2020-02-18 17:04] LABS: Anion Gap 13 mmol/L (10-20); BUN (Urea Nitrogen) 10 mg/dL (8.9-20.6); Calc. Creatinine Clearance 287 mL/min (70-130); Calcium 8.7 mg/dL (7.8-10.44); Carbon Dioxide 25 mmol/L (22-29); Chloride 107 mmol/L (98-107); Estimated GFR-MDRD Greater than 90; Glucose 73 mg/dL (70-105); Magnesium 1.4 mg/dL (1.6-2.6); Sodium 141 mmol/L (136-145)
[2020-02-19] MEDS: HYDROcodone/Acetaminophen 10/325 mg Tablet PO PRN ×5 (01:11→22:31)
[2020-02-19] MEDS: Morphine 2 MG/ML VIAL SLOW IVP PRN ×4 (03:06→16:56)
[2020-02-19 06:31] LABS: INR-International Normal Ratio 3.1; Prothrombin Time 32.4 sec (12.0-14.7)
[2020-02-19 06:36] LABS: Anion Gap 12 mmol/L (10-20); BUN (Urea Nitrogen) 10 mg/dL (8.9-20.6); Calc. Creatinine Clearance 297 mL/min (70-130); Calcium 8.4 mg/dL (7.8-10.44); Carbon Dioxide 27 mmol/L (22-29); Chloride 106 mmol/L (98-107); Estimated GFR-MDRD Greater than 90; Glucose 92 mg/dL (70-105); Potassium 3.8 mmol/L (3.5-5.1); Sodium 141 mmol/L (136-145)
[2020-02-19] MEDS: Famotidine 20 MG TAB PO SCH ×2 (08:44→20:27)
[2020-02-19] MEDS: Furosemide 40 MG/4 ML VIAL SLOW IVP SCH ×2 (08:44→16:56)
[2020-02-19] MEDS: Folic Acid 1 MG TAB PO SCH (08:45)
[2020-02-19] MEDS ORDERED: Potassium Chloride 20 MEQ TAB PO SCH (09:00)
[2020-02-19] MEDS ORDERED: Magnesium Sulfate 2 GM in Sodium Chloride 0.9% 100 ML IVPB SCH (09:00)
[2020-02-19] MEDS ORDERED: Magnesium 2 GM/50 ML 2 GM in Premix Bag 1 BAG IVPB SCH (09:30)
[2020-02-19] MEDS ORDERED: Warfarin Sodium 5 MG TAB PO SCH (11:00)
[2020-02-19] MEDS: Clotrimazole 1 % Cream 30 GM TUBE TOP SCH ×2 (11:31→20:28)
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
[2020-02-19] MEDS ORDERED: Morphine 2 MG/ML VIAL SLOW IVP SCH (19:45)
[2020-02-19 20:20] LABS: Band 17 % (5-11); Hypochromia SLIGHT = 6-15 cells (100X) (0-5/hpf); Lymphocytes 23 % (21-51); MDiff Complete? YES; Macrocytosis SLIGHT = 6-15 cells (100X) (0-5/hpf); Monocytes 10 % (0-10); Neutrophil 48 % (42-75); Platelet Morphology Comment Appears Decreased; Polychromasia SLIGHT = 2-3 cells (100X) (0-2/hpf); Reactive Lymphocytes 2 % (0-10)
[2020-02-19 20:21] LABS: Hemoglobin 12.9 g/dL (14.0-18.0); Mean Corpuscular HGB CONC 33.7 g/dL (32.0-36.0); Mean Corpuscular Hemoglobin 33.5 pg (27.0-31.0); Mean Corpuscular Volume 99.1 fL (78.0-98.0); Mean Platelet Volume 9.2 fL (7.4-10.4); Platelet Count 87 thou/uL (130-400); RBC Distribution Width 17.5 % (11.5-14.5); Red Blood Cell (RBC) Count 3.87 mill/uL (4.70-6.10); White Blood Cell (WBC) Count 4.6 thou/uL (4.8-10.8)
[2020-02-19] MEDS: Apixaban 5 MG TAB PO SCH (20:27)
[2020-02-20] MEDS: HYDROcodone/Acetaminophen 10/325 mg Tablet PO PRN ×5 (02:18→22:10)
[2020-02-20] MEDS: Morphine 2 MG/ML VIAL SLOW IVP PRN ×4 (04:05→20:20)
[2020-02-20 06:25] LABS: Prothrombin Time 50.3 sec (12.0-14.7)
[2020-02-20 06:42] LABS: INR-International Normal Ratio 5.4
[2020-02-20 06:51] LABS: Calc. Creatinine Clearance 263 mL/min (70-130); Estimated GFR-MDRD Greater than 90; Magnesium 1.7 mg/dL (1.6-2.6); Potassium 4.4 mmol/L (3.5-5.1)
[2020-02-20] MEDS: Furosemide 40 MG/4 ML VIAL SLOW IVP SCH ×2 (08:31→17:11)
[2020-02-20] MEDS: Clotrimazole 1 % Cream 30 GM TUBE TOP SCH ×2 (08:31→20:21)
[2020-02-20] MEDS: Famotidine 20 MG TAB PO SCH ×2 (08:31→20:19)
[2020-02-20] MEDS: Folic Acid 1 MG TAB PO SCH (08:32)
[2020-02-20] MEDS: Apixaban 5 MG TAB PO SCH (08:33)
[2020-02-20] MEDS ORDERED: diphenhydrAMINE 25 MG in Sodium Chloride 0.9% 50 ML IVPB PRN (10:34)
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
[2020-02-20] MEDS ORDERED: diphenhydrAMINE 50 MG/ML VIAL IVP PRN (11:22)
--- NOTE | 2020-02-20 11:50 | RAD ---
Exam: Chest one view HISTORY:Hemoptysis Comparison: 02/14/2020 Correlation: Chest abdomen and pelvic CT 02/14/2020 FINDINGS: Cardiac silhouette: Normal Aorta: Unremarkable Pulmonary vessels: Normal Costophrenic angles: Clear LUNGS: Interval elevation of the lung parenchyma. Residual opacities the lung bases do remain. Pneumothorax: None Osseous abnormalities: Old left rib fractures. IMPRESSION: 1. Improved aeration lung parenchyma. Residual opacities in the lung bases do remain. 2. Continued surveillance is recommended.
--- NOTE | 2020-02-20 12:20 | CT ---
CT Lower Ext Rt W Con History: Pain near skin graft. Comparison: CT right lower extremity June 09, 2019 Findings: Within the medial right thigh and also imaged portions of the medial left thigh are medial skin and subcutaneous interstitial edema and thickening. There is also deep subcutaneous edema along the superficial investing fascia of the posterior compart ment lower extremity level of the mid and distal tib-fib. Marking the overlying skin thickening on the right. Circumferential interstitial edema of the right lower extremity below the knee. The lesser saphenous vein has internal calcification suggesting a chronic occlusion. The right greate r saphenous vein is markedly distended. Old ACL reconstruction. Old proximal fibular diaphyseal fracture. Relatively high-grade tricompartmental degenerative change likely bone infarcts of the lateral femora l condyle. Impression: Extensive superficial and deep soft tissue swelling throughout the right lower extremity may be sequelae of venous occlusion of the right lesser saphenous and deep veins of the lower extremity. The greater saphenous vein is markedly enlarged. Underlying cellulitis is also possibility although given the calcifications within the lesser saphenous vein just below the level of the knee suggesting occlusion as well as recent ultrasonographic findings of right lower femoral venous o cclusion, congestive changes is felt most likely.
[2020-02-20] MEDS ORDERED: Magnesium Oxide 400 MG TAB PO SCH (16:30)
[2020-02-20] MEDS: Loratadine 10 MG TAB PO PRN (17:12)
[2020-02-20] MEDS: Magnesium Oxide 400 MG TAB PO SCH (20:20)
[2020-02-20] MEDS ORDERED: Ondansetron PF 4 MG/2 ML Vial IVP PRN (22:28)
[2020-02-20 23:05] LABS: Hemoglobin 12.9 g/dL (14.0-18.0)
[2020-02-21] MEDS: Morphine 2 MG/ML VIAL SLOW IVP PRN ×6 (00:07→22:24)
[2020-02-21] MEDS: HYDROcodone/Acetaminophen 10/325 mg Tablet PO PRN ×6 (02:08→23:37)
[2020-02-21] MEDS ORDERED: Amoxicillin/Potassium Clav 875 MG TAB PO SCH ×2 (07:00→09:00)
[2020-02-21 07:07] LABS: INR-International Normal Ratio 3.3; Prothrombin Time 34.1 sec (12.0-14.7)
[2020-02-21] MEDS: Furosemide 40 MG/4 ML VIAL SLOW IVP SCH ×2 (07:38→17:47)
[2020-02-21] MEDS: Famotidine 20 MG TAB PO SCH ×2 (07:38→20:14)
[2020-02-21] MEDS: Magnesium Oxide 400 MG TAB PO SCH ×2 (07:39→20:14)
[2020-02-21] MEDS: Clotrimazole 1 % Cream 30 GM TUBE TOP SCH ×2 (07:39→20:24)
[2020-02-21] MEDS: Folic Acid 1 MG TAB PO SCH (07:39)
[2020-02-21] MEDS ORDERED: Triamcinolone 0.025 % Cream 15GM TUBE TOP PRN (09:46)
[2020-02-21] MEDS ORDERED: hydrOXYzine 25 MG TAB PO PRN (09:46)
[2020-02-21] MEDS ORDERED: Pantoprazole 40 MG VIAL IVP SCH (10:00)
[2020-02-21] MEDS ORDERED: Triamcinolone 0.1% Cream 15 GM TUBE TOP PRN (10:04)
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
[2020-02-21] MEDS ORDERED: Phytonadione 10 MG/ML AMP PO SCH (13:30)
[2020-02-21] MEDS: Loratadine 10 MG TAB PO PRN (14:42)
[2020-02-21] MEDS ORDERED: Capsaicin 0.025% Cream 60 gm Tube TOP SCH (15:00)
[2020-02-21 17:41] LABS: Syphilis Antibody Nonreactive (Nonreactive); Syphilis Antibody Index 0.05 S/CO (<1.00 Non-Reactive)
--- NOTE | 2020-02-21 17:41 | PRG ---
DATE OF SERVICE: 02/21/2020 SUBJECTIVE: I was asked by Dr. Ventura to evaluate the patient because he was having a rash, which he felt that it was secondary to the antimicrobial therapy. Mr. Reyna has had this groin eruption, which most likely is Shawna species infection of the groin sites, and for some reason, the patient was given capsaicin ointment, which is used for symptom relief of neuralgic pain in general, particularly postherpetic neuralgia, but does not have an indication in superficial fungal cutaneous infections. OBJECTIVE: VITAL SIGNS: He has been afebrile. LUNGS: Clear. HEART: S1 and S2. Regular rate. ABDOMEN: Soft, not distended. The groin has the typical intertriginous eruption. He has a little bit of one area of excoriation in the right shoulder. LABORATORY DATA: White cell count is down to 10.8, hemoglobin 12.9, and platelets 87,000. Sodium 141 and creatinine 0.6. Enterobacter cloacae was found to be susceptible to most antimicrobials except for nitrofurantoin, Bactrim, and cefoxitin. ASSESSMENT AND DISCUSSION: 1. History of deep vein thrombosis, on Coumadin. 2. Urinary infection with sepsis and bacteremia due to Enterobacter cloacae, susceptible to quinolones, either from pyelonephritis or prostatitis with cystitis. Urethral stricture is less likely. 3. Intertriginous maceration with eruption, most likely due to Shawna species associated with antimicrobial therapy. At this point, we will switch him to oral Cipro. Continue treating for at least 4 weeks. The skin eruption is not a hypersensitivity reaction to the antimicrobial, but a fungal superinfection, such needs to be managed with antifungals either topical or oral. We will go ahead and switch him to oral Diflucan. Discontinue capsaicin cream or ointment. Job ID: [id number]
[2020-02-21] MEDS: Pantoprazole 40 MG VIAL IVP SCH (20:15)
[2020-02-22] MEDS: Morphine 2 MG/ML VIAL SLOW IVP PRN ×7 (01:18→23:54)
[2020-02-22] MEDS: HYDROcodone/Acetaminophen 10/325 mg Tablet PO PRN ×5 (03:31→21:11)
[2020-02-22 06:44] LABS: INR-International Normal Ratio 1.6; Prothrombin Time 19.1 sec (12.0-14.7)
--- NOTE | 2020-02-22 08:51 | CON ---
DATE OF CONSULTATION: 02/21/2020 REASON FOR CONSULTATION: History of intermittent episodes of regurgitation with some blood-stained food. HISTORY OF PRESENT ILLNESS: Mr. Alphonse Reyna is a very pleasant 44-year-old male, who has had a gastric sleeve surgery in 2013 for morbid obesity. He lost in excess of 200 pounds after surgery. Before the surgery, he had no GI symptoms. After surgery, he has had episodes of regurgitation of sour tasting fluid and bilious material and also has seen some streaks of blood in the vomiting. He also had some thick coffee-ground emesis. It has been going on for several years. He has had chronic acid reflux symptoms over the years and has been on omeprazole, Zantac, and also Protonix, he takes off and on. Interestingly, the patient denies any nausea or vomiting, just more of regurgitation. This happened suddenly for no reason. The patient has had a CT scan of the chest the following admission. CT scan showed dilation of the esophagus, some debris. Upon questioning, the patient denies any dysphagia or odynophagia. He tells me that at times he does feel food sticking in the esophagus and . He has no history of any dysphagia to solid and liquids. However, he admits to drinking liquids very slowly. There is no history of any nocturnal . There is no nausea or vomiting, more . The patient's bowel movements are regular. No history of hematochezia, no melena. The patient denies any odynophagia. He has had no relevant symptoms. The patient admitted this time because of syncope this past Wednesday and was found to have DVT in the right leg. The patient has history of DVT since I believe 2011 and was found to have a hypercoagulable state and has been on warfarin since 2012. Although he has been on warfarin since 2012, he has had recurrent episodes of DVT. Last episode was sometime in 2019. The patient has had IVC filter placement in the past. No relevant history. ALLERGIES: GABAPENTIN. SOCIAL HISTORY: The patient does not smoke, but drink alcohol once in a while. MEDICAL ILLNESS: 1. Obesity, status post gastric sleeve surgery with weight loss. 2. Chronic acid reflux. 3. Recurrent DVTs. 4. UTI. 5. History of fall and fracture of the right fibula in 2019 and has had multiple surgeries by Dr. Hair. SURGERIES: Other surgeries include gastric sleeve surgery in 2011. FAMILY HISTORY: Father with skin cancer. He has had multiple myeloma and there is some mention of small cell carcinoma, but size is unclear. MEDICATION LIST: Reviewed. REVIEW OF SYSTEMS: CONSTITUTIONAL: No history of any weight loss. No fever or chills. Has good exercise tolerance. HEENT: No syncope until recently, this past Wednesday. No dizziness. No TIA. No chronic headache. Eyes, no impaired vision. No diplopia. He has no hearing loss. Throat, no sore throat. LUNGS: No chronic coughing, hemoptysis, or dyspnea. CARDIOVASCULAR SYSTEM: No chest pain. No palpitation. No dyspnea, orthopnea, or PND. GI: As in history of present illness. : No dysuria or hematuria. MUSCULOSKELETAL: No back pain. No arthralgias or myalgias. NEUROPSYCHIATRY: Nonrelevant. However, he admits to having anxiety recently and was seen by and he is supposed to see a psychiatrist in the near future. PHYSICAL EXAMINATION: GENERAL: He is obese, appears comfortable. VITAL SIGNS: His vital signs are stable, afebrile, pulse is 81, and blood pressure 94/60. HEENT: Conjunctivae are clear. NECK: Supple. No adenitis or thyromegaly noted. CARDIOVASCULAR SYSTEM: Normal heart sounds. LUNGS: Clear to auscultation. ABDOMEN: Soft and pendulous. Abdomen is nontender. No organomegaly. No masses. EXTREMITIES: Reveal bilateral edema, more on the right side. 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 LABORATORY DATA: No CBC done today, but last one was done yesterday. Hemoglobin 12.9, hematocrit 38.9. His admission hemoglobin 13.2 and hematocrit 39.1, MCV 102, platelet count is normal at 204,000. Chem-7 from 02/19/2020, normal lytes, BUN is 10, creatinine 0.59, glucose 92, calcium 8.4. Abdominal CAT scan done shows evidence of some dilation and also some debris. CLINICAL IMPRESSION: 1. A 44-year-old male, status post gastric sleeve surgery in 2011 and developed episodes of regurgitation off and on. He had no nausea, no vomiting. No abdominal pain. Just complains of mild dysphagia off and on and also has history of acid reflux. Gives history of seeing some blood stained regurgitation off and on. Based on the information, it is possibly that he could have esophageal motility disorder like achalasia. 2. Status post gastric sleeve surgery for obesity. 3. Deep vein thrombosis, right leg, recurrent. 4. Chronic reflux. 5. Status post IVC filter placement. RECOMMENDATIONS: 1. Empiric PPI therapy. 2. Follow up H and H. 3. The patient needs endoscopy studies as outpatient and also esophageal manometry. As he is on anticoagulation, for the time being I will probably defer endoscopic studies for the time being. The patient should come back to see me as outpatient and we will plan for EGD as outpatient and also obtain esophageal manometry. Job ID: [id number]
[2020-02-22] MEDS: Magnesium Oxide 400 MG TAB PO SCH ×2 (08:58→21:11)
[2020-02-22] MEDS: Fluconazole 100 MG TAB PO SCH (08:58)
[2020-02-22] MEDS: Famotidine 20 MG TAB PO SCH ×2 (08:58→21:11)
[2020-02-22] MEDS: Folic Acid 1 MG TAB PO SCH (08:59)
[2020-02-22] MEDS: Furosemide 40 MG/4 ML VIAL SLOW IVP SCH ×2 (09:04→16:04)
[2020-02-22] MEDS: Clotrimazole 1 % Cream 30 GM TUBE TOP SCH ×2 (09:40→21:12)
[2020-02-22] MEDS: Pantoprazole 40 MG VIAL IVP SCH ×2 (09:40→21:13)
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
[2020-02-22 21:35] LABS: Chlam.trachomatis by PCR,Urine Not Detected (NotDetected)
[2020-02-22] MEDS ORDERED: Apixaban 5 MG TAB PO SCH (22:15)
[2020-02-23] MEDS: HYDROcodone/Acetaminophen 10/325 mg Tablet PO PRN ×5 (02:10→23:49)
[2020-02-23] MEDS: Morphine 2 MG/ML VIAL SLOW IVP PRN ×5 (05:05→21:09)
[2020-02-23] MEDS: Magnesium Oxide 400 MG TAB PO SCH ×2 (08:50→21:07)
[2020-02-23] MEDS: Fluconazole 100 MG TAB PO SCH (08:50)
[2020-02-23] MEDS: Apixaban 5 MG TAB PO SCH ×3 (08:50→21:08)
[2020-02-23] MEDS: Famotidine 20 MG TAB PO SCH ×2 (08:50→21:07)
[2020-02-23] MEDS: Folic Acid 1 MG TAB PO SCH (08:51)
[2020-02-23] MEDS: Pantoprazole 40 MG VIAL IVP SCH ×2 (08:51→21:09)
[2020-02-23] MEDS ORDERED: Furosemide 20 MG TAB PO SCH ×2 (09:00→11:30)
[2020-02-23] MEDS: Clotrimazole 1 % Cream 30 GM TUBE TOP SCH ×2 (09:00→21:08)
[2020-02-23] MEDS ORDERED: Apixaban 5 MG TAB PO SCH (10:00)
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
[2020-02-23 12:44] LABS: INR-International Normal Ratio 1.4; Prothrombin Time 17.8 sec (12.0-14.7)
[2020-02-23] MEDS: Furosemide 20 MG TAB PO SCH (14:10)
--- NOTE | 2020-02-23 14:38 | PRG ---
DATE OF SERVICE: 02/23/2020 SUBJECTIVE: Feeling better. The groin rash is improving. The legs are improving. He does not have any dysuria. No respiratory symptoms. OBJECTIVE: VITAL SIGNS: He continues to be afebrile, pulse 70, respirations 20, room air O2 saturations 97%. LUNGS: Clear. HEART: S1 and S2. Regular rate. ABDOMEN: Soft, not distended. EXTREMITIES: Groin much improved. LABORATORY DATA: White cell count 4.6, hemoglobin 12.9, platelets are 87,000, bands are 17 on the 9th, has not been repeated since. Creatinine 0.61. There is a culture from the genital area with Shawna albicans as expected. Enterobacter cloacae susceptible to quinolones. ASSESSMENT AND DISCUSSION: History of deep venous thrombosis, on Coumadin. Urinary infection with sepsis and bacteremia due to Enterobacter cloacae with possibility of prostatitis plus-minus pyelonephritis, cystitis, urethral stricture is less likely. The intertriginous maceration is due to Shawna and has improved with Diflucan to be continued for a week or two, so I would advise switching him to oral Cipro and discharged on 4 weeks of oral ciprofloxacin. Levofloxacin would be an option as well. Job ID: [id number]
[2020-02-24] MEDS: Morphine 2 MG/ML VIAL SLOW IVP PRN ×6 (03:05→20:41)
[2020-02-24] MEDS: HYDROcodone/Acetaminophen 10/325 mg Tablet PO PRN ×4 (05:27→23:41)
[2020-02-24 08:07] LABS: INR-International Normal Ratio 1.5
[2020-02-24] MEDS: Clotrimazole 1 % Cream 30 GM TUBE TOP SCH ×2 (09:23→20:41)
[2020-02-24] MEDS: Famotidine 20 MG TAB PO SCH ×2 (09:24→22:00)
[2020-02-24] MEDS: Magnesium Oxide 400 MG TAB PO SCH ×2 (09:25→20:41)
[2020-02-24] MEDS: Folic Acid 1 MG TAB PO SCH (09:25)
[2020-02-24] MEDS: Fluconazole 100 MG TAB PO SCH (09:25)
[2020-02-24] MEDS: Pantoprazole 40 MG VIAL IVP SCH (09:25)
[2020-02-24] MEDS: Apixaban 5 MG TAB PO SCH ×3 (09:28→20:41)
[2020-02-24] MEDS: Furosemide 20 MG TAB PO SCH ×2 (11:53→14:59)
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
[2020-02-25] MEDS: Morphine 2 MG/ML VIAL SLOW IVP PRN ×4 (02:33→20:45)
[2020-02-25] MEDS: HYDROcodone/Acetaminophen 10/325 mg Tablet PO PRN ×4 (05:04→22:55)
[2020-02-25] MEDS: Folic Acid 1 MG TAB PO SCH (08:47)
[2020-02-25] MEDS: Apixaban 5 MG TAB PO SCH ×2 (08:47→20:45)
[2020-02-25] MEDS: Magnesium Oxide 400 MG TAB PO SCH ×2 (08:47→20:46)
[2020-02-25] MEDS: Fluconazole 100 MG TAB PO SCH (08:47)
[2020-02-25] MEDS: Famotidine 20 MG TAB PO SCH ×2 (08:47→20:46)
[2020-02-25] MEDS: Clotrimazole 1 % Cream 30 GM TUBE TOP SCH ×2 (08:48→20:46)
[2020-02-25] MEDS: Furosemide 20 MG TAB PO SCH ×2 (08:49→14:26)
[2020-02-25 09:25] LABS: Hemoglobin 12.6 g/dL (14.0-18.0); Platelet Count 239 thou/uL (130-400)
[2020-02-25 09:42] LABS: Calc. Creatinine Clearance 214 mL/min (70-130); Estimated GFR-MDRD Greater than 90
--- NOTE | 2020-02-25 13:11 | PDOC.HOSPP ---
- Subjective Encounter Date: 02/25/20 Encounter Time: 13:10 Subjective: f/u for RLE DVT on Eliquis. Some RLE pain but overall improved. - Objective Vital Signs & Weight: Vital Signs (12 hours) Temp Pulse Resp BP Pulse Ox 02/25/20 07:39 98.1 F 61 18 107/73 98 Weight Weight 256 lb Most Recent Monitor Data Heart Rate from ECG 75 NIBP 106/65 NIBP BP-Mean 78 Respiration from ECG 24 SpO2 97 I&O: 02/24/20 02/25/20 02/26/20 06:59 06:59 06:59 Intake Total 2720 360 1000 Output Total 3950 1100 Balance -1230 360 -100 Result Diagrams: 02/25/20 09:06 02/25/20 09:06 Additional Labs: Microbiology 02/21/20 16:33 Penis Gram Stain - Final 02/21/20 16:33 Penis Genital Culture - Final Presumptive Shawna albicans 02/14/20 20:00 Urine simon catheter Urine Culture - Final Enterobacter cloacae complex 02/14/20 19:49 Central Line - Right Internal Jugular vein Blood Culture - Final Enterobacter cloacae complex 02/14/20 19:05 Venous blood - Left Hand Blood Culture - Final Enterobacter cloacae complex Laboratory Tests 02/14/20 02/19/20 02/20/20 22:18 05:51 05:37 INR 3.1 5.4 H* SARS-CoV-2 Rap RNA(RT-PCR) Not Detected 02/21/20 02/22/20 02/23/20 06:28 06:27 11:49 INR 3.3 1.6 1.4 SARS-CoV-2 Rap RNA(RT-PCR) 02/24/20 07:50 INR 1.5 SARS-CoV-2 Rap RNA(RT-PCR) Hospitalist ROS - Medication Medications: Active Medications Generic Name Dose Route Start Last Admin Trade Name Freq PRN Reason Stop Dose Admin Hydrocodone Bitart/Acetaminophen 2 tab 02/18/20 15:34 02/25/20 09:17 Hydrocodone/Acetaminophen 10/325 Mg Tablet PO 2 tab Q4H PRN Administration Severe Pain (7-10) Apixaban 10 mg 02/23/20 21:00 02/25/20 08:47 Apixaban 5 Mg Tab PO 10 mg BID HUAN Administration Clotrimazole 1 gm 02/19/20 09:00 02/25/20 08:48 Clotrimazole 1 % Cream 30 Gm Tube TOP 1 applic BID HUAN Administration Famotidine 20 mg 02/17/20 21:00 02/25/20 08:47 Famotidine 20 Mg Tab PO 20 mg BID HUAN Administration Fluconazole 100 mg 02/22/20 09:00 02/25/20 08:47 Fluconazole 100 Mg Tab PO 100 mg DAILY HUAN Administration Folic Acid 1 mg 02/18/20 09:00 02/25/20 08:47 Folic Acid 1 Mg Tab PO 1 mg DAILY HUAN Administration Furosemide 40 mg 02/23/20 14:00 02/25/20 08:49 Furosemide 20 Mg Tab PO 40 mg 0900,1400 HUAN Administration Hydroxyzine HCl 25 mg 02/21/20 09:46 02/21/20 16:45 Hydroxyzine 25 Mg Tab PO 25 mg Q6H PRN Administration Rash/Topical Irritation Levofloxacin 750 mg 02/22/20 06:00 02/25/20 05:04 Levofloxacin 750 Mg Tab PO 750 mg 0600 HUAN Administration Loratadine 10 mg 02/20/20 10:34 02/21/20 14:42 Loratadine 10 Mg Tab PO 10 mg DAILYPRN PRN Administration Allergies Magnesium Oxide 400 mg 02/20/20 21:00 02/25/20 08:47 Magnesium Oxide 400 Mg Tab PO 400 mg BID HUAN Administration Morphine Sulfate 2 mg 02/25/20 10:06 02/25/20 11:47 Morphine 2 Mg/Ml Vial SLOW IVP 2 mg Q2H PRN Administration breakthrough pain & agitation Ondansetron HCl 4 mg 02/20/20 22:28 02/20/20 22:53 Ondansetron Pf 4 Mg/2 Ml Vial IVP 4 mg Q6H PRN Administration Nausea/Vomiting Pantoprazole Sodium 40 mg 02/24/20 21:00 02/25/20 08:48 Pantoprazole 40 Mg Tab PO 40 mg BID HUAN Administration - Exam General Appearance: NAD, awake alert Eye: PERRL, anicteric sclera ENT: normocephalic atraumatic, no oropharyngeal lesions Neck: supple, symmetric, no JVD, no thyromegaly, no lymphadenopathy Heart: RRR, no gallops, no rubs, normal peripheral pulses Heart - other findings: S1, S2 Respiratory: CTAB, no wheezes, no rales, no ronchi, normal chest expansion Gastrointestinal: soft, non-tender, non-distended, normal bowel sounds, no palpable masses Extremities: no cyanosis, no clubbing, 2+ LE edema Skin: normal turgor Neurological: cranial nerve grossly intact, no new deficit Musculoskeletal: normal tone, normal strength, no muscle wasting Psychiatric: normal affect, A&O x 3 Hosp A/P (1) Enterobacter sepsis Code(s): A41.59 - OTHER GRAM-NEGATIVE SEPSIS Status: Acute Plan: Resolved, continue Levaquin (2) UTI (urinary tract infection) due to Enterococcus Code(s): N39.0 - URINARY TRACT INFECTION, SITE NOT SPECIFIED; B95.2 - ENTEROCOCCUS THE CAUSE OF DISEASES CLASSIFIED ELSEWHERE Status: Acute Plan: Continue Levaquin (3) DVT (deep venous thrombosis) Status: Acute Plan: Continue Eliquis 10mg BID (4) Chronic anticoagulation Code(s): Z79.01 - [employer]AD [employer] (CURRENT) USE OF ANTICOAGULANTS Status: Chronic (5) Lymphedema of right lower extremity Code(s): I89.0 - LYMPHEDEMA, NOT ELSEWHERE CLASSIFIED Status: Chronic Plan: Recommend outpt compression stockings for home - Plan continue antibiotics, out of bed/ambulate Stable overall Continue Eliquis 10mg BID Continue Lasix 40mg BID OOB/ambulate Pain control PRN Home in am 02/26/20
[2020-02-26] MEDS: Morphine 2 MG/ML VIAL SLOW IVP PRN ×2 (02:05→09:13)
[2020-02-26] MEDS: HYDROcodone/Acetaminophen 10/325 mg Tablet PO PRN ×2 (05:17→11:44)
[2020-02-26] MEDS: Apixaban 5 MG TAB PO SCH (08:44)
[2020-02-26] MEDS: Clotrimazole 1 % Cream 30 GM TUBE TOP SCH (08:44)
[2020-02-26] MEDS: Fluconazole 100 MG TAB PO SCH (08:44)
[2020-02-26] MEDS: Famotidine 20 MG TAB PO SCH (08:45)
[2020-02-26] MEDS: Magnesium Oxide 400 MG TAB PO SCH (08:45)
[2020-02-26] MEDS: Folic Acid 1 MG TAB PO SCH (08:45)
[2020-02-26] MEDS: Furosemide 20 MG TAB PO SCH (08:46)
[2020-02-26 08:49] VITALS: BMI 30.4
--- NOTE | 2020-02-26 09:49 | PDOC.BPN ---
- Brief Progress Note Encounter Date: 02/26/20 Encounter Time: 09:40 Reviewed the [place] Prescription Monitoring program prior to rx [place] 10/325mg po q6h #30. Will follow up with his PCP for future refills.
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
[2020-02-26 13:01] VITALS: BP 114/82; TEMP 98.1
== END 2020-02-26 12:11 | disposition home or self-care (01) | DRG 871 ==
LOC: ERS 18:12 → EEVIPCON 22:16 → CCU 22:16 → T4-B 02-16 18:09
PROVIDERS: ADMIT Internal Medicine; ATTEND Family Medicine
PROC: 02H633Z Insertion of Infusion Device into Right Atrium, Percutaneous Approach (ICD-10-PCS; principal; 2020-02-14)
PROC: 0BH17EZ Insertion of Endotracheal Airway into Trachea, Via Natural or Artificial Opening (ICD-10-PCS; 2020-02-14)
PROC: 5A1935Z Respiratory Ventilation, Less than 24 Consecutive Hours (ICD-10-PCS; 2020-02-14)
PROC: 3E033XZ Introduction of Vasopressor into Peripheral Vein, Percutaneous Approach (ICD-10-PCS; 2020-02-14)
PROC: 30233N1 Transfusion of Nonautologous Red Blood Cells into Peripheral Vein, Percutaneous Approach (ICD-10-PCS; 2020-02-14)
DX: A41.81 Sepsis due to Enterococcus (principal); J96.01 Acute respiratory failure with hypoxia; G92 Toxic encephalopathy; R40.2122 Coma scale, eyes open, to pain, at arrival to emergency department; R65.21 Severe sepsis with septic shock; J98.11 Atelectasis; N10 Acute pyelonephritis; I82.411 Acute embolism and thrombosis of right femoral vein; R04.2 Hemoptysis; B49 Unspecified mycosis; E87.2 Acidosis; K92.0 Hematemesis; Z20.828 Contact with and (suspected) exposure to other viral communicable diseases; F41.9 Anxiety disorder, unspecified; R40.2352 Coma scale, best motor response, localizes pain, at arrival to emergency department; R40.2242 Coma scale, best verbal response, confused conversation, at arrival to emergency department; E03.9 Hypothyroidism, unspecified; E11.9 Type 2 diabetes mellitus without complications; S20.219A Contusion of unspecified front wall of thorax, initial encounter; I89.0 Lymphedema, not elsewhere classified; T50.911A Poisoning by multiple unspecified drugs, medicaments and biological substances, accidental (unintentional), initial encounter; F11.10 Opioid abuse, uncomplicated; K21.9 Gastro-esophageal reflux disease without esophagitis; D52.9 Folate deficiency anemia, unspecified; E83.42 Hypomagnesemia; Z88.8 Allergy status to other drugs, medicaments and biological substances; Z98.84 Bariatric surgery status; V89.2XXA Person injured in unspecified motor-vehicle accident, traffic, initial encounter; Z65.8 Other specified problems related to psychosocial circumstances; K57.30 Diverticulosis of large intestine without perforation or abscess without bleeding; E66.9 Obesity, unspecified; Z68.30 Body mass index [BMI] 30.0-30.9, adult
CPT/HCPCS: 31500; 36415; 36416; 36430; 36556; 51702; 70450; 71045; 71260; 72125; 74177; 80048; 80053; 80306; 80307; 81003; 81015; 82550; 82565; 82607; 82746; 82805; 83605; 83735; 83930; 84132; 84439; 84443; 84484; 85014; 85018; 85025; 85027; 85049; 85610; 86780; 86850; 86900; 86901; 87040; 87070; 87077; 87086; 87149; 87186; 87491; 87529; 87591; 93005; 93970; 94003; 96365; 96366; 96367; 96368; 96374; 96375; C9113; J0171; J0692; J1100; J1200; J1940; J2185; J2270; J2405; J2704; J3010; J3370; J3430; J3475; J3490; J7050; P9016; Q9967; U0002

== ENCOUNTER 2020-03-17 19:23 | Emergency (ER) | payer OTHER ==
[2020-03-17 21:15] LABS: PTT 64.9 sec (22.9-36.1)
[2020-03-17 21:16] LABS: Prothrombin Time 80.9 sec (12.0-14.7)
[2020-03-17 21:19] LABS: INR-International Normal Ratio 9.8
--- NOTE | 2020-03-17 22:15 | ULT ---
Exam:Rightlower extremity venous ultrasound with Doppler HISTORY: Rightlower extremity swelling COMPARISON: 06/09/2019 TECHNIQUE: Grayscale, color flow, Doppler imaging and spectral wave muscle performed right lower extr emity venous system FINDINGS: There is a mural thrombus involving the mid femoral vein, distal femoral vein and popliteal vein. There is compressibility with partial flow. There is also diminished flow in the mid posterior tibial vein. IMPRESSION: Redemonstration of partially occlusive thrombus in the right arteriovenous system.
== END 2020-03-17 22:54 | disposition home or self-care (01) ==
LOC: ERS 19:23
DX: I82.411 Acute embolism and thrombosis of right femoral vein (principal); I82.431 Acute embolism and thrombosis of right popliteal vein; R79.1 Abnormal coagulation profile; E05.90 Thyrotoxicosis, unspecified without thyrotoxic crisis or storm; Z79.01 Long term (current) use of anticoagulants
CPT/HCPCS: 36415; 85610; 85730

== ENCOUNTER 2020-06-16 18:40 | Emergency (ER) | payer OTHER ==
[2020-06-16 19:32] LABS: #Basophils 0.1 thou/uL (0.0-0.2); #Eosinphils 0.1 thou/uL (0.0-0.7); #Lymphocytes 1.1 thou/uL (1.20-3.40); #Monocytes 0.5 thou/uL (0.11-0.59); #Neutrophils 5.1 thou/uL (1.40-6.50); %Basophils 0.9 % (0.0-1.0); %Eosinophils 1.5 % (0.0-10.0); %Lymphocytes 15.7 % (21.0-51.0); %Monocytes 7.8 % (0.0-10.0); %Neutrophils 74.1 % (42.0-75.0); Hemoglobin 14.4 g/dL (14.0-18.0); Mean Corpuscular HGB CONC 33.4 g/dL (32.0-36.0); Mean Corpuscular Hemoglobin 33.5 pg (27.0-31.0); Mean Platelet Volume 9.3 fL (7.4-10.4); Platelet Count 198 thou/uL (130-400); RBC Distribution Width 14.8 % (11.5-14.5); Red Blood Cell (RBC) Count 4.29 mill/uL (4.70-6.10); White Blood Cell (WBC) Count 6.9 thou/uL (4.8-10.8)
[2020-06-16 19:46] LABS: Bacteria/HPF None Seen HPF (None Seen); Bilirubin Negative (Negative); Blood, Urine Negative (Negative); Clarity Turbid (Clear); Glucose, Urine (Dipstick) Normal (Negative); Ketone, Urine Negative (Negative); Leukocyte 25 Leu/uL (Negative); Nitrite Negative (Negative); Protein, Urine (Dipstick) 70 mg/dL (Neg-Trace); RBC/HPF 0-3 HPF (0-3); Specific Gravity, Urine 1.021 (1.002-1.036); Urobilinogen 3 mg/dL (Less than 2); pH, Urine 6.5 (5.0-9.0)
[2020-06-16 19:54] LABS: ALT (SGPT) 29 U/L (8-55); AST (SGOT) 25 U/L (5-34); Acetaminophen Less than 6.0 mcg/mL (10.0-30.0); Albumin 3.5 g/dL (3.5-5.0); Alcohol Less than 10 mg/dL (Less than 10); Alkaline Phosphatase 70 U/L (40-110); Anion Gap 16 mmol/L (10-20); BUN (Urea Nitrogen) 7 mg/dL (8.9-20.6); Bilirubin, Total 0.5 mg/dL (0.2-1.2); Calc. Creatinine Clearance 0 mL/min (70-130); Calcium 8.8 mg/dL (7.8-10.44); Carbon Dioxide 22 mmol/L (22-29); Chloride 108 mmol/L (98-107); Globulin 2.7 g/dL (2.4-3.5); Glucose 96 mg/dL (70-105); Potassium 4.3 mmol/L (3.5-5.1); Protein, Total 6.2 g/dL (6.0-8.3); Salicylate Less than 8.0 mg/dL (15.0-30.0); Sodium 142 mmol/L (136-145)
[2020-06-16 20:12] LABS: Amphetamine Not Detected (NotDetected); Barbiturates Screen Not Detected (NotDetected); Benzodiazepine Screen Not Detected (NotDetected); Cocaine Metabolite Screen Not Detected (NotDetected); Medtox Control Line Valid? VALID (VALID); Medtox Reader # READER 4; Methadone Not Detected (NotDetected); Methamphetamine Not Detected (NotDetected); Opiate Screen Not Detected (NotDetected); Oxycodone Screen Not Detected (NotDetected); Phencyclidine (PCP) Not Detected (NotDetected); THC/Cannabinoid Screen Detected (NotDetected); Tricyclic Screen Not Detected (NotDetected)
[2020-06-16 20:55] LABS: INR-International Normal Ratio 2.6; Prothrombin Time 28.5 sec (12.0-14.7)
[2020-06-16] MEDS ORDERED: HYDROcodone/Acetaminophen 5/325 mg Tablet ONE (21:09)
== END 2020-06-16 22:51 | disposition home or self-care (01) ==
LOC: ERS 18:40
DX: E86.0 Dehydration (principal); I82.531 Chronic embolism and thrombosis of right popliteal vein; I82.511 Chronic embolism and thrombosis of right femoral vein; I82.532 Chronic embolism and thrombosis of left popliteal vein; F17.210 Nicotine dependence, cigarettes, uncomplicated; Z79.899 Other long term (current) drug therapy
CPT/HCPCS: 36415; 70450; 71045; 80053; 80306; 80307; 81003; 81015; 83880; 84443; 84484; 85025; 85610; 85730; 93005; 93970; 94760